=== PATIENT | female | born 1950 | race Caucasian/White ===

== ENCOUNTER 2025-05-24 13:50 | Inpatient (IN) | payer OTHER, MEDICARE, SELFPAY ==
[2025-05-24] VITALS (24 sets, daily range): BP systolic 97–150; BP diastolic 36–65; PULSE 79–111; RESP 16–48; TEMP 34.9–37.6; O2SAT 64–100; BMI 18.9
--- NOTE | ~2025-05-24 | US_ITS ---
CLINICAL HISTORY: Sepsis, ?Cholecystitis on CT A P US abdomen limited Comparison: CT/SR - CT ABDOMEN PELVIS W IV CON - 05/24/25 17:35 EST Findings: The gallbladder is distended with wall thickening of 1 cm, with pericholecystic fluid, and with a stone in the gallbladder fundus. Sonographic Painting's sign was unable to be obtained due to patient's clinical status. Common bile duct is normal in caliber, measuring 0.4 cm. IMPRESSION: Sonographic findings highly suggestive of acute cholecystitis This document has been electronically signed by: Ambrosio Coffey MD on 05/24/2025 21:03:52
--- NOTE | ~2025-05-24 | CT_ITS ---
CLINICAL HISTORY: resp failure, ? PE. pneum, CHF? CT angiography chest with contrast. 3D Postprocessing. Comparison: None provided Findings: NECK BASE: Limited views of the thyroid are unremarkable. LUNGS/PLEURA: Endotracheal tube in place. Scarring and emphysematous changes bilaterally. Multifocal areas of ground-glass airspace consolidation with small bilateral pleural effusions. PULM VASCULAR: No pulmonary embolism. MEDIASTINUM: No masses or lymphadenopathy. CARDIAC: No pericardial effusion. Moderate cardiomegaly. AORTA: No aneurysm. CHEST WALL: No masses or axillary lymphadenopathy. LIMITED ABDOMEN: Limited views are unremarkable. BONES: No acute fracture. IMPRESSION: 1. No pulmonary emboli. 2. Multifocal pneumonia. This document has been electronically signed by: Quita Lynch MD on 05/24/2025 18:43:40
--- NOTE | ~2025-05-24 | CT_ITS ---
CLINICAL HISTORY: Sepsis? source CT abdomen and pelvis with contrast Comparison: None provided Findings: LIMITED CHEST: See separate CT chest. LIVER: Small hypoattenuating lesions, too small to characterize however may represent cysts. BILIARY: Distended gallbladder with small gallstones. PANCREAS: No mass or ductal dilatation. SPLEEN: No splenomegaly. KIDNEYS: Heterogeneous hypoenhancement of the right kidney. No hydronephrosis. Small hypoattenuating lesions, too small to characterize however may represent cysts. ADRENALS: No nodule. VASCULAR: No aneurysm. IVC filter in place. RETROPERITONEUM: No lymphadenopathy or mass. BOWEL/MESENTERY: Enteric tube tip is in the stomach. No evidence of obstruction. No free fluid or air. Moderate colonic stool burden. Rectal temperature probe. ABDOMINAL WALL: Anasarca. URINARY BLADDER: Decompressed with Casillas catheter in place. PELVIC NODES: No pelvic lymphadenopathy. PELVIC ORGANS: Normal for age. BONES: No acute fracture. OTHER: Negative. IMPRESSION: Heterogeneous hypoenhancement of the right kidney, may represent renal infarct versus pyelonephritis. Correlate with urinalysis. Distended gallbladder with cholelithiasis. Acute cholecystitis is considered. Also see separate CT chest performed concurrently. This document has been electronically signed by: Quita Lynch MD on 05/24/2025 18:38:55
--- NOTE | ~2025-05-24 | XR_ITS ---
EXAMINATION: XR CHEST CLINICAL INFORMATION: hypoxia COMPARISON: 05/31/2025. TECHNIQUE: AP view of the chest was obtained. FINDINGS: Cardiomegaly is present. The mediastinal contours and hilar contours are normal. Aortic mural calcifications. Lungs again demonstrate diffuse interstitial pulmonary edema with alveolar edema in the perihilar regions and lung bases. There are small bilateral layering pleural effusion suspected. There is no perceptible pneumothorax. No focal osseous or soft tissue abnormality. Degenerative changes in both shoulder joints and throughout the spine. XR/XR chest 1V IMPRESSION: 1. No significant interval change. Cardiomegaly with diffuse pulmonary edema and small effusions. Electronically signed by: Bran Castro MD 06/03/2025 10:29 AM [facility]
--- NOTE | ~2025-05-24 | XR_ITS ---
CLINICAL HISTORY: pain Best images obtainable due to patients mobility. AP and Lateral views were obtained. Two views of the right elbow. COMPARISON: None provided. FINDINGS: Elevation of the anterior fat pad. Anterior humeral and radiocapitellar lines are maintained. Visualized portions of the humerus, radius and ulna appear intact. IMPRESSION: 1. Elbow joint effusion. This document has been electronically signed by: Jared Garcia MD on 06/07/2025 18:35:01
--- NOTE | ~2025-05-24 | US_ITS ---
EXAMINATION: US ABDOMEN LIMITED HISTORY: ?Acute Danni, Repeat for IR TECHNIQUE: Real-time grayscale ultrasound imaging of the gallbladder was performed and images were reviewed. COMPARISON: Comparison is made with the prior examination dated 05/24/2025. FINDINGS: The gallbladder is distended and demonstrates intraluminal calculi. There is pericholecystic fluid as seen previously. There is no gallbladder wall thickening. The patient cannot be assessed for a sonographic Painting sign negative intubation. The common bile duct measures 8 mm in diameter which is a new finding. US/US abdomen limited IMPRESSION: 1. Distended gallbladder with cholelithiasis and pericholecystic fluid. If there is clinical concern for acute cholecystitis, HIDA scan is suggested. 2. New mild dilatation of the common bile duct measuring up to 8mm. Electronically signed by: Gurpreet Nicolas MD 05/27/2025 10:22 AM [facility]
--- NOTE | ~2025-05-24 | XR_ITS ---
CLINICAL HISTORY: Low O2 sats, increased work of breathing 1 view chest x-ray Comparison: 05/24/2025 Findings: Persistent cardiomegaly. Mildly evolving relatively diffuse right lung and less conspicuous left upper/midlung opacities likely due to pneumonia and/or pulmonary edema. Persistent bilateral costophrenic recess pleural effusions. Incompletely evaluated cervical spine hardware. Old healed fracture of the lateral aspect of 1 of the left-sided ribs. No acute fracture. IMPRESSION: Persistent cardiomegaly. Mildly evolving relatively diffuse right lung and less conspicuous left upper/midlung opacities likely due to pneumonia and/or pulmonary edema. Persistent bilateral costophrenic recess pleural effusions. This document has been electronically signed by: Hedy Smith MD on 05/31/2025 06:09:36
--- NOTE | ~2025-05-24 | XR_ITS ---
CLINICAL HISTORY: sudden SOB 1 view chest x-ray Comparison: CR - XR CHEST 1V - 06/11/25 20:06 EST CR - XR CHEST 1V - 06/09/25 18:40 EST Findings: There is coarse opacity throughout both lungs which appears similar to prior exams. There may be a small left pleural effusion. No change. Cardiomegaly similar to prior. Osteopenia. No acute fracture. IMPRESSION: No acute cardiopulmonary changes. This document has been electronically signed by: Byron Villareal MD on 06/14/2025 02:14:45
--- NOTE | ~2025-05-24 | XR_ITS ---
CLINICAL HISTORY: sob 1 view chest x-ray Comparison: CR/SR - XR CHEST 1 VIEW - 06/03/25 10:10 EST Findings: Similar bilateral hazy airspace opacities. Stable cardiomegaly. No acute osseous abnormality. IMPRESSION: 1. Similar cardiomegaly with bilateral hazy airspace opacities, which may represent edema versus pneumonia. This document has been electronically signed by: Quita Lynch MD on 06/09/2025 18:55:42
--- NOTE | ~2025-05-24 | CT_ITS ---
EXAMINATION: CT CHEST ANGIOGRAPHY WITH IV CONTRAST INDICATION: hypoxia COMPARISON: Previous chest x-ray from earlier the same day and chest CT PA gram May 24, 2025 TECHNIQUE: Helical CT scan of the chest was performed following administration of intravenous contrast (65 mL Omnipaque 350). The contrast bolus was timed to optimally opacify the pulmonary arteries. Thin sections were obtained through the pulmonary arteries. Coronal and sagittal reformatted images were generated. 3D/MIP reconstructed images are also obtained and reviewed. This CT exam was performed with one or more of the following dose reduction techniques: automated exposure control, adjustment of the mA and/or kV according to patient size, use of iterative reconstruction technique. DLP: 131 mGy-cm CHEST: THYROID: The thyroid gland is unremarkable. PULMONARY ARTERIES: Limited exam due to respiratory motion artifact. No intraluminal filling defects are identified within the pulmonary arteries to suggest pulmonary emboli. Pulmonary arteries upper normal in size, main pulmonary artery measuring 2.7 cm. LUNGS: Diffuse groundglass attenuation and increased interstitial markings, right lung greater than left. This is a slightly increased from previous exam. MEDIASTINUM: Shotty mediastinal lymphadenopathy similar to previous exam. LION: Shotty bilateral hilar lymphadenopathy similar to previous exam. CARDIOVASCULATURE: Enlarged heart. Particularly, the left atrium is enlarged. No pericardial effusion. There is no septal bowing. There is reflux of contrast into the liver suggestive of right heart compromise that appears increased from previous exam. Calcified normal caliber thoracic aorta. Very minimal aortic valve calcification. DEGREE OF CORONARY CALCIFICATION: moderate PLEURA: Small to moderate bilateral pleural effusions. The left is decreased and the right not appear appreciably changed from previous exam. No pneumothorax. MAIN AIRWAYS: The mainstem bronchi and proximal branches are patent. AXILLA: There is no axillary lymphadenopathy. No chest wall mass. There is dependent subcutaneous edema. UPPER ABDOMEN: Severe atherosclerotic disease. Reflux of contrast into the liver described above. BONES AND SOFT TISSUES: Degenerative changes of the spine and mild T5 vertebral body compression fracture unchanged. CT/CT angio chest PE protocol IMPRESSION: Limited exam due to respiratory motion artifact. No evidence of pulmonary embolism. Very enlarged heart, particularly the left atrium. No evidence of right heart strain. Reflux of contrast in the liver suggestive of right heart compromise increased from prior CTA. Diffuse groundglass attenuation and increased interstitial markings throughout the lungs, right greater than left. This is increased from recent May 24, 2025 exam. Differential would include pulmonary edema and pneumonia. Small to moderate sized bilateral pleural effusions. Electronically signed by: Vonda Bruno MD 05/31/2025 12:25 PM [facility] [place]
--- NOTE | ~2025-05-24 | XR_ITS ---
EXAMINATION: XR CHEST CLINICAL INFORMATION: shortness of breath COMPARISON: None available. TECHNIQUE: Frontal view of the chest was obtained. FINDINGS: Somewhat patchy diffuse airspace opacities are present in the right greater than left lung, most advanced in the right upper lobe. There is cardiomegaly. There is no definite pleural effusion. There is rotator cuff arthropathy on the right, and probably on the left, consistent with chronic rotator cuff tear. There is hardware related to ACDF in the mid to lower cervical spine. XR/XR chest 1V IMPRESSION: Patchy but diffuse airspace disease could represent ARDS, pneumonia, or early changes from pulmonary edema. Cardiomegaly. Electronically signed by: Jerzy Veras MD 05/24/2025 02:55 PM [facility]
--- NOTE | ~2025-05-24 | XR_ITS ---
CLINICAL HISTORY: worsening hypoxia 1 view chest x-ray. Comparison: CR - XR CHEST 1V - 06/09/25 18:40 EST Findings: Cardiomegaly. Bilateral diffuse airspace opacities have increased in the right mid and lower lung compared to prior exam. No acute displaced fracture. The visualized upper abdomen is unremarkable. Impression: Interval increase in right lung airspace opacities. This document has been electronically signed by: Serina Kam MD on 06/11/2025 20:26:58
--- NOTE | ~2025-05-24 | US_ITS ---
CLINICAL HISTORY: LLE swelling, assess for DVT Venous duplex ultrasound left lower extremity Comparison: None provided Findings: Evaluation was limited as the patient was not able to tolerate compression. The left common femoral, femoral, popliteal and posterior tibial veins demonstrate normal color flow and appropriate waveforms. The left peroneal vein was not visualized. The saphenofemoral junction is patent. No popliteal cyst. IMPRESSION: 1. Negative for left lower extremity deep vein thrombosis. Mildly limited study. This document has been electronically signed by: Heather Ruiz MD on 05/30/2025 15:13:05
--- NOTE | 2025-05-24 13:55 | ED_ITS ---
HPI - General Adult General Chief complaint: Dyspnea Stated complaint: SOB COMING FROM SNF 75% 15 LPM NRB Time Seen by Provider: 05/24/25 13:55 History of Present Illness ED Provider: Jacinda PAREKH narrative: The patient is a 74-year-old woman who was brought to the hospital by ambulance from [facility] for shortness of breath. The patient was hospitalized at [facility] for the month of March. She was hospitalized on March 04. She was discharged on April 04, about 6 weeks ago. Her discharge diagnoses included C diff colitis, chronic congestive heart failure, paroxysmal atrial fibrillation, and a variety of other conditions. Apparently when the patient left [facility] she had completed a course of oral vancomycin for C diff. During the last 6 weeks at [facility] however she had a recurrence of diarrhea and tested positive for C diff and was put on another course of vancomycin. She has been on a tapering dose of oral vancomycin with the last dose today. In addition she was apparently prescribed a course of doxycycline last week for possible pneumonia. She was also started on a course of levofloxacin 3 days ago for a possible UTI. Over the past couple of days her oxygen saturations have worsened than she was put on oxygen. Today she had sufficiently low oxygen saturations and seemed tachypneic and short of breath so that they called an ambulance and sent her to the hospital. The patient seems somewhat confused and is not a very good historian and does not very able to add to the history. She complained intermittently of left leg pain. I was ultimately able to speak to the patient's family and they told me that the pain in the left leg is a chronic complaint. 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 Related Data Allergies Allergy/AdvReac Type Severity Reaction Status Date / Time No Known Allergies Allergy Verified 05/24/25 14:00 Review of Systems 2 Review of Systems: Yes all other systems are reviewed and are negative PMFSH Social History Social History Smoked in Last 30 Days: No Use of substances other than those prescribed or required for medical reasons: No Advance Directives: No Advance Directives Information Provided: Yes Do you have a plan to hurt others: No Plan Physical Exam ED Vital Signs: Vital Signs - 24 hr 05/24/25 13:56 05/24/25 14:07 05/24/25 15:07 Temperature 99.2 F 99.5 F Pulse Rate 108 H 85 90 Respiratory Rate 40 H 24 H 30 H Blood Pressure 150/49 H 131/38 L Pulse Oximetry 93 89 L Oxygen Delivery Method Oxymask Oxymask Oxygen Flow Rate 8 Fraction of Inspired Oxygen 05/24/25 15:36 05/24/25 15:37 05/24/25 15:37 Temperature 99.3 F Pulse Rate 91 92 Respiratory Rate 25 H 25 H 26 H Blood Pressure Pulse Oximetry 96 Oxygen Delivery Method High Flow Nasal Cannula Oxygen Flow Rate 45 Fraction of Inspired Oxygen 65 05/24/25 16:21 05/24/25 17:03 05/24/25 17:09 Temperature 99.5 F Pulse Rate 103 H 110 H 111 H Respiratory Rate 48 H 23 H 24 H Blood Pressure 148/64 H 124/36 L 124/36 L Pulse Oximetry 100 100 Oxygen Delivery Method High Flow Nasal Cannula Mechanical Ventilation Oxygen Flow Rate Fraction of Inspired Oxygen 05/24/25 17:12 05/24/25 17:22 05/24/25 17:25 Temperature Pulse Rate 100 Respiratory Rate 18 Blood Pressure 125/57 L Pulse Oximetry 100 Oxygen Delivery Method Mechanical Ventilation Oxygen Flow Rate Fraction of Inspired Oxygen 50 40 40 05/24/25 17:50 05/24/25 18:23 Temperature 99.7 F 99.3 F Pulse Rate 98 94 Respiratory Rate 16 16 Blood Pressure 141/63 H 119/51 L Pulse Oximetry 95 94 Oxygen Delivery Method Mechanical Ventilation Mechanical Ventilation Oxygen Flow Rate Fraction of Inspired Oxygen 30 BMI result Body Mass Index 18.9 Const Other: The patient is a cachectic, chronically ill-appearing 74-year-old who was awake and seemed restless. She was tachypneic with some increased work of breathing. HENMT Other: Face is symmetrical. Mucous membranes appeared dry. Eyes Other: Pupils are round equal, conjunctivae are clear, extraocular movements intact Neck Other: No neck swelling. No definite JVD although her external jugular veins were not flat. Resp Other: Diminished air entry bilaterally. I did not hear definite crackles or wheezes. There was increased work of breathing however. The patient was tachypneic Cardio Rate: tachycardic Rhythm: regular rhythm Heart sounds: S1 normal heart sound present and S2 normal heart sound present GI Other: The abdomen was soft and seems nontender. Skin Other: Skin was unremarkable Neuro Other: The patient was awake and alert but seemed somewhat agitated and restless. Pupils are round equal, eye movements were intact, face was symmetrical, there was no gross speech abnormality. She seems to have a contracted left arm. This seems chronic. Her right arm seems normal and she seems to move the right arm normally and appropriately. She seems to have symmetrical tone in her legs. Extrem Other: The patient keeps her left arm bent at the elbow. I am unable to straighten the arm. I believe this is a chronic deformity. The other extremities are without deformity or any other abnormality. Her extremities seem somewhat wasted. There was no swelling or tenderness. I was able to put her hips and knees through a good range of motion. Medications Administered Generic Name Dose Route Start Last Admin Trade Name Freq PRN Reason Stop Dose Admin Fentanyl 1,000 mcg in 100 mls @ 0 mls/hr 05/24/25 16:45 05/24/25 17:04 Sublimaze/Ns IVCONT 50 mcg/hr .Q0M DEE 5 mls/hr Protocol Administration Per Protocol Discontinued Medications Generic Name Dose Route Start Last Admin Trade Name Freq PRN Reason Stop Dose Admin Albuterol Sulfate 5 mg/ 0 mg 05/24/25 14:07 05/24/25 14:09 Albuterol/Ipratropium 3 ml INHALE 05/24/25 14:08 7.5 each ONCE ONE Administration Albuterol Sulfate 5 mg/ 0 mg 05/24/25 15:36 05/24/25 15:39 Albuterol/Ipratropium 3 ml INHALE 05/24/25 15:37 1 each ONCE ONE Administration Haloperidol Lactate 2 mg 05/24/25 16:02 05/24/25 16:17 Haloperidol Lactate 5 Mg/Ml Vial IVPUSH 05/24/25 16:03 2 mg ONCE ONE Administration Piperacillin Sod/Tazobactam 100 mls @ 200 mls/hr 05/24/25 14:48 05/24/25 15:36 Sod 4.5 gm/ Sodium Chloride IV 05/24/25 15:17 Infused ONCE ONE Infusion Vancomycin HCl 1,250 mg/ 250 mls @ 166.667 mls/hr 05/24/25 14:48 05/24/25 17:25 Sodium Chloride IV 05/24/25 16:17 Infused ONCE ONE Infusion Lactated Ringer's 1,000 mls @ 999 mls/hr 05/24/25 15:00 05/24/25 16:20 Lr IV 05/24/25 16:00 Infused .Q1H1M DEE Infusion Midazolam HCl 50 mg in 50 mls @ 2 mls/hr 05/24/25 16:45 05/24/25 17:03 Versed IVCONT 2 mg/hr .Q24H DEE 2 mls/hr Protocol Administration 2 MG/HR Iohexol 100 ml 05/24/25 17:47 05/24/25 17:48 Iohexol 350 Mg/Ml 100 Ml Infus..Btl IV 05/24/25 17:48 85 ml ONCE ONE Administration Iohexol 100 ml 05/24/25 18:10 05/24/25 18:12 Iohexol 350 Mg/Ml 100 Ml Infus..Btl IV 05/24/25 18:11 85 ml ONCE ONE Administration Ketamine HCl 70 mg 05/24/25 16:42 05/24/25 16:55 Ketamine Hcl/Ns 50 Mg/5 Ml Syringe IVPUSH 05/24/25 16:43 70 mg ONCE ONE Administration Rocuronium [place] 50 mg 05/24/25 16:42 05/24/25 16:55 Rocuronium [place] 50 Mg/5 Ml Vial IVPUSH 05/24/25 16:43 50 mg ONCE ONE Administration Medical Decision Making Medical Decision Making [facility] Narrative: The patient is a 74-year-old woman with a history of congestive heart failure. She also has a history of paroxysmal atrial fibrillation and is on anticoagulation. She has been staying at a rehab facility, [facility] for the last 7 weeks after being discharged from [facility] on April 04. She has been there for 1 month for a variety of problems including C diff colitis. Apparently while at the rehab facility she had a 2nd occurrence of C diff and was placed on a 2nd round of vancomycin which has been tapering down. More recently she was on a course of doxycycline for a possible pneumonia last week and apparently has been on levofloxacin for the last 3 days for a possible UTI. She was sent to the emergency room because of worsening shortness of breath over the last couple of days with a falling oxygen saturations. She arrived quite tachypneic with some increased work of breathing. I felt her chest x-ray probably showed pneumonia. She was treated with the antibiotics, piperacillin/tazobactam and vancomycin. She was given bronchodilator treatment. She was given IV fluids. The patient has a significant oxygen requirement. She was also very restless which made monitoring her oxygen saturations difficult. Since she was exhibiting increased work of breathing she was placed on high-flow nasal cannula. Despite this she remained very tachypneic and was working quite hard. Ultimately I felt that she was going to fatigue and, given her degree of restlessness and agitation I thought that intubation was probably the prudent course of action. The patient agreed to the idea of intubation and I also spoke to the patient's and daughter prior to intubation. The patient has been a full code to this point. The patient was intubated in a fairly straight forward manner. A CT scan of the chest and also of the abdomen and pelvis was obtained following intubation. ET tube placement and orogastric tube placement seem adequate on the CT scans. The patient is respiratory status seemed to stabilize after intubation. She was placed on a midazolam drip and a fentanyl drip. Fortunately she remained hemodynamically stable. The CT of the chest was read as showing multifocal pneumonia. I contacted Dr. Devlin of the intensive care unit and the patient was admitted for ongoing management. The patient's and daughter confirmed that the patient's left arm has been chronically contracted since his stroke. Additionally they say that the patient's complaint of left leg pain is a chronic complaint. Lab Data 05/24/25 14:14 05/24/25 14:14 Labs: Lab Results 05/24/25 05/24/25 05/24/25 Range/Units 14:14 15:11 17:18 WBC 19.3 H (4.8-10.8) X10*3/uL RBC 2.71 L (4.20-5.50) X10*6/uL Hgb 7.5 L (12.0-16.0) g/dl Hct 22.6 L (37.0-47.0) % MCV 83.4 (80.0-98.0) fL MCH 27.7 (27.0-33.0) pg MCHC 33.2 (31.0-35.0) g/dl RDW 18.4 H (11.0-16.0) % Plt Count 529 H (160-400) X10*3/uL MPV 8.7 L (9.4-12.3) fL Immature Gran % (Auto) 2.5 H (0.0-0.4) % Neut % (Auto) 85.5 H (45-73) % Lymph % (Auto) 4.7 L (20-40) % Desha % (Auto) 6.9 (2-11) % Eos % (Auto) 0.1 (0-4) % Baso % (Auto) 0.3 (0-2) % Lymph # (Auto) 0.9 L (1.2-4.9) X10*3/uL Desha # (Auto) 1.3 H (0.1-1.2) X10*3/uL Eos # (Auto) 0.0 (0.0-0.4) X10*3/uL Baso # (Auto) 0.1 (0.0-0.2) X10*3/uL Abs Immat Gran (auto) 0.49 H (0.00-0.03) X10*3/uL Absolute Neuts (auto) 16.5 H (2.0-8.3) x10*3/uL Absolute Nucleated RBC 0.000 (0.0-0.012) X10*3/uL Nucleated RBC % (auto) 0.0 (0.0-0.2) /100WBC PT 24.1 H (11.2-13.5) SEC INR 2.0 H (0.9-1.1) VBG pH 7.43 (7.32-7.43) VBG pCO2 30 mmHg VBG pO2 35 mmHg VBG HCO3 20 L (22-26) mmol/L VBG O2 Saturation 46.0 % VBG Base Excess -2.6 mmol/L Sodium 125 L (135-145) mmol/L Potassium 4.8 (3.3-5.1) mmol/L Chloride 95 L (96-108) mmol/L Carbon Dioxide 22 (22-29) mmol/L Anion Gap 13 (12-20) BUN 14 (9-16) mg/dL Creatinine 0.58 (0.5-1.4) mg/dL Estim Creat Clear Calc 67.0 Estimated GFR > 60 Random Glucose 104 (60-115) mg/dL Lactic Acid 2.1 H* (0.5-2.0) mmol/L Lactic Acid F/U @ 2Hr 1.9 (0.5-2.0) mmol/L Calcium 8.3 L (8.4-10.2) mg/dL Magnesium 1.8 (1.6-2.6) mg/dL Total Bilirubin 0.7 (0.0-1.0) mg/dL Direct Bilirubin 0.4 (0.0-0.5) mg/dL AST 100 H (5-31) U/L ALT 71 H (0-31) U/L Alkaline Phosphatase 104 (39-117) U/L Troponin I High Sens 8.0 (<3.5-17.0) ng/L C-Reactive Protein 21.88 H (< or = 0.50) mg/dL Total Protein 5.8 L (6.5-8.0) g/dL Albumin 2.8 L (3.5-5.0) g/dL Procalcitonin 0.19 ng/mL Urine Color Yellow Urine Appearance Clear Urine pH 5.5 (5.0-9.0) Ur Specific [place] 1.025 (1.005-1.025) Urine Protein 30 (1+) H (Neg-Trace) mg/dL Urine Glucose (UA) Negative (Negative) mg/dL Urine Ketones Trace (Negative) mg/dL Urine Blood Negative (Negative) Urine Nitrite Negative (Negative) Ur Leukocyte Esterase Trace H (Negative) Urine RBC 0-2 (0-2) /HPF Urine WBC 6-10 H (0-5) /HPF Ur Squamous Epith Cells 3-5 (0-2) /HPF Urine Bacteria None Seen (None Seen) Hyaline Casts 3-5 (0-2) /LPF Influenza Type A (PCR) NEGATIVE (Negative) Influenza Type B (PCR) NEGATIVE (Negative) RSV RNA Qual (PCR) NEGATIVE (Negative) SARS-CoV-2 RNA (RT-PCR) NEGATIVE (Negative) Blood Type A Positive Antibody Screen NEGATIVE Critical Care Time Critical Care Time Critical Care Time: Yes Total Critical Care Time: 45 Attestation: The patient was critically ill with a high probability of imminent or life- threatening deterioration. ?I spent greater than 30 minutes of discontinuous time evaluating the patient, delivering critical care at the bedside, discussing evaluating data with consultants. ?Critical care time does not include time spent performing separately billable procedures or teaching. ?Time spent performing critical care with 45 minutes. Discharge Plan Discharge Clinical Impression: Multifocal pneumonia, Respiratory failure Patient Disposition: Admitted As Inpatient
--- NOTE | 2025-05-24 14:01 | ECG_ITS ---
Test Reason : SOB Blood Pressure : */* mmHG Vent. Rate : 95 BPM Atrial Rate : 101 BPM P-R Int : * ms QRS Dur : 96 ms QT Int : 358 ms P-R-T Axes : * 67 83 degrees QTcB Int : 449 ms Artifact in tracing Undetermined rhythm Cannot rule out Anterior infarct , age undetermined Due to artifact, cannot interpret further No previous ECGs available Referred By: Deondre Monaco Electronically Signed By: JOSTIN DONNELLY
[2025-05-24] MEDS: Albuterol Sulfate 5 MG, Albuterol/Iprat 2.5/0.5MG 3 ML 3 ML INHALE ×2 (14:09→15:39)
[2025-05-24 14:35] LABS: MANUAL DIFF FLAG NO
[2025-05-24 14:45] LABS: INTERNATIONAL NORM RATIO 2.0 (0.9-1.1); Prothrombin Time 24.1 SEC (11.2-13.5)
[2025-05-24 14:49] LABS: Hematocrit 22.6 % (37.0-47.0); Hemoglobin 7.5 g/dl (12.0-16.0); Imm Gran Abs Auto 0.49 X10*3/uL (0.00-0.03); Imm Gran Pct Auto 2.5 % (0.0-0.4); Lymphocytes Absolute Auto 0.9 X10*3/uL (1.2-4.9); Mean Corpuscular HGB Conc 33.2 g/dl (31.0-35.0); Mean Corpuscular Hemoglobin 27.7 pg (27.0-33.0); Mean Corpuscular Volume 83.4 fL (80.0-98.0); NRBC Abs Auto 0.000 X10*3/uL (0.0-0.012); NRBC Pct Auto 0.0 /100WBC (0.0-0.2); Platelet Count 529 X10*3/uL (160-400); Red Blood Count 2.71 X10*6/uL (4.20-5.50); White Blood Count 19.3 X10*3/uL (4.8-10.8)
[2025-05-24 14:51] LABS: Alanine Aminotransferase 71 U/L (0-31); Albumin Level 2.8 g/dL (3.5-5.0); Alkaline Phosphatase 104 U/L (39-117); Anion Gap 13 (12-20); Aspartate Amino Transferase 100 U/L (5-31); Blood Urea Nitrogen 14 mg/dL (9-16); Calcium 8.3 mg/dL (8.4-10.2); Carbon Dioxide 22 mmol/L (22-29); Chloride 95 mmol/L (96-108); Creatinine Clr Calc Pharmacy 67.0; Estimated Glomerular Filt Rate > 60; Magnesium 1.8 mg/dL (1.6-2.6); Potassium 4.8 mmol/L (3.3-5.1); Sodium 125 mmol/L (135-145); Total Protein 5.8 g/dL (6.5-8.0)
[2025-05-24] MEDS: Lactated Ringers 1,000 ML 999 ML IV (14:59)
[2025-05-24 15:15] LABS: VBG HCO3 20 mmol/L (22-26); VBG O2 % Saturation 46.0 %
[2025-05-24 15:15] LABS: Venous Blood Gas Refer to POC result
[2025-05-24 15:17] LABS: Troponin-I High Sensitivity 8.0 ng/L (<3.5-17.0)
[2025-05-24 15:18] LABS: Resp Syncy Virus RNA Qual PCR NEGATIVE (Negative); SARS COV2 PCR INHOUSE NEGATIVE (Negative)
--- NOTE | 2025-05-24 15:34 | PC.NURSE ---
Pt continues to be squirrely in bed, O@ sat unreliable, sats anywhere from 85 - 94% on oxymask. Provider decision to start pt on HF, currently on 45L @ 65%, sats anywhere from 87 - 96%. RT remains at bedside.
--- NOTE | 2025-05-24 16:23 | PC.NURSE ---
PT found completely naked on bed, pt repositioned, oxygen reattached, medicated per MAR. Pt intermittently yelling help me help me help me Provider to decide if BIPAP is next step.
[2025-05-24 16:31] LABS: Reflex Lactate? Lactic Acid Added
[2025-05-24] MEDS: Ketamine HCl/NS 50 MG/5 ML SYRINGE 70 MG IVPUSH (16:55)
[2025-05-24] MEDS: Midazolam HCl/NS 50 MG/50 ML PLAST..BAG IVCONT (17:03)
[2025-05-24] MEDS: fentaNYL citrate/NS 1,000 MCG/100 ML PLAST..BAG 5 MCG IVCONT (17:04)
[2025-05-24 17:05] LABS: Procalcitonin 0.19 ng/mL
--- NOTE | 2025-05-24 17:10 | PC.NURSE ---
Provider/ Family decision made to intubate. Pt successfully intubed by Dr Mendosa 7.5 ET, 22 @ the lip + color change, OG tube placed by Dr. Mendosa. Lana and Katherine PRO present during intubation. See MAR for meds given/gtts running. Plan for pt to get chest CT for tube placement/necessary for ED work up.
[2025-05-24 17:28] LABS: Appearance Urine Clear; Glucose Urine UA Negative (Negative); PH 5.5 (5.0-9.0); Specific Gravity - Urine 1.025 (1.005-1.025); UMIC TRIGGER UACC YES
[2025-05-24 17:43] LABS: ~Lactic Acid-LAB USE ONLY 1.9 mmol/L (0.5-2.0)
[2025-05-24] MEDS: iohexoL 350 MG/ML 100 ML INFUS..BTL IV ×2 (17:48→18:12)
[2025-05-24 17:57] LABS: UACC Culture Trigger YES
--- NOTE | 2025-05-24 18:18 | PM.CCHP ---
History of Present Illness Date of Service: 05/24/25 <Josie Devlin MD - Last Filed: 05/24/25 18:59> Attending physician on admission: Josie Devlin <Josie Devlin MD - Last Filed: 05/24/25 18:59> Chief Complaint: Dyspnea <Josie Devlin MD - Last Filed: 05/24/25 18:59> Patient is a 74 Y F w/ CHF, c/b atrial fibrillation, recent admission to [facility] for c. difficile, presenting from rehab w/ dyspnea, found to be in acute hypoxic respiratory failure, necessitating intubation; ED work-up not suggestive of pulmonary embolism, concerning for multifocal pneumonia <Josie Devlin MD - Last Filed: 05/24/25 18:59> Review of Systems Review of Systems: Yes unobtainable due to endotracheal tube and Unobtainable due to mental condition <Josie Devlin MD - Last Filed: 05/24/25 18:59> FOR[facility]LY [facility], [facility] Social History Social History: Social History Smoked in Last 30 Days: No Use of substances other than those prescribed or required for medical reasons: No Advance Directives: No Advance Directives Information Provided: Yes Do you have a plan to hurt others: No Plan <Josie Devlin MD - Last Filed: 05/24/25 18:59> Meds Allergies/Adverse reactions: Allergies Allergy/AdvReac Type Severity Reaction Status Date / Time No Known Allergies Allergy Verified 05/24/25 14:00 <Josie Devlin MD - Last Filed: 05/24/25 18:59> Active Medications: Current Medications Midazolam HCl (Versed) 50 mg in 50 mls @ 2 mls/hr IVCONT .Q24H DEE; Protocol Last Admin: 05/24/25 17:03 Dose: 2 mg/hr, 2 mls/hr Fentanyl (Sublimaze/Ns) 1,000 mcg in 100 mls @ 0 mls/hr IVCONT .Q0M DEE; Protocol Last Admin: 05/24/25 17:04 Dose: 50 mcg/hr, 5 mls/hr Naloxone HCl (Naloxone Hcl 0.4 Mg/Ml Vial) 0.2 mg IVPUSH Q2M PRN PRN Reason: Excessive sedation or RR < 8 <Josie Devlin MD - Last Filed: 05/24/25 18:59> Physical Exam Vital Signs: Vital Signs: Last Vital Signs Temp 99.7 F 05/24/25 17:50 Pulse 98 05/24/25 17:50 Resp 16 05/24/25 17:50 BP 141/63 H 05/24/25 17:50 Pulse Ox 95 05/24/25 17:50 O2 Del Method Mechanical Ventil ation 05/24/25 17:50 O2 Flow Rate 45 05/24/25 15:37 FiO2 40 05/24/25 17:25 Oxygen Flow Rate 8 05/24/25 13:56 BMI result Body Mass Index 18.9 <Josie Devlin MD - Last Filed: 05/24/25 18:59> Const: General: ill appearing chronically <Beatriz Oconnor NP - Last Filed: 05/24/25 20:25> Nutritional Appearance: cachectic <Beatriz Oconnor NP - Last Filed: 05/24/25 20:25> HEENT: Head: Yes normocephalic and Yes atraumatic <Beatriz Oconnor NP - Last Filed: 05/24/25 20:25> General nose exam: Normal external nose present (Nares patent, septum midline, sinuses nontender bilaterally.) <Beatriz Oconnor NP - Last Filed: 05/24/25 20:25> Neck: Neck: Yes supple (no thyromegaly, trachea midline.) <Beatriz Oconnor NP - Last Filed: 05/24/25 20:25> Carotids: normal carotid upstroke <Beatriz Oconnor NP - Last Filed: 05/24/25 20:25> Resp: Auscultation: clear to auscultation bilaterally (normal work of breathing, no accessory muscle use) <Beatriz Oconnor NP - Last Filed: 05/24/25 20:25> Cardio: Jugular venous distension: no JVD <Beatriz Oconnor NP - Last Filed: 05/24/25 20:25> Rate: regular rate <Beatriz Oconnor NP - Last Filed: 05/24/25 20:25> Rhythm: regular rhythm <Beatriz Oconnor NP - Last Filed: 05/24/25 20:25> Heart sounds: no gallops, no murmurs and no rubs <Beatriz Oconnor NP - Last Filed: 05/24/25 20:25> Peripheral pulses: Peripheral pulses 2+ throughout <Beatriz Oconnor NP - Last Filed: 05/24/25 20:25> GI: Palpation (GI): Soft to palpation (nondistended.) and nontender <Beatriz Oconnor NP - Last Filed: 05/24/25 20:25> Skin: General skin exam: turgor decreased <Beatriz Oconnor NP - Last Filed: 05/24/25 20:25> Extrem: Left upper extremity: elbow/forearm Details: deformity Location: of the elbow (contracted) and wrist (contracted) <Beatriz Oconnor NP - Last Filed: 05/24/25 20:25> Results Labs CBC and Chem 7: 05/24/25 14:14 05/24/25 14:14 <Josie Devlin MD - Last Filed: 05/24/25 18:59> Labs: Laboratory Results - last 24 hr 05/24/25 05/24/25 05/24/25 14:14 15:11 17:18 MCV 83.4 MCH 27.7 MCHC 33.2 RDW 18.4 H Plt Count 529 H MPV 8.7 L Immature Gran % (Auto) 2.5 H Neut % (Auto) 85.5 H Lymph % (Auto) 4.7 L [place] % (Auto) 6.9 Eos % (Auto) 0.1 Baso % (Auto) 0.3 Lymph # (Auto) 0.9 L [place] # (Auto) 1.3 H Eos # (Auto) 0.0 Baso # (Auto) 0.1 Abs Immat Gran (auto) 0.49 H Absolute Neuts (auto) 16.5 H Absolute Nucleated RBC 0.000 Nucleated RBC % (auto) 0.0 PT 24.1 H INR 2.0 H VBG pH 7.43 VBG pCO2 30 VBG pO2 35 VBG HCO3 20 L VBG O2 Saturation 46.0 VBG Base Excess -2.6 Anion Gap 13 Estim Creat Clear Calc 67.0 Estimated GFR > 60 Random Glucose 104 Lactic Acid 2.1 H* Lactic Acid F/U @ 2Hr 1.9 Calcium 8.3 L Magnesium 1.8 Total Bilirubin 0.7 Direct Bilirubin 0.4 AST 100 H ALT 71 H Alkaline Phosphatase 104 Troponin I High Sens 8.0 C-Reactive Protein 21.88 H Total Protein 5.8 L Albumin 2.8 L Procalcitonin 0.19 Urine Color Yellow Urine Appearance Clear Urine pH 5.5 Ur Specific [place] 1.025 Urine Protein 30 (1+) H Urine Glucose (UA) Negative Urine Ketones Trace Urine Blood Negative Urine Nitrite Negative Ur Leukocyte Esterase Trace H Urine RBC 0-2 Urine WBC 6-10 H Ur Squamous Epith Cells 3-5 Urine Bacteria None Seen Hyaline Casts 3-5 Influenza Type A (PCR) NEGATIVE Influenza Type B (PCR) NEGATIVE RSV RNA Qual (PCR) NEGATIVE SARS-CoV-2 RNA (RT-PCR) NEGATIVE Blood Type A Positive Antibody Screen NEGATIVE <Josie Devlin MD - Last Filed: 05/24/25 18:59> Imaging Radiologist's Impressions: Impressions Chest X-Ray 05/24/25 14:45 IMPRESSION: Patchy but diffuse airspace disease could represent ARDS, pneumonia, or early changes from pulmonary edema. Cardiomegaly. Electronically signed by: Jerzy Veras MD 05/24/2025 02:55 PM EST <Josie Devlin MD - Last Filed: 05/24/25 18:59> Assessment and Plan (1) Acute respiratory failure: Status: Acute <Josie Devlin MD - Last Filed: 05/24/25 18:59> Patient is a 74 Y F w/ CHF, c/b atrial fibrillation, recent admission to [facility] for c. difficile, presenting from rehab w/ dyspnea, found to be in acute hypoxic respiratory failure, necessitating intubation; ED work-up suggestive of multifocal pneumonia N: intubated, sedated w/ propofol, fentanyl gtts, wean as tolerated CV: no acute issues; to closely monitor hemodynamics R: acute hypoxic respiratory failure, likely d/t mutlifocal pneumonia, intubated 05/24, wean as tolerated GI: NPO, to consider tube feeds : hyponatremia; to monitor renal indices/electrolytes H: anemia, to monitor; chemical DVT prophylaxis ID: empiric vanc/zosyn for possible pneumonia; to follow-up BCx, UCx, RCx 05/24; of note, recent c. difficile, on vanc PO E: to monitor hypo-/hyper-glycemia P: no acute issues <Josie Devlin MD - Last Filed: 05/24/25 18:59>
--- NOTE | 2025-05-24 19:06 | PC.NURSE ---
spoke w/ICU - will call back after report when bed assigned
--- NOTE | 2025-05-24 19:39 | PC.NURSE ---
report given to IRMA Darden in ICU patient going to #[id number]
[2025-05-24 20:27] LABS: VBG HCO3 16 mmol/L (22-26); VBG O2 % Saturation 100.0 %
--- NOTE | 2025-05-24 20:36 | PHA.MEDREC ---
Pharmacy Consult ? Medication Reconciliation Pharmacy has completed the medication reconciliation, using med list from [facility] [address].
[2025-05-24 21:14] LABS: Venous Blood Gas Refer to POC result
[2025-05-24] MEDS: Chlorhexidine Gluc Oral Rinse 15 ML MOUTHWASH BUCCAL (21:36)
[2025-05-24] MEDS: vancomycin HCL Oral Solution 125 MG/5 ML SOLN.RECON PO (23:26)
[2025-05-25] VITALS (38 sets, daily range): BP systolic 102–129; BP diastolic 42–65; PULSE 67–134; RESP 13–42; TEMP 34.2–37.6; O2SAT 88–100; BMI 22.2
--- NOTE | 2025-05-25 | ECG_ITS ---
Test Reason : arrhythmia Blood Pressure : */* mmHG Vent. Rate : 74 BPM Atrial Rate : 156 BPM P-R Int : * ms QRS Dur : 118 ms QT Int : 426 ms P-R-T Axes : * 54 -30 degrees QTcB Int : 473 ms Sinus rhythm possible Mobitz 1 second degree block cannot exclude old Anterior infarct (cited on or before 24-May-2025) Abnormal ECG When compared with ECG of 24-May-2025 14:30, No significant changes seen Referred By: Beatriz Oconnor Electronically Signed By: JOSTIN DONNELLY
[2025-05-25 05:05] LABS: VBG HCO3 20 mmol/L (22-26); VBG O2 % Saturation 64.0 %
[2025-05-25 05:18] LABS: Venous Blood Gas Refer to POC result
[2025-05-25 05:21] LABS: MANUAL DIFF FLAG NO
[2025-05-25 05:22] LABS: Imm Gran Abs Auto 0.09 X10*3/uL (0.00-0.03); Imm Gran Pct Auto 0.7 % (0.0-0.4); Lymphocytes Absolute Auto 1.2 X10*3/uL (1.2-4.9); Mean Corpuscular HGB Conc 33.2 g/dl (31.0-35.0); Mean Corpuscular Hemoglobin 28.0 pg (27.0-33.0); Mean Corpuscular Volume 84.5 fL (80.0-98.0); NRBC Abs Auto 0.000 X10*3/uL (0.0-0.012); NRBC Pct Auto 0.0 /100WBC (0.0-0.2); Platelet Count 497 X10*3/uL (160-400); Red Blood Count 2.39 X10*6/uL (4.20-5.50); White Blood Count 13.4 X10*3/uL (4.8-10.8)
[2025-05-25 05:28] LABS: Hematocrit 20.2 % (37.0-47.0); Hemoglobin 6.7 g/dl (12.0-16.0)
[2025-05-25 05:33] LABS: Albumin Level 2.4 g/dL (3.5-5.0)
[2025-05-25 05:39] LABS: Anion Gap 12 (12-20); Blood Urea Nitrogen 11 mg/dL (9-16); Calcium 8.2 mg/dL (8.4-10.2); Carbon Dioxide 19 mmol/L (22-29); Chloride 102 mmol/L (96-108); Creatinine Clr Calc Pharmacy 63.7; Estimated Glomerular Filt Rate > 60; Magnesium 1.8 mg/dL (1.6-2.6); Potassium 4.3 mmol/L (3.3-5.1); Sodium 129 mmol/L (135-145)
--- NOTE | 2025-05-25 05:52 | PC.NURSE ---
Pt arrived to unit approx 2014 - intubated and sedated?with Versed and Fentanyl drips, changed over to Propofol?drip per [employer]UFA[employer] DESIGN ENGINEER Elvin - see SEP. ETT #7.5, 22 cm?@ lip?on AC settings - see vent assessment. SR on tele, HR 70-80s. MAP < 65, Levophed ordered and titrated per SEP. OGT clamped. Casillas in place draining clear yellow urine. MASD to coccyx - see photo in chart, barrier cream and foam in place, blanchable redness to heels - heel boots applied. Upper dentures removed, placed at the bedside. Update given to pt's . Hygiene provided, repositioned Q2H.?
[2025-05-25] MEDS: Albumin Human 25 % 100 ML IV ×2 (06:23→07:34)
[2025-05-25] MEDS: fentaNYL citrate/NS 1,000 MCG/100 ML PLAST..BAG 2.5 MCG IVCONT (06:48)
--- NOTE | 2025-05-25 08:32 | PM.CCPN ---
Subjective Subjective Date of Service: 05/25/25 Interval History: admitted 05/24 PM d/t acute respiratory failure, likely d/t pneumonia; ED work-up also suggestive of acute cholecystitis; clinical status critical, though hemodynamically/clinically stable Critical Care Time (minutes): 60 Physical Exam Vital Signs: Vital Signs: Last Vital Signs Temp 99.0 F 05/25/25 08:00 Pulse 72 05/25/25 08:00 Resp 17 05/25/25 08:00 BP 104/48 L 05/25/25 08:00 Pulse Ox 99 05/25/25 08:00 O2 Del Method Mechanical Ventil ation 05/25/25 08:00 O2 Flow Rate 45 05/24/25 15:37 FiO2 25 05/25/25 08:00 Oxygen Flow Rate 8 05/24/25 13:56 BMI result Body Mass Index 22.2 Const: Other: intubated, sedated; appreciable spontaneous breathing, though no appreciable purposeful movements; cachectic, chronically-ill appearing General: comfortable and no acute distress HEENT: Head: Yes normal to inspection, Yes normocephalic and Yes atraumatic Eyes: General: appearance normal, both eyes and all related structures Neck: Neck: Yes normal visual inspection, Yes full ROM, Yes no meningeal signs, Yes trachea midline and Yes supple Chest: Chest palpation & inspection: normal inspection of the chest Resp: Other: no appreciable overt rales, rhonchi, wheezing Effort & Inspection: normal respiratory effort Cardio: Rate: regular rate Rhythm: regular rhythm GI: Other: no appreciable tenderness to palpation throughout Inspection: Yes normal to inspection, No Abdominal wall edema and No distended Palpation (GI): Soft to palpation, not firm, nontender, no guarding and not rigid Skin: General skin exam: no rashes or lesions noted Neuro: Other: appreciable contracture throughout General: no meningeal signs Extrem: General: Yes normal to inspection, Yes full ROM, Yes capillary refill normal and Yes no clubbing, cyanosis or edema Psych: Other: unable to assess Objective Data Labs 05/25/25 05:00 05/25/25 05:00 Labs: Laboratory Results - last 24 hr 05/24/25 05/24/25 05/24/25 14:14 15:11 17:18 WBC 19.3 H RBC 2.71 L Hgb 7.5 L Hct 22.6 L MCV 83.4 MCH 27.7 MCHC 33.2 RDW 18.4 H Plt Count 529 H MPV 8.7 L Immature Gran % (Auto) 2.5 H Neut % (Auto) 85.5 H Lymph % (Auto) 4.7 L [place] % (Auto) 6.9 Eos % (Auto) 0.1 Baso % (Auto) 0.3 Lymph # (Auto) 0.9 L [place] # (Auto) 1.3 H Eos # (Auto) 0.0 Baso # (Auto) 0.1 Abs Immat Gran (auto) 0.49 H Absolute Neuts (auto) 16.5 H Absolute Nucleated RBC 0.000 Nucleated RBC % (auto) 0.0 PT 24.1 H INR 2.0 H VBG pH 7.43 VBG pCO2 30 VBG pO2 35 VBG HCO3 20 L VBG O2 Saturation 46.0 VBG Base Excess -2.6 Sodium 125 L Potassium 4.8 Chloride 95 L Carbon Dioxide 22 Anion Gap 13 BUN 14 Creatinine 0.58 Estim Creat Clear Calc 67.0 Estimated GFR > 60 Random Glucose 104 Lactic Acid 2.1 H* Lactic Acid F/U @ 2Hr 1.9 Calcium 8.3 L Phosphorus Magnesium 1.8 Total Bilirubin 0.7 Direct Bilirubin 0.4 AST 100 H ALT 71 H Alkaline Phosphatase 104 Troponin I High Sens 8.0 C-Reactive Protein 21.88 H Total Protein 5.8 L Albumin 2.8 L Procalcitonin 0.19 Urine Color Yellow Urine Appearance Clear Urine pH 5.5 Ur Specific [place] 1.025 Urine Protein 30 (1+) H Urine Glucose (UA) Negative Urine Ketones Trace Urine Blood Negative Urine Nitrite Negative Ur Leukocyte Esterase Trace H Urine RBC 0-2 Urine WBC 6-10 H Ur Squamous Epith Cells 3-5 Urine Bacteria None Seen Hyaline Casts 3-5 Influenza Type A (PCR) NEGATIVE Influenza Type B (PCR) NEGATIVE RSV RNA Qual (PCR) NEGATIVE SARS-CoV-2 RNA (RT-PCR) NEGATIVE Blood Type A Positive Antibody Screen NEGATIVE Crossmatch See Detail 05/24/25 05/25/25 05/25/25 20:23 05:00 05:01 WBC 13.4 H RBC 2.39 L Hgb 6.7 L* Hct 20.2 L* MCV 84.5 MCH 28.0 MCHC 33.2 RDW 18.4 H Plt Count 497 H MPV 8.7 L Immature Gran % (Auto) 0.7 H Neut % (Auto) 82.9 H Lymph % (Auto) 8.7 L [place] % (Auto) 6.9 Eos % (Auto) 0.4 Baso % (Auto) 0.4 Lymph # (Auto) 1.2 [place] # (Auto) 0.9 Eos # (Auto) 0.1 Baso # (Auto) 0.1 Abs Immat Gran (auto) 0.09 H Absolute Neuts (auto) 11.1 H Absolute Nucleated RBC 0.000 Nucleated RBC % (auto) 0.0 PT INR VBG pH 7.48 H 7.48 H VBG pCO2 22 26 VBG pO2 95 39 VBG HCO3 16 L 20 L VBG O2 Saturation 100.0 64.0 VBG Base Excess -5.4 -2.0 Sodium 129 L Potassium 4.3 Chloride 102 Carbon Dioxide 19 L Anion Gap 12 BUN 11 Creatinine 0.61 Estim Creat Clear Calc 63.7 Estimated GFR > 60 Random Glucose 107 Lactic Acid Lactic Acid F/U @ 2Hr Calcium 8.2 L Phosphorus 4.2 Magnesium 1.8 Total Bilirubin Direct Bilirubin AST ALT Alkaline Phosphatase Troponin I High Sens C-Reactive Protein Total Protein Albumin 2.4 L Procalcitonin Urine Color Urine Appearance Urine pH Ur Specific [place] Urine Protein Urine Glucose (UA) Urine Ketones Urine Blood Urine Nitrite Ur Leukocyte Esterase Urine RBC Urine WBC Ur Squamous Epith Cells Urine Bacteria Hyaline Casts Influenza Type A (PCR) Influenza Type B (PCR) RSV RNA Qual (PCR) SARS-CoV-2 RNA (RT-PCR) Blood Type Antibody Screen Crossmatch Progress Note: A&P Assessment and plan (1) Multifocal pneumonia: Status: Acute (2) Acute respiratory failure: Status: Acute Plan Patient is a 74 Y F w/ CHF, c/b atrial fibrillation, recent admission to [facility] for c. difficile, presenting from rehab w/ dyspnea, found to be in acute hypoxic respiratory failure, necessitating intubation; ED work-up suggestive of multifocal pneumonia, as well as acute cholecystitis N: intubated, sedated w/ propofol, fentanyl gtts, wean as tolerated CV: no acute issues; to closely monitor hemodynamics R: acute hypoxic respiratory failure, likely d/t multifocal pneumonia, intubated 05/24, wean as tolerated GI: CT A/P and RUQ US c/f acute cholecystitis, appreciate general surgery recommendations, IR when available 11 AM; NPO : hyponatremia; to monitor renal indices/electrolytes H: anemia, to monitor; chemical DVT prophylaxis ID: empiric vanc/zosyn for possible pneumonia, acute cholecystitis; to follow-up BCx, UCx, RCx 05/24; of note, recent c. difficile, on vanc PO E: to monitor hypo-/hyper-glycemia P: no acute issues Quality Stroke Does the patient have a stroke diagnosis?: No VTE Prior VTE?: No VTE Risk Level:: Medical - moderate - high VTE Device Contraindication: N/A - Device Ordered VTE Drug Contraindication: N/A - Med Ordered
[2025-05-25 09:02] LABS: MRSA Nasal PCR POSITIVE (Negative); SA Nasal PCR POSITIVE (Negative)
[2025-05-25 09:33] LABS: Chlamydia pneumoniae PCR Not Detected (Not Detect.); Coronavirus 229E PCR Not Detected (Not Detect.); Coronavirus HKU1 PCR Not Detected (Not Detect.); Coronavirus NL63 PCR Not Detected (Not Detect.); Coronavirus OC43 PCR Not Detected (Not Detect.); RSV PCR Not Detected (Not Detect.); Rhino/Enterovirus PCR Not Detected (Not Detect.)
[2025-05-25] MEDS: vancomycin HCL Oral Solution 125 MG/5 ML SOLN.RECON PO ×4 (09:40→19:59)
[2025-05-25] MEDS: Calcium Gluconate/NaCl,Iso-Osm 1 GM/50 ML PLAST..BAG IV (09:40)
[2025-05-25] MEDS: Chlorhexidine Gluc Oral Rinse 15 ML MOUTHWASH BUCCAL ×3 (09:40→19:59)
[2025-05-25 10:05] LABS: Influenza A H1 PCR Not Detected (Not Detect.); Influenza A H1-2009 PCR Not Detected (Not Detect.); Influenza A H3 PCR Not Detected (Not Detect.); SARS-CoV-2 PCR Not Detected (Not Detect.)
--- NOTE | 2025-05-25 13:32 | HE.PHANOTE ---
Re Vanc Random 15.5 after two doses. Will continue same for now to get AUC therapeutic faster, but if renal worsens may need to decrease to 1250mg q24h.
--- NOTE | 2025-05-25 13:57 | MHC.CM.PN ---
Pt presently in ICU on ventilatory support: Information obtained from EMR - message left for spouse and for RN at [facility] where pt had been for STR: Pt requires assistance for ADL's but unknown if she uses DME. Requested copy of advanced directives from SNF. CM to follow for additional information and finalization of d/c planning needs. IMM in chart
--- NOTE | 2025-05-25 15:12 | PM.CNGS ---
History of Present Illness Consult details Consult date: 05/25/25 Narrative: 74 year old female presenting to the ER in acute resp distress, multifocal penumonia - intubated and in ICu on low dose pressors weaning. hx afib and recently with c diff. In ER ct scan abdo pelvis showing thickening of the GB ? consistent with cholecystitis. US showing some fluid. LFTs ok. Pt currently still intubated on antibx for pneumonia. unable to communicate because intubated and unsure if having pain Review of Systems Review of Systems: Yes unobtainable due to endotracheal tube PMFSH Past Medical History Medical History (Updated 05/25/25 @ 22:46 by Darcy Peterson MD) CVA (cerebral vascular accident) Afib CHF (congestive heart failure) Social History Social History Household Members: Unknown / Unable to assess Housing: Unknown / Unable to assess Patient Tobacco Use Status: Tobacco use Unknown Smoked in Last 30 Days: No Use of substances other than those prescribed or required for medical reasons: No Currently Displaying Signs/Symptoms of Drug Intoxication Withdrawal: No Advance Directives: No Advance Directives Information Provided: Yes Do you have a plan to hurt others: No Plan Recently lost weight without trying: Unsure Patient : No Meds Allergies Allergy/AdvReac Type Severity Reaction Status Date / Time No Known Allergies Allergy Verified 05/24/25 14:00 Active Medications: Current Medications Chlorhexidine Gluconate (Chlorhexidine Gluc Oral Rinse 15 Ml Mouthwash) 15 ml BUCCAL TID [facility] Last Admin: 05/25/25 09:40 Dose: 15 ml Enoxaparin Sodium (Enoxaparin Sodium 40 Mg/0.4 Ml Syringe) 40 mg SUBCUT Q24H [facility] Last Admin: 05/24/25 20:49 Dose: 40 mg Famotidine (Famotidine/Pf 20 Mg/2 Ml Vial) 20 mg IVPUSH BID [facility] Last Admin: 05/25/25 09:39 Dose: 20 mg Hydromorphone HCl (Hydromorphone Hcl 1 Mg/Ml Syringe) 0.5 mg IVPUSH Q2H PRN; Protocol PRN Reason: Pain, Moderate(Pain Scale 4-6) Last Admin: 05/25/25 09:39 Dose: 0.5 mg Piperacillin Sod/Tazobactam (Sod 3.375 gm/ Sodium Chloride) 50 mls @ 100 mls/hr IV Q6H DEE Last Infusion: 05/25/25 10:14 Dose: Infused Propofol (Diprivan) 1,000 mg in 100 mls @ 0 mls/hr IVCONT .Q0M DEE; Protocol Last Admin: 05/25/25 09:58 Dose: 50 mcg/kg/min, 14.97 mls/hr Norepinephrine Bitartrate (Levophed) 8 mg in 250 mls @ 0 mls/hr IVCONT .Q0M DEE; Protocol Last Titration: 05/25/25 10:38 Dose: 0 mcg/kg/min, 0 mls/hr Vancomycin HCl 750 mg/ Sodium (Chloride) 265 mls @ 265 mls/hr IV Q12H DEE Last Infusion: 05/25/25 03:48 Dose: Infused Pharmacy Consult (Consult Rx Vancomycin Dosing) 1 each MISCELLANE DAILY PRN PRN Reason: Consult order Vancomycin HCl (Vancomycin Hcl Oral Solution 125 Mg/5 Ml Soln.Recon) 125 mg PO QID DEE Last Admin: 05/25/25 13:20 Dose: 125 mg Home Medications ?Medication ?Instructions ?Recorded ?Confirmed ?Last Taken ?Type acetaminophen 325 mg tablet 650 mg PO Q4H PRN Pain (Scale 05/24/25 05/24/25 Unknown History Score 1-3) acetaminophen 325 mg tablet 650 mg PO Q6H PRN Fever 05/24/25 05/24/25 Unknown History albuterol sulfate 90 mcg/actuation 2 puff inhalation Q6H PRN Wheezing 05/24/25 05/24/25 Unknown History aerosol inhaler amiodarone 200 mg tablet 200 mg PO BID 05/24/25 05/24/25 Unknown History apixaban 5 mg tablet (Eliquis) 5 mg PO BID 05/24/25 05/24/25 Unknown History atorvastatin 80 mg tablet 80 mg PO BEDTIME 05/24/25 05/24/25 Unknown History baclofen 25 mg/5 mL (5 mg/mL) oral 10 mg PO TID 05/24/25 05/24/25 Unknown History suspension bisacodyl 10 mg rectal suppository 10 mg LA DAILY PRN Constipation 05/24/25 05/24/25 Unknown History ergocalciferol (vitamin D2) 1,250 1,250 mcg PO MO 05/24/25 05/24/25 Unknown History mcg (50,000 unit) capsule fluticasone 500 mcg-salmeterol 50 1 inh inhalation BID 05/24/25 05/24/25 Unknown History mcg/dose blistr powdr for inhalation (Karina Inhub) ipratropium 0.5 mg-albuterol 3 mg 3 ml inhalation Q6H PRN Shortness 05/24/25 05/24/25 Unknown History (2.5 mg base)/3 mL nebulization Of Breath Or Wheezing soln levofloxacin 750 mg tablet 750 mg PO DAILY 05/24/25 05/24/25 Unknown History losartan 25 mg tablet 25 mg PO DAILY 05/24/25 05/24/25 Unknown History magnesium hydroxide 400 mg/5 mL 30 ml PO BEDTIME PRN Constipation 05/24/25 05/24/25 Unknown History oral suspension (Milk of Magnesia) magnesium oxide 400 mg PO BID 05/24/25 05/24/25 Unknown History melatonin 3 mg tablet 3 mg PO BEDTIME 05/24/25 05/24/25 Unknown History mirtazapine 7.5 mg tablet 7.5 mg PO BEDTIME 05/24/25 05/24/25 Unknown History multivitamin 1 tab PO DAILY 05/24/25 05/24/25 Unknown History polyethylene glycol 3350 17 17 g PO DAILY PRN Constipation 05/24/25 05/24/25 Unknown History gram/dose oral powder pyridoxine (vitamin B6) 50 mg 50 mg PO DAILY 05/24/25 05/24/25 Unknown History tablet sodium chloride 1,000 mg soluble 1,000 mg PO BID 05/24/25 05/24/25 Unknown History tablet sodium phosphates 19 gram-7 118 ml LA DAILY PRN Constipation 05/24/25 05/24/25 Unknown History gram/118 mL enema (Fleet Enema) spironolactone 25 mg tablet 25 mg PO DAILY 05/24/25 05/24/25 Unknown History thiamine HCl (vitamin B1) 100 mg 100 mg PO DAILY 05/24/25 05/24/25 Unknown History tablet Physical Exam Vital Signs: Vital Signs: Last Vital Signs Temp 99.1 F 05/25/25 14:00 Pulse 76 05/25/25 14:00 Resp 18 05/25/25 14:00 BP 122/55 L 05/25/25 14:00 Pulse Ox 92 05/25/25 14:00 O2 Del Method Mechanical Ventil ation 05/25/25 14:00 O2 Flow Rate 4 05/25/25 13:00 FiO2 25 05/25/25 15:00 Oxygen Flow Rate 8 05/24/25 13:56 BMI result Body Mass Index 22.2 GI: Other: abdomen soft, seemingly nontender, nondistended no masses Results Labs 05/25/25 18:01 05/25/25 05:00 Labs: Abnormal lab results 05/24/25 05/24/25 05/24/25 Range/Units 15:11 17:18 19:20 WBC (4.8-10.8) X10*3/uL RBC (4.20-5.50) X10*6/uL Hgb (12.0-16.0) g/dl Hct (37.0-47.0) % RDW (11.0-16.0) % Plt Count (160-400) X10*3/uL MPV (9.4-12.3) fL Immature Gran % (Auto) (0.0-0.4) % Neut % (Auto) (45-73) % Lymph % (Auto) (20-40) % Abs Immat Gran (auto) (0.00-0.03) X10*3/uL Absolute Neuts (auto) (2.0-8.3) x10*3/uL VBG pH (7.32-7.43) VBG HCO3 20 L (22-26) mmol/L Sodium (135-145) mmol/L Carbon Dioxide (22-29) mmol/L Calcium (8.4-10.2) mg/dL Albumin (3.5-5.0) g/dL Urine Protein 30 (1+) H (Neg-Trace) mg/dL Ur Leukocyte Esterase Trace H (Negative) Urine WBC 6-10 H (0-5) /HPF Nasal Screen MRSA (PCR) POSITIVE A (Negative) Nasal S. aureus Screen POSITIVE A (Negative) Crossmatch See Detail 05/24/25 05/25/25 05/25/25 Range/Units 20:23 05:00 05:01 WBC 13.4 H (4.8-10.8) X10*3/uL RBC 2.39 L (4.20-5.50) X10*6/uL Hgb 6.7 L* (12.0-16.0) g/dl Hct 20.2 L* (37.0-47.0) % RDW 18.4 H (11.0-16.0) % Plt Count 497 H (160-400) X10*3/uL MPV 8.7 L (9.4-12.3) fL Immature Gran % (Auto) 0.7 H (0.0-0.4) % Neut % (Auto) 82.9 H (45-73) % Lymph % (Auto) 8.7 L (20-40) % Abs Immat Gran (auto) 0.09 H (0.00-0.03) X10*3/uL Absolute Neuts (auto) 11.1 H (2.0-8.3) x10*3/uL VBG pH 7.48 H 7.48 H (7.32-7.43) VBG HCO3 16 L 20 L (22-26) mmol/L Sodium 129 L (135-145) mmol/L Carbon Dioxide 19 L (22-29) mmol/L Calcium 8.2 L (8.4-10.2) mg/dL Albumin 2.4 L (3.5-5.0) g/dL Urine Protein (Neg-Trace) mg/dL Ur Leukocyte Esterase (Negative) Urine WBC (0-5) /HPF Nasal Screen MRSA (PCR) (Negative) Nasal S. aureus Screen (Negative) Crossmatch Short CBC 05/25/25 Range/Units 05:00 WBC 13.4 H (4.8-10.8) X10*3/uL Hgb 6.7 L* (12.0-16.0) g/dl Hct 20.2 L* (37.0-47.0) % Plt Count 497 H (160-400) X10*3/uL BMP 05/25/25 05:00 Sodium 129 L Potassium 4.3 Chloride 102 Carbon Dioxide 19 L BUN 11 Creatinine 0.61 Calcium 8.2 L Liver Function 05/25/25 Range/Units 05:00 Albumin 2.4 L (3.5-5.0) g/dL Urine 05/24/25 Range/Units 17:18 Urine Color Yellow Urine Appearance Clear Urine pH 5.5 (5.0-9.0) Ur Specific [place] 1.025 (1.005-1.025) Urine Protein 30 (1+) H (Neg-Trace) mg/dL Urine Glucose (UA) Negative (Negative) mg/dL All other labs normal. Imaging Abdomen CT scan report/results: report reviewed and image reviewed CT scan - pelvis: report reviewed and image reviewed Additional studies: Patient: Casi Tejeda MR#: [id number] : 1950 Acct:[id number] Age/Sex: 74 / F ADM Date: 05/24/25 Loc: .ICU 253-[address]: Josie Devlin MD Ordering Physician: Josie Devlin MD Date of Service: 05/24/25 Procedure(s): US abdomen limited Accession Number(s): [id number] cc: Josie Devlin MD; Kevin Landers MD~ Reason for Exam: Sepsis, ?Cholecystitis on CT A/P ADDENDUMThis document has been electronically signed by: Ambrosio Coffey MD on 05/24/2025 21:03:52 ADDENDUM: Receipt of this report by the clinical staff was confirmed with INDUSTRIAL FABRIC CUTTER Patricia Rojas on May 24, 2025 21:13:00 EST. This document has been electronically signed by: Khris Ayers on 05/24/2025 21:16:00 Addendum Dictated By: Ambrosio Coffey MD Addendum Signed By: <Electronically signed by Ambrosio Coffey MD in [place]> 05/24/252116 Addendum Cosigned By: DD/ TD/TT: 05/24/25 CLINICAL HISTORY: Sepsis, ?Cholecystitis on CT A P US abdomen limited Comparison: CT/SR - CT ABDOMEN PELVIS W IV CON - 05/24/25 17:35 EST Findings: The gallbladder is distended with wall thickening of 1 cm, with pericholecystic fluid, and with a stone in the gallbladder fundus. Sonographic Pianting's sign was unable to be obtained due to patient's clinical status. Common bile duct is normal in caliber, measuring 0.4 cm. IMPRESSION: Sonographic findings highly suggestive of acute cholecystitis This document has been electronically signed by: Ambrosio Coffey MD on 05/24/2025 21:03:52 Dictated By: Ambrosio Coffey MD Signed By: <Electronically signed by Ambrosio Coffey MD in [place]> 05/24/252104 DD/ 02 TD/TT: 05/24/252102 Building Manager: #: [id number] : 1950 Acct:[id number] Age/Sex: 74 / F ADM Date: 05/24/25 Loc: HO.ED Attending Dr: Ordering Physician: Deondre Monaco MD Date of Service: 05/24/25 Procedure(s): CT abdomen pelvis w IV con Accession Number(s): [id number] cc: Deondre Monaco MD; Kevin Landers MD~ Report Number: [id number]: Total DLP = 431.00 mGy-cm Reason for Exam: Sepsis? source CLINICAL HISTORY: Sepsis? source CT abdomen and pelvis with contrast Comparison: None provided Findings: LIMITED CHEST: See separate CT chest. LIVER: Small hypoattenuating lesions, too small to characterize however may represent cysts. BILIARY: Distended gallbladder with small gallstones. PANCREAS: No mass or ductal dilatation. SPLEEN: No splenomegaly. KIDNEYS: Heterogeneous hypoenhancement of the right kidney. No hydronephrosis. Small hypoattenuating lesions, too small to characterize however may represent cysts. ADRENALS: No nodule. VASCULAR: No aneurysm. IVC filter in place. RETROPERITONEUM: No lymphadenopathy or mass. BOWEL/MESENTERY: Enteric tube tip is in the stomach. No evidence of obstruction. No free fluid or air. Moderate colonic stool burden. Rectal temperature probe. ABDOMINAL WALL: Anasarca. URINARY BLADDER: Decompressed with Casillas catheter in place. PELVIC NODES: No pelvic lymphadenopathy. PELVIC ORGANS: Normal for age. BONES: No acute fracture. OTHER: Negative. IMPRESSION: Heterogeneous hypoenhancement of the right kidney, may represent renal infarct versus pyelonephritis. Correlate with urinalysis. Distended gallbladder with cholelithiasis. Acute cholecystitis is considered. Also see separate CT chest performed concurrently. This document has been electronically signed by: Quita Lynch MD on 05/24/2025 18:38:55 Dictated By: Quita Lynch MD Signed By: <Electronically signed by Quita Lynch MD in OV> 05/24/25 1840 DD/ 37 TD/TT: 05/24/251837 Building Manager: Assessment and Plan (1) Cholecystitis: Status: Acute Plan 74 yo female with multiple med problems, afib, pneumonia resp failure - pt doing better but intubated in icu with weaning vent support and pressor support -? component of cholecystitis involved - plan to follow labs, better exam when extubated or sedation lightened. concurrent treatemtn of pneumonia with antibiotics helps for cholecystitis. If still ? can get HIDA scan once more stable to move and if positive consider cholecystostomy tube. no emergent need now. will follow along Procedures Date of Service Date of Service: 05/25/25
--- NOTE | 2025-05-25 17:44 | PC.NURSE ---
Assumed care at 0700- pt. remains intubated and sedated per SEP. RASS -3 on propofol gtt, fentanyl gtt d/c'd, PRN dilaudid given for pain per SEP. SR on tele, HR 60s-80s. MAPs >65, levophed gtt weaned off per SEP. Tolerating PSV 10/5 25%- see vent assessment. OGT remains clamed, no BM this shift. Casillas remains in place, draning cyu. Urine output decreased to 0-10 cc/hr- MD notified. Q2 oral care and repositioning performed. Family at bedside, updated by MD and this RN. Plan of care ongoing.
[2025-05-25 18:17] LABS: MANUAL DIFF FLAG NO
[2025-05-25 18:20] LABS: Hematocrit 24.4 % (37.0-47.0); Hemoglobin 8.2 g/dl (12.0-16.0); Imm Gran Abs Auto 0.09 X10*3/uL (0.00-0.03); Imm Gran Pct Auto 0.7 % (0.0-0.4); Lymphocytes Absolute Auto 0.9 X10*3/uL (1.2-4.9); Mean Corpuscular HGB Conc 33.6 g/dl (31.0-35.0); Mean Corpuscular Hemoglobin 28.3 pg (27.0-33.0); Mean Corpuscular Volume 84.1 fL (80.0-98.0); NRBC Abs Auto 0.000 X10*3/uL (0.0-0.012); NRBC Pct Auto 0.0 /100WBC (0.0-0.2); Platelet Count 334 X10*3/uL (160-400); Red Blood Count 2.90 X10*6/uL (4.20-5.50); White Blood Count 13.3 X10*3/uL (4.8-10.8)
[2025-05-26] VITALS (38 sets, daily range): BP systolic 98–151; BP diastolic 46–73; PULSE 76–90; RESP 20–32; TEMP 34.7–38.2; O2SAT 88–100; BMI 22.7
--- NOTE | 2025-05-26 | ECG_ITS ---
Test Reason : arrhythmia Blood Pressure : */* mmHG Vent. Rate : 81 BPM Atrial Rate : * BPM P-R Int : * ms QRS Dur : 104 ms QT Int : 386 ms P-R-T Axes : * 34 266 degrees QTcB Int : 448 ms Atrial flutter with variable block Anterior infarct (cited on or before 24-May-2025) Abnormal ECG When compared with ECG of 25-May-2025 21:58, Atrial flutter present Referred By: Beatriz Oconnor Electronically Signed By: Gio Tan
[2025-05-26 04:55] LABS: VBG HCO3 17 mmol/L (22-26); VBG O2 % Saturation 82.0 %
[2025-05-26 05:03] LABS: Hematocrit 27.2 % (37.0-47.0); Hemoglobin 9.1 g/dl (12.0-16.0); Imm Gran Abs Auto 0.09 X10*3/uL (0.00-0.03); Imm Gran Pct Auto 0.7 % (0.0-0.4); Lymphocytes Absolute Auto 1.1 X10*3/uL (1.2-4.9); MANUAL DIFF FLAG NO; Mean Corpuscular HGB Conc 33.5 g/dl (31.0-35.0); Mean Corpuscular Hemoglobin 28.3 pg (27.0-33.0); Mean Corpuscular Volume 84.7 fL (80.0-98.0); NRBC Abs Auto 0.000 X10*3/uL (0.0-0.012); NRBC Pct Auto 0.0 /100WBC (0.0-0.2); Platelet Count 408 X10*3/uL (160-400); Red Blood Count 3.21 X10*6/uL (4.20-5.50); Venous Blood Gas Refer to POC result; White Blood Count 13.2 X10*3/uL (4.8-10.8)
[2025-05-26 05:12] LABS: Albumin Level 3.1 g/dL (3.5-5.0)
[2025-05-26 05:18] LABS: Anion Gap 16 (12-20); Blood Urea Nitrogen 9 mg/dL (9-16); Calcium 8.2 mg/dL (8.4-10.2); Carbon Dioxide 15 mmol/L (22-29); Chloride 106 mmol/L (96-108); Creatinine Clr Calc Pharmacy 62.6; Estimated Glomerular Filt Rate > 60; Magnesium 1.9 mg/dL (1.6-2.6); Potassium 4.1 mmol/L (3.3-5.1); Sodium 133 mmol/L (135-145)
--- NOTE | 2025-05-26 06:27 | PC.NURSE ---
Assumed care 1900 - pt remains intubated and sedated on Propofol drip. Pt having vent dyssynchrony, placed on SIMV settings per RT - see vent assessment. PRN Dilaudid administered per nonverbal pain scale - see MAR. Junctional rhythm on tele, HR 70-80s, MAP > 65.? Tube feeds started per order. Casillas in place, urine output 5-20 ml/hr. REPAIR DEPARTMENT SUPERVISOR Elvin notified - NS 250 ml bolus ordered and administered x2 - see MAR. Little effect on urine output. Hygiene?provided, repositioned Q2H.?
[2025-05-26] MEDS: vancomycin HCL Oral Solution 125 MG/5 ML SOLN.RECON PO ×4 (07:44→21:38)
[2025-05-26] MEDS: Chlorhexidine Gluc Oral Rinse 15 ML MOUTHWASH BUCCAL ×3 (07:44→21:37)
--- NOTE | 2025-05-26 08:18 | P.PNCC_ITS ---
Subjective Subjective Date of Service: 05/26/25 Interval History: no significant overnight events; on minimal ventilatory/vasopressor support Critical Care Time (minutes): 60 Physical Exam 2 Vital Signs: Vital Signs: Last Vital Signs Temp 99.0 F 05/26/25 08:00 Pulse 76 05/26/25 08:00 Resp 20 05/26/25 08:00 BP 122/57 L 05/26/25 08:00 Pulse Ox 100 05/26/25 08:00 O2 Del Method Mechanical Ventil ation 05/26/25 08:00 O2 Flow Rate 4 05/25/25 13:00 FiO2 21 05/26/25 08:00 Oxygen Flow Rate 8 05/24/25 13:56 BMI result Body Mass Index 22.7 Const: Other: intubated, sedated; no appreciable purposeful movements; cachectic, chronically- ill appearing General: no acute distress HEENT: Head: Yes normal to inspection, Yes normocephalic and Yes atraumatic Eyes: General: appearance normal, both eyes and all related structures Neck: Neck: Yes normal visual inspection, Yes full ROM, Yes trachea midline and Yes supple Chest: Chest palpation & inspection: normal inspection of the chest Resp: Other: some appreciable rhonchi R greater than L; no appreciable overt rales, wheezing anterior lung linton Effort & Inspection: normal respiratory effort Cardio: Rate: regular rate Rhythm: regular rhythm GI: Inspection: Yes normal to inspection, No Abdominal wall edema and No distended Palpation (GI): Soft to palpation, not firm, nontender, no guarding and not rigid Skin: General skin exam: no rashes or lesions noted Neuro: General: tone normal Extrem: General: Yes normal to inspection, Yes full ROM, Yes capillary refill normal and Yes no clubbing, cyanosis or edema Psych: Other: unable to assess Objective Data Labs 05/26/25 04:45 05/26/25 04:45 Labs: Laboratory Results - last 24 hr 05/24/25 05/24/25 05/25/25 17:18 19:20 12:55 WBC RBC Hgb Hct MCV MCH MCHC RDW Plt Count MPV Immature Gran % (Auto) Neut % (Auto) Lymph % (Auto) Simpson % (Auto) Eos % (Auto) Baso % (Auto) Lymph # (Auto) Simpson # (Auto) Eos # (Auto) Baso # (Auto) Abs Immat Gran (auto) Absolute Neuts (auto) Absolute Nucleated RBC Nucleated RBC % (auto) VBG pH VBG pCO2 VBG pO2 VBG HCO3 VBG O2 Saturation VBG Base Excess Sodium Potassium Chloride Carbon Dioxide Anion Gap BUN Creatinine Estim Creat Clear Calc Estimated GFR Random Glucose Calcium Phosphorus Magnesium Albumin Nasal Screen MRSA (PCR) POSITIVE A Nasal S. aureus Screen POSITIVE A Nasal MRSA/S.aureus Interp SEE NOTE Random Vancomycin 15.5 Respiratory Panel Torrez See Note Adenovirus (Rapid PCR) Not Detected B.pert (TEM-PCR) Not Detected B.parapertussis DNA PCR Not Detected C. pneumoniae DNA (PCR) Not Detected Coronavirus OC43 (PCR) Not Detected Coronavirus HKU1 (PCR) Not Detected Coronavirus 229E (PCR) Not Detected Coronavirus NL63 (PCR) Not Detected Human Metapneumovir PCR Not Detected Influenza A (RT-PCR) Not Detected Influenza A (H1) PCR Not Detected Influ A (H1/09) PCR Not Detected Influenza A (H3) PCR Not Detected Influenza B (RT-PCR) Not Detected M. pneumoniae (PCR) Not Detected Parainfluenza 1 (PCR) Not Detected Parainfluenza 2 (PCR) Not Detected Parainfluenza 3 (PCR) Not Detected Parainfluenza 4 (PCR) Not Detected RSV (PCR) Not Detected Entero/Rhino (PCR) Not Detected SARS-CoV-2 RNA (RT-PCR) Not Detected Crossmatch See Detail 05/25/25 05/26/25 05/26/25 18:01 04:45 04:51 WBC 13.3 H 13.2 H RBC 2.90 L D 3.21 L Hgb 8.2 L D 9.1 L Hct 24.4 L D 27.2 L MCV 84.1 84.7 MCH 28.3 28.3 MCHC 33.6 33.5 RDW 17.7 H 18.0 H Plt Count 334 D 408 H MPV 8.4 L 8.6 L Immature Gran % (Auto) 0.7 H 0.7 H Neut % (Auto) 80.4 H 82.7 H Lymph % (Auto) 6.4 L 8.2 L Simpson % (Auto) 10.9 6.4 Eos % (Auto) 1.1 1.3 Baso % (Auto) 0.5 0.7 Lymph # (Auto) 0.9 L 1.1 L Simpson # (Auto) 1.4 H 0.9 Eos # (Auto) 0.1 0.2 Baso # (Auto) 0.1 0.1 Abs Immat Gran (auto) 0.09 H 0.09 H Absolute Neuts (auto) 10.7 H 10.9 H Absolute Nucleated RBC 0.000 0.000 Nucleated RBC % (auto) 0.0 0.0 VBG pH 7.42 VBG pCO2 25 VBG pO2 52 VBG HCO3 17 L VBG O2 Saturation 82.0 VBG Base Excess -6.0 Sodium 133 L Potassium 4.1 Chloride 106 Carbon Dioxide 15 L Anion Gap 16 BUN 9 Creatinine 0.68 Estim Creat Clear Calc 62.6 Estimated GFR > 60 Random Glucose 69 Calcium 8.2 L Phosphorus 3.9 Magnesium 1.9 Albumin 3.1 L Nasal Screen MRSA (PCR) Nasal S. aureus Screen Nasal MRSA/S.aureus Interp Random Vancomycin Respiratory Panel Torrez Adenovirus (Rapid PCR) B.pert (TEM-PCR) B.parapertussis DNA PCR C. pneumoniae DNA (PCR) Coronavirus OC43 (PCR) Coronavirus HKU1 (PCR) Coronavirus 229E (PCR) Coronavirus NL63 (PCR) Human Metapneumovir PCR Influenza A (RT-PCR) Influenza A (H1) PCR Influ A (H1/09) PCR Influenza A (H3) PCR Influenza B (RT-PCR) M. pneumoniae (PCR) Parainfluenza 1 (PCR) Parainfluenza 2 (PCR) Parainfluenza 3 (PCR) Parainfluenza 4 (PCR) RSV (PCR) Entero/Rhino (PCR) SARS-CoV-2 RNA (RT-PCR) Crossmatch Microbiology Microbiology Results: Microbiology 05/24/25 14:14 Blood - Venous Blood Culture - Preliminary Prelim: GPC Gram Stain only 05/24/25 14:14 Blood - Venous Blood Culture - Preliminary No growth after 24 hours. 05/24/25 17:58 Urine Catheterized - Casillas Catheter Urine Culture - Preliminary No growth to date. 05/24/25 20:35 Sputum - Suctioned Gram Stain - Final 05/24/25 20:35 Sputum - Suctioned Sputum Culture - Preliminary Culture in progress. Progress Note: A&P Assessment and plan (1) Multifocal pneumonia: Status: Acute (2) Respiratory failure: Status: Acute Plan Patient is a 74 Y F w/ CHF, c/b atrial fibrillation, recent admission to [facility] for c. difficile, presenting from rehab w/ dyspnea, found to be in acute hypoxic respiratory failure, necessitating intubation; ED work-up suggestive of multifocal pneumonia, as well as acute cholecystitis N: intubated, sedated w/ propofol gtt, wean as tolerated; of note, no significant awakening despite weaning sedation CV: no acute issues; to closely monitor hemodynamics R: acute hypoxic respiratory failure, likely d/t multifocal pneumonia, intubated 05/24, wean as tolerated GI: CT A/P and RUQ US c/f acute cholecystitis, appreciate general surgery recommendations, IR when available 05/27 AM; NPO : hyponatremia, improving; to monitor renal indices/electrolytes H: anemia, to monitor; chemical DVT prophylaxis ID: empiric vanc/zosyn for possible pneumonia, acute cholecystitis; to follow-up BCx, UCx, RCx 05/24; of note, recent c. difficile, on vanc PO E: to monitor hypo-/hyper-glycemia P: no acute issues Quality Stroke Does the patient have a stroke diagnosis?: No VTE Prior VTE?: No VTE Risk Level:: Medical - moderate - high VTE Device Contraindication: N/A - Device Ordered VTE Drug Contraindication: N/A - Med Ordered
[2025-05-26] MEDS: Calcium Gluconate/NaCl,Iso-Osm 1 GM/50 ML PLAST..BAG IV (08:46)
[2025-05-26] MEDS: Albumin Human 25 % 50 ML 100 ML IV (08:46)
[2025-05-26] MEDS: Lactated Ringers 500 ML 999 ML IV (08:47)
--- NOTE | 2025-05-26 11:56 | PC.RT ---
routine vent check. patient tachypneic upon arrival. BS rhonchi throughout. patient with inc wob. bag lavaged for large amount of thick cream/yellow blood tinged secretions. patient agitated, attempted various vent setting changes to improve ventilation. MD and RN at bedside, prn dilaudid given and inc in overall sedation. patient comfortable after being medicated. placed on PC, full vent support. MD aware and in agreeement.
--- NOTE | 2025-05-26 14:03 | HE.PHANOTE ---
DEWEY Changed dose to 1250mg Q24H as trough was approaching up limit of goal. New predicted trough 15.3, AUC 562. Next trough 05/27 @2100.
--- NOTE | 2025-05-26 17:51 | PC.NURSE ---
assumed care of patient at 0700. pt remains sedated and intubated on ACPC setting. pt on propofol titrated per MAR, current RASS score of -3. facial movement noted in response to calling patient's name. pupils 2mm and sluggish. eyes do not track movement. patient able to slightly move all extremities. weak cough noted with inline suctioning. minimal gag seen with oral suctioning.Casillas cath remains in place, minimal urine output with about 15mL an hour of concentrated dark yellow urine. patient slightly febrile with temp of 100.9 director of cardiac rehabilitation notified. Q2hr oral care and repositioning preformed.
[2025-05-26] MEDS: Furosemide 20 MG/2 ML VIAL IVPUSH (23:54)
[2025-05-27] VITALS (40 sets, daily range): BP systolic 114–161; BP diastolic 43–97; PULSE 74–111; RESP 14–98; TEMP 34.9–38.6; O2SAT 25–99; BMI 19.7
[2025-05-27 00:13] LABS: Glucose, Whole Blood 81 mg/dL (60-115)
--- NOTE | 2025-05-27 01:05 | P.PNGS_ITS ---
Subjective Subjective Date of Service: 05/26/25 Interval history: pt still intubated but off pressors winces with ruq palpation Physical Exam 2 Vital Signs: Vital Signs: Last Vital Signs Temp 99.7 F 05/27/25 00:55 Pulse 83 05/27/25 00:55 Resp 21 H 05/27/25 00:55 BP 132/62 05/27/25 00:55 Pulse Ox 92 05/27/25 00:55 O2 Del Method Mechanical Ventil ation 05/27/25 00:55 O2 Flow Rate 4 05/25/25 13:00 FiO2 35 05/27/25 00:55 Oxygen Flow Rate 8 05/24/25 13:56 BMI result Body Mass Index 22.7 GI: Other: tender to ruq palpation Objective Data Active Medications Albuterol Sulfate (Albuterol Sulfate (0.083%) 2.5 Mg/3 Ml Vial.Neb) 2.5 mg INHALE Q4H PRN PRN Reason: Wheezing Chlorhexidine Gluconate (Chlorhexidine Gluc Oral Rinse 15 Ml Mouthwash) 15 ml BUCCAL TID [facility] [place] Last Admin: 05/26/25 21:37 Dose: 15 ml Documented By: NALINI Enoxaparin Sodium (Enoxaparin Sodium 40 Mg/0.4 Ml Syringe) 40 mg SUBCUT Q24H [facility] [place] Last Admin: 05/26/25 21:43 Dose: Not Given Documented By: NALINI Non-Admin Reason: hold per [employer]ER Famotidine (Famotidine/Pf 20 Mg/2 Ml Vial) 20 mg IVPUSH BID [facility] [place] Last Admin: 05/26/25 21:38 Dose: 20 mg Documented By: NALINI Hydromorphone HCl (Hydromorphone Hcl 1 Mg/Ml Syringe) 0.5 mg IVPUSH Q2H PRN; Protocol PRN Reason: Pain, Moderate(Pain Scale 4-6) Last Admin: 05/27/25 00:06 Dose: 0.5 mg Documented By: NALINI Piperacillin Sod/Tazobactam (Sod 3.375 gm/ Sodium Chloride) 50 mls @ 100 mls/hr IV Q6H [facility] [place] Last Infusion: 05/26/25 22:07 Dose: Infused Documented By: SERENA Propofol (Diprivan) 1,000 mg in 100 mls @ 0 mls/hr IVCONT .Q0M [facility]; Protocol Last Admin: 05/26/25 17:16 Dose: 30 mcg/kg/min, 8.98 mls/hr Documented By: NICOLA Norepinephrine Bitartrate (Levophed) 8 mg in 250 mls @ 0 mls/hr IVCONT .Q0M DEE; Protocol Last Titration: 05/26/25 02:26 Dose: Infused Documented By: GLADIS Vancomycin HCl 1,250 mg/ (Sodium Chloride) 250 mls @ 166.667 mls/hr IV Q24H [facility] [place] Last Admin: 05/26/25 23:56 Dose: 166.67 mls/hr Documented By: NALINI Pharmacy Consult (Consult Rx Vancomycin Dosing) 1 each MISCELLANE DAILY PRN PRN Reason: Consult order Vancomycin HCl (Vancomycin Hcl Oral Solution 125 Mg/5 Ml Soln.Recon) 125 mg PO QID [facility] [place] Last Admin: 05/26/25 21:38 Dose: 125 mg Documented By: NALINI Labs 05/26/25 04:45 05/26/25 04:45 Labs: Laboratory Results - last 24 hr 05/26/25 05/26/25 05/26/25 04:45 04:51 13:06 MCV 84.7 MCH 28.3 MCHC 33.5 RDW 18.0 H Plt Count 408 H MPV 8.6 L Immature Gran % (Auto) 0.7 H Neut % (Auto) 82.7 H Lymph % (Auto) 8.2 L [place] % (Auto) 6.4 Eos % (Auto) 1.3 Baso % (Auto) 0.7 Lymph # (Auto) 1.1 L [place] # (Auto) 0.9 Eos # (Auto) 0.2 Baso # (Auto) 0.1 Abs Immat Gran (auto) 0.09 H Absolute Neuts (auto) 10.9 H Absolute Nucleated RBC 0.000 Nucleated RBC % (auto) 0.0 VBG pH 7.42 VBG pCO2 25 VBG pO2 52 VBG HCO3 17 L VBG O2 Saturation 82.0 VBG Base Excess -6.0 Anion Gap 16 Estim Creat Clear Calc 62.6 Estimated GFR > 60 POC Glucose Random Glucose 69 Calcium 8.2 L Phosphorus 3.9 Magnesium 1.9 Albumin 3.1 L Random Vancomycin 19.4 05/27/25 00:10 MCV MCH MCHC RDW Plt Count MPV Immature Gran % (Auto) Neut % (Auto) Lymph % (Auto) [place] % (Auto) Eos % (Auto) Baso % (Auto) Lymph # (Auto) [place] # (Auto) Eos # (Auto) Baso # (Auto) Abs Immat Gran (auto) Absolute Neuts (auto) Absolute Nucleated RBC Nucleated RBC % (auto) VBG pH VBG pCO2 VBG pO2 VBG HCO3 VBG O2 Saturation VBG Base Excess Anion Gap Estim Creat Clear Calc Estimated GFR POC Glucose 81 Random Glucose Calcium Phosphorus Magnesium Albumin Random Vancomycin Microbiology Microbiology Results: Microbiology 05/24/25 14:14 Blood Culture - Preliminary Blood - Venous No growth after 48 hours. 05/24/25 17:58 Urine Culture - Final Urine Catheterized - [place] Catheter No growth. 05/24/25 20:35 Gram Stain - Final Sputum - Suctioned Sputum Culture - Preliminary Culture in progress. 05/24/25 14:14 Blood Culture - Preliminary Blood - Venous Enterococcus/Streptococcus sp Procedures Date of Service Date of Service: 05/27/25 Progress Note: A&P Assessment and plan (1) Cholecystitis: Status: Acute Assessment and Plan: pt with high likelihood of cholecystitis but with pneumonia on vent difficult to wean off 0 at least off pressors today would recommend cholecystostomy tube for decompression - pt poor candidiate for surgical procedure. Time Spent With Patient Time: Total time managing care of this patient today ____ minutes. Quality Stroke Does the patient have a stroke diagnosis?: No VTE Prior VTE?: No VTE Risk Level:: Medical - moderate - high VTE Device Contraindication: N/A - Device Ordered VTE Drug Contraindication: N/A - Med Ordered
[2025-05-27 05:23] LABS: VBG HCO3 14 mmol/L (22-26); VBG O2 % Saturation 99.0 %
[2025-05-27 05:23] LABS: MANUAL DIFF FLAG NO
[2025-05-27 05:24] LABS: Venous Blood Gas Refer to POC result
[2025-05-27 05:24] LABS: Hematocrit 23.3 % (37.0-47.0); Hemoglobin 7.8 g/dl (12.0-16.0); Imm Gran Abs Auto 0.11 X10*3/uL (0.00-0.03); Imm Gran Pct Auto 0.8 % (0.0-0.4); Lymphocytes Absolute Auto 0.9 X10*3/uL (1.2-4.9); Mean Corpuscular HGB Conc 33.5 g/dl (31.0-35.0); Mean Corpuscular Hemoglobin 27.7 pg (27.0-33.0); Mean Corpuscular Volume 82.6 fL (80.0-98.0); NRBC Abs Auto 0.000 X10*3/uL (0.0-0.012); NRBC Pct Auto 0.0 /100WBC (0.0-0.2); Platelet Count 379 X10*3/uL (160-400); Red Blood Count 2.82 X10*6/uL (4.20-5.50); White Blood Count 13.7 X10*3/uL (4.8-10.8)
[2025-05-27] MEDS: Albuterol Sulfate (0.083%) 2.5 MG/3 ML VIAL.NEB INHALE ×2 (05:28→12:44)
--- NOTE | 2025-05-27 05:38 | PC.RT ---
VBG done with ph 7.59, CO2 16 with no vent changes made. Patient has been tachypneic this morning, RN did gave dilaudid earlier, RT communicated to ICU TRANSFER DRIVER above VBG CO2 16, TRANSFER DRIVER ordering Fentanyl. RN also aware of morning VBG.
[2025-05-27] MEDS: fentaNYL citrate/NS 1,000 MCG/100 ML PLAST..BAG 2.5 MCG IVCONT (05:46)
[2025-05-27 05:53] LABS: Albumin Level 2.7 g/dL (3.5-5.0); Anion Gap 15 (12-20); Blood Urea Nitrogen 11 mg/dL (9-16); Calcium 7.7 mg/dL (8.4-10.2); Carbon Dioxide 16 mmol/L (22-29); Chloride 105 mmol/L (96-108); Creatinine Clr Calc Pharmacy 61.7; Estimated Glomerular Filt Rate > 60; Magnesium 1.6 mg/dL (1.6-2.6); Potassium 3.1 mmol/L (3.3-5.1); Sodium 133 mmol/L (135-145)
[2025-05-27 06:33] LABS: Glucose, Whole Blood 101 mg/dL (60-115)
--- NOTE | 2025-05-27 07:40 | PM.PNGS ---
Subjective Subjective Date of Service: 05/27/25 <Waldo Saucedo PA-C - Last Filed: 05/27/25 07:48> 05/27/25 <Adiel Galdamez MD - Last Filed: 05/27/25 08:02> Interval history: remains intubated, sedated. unable to arouse at bedside <Waldo Saucedo PA-C - Last Filed: 05/27/25 07:48> Physical Exam Vital Signs: Vital Signs: Last Vital Signs Temp 99.9 F 05/27/25 07:00 Pulse 86 05/27/25 07:00 Resp 25 H 05/27/25 07:00 BP 141/66 H 05/27/25 07:00 Pulse Ox 92 05/27/25 07:00 O2 Del Method Mechanical Ventil ation 05/27/25 07:00 O2 Flow Rate 4 05/25/25 13:00 FiO2 35 05/27/25 07:00 Oxygen Flow Rate 8 05/24/25 13:56 BMI result Body Mass Index 19.7 <Waldo Saucedo PA-C - Last Filed: 05/27/25 07:48> Const: Nutritional Appearance: cachectic <aWldo Saucedo PA-C - Last Filed: 05/27/25 07:48> Orientation/consciousness: Other orientation findings (sedated) <Waldo Saucedo PA-C - Last Filed: 05/27/25 07:48> Resp: Other: intubated <Waldo Saucedo PA-C - Last Filed: 05/27/25 07:48> GI: Other: no response to palpation of the abdomen <Waldo Saucedo PA-C - Last Filed: 05/27/25 07:48> Inspection: No distended <Waldo Saucedo PA-C - Last Filed: 05/27/25 07:48> Palpation (GI): Soft to palpation <JOSE Ariza Last Filed: 05/27/25 07:48> Objective Data Active Medications Albuterol Sulfate (Albuterol Sulfate (0.083%) 2.5 Mg/3 Ml Vial.Neb) 2.5 mg INHALE Q4H PRN PRN Reason: Wheezing Last Admin: 05/27/25 05:28 Dose: 2.5 mg Documented By: BANADR Chlorhexidine Gluconate (Chlorhexidine Gluc Oral Rinse 15 Ml Mouthwash) 15 ml BUCCAL TID [facility] Last Admin: 05/26/25 21:37 Dose: 15 ml Documented By: NALINI Enoxaparin Sodium (Enoxaparin Sodium 40 Mg/0.4 Ml Syringe) 40 mg SUBCUT Q24H [facility] Last Admin: 05/26/25 21:43 Dose: Not Given Documented By: NALINI Non-Admin Reason: hold per [employer]CHNICIAN Famotidine (Famotidine/Pf 20 Mg/2 Ml Vial) 20 mg IVPUSH BID [facility] Last Admin: 05/26/25 21:38 Dose: 20 mg Documented By: NALINI Hydromorphone HCl (Hydromorphone Hcl 1 Mg/Ml Syringe) 0.5 mg IVPUSH Q2H PRN; Protocol PRN Reason: Pain, Moderate(Pain Scale 4-6) Last Admin: 05/27/25 00:06 Dose: 0.5 mg Documented By: NALINI Piperacillin Sod/Tazobactam (Sod 3.375 gm/ Sodium Chloride) 50 mls @ 100 mls/hr IV Q6H [facility] Last Infusion: 05/27/25 03:51 Dose: Infused Documented By: SERENA Propofol (Diprivan) 1,000 mg in 100 mls @ 0 mls/hr IVCONT .Q0M DEE; Protocol Last Admin: 05/27/25 01:18 Dose: 30 mcg/kg/min, 8.98 mls/hr Documented By: NALINI Norepinephrine Bitartrate (Levophed) 8 mg in 250 mls @ 0 mls/hr IVCONT .Q0M DEE; Protocol Last Titration: 05/26/25 02:26 Dose: Infused Documented By: GLADIS Vancomycin HCl 1,250 mg/ (Sodium Chloride) 250 mls @ 166.667 mls/hr IV Q24H [facility] Last Infusion: 05/27/25 01:26 Dose: Infused Documented By: SERENA Fentanyl (Sublimaze/Ns) 1,000 mcg in 100 mls @ 0 mls/hr IVCONT .Q0M DEE; Protocol Last Admin: 05/27/25 05:46 Dose: 25 mcg/hr, 2.5 mls/hr Documented By: SERENA Potassium Chloride (Potassium Chloride/H20) 10 meq in 100 mls @ 100 mls/hr IV Q1H [facility] Stop: 05/27/25 11:59 Naloxone HCl (Naloxone Hcl 0.4 Mg/Ml Vial) 0.2 mg IVPUSH Q2M PRN PRN Reason: Excessive sedation or RR < 8 Pharmacy Consult (Consult Rx Vancomycin Dosing) 1 each MISCELLANE DAILY PRN PRN Reason: Consult order Vancomycin HCl (Vancomycin Hcl Oral Solution 125 Mg/5 Ml Soln.Recon) 125 mg PO QID [facility] Last Admin: 05/26/25 21:38 Dose: 125 mg Documented By: NALINI <Waldo Saucedo PA-C - Last Filed: 05/27/25 07:48> Labs CBC & Chem 7: 05/27/25 05:11 05/27/25 05:11 <Waldo Saucedo PA-C - Last Filed: 05/27/25 07:48> Labs: Laboratory Results - last 24 hr 05/26/25 05/27/25 05/27/25 13:06 00:10 05:11 MCV 82.6 MCH 27.7 MCHC 33.5 RDW 17.9 H Plt Count 379 MPV 8.6 L Immature Gran % (Auto) 0.8 H Neut % (Auto) 83.0 H Lymph % (Auto) 6.4 L [place] % (Auto) 7.8 Eos % (Auto) 1.6 Baso % (Auto) 0.4 Lymph # (Auto) 0.9 L [place] # (Auto) 1.1 Eos # (Auto) 0.2 Baso # (Auto) 0.1 Abs Immat Gran (auto) 0.11 H Absolute Neuts (auto) 11.3 H Absolute Nucleated RBC 0.000 Nucleated RBC % (auto) 0.0 VBG pH VBG pCO2 VBG pO2 VBG HCO3 VBG O2 Saturation VBG Base Excess Anion Gap 15 Estim Creat Clear Calc 61.7 Estimated GFR > 60 POC Glucose 81 Random Glucose 94 Calcium 7.7 L D Phosphorus 3.6 Magnesium 1.6 NT-Pro-B Natriuret Pep 60910.0 H Albumin 2.7 L Random Vancomycin 19.4 05/27/25 05/27/25 05:18 06:29 MCV MCH MCHC RDW Plt Count MPV Immature Gran % (Auto) Neut % (Auto) Lymph % (Auto) [place] % (Auto) Eos % (Auto) Baso % (Auto) Lymph # (Auto) [place] # (Auto) Eos # (Auto) Baso # (Auto) Abs Immat Gran (auto) Absolute Neuts (auto) Absolute Nucleated RBC Nucleated RBC % (auto) VBG pH 7.56 H VBG pCO2 16 VBG pO2 98 VBG HCO3 14 L VBG O2 Saturation 99.0 VBG Base Excess -5.1 Anion Gap Estim Creat Clear Calc Estimated GFR POC Glucose 101 Random Glucose Calcium Phosphorus Magnesium NT-Pro-B Natriuret Pep Albumin Random Vancomycin <Waldo Saucedo PA-C - Last Filed: 05/27/25 07:48> Microbiology Microbiology Results: Microbiology 05/24/25 14:14 Blood Culture - Preliminary Blood - Venous No growth after 48 hours. 05/24/25 17:58 Urine Culture - Final Urine Catheterized - [place] Catheter No growth. 05/24/25 20:35 Gram Stain - Final Sputum - Suctioned Sputum Culture - Preliminary Culture in progress. 05/24/25 14:14 Blood Culture - Preliminary Blood - Venous Enterococcus/Streptococcus sp <Waldo Saucedo PA-C - Last Filed: 05/27/25 07:48> Procedures Date of Service Date of Service: 05/27/25 <Waldo Saucedo PA-C - Last Filed: 05/27/25 07:48> 05/27/25 <Adiel Galdamez MD - Last Filed: 05/27/25 08:02> Progress Note: A&P Assessment and plan (1) Cholecystitis: Status: Acute <Waldo Saucedo PA-C - Last Filed: 05/27/25 07:48> Assessment and Plan: 74 year old female admitted for respiratory failure with multifocal Currently on the ventilator workup in the ER Forceps this also showing distended gallbladder with gallstones question of cholecystitis In view of mental status, difficult to says for pain or tenderness in the right upper if with high index of suspicion for cholecystitis has source of sepsis, would recommend cystostomy tube patient not a surgical IV antibiotics we will follow seen and examined independently <Adiel Galdamez MD - Last Filed: 05/27/25 08:02> (2) Acute respiratory failure: Status: Acute <Waldo Saucedo PA-C - Last Filed: 05/27/25 07:48> Assessment and Plan: 74 year old female admitted for pneumonia with acute respiratory distress found to have findings suggestive of cholecystitis. She remains intubated, sedated. Unable to gather any new history from patient. Exam did not elicit any repsonse to pain of palpation of the abdomen. Patient is not a surgical candidate, would continue to recommend cholecystosomy tube to decompress GB. <Waldo Saucedo PA-C - Last Filed: 05/27/25 07:48> Time Spent With Patient Time: Total time managing care of this patient today ____ minutes. <Waldo Saucedo PA-C - Last Filed: 05/27/25 07:48> Quality Stroke Does the patient have a stroke diagnosis?: No <Waldo Saucedo PA-C - Last Filed: 05/27/25 07:48> VTE Prior VTE?: No <Waldo Saucedo PA-C - Last Filed: 05/27/25 07:48> VTE Risk Level:: Medical - moderate - high <Waldo Saucedo PA-C - Last Filed: 05/27/25 07:48> VTE Device Contraindication: N/A - Device Ordered <Waldo Saucedo PA-C - Last Filed: 05/27/25 07:48> VTE Drug Contraindication: N/A - Med Ordered <Waldo Saucedo PA-C - Last Filed: 05/27/25 07:48>
[2025-05-27] MEDS: vancomycin HCL Oral Solution 125 MG/5 ML SOLN.RECON PO (08:15)
[2025-05-27] MEDS: Chlorhexidine Gluc Oral Rinse 15 ML MOUTHWASH BUCCAL (08:17)
[2025-05-27] MEDS: Potassium Chloride/H20 10 MEQ/100 ML PIGGYBACK 100 MEQ IV ×6 (08:32→23:39)
[2025-05-27 09:33] LABS: Alanine Aminotransferase 47 U/L (0-31); Alkaline Phosphatase 103 U/L (39-117); Aspartate Amino Transferase 83 U/L (5-31)
--- NOTE | 2025-05-27 11:30 | MHC.CLN ---
PT IS INTUBATED AND SEDATED DISCUSSED AT ROUNDS WITH PREVIOUSLY RECEIVED TRICKLE TF BUT CURRENTLY ON HOLD R/T PENDING PROCEDURE TODAY IF TF TO RESUME; RECOMMEND JEVITY 1.2 AT MAX GAOL RATE 50ML/HR WITH 120ML FREE WATER FLUSHES Q 8 HRS TO PROVIDE 1440KCALS (28KCALS/KG), 66G PROTEIN (1.27G/KG), 1328ML TOTAL FREE WATER FROM FORMULA AND FLUSHES (26ML/KG) MONITOR TOLERANCE AND LYTES SEE FULL ASSESSMENT
--- NOTE | 2025-05-27 13:10 | P.PNCC_ITS ---
Subjective Subjective Date of Service: 05/27/25 Interval History: 74-year-old lady with underlying congestive heart failure, AFib, recent admission to [facility] for C diff admitted on 05/24/2025 with dyspnea and hypoxia requiring intubation emergency room. Further workup suggestive of pneumonic cholecystitis processes. Patient was covered with empiric antibiotics and evaluated by General surgery with tentative plan for cholecystostomy placement. Extubated uneventfully on 05/27/2025. No events overnight. Critical Care Time (minutes): 60 Physical Exam 2 Vital Signs: Vital Signs: Last Vital Signs Temp 99.1 F 05/27/25 13:00 Pulse 89 05/27/25 13:00 Resp 30 H 05/27/25 13:00 BP 121/81 05/27/25 13:00 Pulse Ox 95 05/27/25 13:00 O2 Del Method Nasal Cannula 05/27/25 13:00 O2 Flow Rate 6 05/27/25 13:00 FiO2 35 05/27/25 12:00 Oxygen Flow Rate 8 05/24/25 13:56 BMI result Body Mass Index 19.7 Const: General: no acute distress and alert HEENT: Head: Yes atraumatic Eyes: General: appearance normal, both eyes and all related structures S clerae: sclerae normal EOM: EOMs intact bilaterally Neck: Neck: Yes supple Lymphatic: no lymphadenopathy noted Resp: Effort & Inspection: normal respiratory effort and no use of accessory muscles Auscultation: clear to auscultation bilaterally Cardio: Rate: regular rate Rhythm: regular rhythm Heart sounds: no gallops, no murmurs and no rubs GI: Palpation (GI): Soft to palpation and Other GI palpation findings present ( Nontender) Auscultation: normal bowel sounds Skin: General skin exam: other ( warm) Extrem: General: No clubbing, No cyanosis and No edema Objective Data Labs 05/27/25 05:11 05/27/25 05:11 Labs: Laboratory Results - last 24 hr 05/24/25 05/25/25 05/26/25 17:18 05:00 13:06 WBC RBC Hgb Hct MCV MCH MCHC RDW Plt Count MPV Immature Gran % (Auto) Neut % (Auto) Lymph % (Auto) [place] % (Auto) Eos % (Auto) Baso % (Auto) Lymph # (Auto) [place] # (Auto) Eos # (Auto) Baso # (Auto) Abs Immat Gran (auto) Absolute Neuts (auto) Absolute Nucleated RBC Nucleated RBC % (auto) Smear Path Review SEE NOTE VBG pH VBG pCO2 VBG pO2 VBG HCO3 VBG O2 Saturation VBG Base Excess Sodium Potassium Chloride Carbon Dioxide Anion Gap BUN Creatinine Estim Creat Clear Calc Estimated GFR POC Glucose Random Glucose Calcium Phosphorus Magnesium Total Bilirubin Direct Bilirubin AST ALT Alkaline Phosphatase NT-Pro-B Natriuret Pep Albumin Random Vancomycin 19.4 Blood Type A Positive Antibody Screen NEGATIVE Crossmatch See Detail 05/27/25 05/27/25 05/27/25 00:10 05:11 05:18 WBC 13.7 H RBC 2.82 L Hgb 7.8 L Hct 23.3 L MCV 82.6 MCH 27.7 MCHC 33.5 RDW 17.9 H Plt Count 379 MPV 8.6 L Immature Gran % (Auto) 0.8 H Neut % (Auto) 83.0 H Lymph % (Auto) 6.4 L [place] % (Auto) 7.8 Eos % (Auto) 1.6 Baso % (Auto) 0.4 Lymph # (Auto) 0.9 L [place] # (Auto) 1.1 Eos # (Auto) 0.2 Baso # (Auto) 0.1 Abs Immat Gran (auto) 0.11 H Absolute Neuts (auto) 11.3 H Absolute Nucleated RBC 0.000 Nucleated RBC % (auto) 0.0 Smear Path Review VBG pH 7.56 H VBG pCO2 16 VBG pO2 98 VBG HCO3 14 L VBG O2 Saturation 99.0 VBG Base Excess -5.1 Sodium 133 L Potassium 3.1 L D Chloride 105 Carbon Dioxide 16 L Anion Gap 15 BUN 11 Creatinine 0.69 Estim Creat Clear Calc 61.7 Estimated GFR > 60 POC Glucose 81 Random Glucose 94 Calcium 7.7 L D Phosphorus 3.6 Magnesium 1.6 Total Bilirubin Direct Bilirubin AST ALT Alkaline Phosphatase NT-Pro-B Natriuret Pep 94783.0 H Albumin 2.7 L Random Vancomycin Blood Type Antibody Screen Crossmatch 05/27/25 05/27/25 06:29 09:10 WBC RBC Hgb Hct MCV MCH MCHC RDW Plt Count MPV Immature Gran % (Auto) Neut % (Auto) Lymph % (Auto) [place] % (Auto) Eos % (Auto) Baso % (Auto) Lymph # (Auto) [place] # (Auto) Eos # (Auto) Baso # (Auto) Abs Immat Gran (auto) Absolute Neuts (auto) Absolute Nucleated RBC Nucleated RBC % (auto) Smear Path Review VBG pH VBG pCO2 VBG pO2 VBG HCO3 VBG O2 Saturation VBG Base Excess Sodium Potassium Chloride Carbon Dioxide Anion Gap BUN Creatinine Estim Creat Clear Calc Estimated GFR POC Glucose 101 Random Glucose Calcium Phosphorus Magnesium Total Bilirubin 1.0 Direct Bilirubin 0.6 H AST 83 H ALT 47 H Alkaline Phosphatase 103 NT-Pro-B Natriuret Pep Albumin Random Vancomycin Blood Type Antibody Screen Crossmatch Microbiology Microbiology Results: Microbiology 05/24/25 14:14 Blood - Venous Blood Culture - Preliminary Enterococcus faecium 05/24/25 20:35 Sputum - Suctioned Gram Stain - Final 05/24/25 20:35 Sputum - Suctioned Sputum Culture - Preliminary Staphylococcus species 05/24/25 14:14 Blood - Venous Blood Culture - Preliminary No growth after 48 hours. 05/24/25 17:58 Urine Catheterized - [place] Catheter Urine Culture - Final No growth. Progress Note: A&P Assessment and plan (1) Acute respiratory failure: Status: Acute (2) Cholecystitis: Status: Acute (3) Afib: Status: Acute Plan Assessment: 74-year-old lady admitted with acute hypoxic respiratory failure secondary to pneumonia with possible cholecystitis initially requiring intubation and ventilatory support, extubated 05/27/2025. Plan: Neuro: No acute issues. Cardiac: No acute issues. Underlying AFib. Pulmonary: Acute hypoxic respiratory failures, initially requiring ventilatory support, extubated uneventfully on 05/27/2025. Continue to titrate off supplemental oxygen as tolerated. Renal: No acute issues. Endo: No acute issues. GI: Concern for cholecystitis. General surgery service care appreciated. Follow-up gallbladder ultrasound is pending. ID: Pneumonia and also possible cholecystitis. Continue empiric antibiotics. Heme/Onc: No acute issues. Psych: No acute issues. Miscellaneous: No acute issues. Prophylaxis: Lovenox Diet: NPO Critical care time spent: 60 minutes Quality Stroke Does the patient have a stroke diagnosis?: No VTE Prior VTE?: No VTE Risk Level:: Medical - moderate - high VTE Device Contraindication: N/A - Device Ordered VTE Drug Contraindication: N/A - Med Ordered
[2025-05-27] MEDS: Furosemide 40 MG/4 ML VIAL IVPUSH (15:50)
--- NOTE | 2025-05-27 16:03 | MHC.CM.PN ---
EMR REVIEWED AND PER ICU ROUNDS, PATIENT BEING TREATED FOR ACUTE HYPOXIC RESPIRATORY FAILURE SECONDARY TO PNEUMONIA, PATIENT WAS EXTUBATED TODAY, CM WILL CONTINUE TO FOLLOW.
--- NOTE | 2025-05-27 16:38 | HO.WOUND ---
Wound Consult: Initial 74yr old? female admitted to [facility] on 05/24/25 - See progress notes and H&P for detailed history.? Wound consult placed for sacrum.? Arrival to ICU patient was recently extubated and not appropriate for turn and assessment at this time. At bedside patient appear fragile and underweight. Talked with direct care team - tissue at buttock, sacrum and coccyx remains blanchable throughout and scattered open wounds consistent with MASD. Barrier cream in use. Foams applied to bilateral flank areas for prevention - tissue is reddened and at risk for injury given her body habitus. Heep boot protectors in use along with KELLEY mattress. Unable to assess at this time will attempt in person assessment at future date and time. Photo from 05/25/25 Etiology: MASD Wound Bed: per direct care team blanchable throughout scattered open areas consistent with moisture and friction Edges: ? irregular Vianca wound: ?MASD No Induration, Fluctuance or Warmth noted Goals of Treatment: ? off load pressure protect from moisture and friction Recommendations: 1. Turn and Reposition every 2 hours and as needed for patient comfort.? Use pillows or wedges to support off loading positions. 2. Off Load all bony prominences with use of pillows and heel boots if needed.? Apply Preventative foams where needed. ? 3. Monitor for incontinence and moisture control, use barrier creams when needed for prevention and treatment. 4. Provide adequate and supplemental nutrition.? 5. Continue low air loss mattress. 6. When applicable maintain blood glucose levels per Providers order. Sacrum - Off Load Pressure with Q2 hr turns and use of pillows - Cleanse with PH balance spray or wipes, pat dry. ?Apply thin layer of Triad to wound bed - only pat and dab no scrub and rub when soiling occurs. Reapply thin layer PRN after each episode of incontinence. Re-consult wound care Nurse for wound deterioration or wound changes.
--- NOTE | 2025-05-27 17:41 | PC.NURSE ---
Assumed care at 0700- pt. intubated and sedated per MAR. Sedation vacation initiated at 1052. Pt. tolerating PSV vent settings- see vent assessment. Pt. extubated per MD order at 1155. Pt. A7O to self only, following commands. Pt. initially placed on 4L olsen. pt. with some SOB, RR 20s-30s, wheezy throughout- PRN dilaudid and albuterol given per MAR with some effects. At approx. 1515 pt. with increased WOB, RR 40s-50s, crackles to B/L bases, 88-90% on 8L olsen, HR 110s-120s- MD notified, 40mg Lasix IVP, PRN fentanyl, and albuterol given per MAR with good effect. Pt. placed on HFNC 50L 65%. Currently pt. with slightly increased WOB, RR 20s-low 30s, O2 94% on HFNC, crackles no longer appreciated. Core temp 101.5- MD aware. Afib on tele, HR 100s-110s. Casillas in place draining cyu. Family at bedside and updated. Q2 oral care and repositioning performed. Plan of care ongoing.
[2025-05-27 21:00] LABS: Anion Gap 15 (12-20); Blood Urea Nitrogen 13 mg/dL (9-16); Calcium 8.2 mg/dL (8.4-10.2); Carbon Dioxide 18 mmol/L (22-29); Chloride 104 mmol/L (96-108); Creatinine Clr Calc Pharmacy 56.3; Estimated Glomerular Filt Rate > 60; Magnesium 1.5 mg/dL (1.6-2.6); Potassium 3.4 mmol/L (3.3-5.1); Sodium 134 mmol/L (135-145)
[2025-05-27 21:23] LABS: Albumin Level 3.1 g/dL (3.5-5.0)
--- NOTE | 2025-05-27 21:28 | HE.PHANOTE ---
Vancomycin addendum: level came back at 18.4 after 1 dose of 1250 mg, will recheck a level in 2 days
[2025-05-27] MEDS: Albumin Human 25 % 100 ML IV (21:38)
[2025-05-27] MEDS: Magnesium Sulfate/H2O 2 GM/50 ML PIGGYBACK IV (21:44)
[2025-05-28] VITALS (24 sets, daily range): BP systolic 100–156; BP diastolic 44–71; PULSE 73–107; RESP 16–34; TEMP 36.5–38; O2SAT 90–100; BMI 18.5
[2025-05-28] MEDS: Albuterol Sulfate (0.083%) 2.5 MG/3 ML VIAL.NEB INHALE (00:40)
[2025-05-28 00:57] LABS: Glucose, Whole Blood 95 mg/dL (60-115)
[2025-05-28] MEDS: Furosemide 20 MG/2 ML VIAL IVPUSH (01:19)
[2025-05-28] MEDS: Albumin Human 25 % 100 ML IV (03:27)
[2025-05-28 05:08] LABS: VBG HCO3 18 mmol/L (22-26); VBG O2 % Saturation 87.0 %
[2025-05-28 05:15] LABS: Venous Blood Gas Refer to POC result
[2025-05-28 05:23] LABS: MANUAL DIFF FLAG NO
[2025-05-28 05:25] LABS: Hematocrit 27.8 % (37.0-47.0); Hemoglobin 9.6 g/dl (12.0-16.0); Imm Gran Abs Auto 0.11 X10*3/uL (0.00-0.03); Imm Gran Pct Auto 0.8 % (0.0-0.4); Lymphocytes Absolute Auto 0.8 X10*3/uL (1.2-4.9); Mean Corpuscular HGB Conc 34.5 g/dl (31.0-35.0); Mean Corpuscular Hemoglobin 28.5 pg (27.0-33.0); Mean Corpuscular Volume 82.5 fL (80.0-98.0); NRBC Abs Auto 0.000 X10*3/uL (0.0-0.012); NRBC Pct Auto 0.0 /100WBC (0.0-0.2); Platelet Count 394 X10*3/uL (160-400); Red Blood Count 3.37 X10*6/uL (4.20-5.50); White Blood Count 14.6 X10*3/uL (4.8-10.8)
[2025-05-28 05:44] LABS: Albumin Level 3.8 g/dL (3.5-5.0); Anion Gap 18 (12-20); Blood Urea Nitrogen 12 mg/dL (9-16); Calcium 8.4 mg/dL (8.4-10.2); Carbon Dioxide 18 mmol/L (22-29); Chloride 102 mmol/L (96-108); Creatinine Clr Calc Pharmacy 55.4; Estimated Glomerular Filt Rate > 60; Magnesium 1.9 mg/dL (1.6-2.6); Potassium 3.2 mmol/L (3.3-5.1); Sodium 135 mmol/L (135-145)
--- NOTE | 2025-05-28 06:19 | PC.NURSE ---
Upon initial?assessment at approximately?1900- Pt A+Ox1, states shes in the hospital but unable to specify, soft spoken/mumbled/slow responses, tracks speaker, follows simple commands, moves right arm and right leg spontaneously, left arm and left leg are contracted. Pupils 3mm equal and sluggish. Telesitter in place for patient safety. TMax 101.3, PRN IV Tylenol administered with good effect. Afib on tele, HR 80-100s, MAP >65. Lungs clear upon auscultation, on HFNC, SpO2 >90%, RR 30s, pt complaining of SOB, PRN IVP Fentanyl administered with good effect. Pt NPO pending Speech Eval, mouth care provided as needed. Hypoactive BS, pt denies any pain or nausea. Banks catheter in place for fluid management, pale yellow output. Additional IV access obtained. Repeat labs obtained- Potassium, Mag and Albumin replaced per MAR. At approximately 0000- Upon reassessment, pt was found with banks catheter dislodged, and balloon port was noted to be broken off. No bleeding noted. 1:[address] for patient safety. MACHINE [employer]TER [employer] notified, new orders for banks reinsertion, inserted without incident, draining pale yellow urine. Pt on HFNC, SpO2>90%, adventitious lung sounds now present and urine output decreased, MACHINE SETTER SHE[employer] notified, 20mg IVP Lasix administered with good effect. At 0050 patient noted to have unequal pupils- right 4mm and sluggish, left 3mm and brisk. Pt remains A+Ox1 with no additional neuro changes. MACHINE SETTER SHEET METAL Dorian to bedside, no new orders at this time. Medical records requested and obtained from [facility]. At 0400 right pupil noted to be increased to 5mm and sluggish, left remains at 3mm and brisk. Pt remains A+Ox1 with improved speech, no additional neuro changes. MACHINE SETTER SHEET METAL Dorian aware. See EMR/ flowsheet for further details. Bed locked and in lowest position. 1:1 sitter remains at bedside. Report given to oncoming RN.
--- NOTE | 2025-05-28 07:28 | PM.PNGS ---
Subjective Subjective Date of Service: 05/28/25 <Waldo Saucedo PA-C - Last Filed: 05/28/25 07:35> 05/28/25 <Adiel Galdamez MD - Last Filed: 05/28/25 09:29> Interval history: now extubated, able to participate in evaluation. Denies abdominal pain. complaining of left shoulder pain. per nursing staff has not been complaining of pain <Waldo Saucedo PA-C - Last Filed: 05/28/25 07:35> Physical Exam Vital Signs: Vital Signs: Last Vital Signs Temp 100.4 F 05/28/25 07:00 Pulse 95 05/28/25 07:00 Resp 21 H 05/28/25 07:00 BP 100/49 L 05/28/25 07:00 Pulse Ox 93 05/28/25 07:00 O2 Del Method High Flow Nasal C annula 05/28/25 07:00 O2 Flow Rate 50 05/28/25 07:00 FiO2 40 05/28/25 07:00 Oxygen Flow Rate 8 05/24/25 13:56 BMI result Body Mass Index 18.5 <Waldo Saucedo PA-C - Last Filed: 05/28/25 07:35> Const: General: comfortable and no acute distress <Waldo Saucedo PA-C - Last Filed: 05/28/25 07:35> Nutritional Appearance: cachectic <Waldo Saucedo PA-C - Last Filed: 05/28/25 07:35> GI: Inspection: No distended <Waldo Saucedo PA-C - Last Filed: 05/28/25 07:35> Palpation (GI): Soft to palpation and nontender <Waldo Saucedo PA-C - Last Filed: 05/28/25 07:35> Objective Data Active Medications Albuterol Sulfate (Albuterol Sulfate (0.083%) 2.5 Mg/3 Ml Vial.Neb) 2.5 mg INHALE Q4H PRN PRN Reason: Wheezing Last Admin: 05/28/25 00:40 Dose: 2.5 mg Documented By: NARINDER Bisacodyl (Bisacodyl 10 Mg Supp.Rect) 10 mg MT BEDTIME PRN PRN Reason: Constipation Enoxaparin Sodium (Enoxaparin Sodium 40 Mg/0.4 Ml Syringe) 40 mg SUBCUT Q24H DEE Last Admin: 05/27/25 20:41 Dose: 40 mg Documented By: NALINI Fentanyl (Fentanyl Citrate/Pf 100 Mcg/2 Ml Vial) 50 mcg IVPUSH Q2H PRN; Protocol PRN Reason: Shortness of Breath Last Admin: 05/28/25 00:06 Dose: 50 mcg Documented By: NALINI Piperacillin Sod/Tazobactam (Sod 3.375 gm/ Sodium Chloride) 50 mls @ 100 mls/hr IV Q6H [facility] Last Infusion: 05/28/25 03:56 Dose: Infused Documented By: NALINI Norepinephrine Bitartrate (Levophed) 8 mg in 250 mls @ 0 mls/hr IVCONT .Q0M DEE; Protocol Last Titration: 05/26/25 02:26 Dose: Infused Documented By: GLADIS Vancomycin HCl 1,250 mg/ (Sodium Chloride) 250 mls @ 166.667 mls/hr IV Q24H [facility] Last Infusion: 05/28/25 01:01 Dose: Infused Documented By: NALINI Acetaminophen (Ofirmev) 1,000 mg in 100 mls @ 400 mls/hr IV Q6H PRN PRN Reason: Pain, Mild 1-3,fever,headache Stop: 05/28/25 17:59 Last Infusion: 05/28/25 06:01 Dose: Infused Documented By: NALINI Potassium Chloride (Potassium Chloride/H20) 10 meq in 100 mls @ 100 mls/hr IV Q1H [facility] Stop: 05/28/25 11:59 Pharmacy Consult (Consult Rx Vancomycin Dosing) 1 each MISCELLANE DAILY PRN PRN Reason: Consult order Vancomycin HCl (Vancomycin Hcl Oral Solution 125 Mg/5 Ml Soln.Recon) 125 mg PO QID [facility] Last Admin: 05/27/25 23:29 Dose: Not Given Documented By: NALINI Non-Admin Reason: NPO <Waldo Saucedo PA-C - Last Filed: 05/28/25 07:35> Labs CBC & Chem 7: 05/28/25 05:00 05/28/25 05:00 <Waldo Saucedo PA-C - Last Filed: 05/28/25 07:35> Labs: Laboratory Results - last 24 hr 05/24/25 05/25/25 05/27/25 17:18 05:00 09:10 MCV MCH MCHC RDW Plt Count MPV Immature Gran % (Auto) Neut % (Auto) Lymph % (Auto) Wake % (Auto) Eos % (Auto) Baso % (Auto) Lymph # (Auto) Wake # (Auto) Eos # (Auto) Baso # (Auto) Abs Immat Gran (auto) Absolute Neuts (auto) Absolute Nucleated RBC Nucleated RBC % (auto) Smear Path Review SEE NOTE VBG pH VBG pCO2 VBG pO2 VBG HCO3 VBG O2 Saturation VBG Base Excess Anion Gap Estim Creat Clear Calc Estimated GFR POC Glucose Random Glucose Calcium Phosphorus Magnesium Total Bilirubin 1.0 Direct Bilirubin 0.6 H AST 83 H ALT 47 H Alkaline Phosphatase 103 Albumin Random Vancomycin Blood Type A Positive Antibody Screen NEGATIVE Crossmatch See Detail 05/27/25 05/28/25 05/28/25 20:39 00:53 05:00 MCV 82.5 MCH 28.5 MCHC 34.5 RDW 17.0 H Plt Count 394 MPV 9.0 L Immature Gran % (Auto) 0.8 H Neut % (Auto) 85.4 H Lymph % (Auto) 5.8 L Wake % (Auto) 7.4 Eos % (Auto) 0.1 Baso % (Auto) 0.5 Lymph # (Auto) 0.8 L Wake # (Auto) 1.1 Eos # (Auto) 0.0 Baso # (Auto) 0.1 Abs Immat Gran (auto) 0.11 H Absolute Neuts (auto) 12.5 H Absolute Nucleated RBC 0.000 Nucleated RBC % (auto) 0.0 Smear Path Review VBG pH VBG pCO2 VBG pO2 VBG HCO3 VBG O2 Saturation VBG Base Excess Anion Gap 15 18 Estim Creat Clear Calc 56.3 55.4 Estimated GFR > 60 > 60 POC Glucose 95 Random Glucose 105 93 Calcium 8.2 L D 8.4 Phosphorus 3.3 2.9 Magnesium 1.5 L 1.9 Total Bilirubin Direct Bilirubin AST ALT Alkaline Phosphatase Albumin 3.1 L 3.8 Random Vancomycin 18.4 Blood Type Antibody Screen Crossmatch 05/28/25 05:03 MCV MCH MCHC RDW Plt Count MPV Immature Gran % (Auto) Neut % (Auto) Lymph % (Auto) Wake % (Auto) Eos % (Auto) Baso % (Auto) Lymph # (Auto) Wake # (Auto) Eos # (Auto) Baso # (Auto) Abs Immat Gran (auto) Absolute Neuts (auto) Absolute Nucleated RBC Nucleated RBC % (auto) Smear Path Review VBG pH 7.51 H VBG pCO2 23 VBG pO2 55 VBG HCO3 18 L VBG O2 Saturation 87.0 VBG Base Excess -2.4 Anion Gap Estim Creat Clear Calc Estimated GFR POC Glucose Random Glucose Calcium Phosphorus Magnesium Total Bilirubin Direct Bilirubin AST ALT Alkaline Phosphatase Albumin Random Vancomycin Blood Type Antibody Screen Crossmatch <Waldo Saucedo PA-C - Last Filed: 05/28/25 07:35> Microbiology Microbiology Results: Microbiology 05/24/25 14:14 Blood Culture - Final Blood - Venous Enterococcus faecium 05/24/25 20:35 Gram Stain - Final Sputum - Suctioned Sputum Culture - Preliminary Staphylococcus species <Waldo Saucedo PA-C - Last Filed: 05/28/25 07:35> Procedures Date of Service Date of Service: 05/28/25 <Waldo Saucedo PA-C - Last Filed: 05/28/25 07:35> 05/28/25 <Adiel Galdamez MD - Last Filed: 05/28/25 09:29> Progress Note: A&P Assessment and plan (1) Cholecystitis: Status: Acute <Waldo Saucedo PA-C - Last Filed: 05/28/25 07:35> Assessment and Plan: Extubated yesterday More alert and answers questions Some shortness of breath Denies abdominal pain Complains of left shoulder pain Abdomen is soft, no guarding, no rebound, no obvious tenderness in the right upper quadrant, no obvious Painting's sign I have reviewed her imaging studies including ultrasound and CAT scan Findings in the gallbladder equivocal for acute cholecystitis In view of absence of clinical findings suggestive of acute cholecystitis, I would recommend holding off on IR drainage/cholecystostomy unless index of suspicion is high We will continue to follow with serial exams Continue antibiotic therapy Seen and examined independently <Adiel Galdamez MD - Last Filed: 05/28/25 09:29> (2) Acute respiratory failure: Status: Acute <Waldo Saucedo PA-C - Last Filed: 05/28/25 07:35> Assessment and Plan: 74 year old female admitted for pneumonia with acute respiratory distress found to have findings suggestive of cholecystitis. She has been etubated, now able to provide some history. Denyig abdominal pain. Complaining of left shoulder pain. She had a RUQ US yesterday showing distended GB cholelithiasis, with pericholcystic fluid and no wall thickening WBC did elevate slightly today. On exam patient is soft and nontender throughout the abdomen. Again patient is not a great surgical candidate and clinically does not appear that her condition is related primarily to a biliary issue. Would recommend that she continue IV abx, if patients condition worsening, starts developing abdominal pain, nausea, vomiting, would recommend cholecystostomy tube placement. Will continue to follow along during admission. <Waldo Saucedo PA-C - Last Filed: 05/28/25 07:35> Time Spent With Patient Time: Total time managing care of this patient today ____ minutes. <Waldo Saucedo PA-C - Last Filed: 05/28/25 07:35> Quality Stroke Does the patient have a stroke diagnosis?: No <Waldo Saucedo PA-C - Last Filed: 05/28/25 07:35> VTE Prior VTE?: No <Waldo Saucedo PA-C - Last Filed: 05/28/25 07:35> VTE Risk Level:: Medical - moderate - high <JOSE Ariza Last Filed: 05/28/25 07:35> VTE Device Contraindication: N/A - Device Ordered <Waldo Saucedo PA-C - Last Filed: 05/28/25 07:35> VTE Drug Contraindication: N/A - Med Ordered <Waldo Saucedo PA-C - Last Filed: 05/28/25 07:35>
[2025-05-28] MEDS: Potassium Chloride/H20 10 MEQ/100 ML PIGGYBACK 100 MEQ IV ×4 (07:37→11:28)
[2025-05-28] MEDS: vancomycin HCL Oral Solution 125 MG/5 ML SOLN.RECON PO ×4 (08:04→21:35)
--- NOTE | 2025-05-28 10:00 | PM.CCPN ---
Subjective Subjective Date of Service: 05/28/25 Interval History: 74-year-old lady with underlying congestive heart failure, AFib, recent admission to [facility] for C diff admitted on 05/24/2025 with dyspnea and hypoxia requiring intubation emergency room. Further workup suggestive of pneumonic cholecystitis processes. Patient was covered with empiric antibiotics and evaluated by General surgery with tentative plan for cholecystostomy placement. Extubated uneventfully on 05/27/2025. No events overnight. FiO2 requirements are improving with diuresis. Critical Care Time (minutes): 0 Physical Exam Vital Signs: Vital Signs: Last Vital Signs Temp 99.7 F 05/28/25 09:00 Pulse 96 05/28/25 09:00 Resp 34 H 05/28/25 09:00 BP 121/61 05/28/25 09:00 Pulse Ox 94 05/28/25 09:00 O2 Del Method Mechanical Ventil ation 05/28/25 09:00 O2 Flow Rate 50 05/28/25 09:00 FiO2 40 05/28/25 09:00 Oxygen Flow Rate 8 05/24/25 13:56 BMI result Body Mass Index 18.5 Const: General: no acute distress and alert HEENT: Head: Yes atraumatic Eyes: Sclerae: sclerae normal EOM: EOMs intact bilaterally Neck: Neck: Yes supple Lymphatic: no lymphadenopathy noted Resp: Effort & Inspection: normal respiratory effort and no use of accessory muscles Auscultation: clear to auscultation bilaterally Cardio: Rate: regular rate Rhythm: abnormal rhythm irregularly irregular Heart sounds: no gallops, no murmurs and no rubs GI: Palpation (GI): Soft to palpation and Other GI palpation findings present ( Nontender) Auscultation: normal bowel sounds Skin: General skin exam: other ( warm) Extrem: General: No clubbing, No cyanosis and No edema Objective Data Labs 05/28/25 05:00 05/28/25 05:00 Labs: Laboratory Results - last 24 hr 05/24/25 05/25/25 05/27/25 17:18 05:00 20:39 WBC RBC Hgb Hct MCV MCH MCHC RDW Plt Count MPV Immature Gran % (Auto) Neut % (Auto) Lymph % (Auto) Page % (Auto) Eos % (Auto) Baso % (Auto) Lymph # (Auto) Page # (Auto) Eos # (Auto) Baso # (Auto) Abs Immat Gran (auto) Absolute Neuts (auto) Absolute Nucleated RBC Nucleated RBC % (auto) Smear Path Review SEE NOTE VBG pH VBG pCO2 VBG pO2 VBG HCO3 VBG O2 Saturation VBG Base Excess Sodium 134 L Potassium 3.4 Chloride 104 Carbon Dioxide 18 L Anion Gap 15 BUN 13 Creatinine 0.72 Estim Creat Clear Calc 56.3 Estimated GFR > 60 POC Glucose Random Glucose 105 Calcium 8.2 L D Phosphorus 3.3 Magnesium 1.5 L Albumin 3.1 L Random Vancomycin 18.4 Blood Type A Positive Antibody Screen NEGATIVE Crossmatch See Detail 05/28/25 05/28/25 05/28/25 00:53 05:00 05:03 WBC 14.6 H RBC 3.37 L Hgb 9.6 L D Hct 27.8 L MCV 82.5 MCH 28.5 MCHC 34.5 RDW 17.0 H Plt Count 394 MPV 9.0 L Immature Gran % (Auto) 0.8 H Neut % (Auto) 85.4 H Lymph % (Auto) 5.8 L Page % (Auto) 7.4 Eos % (Auto) 0.1 Baso % (Auto) 0.5 Lymph # (Auto) 0.8 L Page # (Auto) 1.1 Eos # (Auto) 0.0 Baso # (Auto) 0.1 Abs Immat Gran (auto) 0.11 H Absolute Neuts (auto) 12.5 H Absolute Nucleated RBC 0.000 Nucleated RBC % (auto) 0.0 Smear Path Review VBG pH 7.51 H VBG pCO2 23 VBG pO2 55 VBG HCO3 18 L VBG O2 Saturation 87.0 VBG Base Excess -2.4 Sodium 135 Potassium 3.2 L Chloride 102 Carbon Dioxide 18 L Anion Gap 18 BUN 12 Creatinine 0.73 Estim Creat Clear Calc 55.4 Estimated GFR > 60 POC Glucose 95 Random Glucose 93 Calcium 8.4 Phosphorus 2.9 Magnesium 1.9 Albumin 3.8 Random Vancomycin Blood Type Antibody Screen Crossmatch Microbiology Microbiology Results: Microbiology 05/24/25 20:35 Sputum - Suctioned Gram Stain - Final 05/24/25 20:35 Sputum - Suctioned Sputum Culture - Final Methicillin Res Staph Aureus 05/24/25 14:14 Blood - Venous Blood Culture - Final Enterococcus faecium 05/24/25 14:14 Blood - Venous Blood Culture - Preliminary No growth after 48 hours. 05/24/25 17:58 Urine Catheterized - Casillas Catheter Urine Culture - Final No growth. Progress Note: A&P Assessment and plan (1) Afib: Status: Acute (2) Cholecystitis: Status: Acute (3) Acute respiratory failure: Status: Acute (4) CHF (congestive heart failure): Status: Acute Plan Assessment: 74-year-old lady admitted with acute hypoxic respiratory failure secondary to pneumonia with possible cholecystitis initially requiring intubation and ventilatory support, extubated 05/27/2025. Plan: Neuro: No acute issues. Cardiac: Acute on chronic diastolic congestive heart failure improving with diuresis. Underlying AFib. Pulmonary: Acute hypoxic respiratory failures, initially requiring ventilatory support, extubated uneventfully on 05/27/2025. Continue to titrate off supplemental oxygen as tolerated. Renal: No acute issues. Endo: No acute issues. GI: Concern for cholecystitis. General surgery service care appreciated. Follow-up gallbladder ultrasound reviewed with interventional radiology with no plans for intervention at this time, however will reconsider cholecystostomy if fails to improve.. ID: Continue empiric antibiotics. Heme/Onc: No acute issues. Psych: No acute issues. Miscellaneous: No acute issues. Prophylaxis: Lovenox Diet: Pureed/honey thick Quality Stroke Does the patient have a stroke diagnosis?: No VTE Prior VTE?: No VTE Risk Level:: Medical - moderate - high VTE Device Contraindication: N/A - Device Ordered VTE Drug Contraindication: N/A - Med Ordered
[2025-05-28] MEDS: Furosemide 40 MG/4 ML VIAL IVPUSH (10:09)
--- NOTE | 2025-05-28 10:10 | MHC.CM.PN ---
Pt extubated and meeting with Speech for a swallow eval. Pt may be able to transfer to the floor if her BP remains stable and is responding to Lasix. Clinical updates sent to [facility] where pt will return for continuation of STR. CM to follow
--- NOTE | 2025-05-28 10:31 | MHC.SL.SWA ---
Speech Pathologist Impression: Mild-moderate oropharyngeal dysphagia Risk of Aspiration Due to: current respiratory status/PNA, recent extubation, dentition status Dysphasia Diet Status: Recommend START diet of NDD1 (pureed) solids, HONEY THICK Liquids with 1:1 feeding assistance. Liquid Consistency and Strategies for Safe Swallow: Liquid Intake Recommendation: Honey Thick Liquid Intake Strategies: Solid Food Consistency: Dietary Recommendations: Pureed (NDD1) Additional Modifications to Solid Foods: Oral Medication Intake: Crushed with Puree Please contact the pharmacy regarding appropriate crushable or liquid drug formulations that are available whenever modified delivery is recommended. Compensatory Strategies and Precautions to be Taken for Safe Swallow: Sit upright (90 degrees) Small sips/bites Alternate liquids/solids Supervision While Eating and Drinking for Safe Swallow: Total Assistance (1:1) Foods to Avoid: Swallowing Recommended Treatments: Compensatory strategies Recommendation for Speech: Outpatient Speech Therapy Comment: Patient with mild-moderate oropharyngeal dysphagia. Recently extubated on 05/27/25. Noted slow AP transit, multiple swallows per bolus, suspected delayed swallow and mild residue with pureed solids. Patient with coughing on thin and nectar thick liquids; no s/sx of penetration/aspiration on honey thick. Recommend START diet of NDD1 (pureed), HONEY THICK Liquids with 1:1 feeding assistance and medications CRUSHED in puree. Frequency/Duration: M-F Daily Date Range for Service Req: Timeline to reassess: Mill Crane Operator Clinican/Clinical Fellow: No Supervisory Statement: I have reviewed and agree with the student/clinical fellow's documentation: No Speech Language Pathologist: Edelmira Hunter M.A., CCC-MORNING NEWS PRODUCER
[2025-05-28 10:55] LABS: Albumin Level 3.4 g/dL (3.5-5.0); Alkaline Phosphatase 79 U/L (39-117); Aspartate Amino Transferase 81 U/L (5-31); Total Protein 5.6 g/dL (6.5-8.0)
--- NOTE | 2025-05-28 10:57 | MHC.CLN ---
F/U PT EXTUBATED DIET ADVANCED TO PUREED WITH HT LIQ PER MOLD FILLER RECOMMEND ADDING MAGIC CUP TID TO INCREASE KCALS SUPP TO PROVIDE 870KCALS, 27G PROTEIN MONITOR PO INTAKE CLOSELY
[2025-05-28 11:14] LABS: Alanine Aminotransferase 44 U/L (0-31)
--- NOTE | 2025-05-28 11:31 | P.CDIM_ITS ---
PROVIDER RESPONSE TEXT: To clarify, the appropriate diagnosis supported by the clinical indicators: Hypoalbuminemia QUERY TEXT: PHYSICIAN'S DOCUMENTATION REQUEST Date of Query: 05/28/2025 11:13 AM EST Patient Name: Casi Tejeda Admit Date: 05/24/2025 Dear Sandoval Villalba MD, A review of the medical record indicates additional documentation may be needed. Please review below and update the documentation accordingly. Clinical Indicators: LABS: Albumin 2.7 IV Albumin Human Based on the above, is there a diagnosis that correlates with these lab findings? Hypoalbuminemia Labs indicate a diagnosis of (please specify) Other (explain) Clinically unable to determine (explain) Thank you, Padma Parra, CCS, CDIS Use of terms such as suspected, likely, concern for, or probable (associated with a specific diagnosis that is being evaluated, monitored, or treated as if it exists) are acceptable and can be coded in the inpatient setting, when documented at the time of discharge. Please use your independent medical judgment in providing your response. THIS QUERY IS PART OF THE PERMANENT MEDICAL RECORD
--- NOTE | 2025-05-28 12:21 | HO.WOUND ---
Wound Consult: follow up 74yr old? [place] [facility] [place] - See progress notes and H&P for detailed history.? Wound consult placed for sacrum.? At bedside patient appear fragile and underweight. Barrier cream in use. Foams applied to bilateral flank, bilateral elbows and bilateral heels for prevention - tissue is reddened and at risk for injury given her body habitus. Heep boot protectors in use along with KELLEY mattress. Photo from 05/25/25 05/28/25 Etiology: MASD Wound Bed: largely intact, pink and blanching scattered open areas appear to be healing compared to prior photo, consistent with moisture and friction Edges: ? irregular Vianca wound: ?MASD No Induration, Fluctuance or Warmth noted Goals of Treatment: ? off load pressure protect from moisture and friction Recommendations: 1. Turn and Reposition every 2 hours and as needed for patient comfort.? Use pillows or wedges to support off loading positions. 2. Off Load all bony prominences with use of pillows and heel boots if needed.? Apply Preventative foams where needed. ? 3. Monitor for incontinence and moisture control, use barrier creams when needed for prevention and treatment. 4. Provide adequate and supplemental nutrition.? 5. Continue low air loss mattress. 6. When applicable maintain blood glucose levels per Providers order. Sacrum - Off Load Pressure with Q2 hr turns and use of pillows - Cleanse with PH balance spray or wipes, pat dry. ?Apply thin layer of Triad to wound bed - only pat and dab no scrub and rub when soiling occurs. Reapply thin layer PRN after each episode of incontinence. Re-consult wound care Nurse for wound deterioration or wound changes.
--- NOTE | 2025-05-28 15:21 | PM.EVENT ---
Event Note Date of Service: 05/28/25 Event Note: Seen on afternoon rounds On high-flow O2 oxygen Answers simple questions Appears somewhat short of breath Denies abdominal pain Abdomen is soft, no obvious tenderness, no Painting's sign, no guarding Continue current care as per ICU service Time Spent With Patient Time: Total time managing care of this patient today ____ minutes.
--- NOTE | 2025-05-28 16:11 | PC.NURSE ---
Assumed cared for pt at 0700, pt persistently complaining of left leg pain, prn medication utilized. Speech at the bedside to do formal eval: honey thickened liquid, pureed diet, pills crushed, 1:1 feed aspiration precautions. Casillas removed, purewick in place. Pt still remains on highflow 50 liters 40%. Safety and fall precautions maintained. Call bucio within reach. Plan to transfer to [facility], no longer requiring ICU level of care.
[2025-05-29 03:14] VITALS: BP 145/65; PULSE 98; RESP 18; TEMP 36.4; O2SAT 93
[2025-05-29 06:00] VITALS: BMI 18.5
[2025-05-29 07:59] VITALS: BP 139/71; PULSE 97; RESP 17; TEMP 36.8; O2SAT 97
--- NOTE | 2025-05-29 08:11 | P.PNGS_ITS ---
Subjective Subjective Date of Service: 05/29/25 Interval history: As per nursing staff, denies pain Transferred to [facility] yesterday Answers simple questions Requiring O2 supplement Physical Exam 2 Vital Signs: Vital Signs: Last Vital Signs Temp 98.3 F 05/29/25 07:59 Pulse 97 05/29/25 07:59 Resp 17 05/29/25 07:59 BP 139/71 05/29/25 07:59 Pulse Ox 97 05/29/25 07:59 O2 Del Method Oxymask 05/29/25 07:59 O2 Flow Rate 8 05/29/25 07:59 FiO2 40 05/28/25 16:00 Oxygen Flow Rate 8 05/24/25 13:56 BMI result Body Mass Index 18.5 Const: Other: Very frail looking, some shortness of breath Resp: Other: Some shortness of breath Cardio: Rhythm: regular rhythm GI: Palpation (GI): Soft to palpation, not firm, nontender and no guarding Objective Data Active Medications Albuterol Sulfate (Albuterol Sulfate (0.083%) 2.5 Mg/3 Ml Vial.Neb) 2.5 mg INHALE Q4H PRN PRN Reason: Wheezing Last Admin: 05/28/25 00:40 Dose: 2.5 mg Documented By: NARINDER Bisacodyl (Bisacodyl 10 Mg Supp.Rect) 10 mg [place] BEDTIME PRN PRN Reason: Constipation Enoxaparin Sodium (Enoxaparin Sodium 40 Mg/0.4 Ml Syringe) 40 mg SUBCUT Q24H [facility] Last Admin: 05/28/25 21:35 Dose: 40 mg Documented By: ANIBAL Fentanyl (Fentanyl Citrate/Pf 100 Mcg/2 Ml Vial) 50 mcg IVPUSH Q2H PRN; Protocol PRN Reason: Shortness of Breath Last Admin: 05/28/25 08:31 Dose: 50 mcg Documented By: EMI Piperacillin Sod/Tazobactam (Sod 3.375 gm/ Sodium Chloride) 50 mls @ 100 mls/hr IV Q6H [facility] Last Infusion: 05/29/25 03:35 Dose: Infused Documented By: PIPER Vancomycin HCl 1,250 mg/ (Sodium Chloride) 250 mls @ 166.667 mls/hr IV Q24H [facility] Last Infusion: 05/28/25 23:52 Dose: Infused Documented By: ANIBAL Pharmacy Consult (Consult Rx Vancomycin Dosing) 1 each MISCELLANE DAILY PRN PRN Reason: Consult order Vancomycin HCl (Vancomycin Hcl Oral Solution 125 Mg/5 Ml SolnChrist) 125 mg PO QID DEE Last Admin: 05/28/25 21:35 Dose: 125 mg Documented By: ANIBAL Labs 05/28/25 05:00 05/28/25 05:00 Labs: Laboratory Results - last 24 hr 05/28/25 10:10 Total Bilirubin 2.1 H Direct Bilirubin 1.0 H AST 81 H ALT 44 H Alkaline Phosphatase 79 Total Protein 5.6 L Albumin 3.4 L Microbiology Microbiology Results: Microbiology 05/24/25 20:35 Gram Stain - Final Sputum - Suctioned Sputum Culture - Final Methicillin Res Staph Aureus 05/24/25 14:14 Blood Culture - Final Blood - Venous Enterococcus faecium Procedures Date of Service Date of Service: 05/29/25 Progress Note: A&P Assessment and plan (1) Respiratory failure: Status: Acute Assessment and Plan: With multifocal pneumonia requiring intubation Extubated 2 days ago Still requiring O2 supplement, appears short of breath Abdomen is soft, nontender, no Painting's sign Imaging studies equivocal for cholecystitis Patient is not a surgical candidate Okay to hold off on IR cholecystostomy for now has a exam very benign Care as per hospitalist service Kindly reach out to surgical service as necessary Time Spent With Patient Time: Total time managing care of this patient today ____ minutes. Quality Stroke Does the patient have a stroke diagnosis?: No VTE Prior VTE?: No VTE Risk Level:: Medical - moderate - high VTE Device Contraindication: N/A - Device Ordered VTE Drug Contraindication: N/A - Med Ordered
[2025-05-29] MEDS: vancomycin HCL Oral Solution 125 MG/5 ML SOLN.RECON PO ×4 (08:53→20:53)
[2025-05-29 10:20] LABS: MANUAL DIFF FLAG NO
[2025-05-29 10:22] LABS: Hematocrit 28.7 % (37.0-47.0); Hemoglobin 9.9 g/dl (12.0-16.0); Imm Gran Abs Auto 0.09 X10*3/uL (0.00-0.03); Imm Gran Pct Auto 0.7 % (0.0-0.4); Lymphocytes Absolute Auto 1.1 X10*3/uL (1.2-4.9); Mean Corpuscular HGB Conc 34.5 g/dl (31.0-35.0); Mean Corpuscular Hemoglobin 28.2 pg (27.0-33.0); Mean Corpuscular Volume 81.8 fL (80.0-98.0); NRBC Abs Auto 0.000 X10*3/uL (0.0-0.012); NRBC Pct Auto 0.0 /100WBC (0.0-0.2); Platelet Count 445 X10*3/uL (160-400); Red Blood Count 3.51 X10*6/uL (4.20-5.50); White Blood Count 13.7 X10*3/uL (4.8-10.8)
[2025-05-29 10:58] LABS: Alanine Aminotransferase 38 U/L (0-31); Albumin Level 3.2 g/dL (3.5-5.0); Alkaline Phosphatase 79 U/L (39-117); Anion Gap 12 (12-20); Aspartate Amino Transferase 65 U/L (5-31); Blood Urea Nitrogen 13 mg/dL (9-16); Calcium 8.4 mg/dL (8.4-10.2); Carbon Dioxide 23 mmol/L (22-29); Chloride 103 mmol/L (96-108); Creatinine Clr Calc Pharmacy 68.2; Estimated Glomerular Filt Rate > 60; Magnesium 1.7 mg/dL (1.6-2.6); Sodium 135 mmol/L (135-145); Total Protein 5.6 g/dL (6.5-8.0)
[2025-05-29 11:00] LABS: Potassium 2.9 mmol/L (3.3-5.1)
[2025-05-29 12:00] VITALS: BP 145/64; PULSE 98; RESP 16; TEMP 36.4; O2SAT 92
--- NOTE | 2025-05-29 12:10 | MHC.CLN ---
F/U DIET RX: PUREED WITH HT LIQ PER EVENT OPERATIONS MANAGER RECEIVING MAGIC CUP TID TO INCREASE KCALS SUPP PROVIDES 870KCALS, 27G PROTEIN CONTINUE TO MONITOR PO INTAKE CLOSELY
--- NOTE | 2025-05-29 13:32 | MHC.SL.SWA ---
Speech Pathologist Impression: Mild to moderate oropharyngeal dysphagia Risk of Aspiration Due to: Recent extubation Limits in upright positioning Dysphasia Diet Status: Liquid Consistency and Strategies for Safe Swallow: Liquid Intake Recommendation: Honey Thick Liquid Intake Strategies: Small Sips Solid Food Consistency: Dietary Recommendations: Pureed (NDD1) Additional Modifications to Solid Foods: Oral Medication Intake: Crushed with Puree Please contact the pharmacy regarding appropriate crushable or liquid drug formulations that are available whenever modified delivery is recommended. Compensatory Strategies and Precautions to be Taken for Safe Swallow: Sitting Upright (90 deg) Liquids from Cup Liquids from Straw Small Bites and Sips Rate of Ingestion Change Supervision While Eating and Drinking for Safe Swallow: Total Assistance (1:1) Foods to Avoid: Swallowing Recommended Treatments: Compens. Strategy Educat. Recommendation for Speech: Outpatient Speech Therapy Comment: Pt seen for dysphagia treatment, requesting water. TURBINE ENGINEER providing care, sitter at bedside. Pt in sidelying position on R, able to tolerate elevation of HOB to 70 degrees. O2 sats 93 at rest on 8L O2 via oxymask. Breathing non-labored. Pt voicing absent of wetness. Trials of water presented, mask removed for pt to sip from cup. Pt exhibited adequate pacing and sip size, with efficient oropharyngeal coordination across 3 sips of water, no overt s/s of aspiration. O2 dropped to 88, SENIOR ENTERPRISE ARCHITECT put mask on pt, who c/o itchy nose. Pt wiped nose with napkin. Question post deglutition airway penetration of thins d/t symptom of nasal emission. Pt's oxygen returned to mid 90s. Pt requested more drinks, refusing PO other than fluids. Pt sipped HTL by straw with mask on given moderate assist in holding cup/placing straw with efficient oropharyngeal coordination across 3 consecutive sips, without overt s/s of aspiration or post deglutition nasal emission. Pt voicing remained clear and strong. Pt again requested water; SENIOR ENTERPRISE ARCHITECT informed pt water was thickened. Pt did not disagree, sipping HTL (water) by straw with adequate oropharyngeal coordination, no overt s/s of aspiration or post deglutition nasal emission. Pt asked 'Is that water?' and stated (when SENIOR ENTERPRISE ARCHITECT reminded pt it was thickened), Oh I don't need that stuff! Pt was agreeable to remain on current diet when SENIOR ENTERPRISE ARCHITECT explained she was post extubation and eating is safest with modified diet during pt postextubation healing period. Pt engaged in communicating with sitter, and expressed interest in only having liquids today. SENIOR ENTERPRISE ARCHITECT consulted with RN and TURBINE ENGINEER, will continue to follow. Frequency/Duration: M-F Daily Date Range for Service Req: Timeline to reassess: Bus Van Driver Clinican/Clinical Fellow: No Supervisory Statement: I have reviewed and agree with the student/clinical fellow's documentation: No Speech Language Pathologist: Shana Mckee M.S., CCC-SENIOR ENTERPRISE ARCHITECT
--- NOTE | 2025-05-29 14:03 | MHC.CM.PN ---
Pt is not ready to DC, she requires continued acute care for tx of acute respiratory failure. DCP: return to [facility].
[2025-05-29 16:00] VITALS: BP 106/55; PULSE 88; RESP 17; TEMP 37.3; O2SAT 98
--- NOTE | 2025-05-29 16:46 | HO.PM.IMPN ---
Subjective Subjective Date of Service: 05/29/25 Interval History: No acute issues overnight. Remains somewhat confused but easily reoriented by has been Review of Systems Unable to obtain Physical Exam Vital Signs: Vital Signs: Last Vital Signs Temp 99.2 F 05/29/25 16:00 Pulse 88 05/29/25 16:00 Resp 17 05/29/25 16:00 BP 106/55 L 05/29/25 16:00 Pulse Ox 98 05/29/25 16:00 O2 Del Method Oxymask 05/29/25 16:00 O2 Flow Rate 8 05/29/25 16:00 FiO2 40 05/28/25 16:00 Oxygen Flow Rate 8 05/24/25 13:56 BMI result Body Mass Index 18.5 Const: Other: Awake confused but easily reoriented Resp: Other: Clear to auscultation bilaterally no rales rhonchi or wheezes Cardio: Other: No S4; positive S1-S2; no S3 murmurs rubs or gallops GI: Other: Soft nontender nondistended normoactive bowel sounds Extrem: Other: No edema bilaterally Objective Data Active Medications Albuterol Sulfate (Albuterol Sulfate (0.083%) 2.5 Mg/3 Ml Vial.Neb) 2.5 mg INHALE Q4H PRN PRN Reason: Wheezing Last Admin: 05/28/25 00:40 Dose: 2.5 mg Documented By: NARINDER Bisacodyl (Bisacodyl 10 Mg Supp.Rect) 10 mg [place] BEDTIME PRN PRN Reason: Constipation Enoxaparin Sodium (Enoxaparin Sodium 40 Mg/0.4 Ml Syringe) 40 mg SUBCUT Q24H [facility] Last Admin: 05/28/25 21:35 Dose: 40 mg Documented By: ANIBAL Fentanyl (Fentanyl Citrate/Pf 100 Mcg/2 Ml Vial) 50 mcg IVPUSH Q2H PRN; Protocol PRN Reason: Shortness of Breath Last Admin: 05/28/25 08:31 Dose: 50 mcg Documented By: EMI Piperacillin Sod/Tazobactam (Sod 3.375 gm/ Sodium Chloride) 50 mls @ 100 mls/hr IV Q6H [facility] Last Admin: 05/29/25 15:54 Dose: 100 mls/hr Documented By: PILAR Vancomycin HCl 1,250 mg/ (Sodium Chloride) 250 mls @ 166.667 mls/hr IV Q24H [facility] Last Infusion: 05/28/25 23:52 Dose: Infused Documented By: ANIBAL Pharmacy Consult (Consult Rx Vancomycin Dosing) 1 each MISCELLANE DAILY PRN PRN Reason: Consult order Vancomycin HCl (Vancomycin Hcl Oral Solution 125 Mg/5 Ml Soln.Recon) 125 mg PO QID [facility] Last Admin: 05/29/25 13:29 Dose: 125 mg Documented By: PILAR Labs 05/29/25 10:00 05/29/25 10:00 Labs: Laboratory Results - last 24 hr 05/29/25 10:00 MCV 81.8 MCH 28.2 MCHC 34.5 RDW 17.3 H Plt Count 445 H MPV 8.8 L Immature Gran % (Auto) 0.7 H Neut % (Auto) 78.2 H Lymph % (Auto) 8.4 L [place] % (Auto) 10.4 Eos % (Auto) 1.8 Baso % (Auto) 0.5 Lymph # (Auto) 1.1 L [place] # (Auto) 1.4 H Eos # (Auto) 0.2 Baso # (Auto) 0.1 Abs Immat Gran (auto) 0.09 H Absolute Neuts (auto) 10.7 H Absolute Nucleated RBC 0.000 Nucleated RBC % (auto) 0.0 Anion Gap 12 Estim Creat Clear Calc 68.2 Estimated GFR > 60 Random Glucose 103 Calcium 8.4 Phosphorus 2.7 Magnesium 1.7 Total Bilirubin 1.4 H AST 65 H ALT 38 H Alkaline Phosphatase 79 Total Protein 5.6 L Albumin 3.2 L Microbiology Microbiology Results: Microbiology 05/24/25 14:14 Blood Culture - Final Blood - Venous No growth after 5 days. 05/28/25 10:10 Blood Culture - Preliminary Blood - Venous No growth after 24 hours. 05/28/25 10:10 Blood Culture - Preliminary Blood - Venous No growth after 24 hours. Assessment and Plan (1) Multifocal pneumonia: Status: Acute (2) Afib: Status: Acute Plan 74 Y F w/ CHF, c/b atrial fibrillation, recent admission to [facility] for c. difficile, presenting from rehab w/ dyspnea, found to be in acute hypoxic respiratory failure, necessitating intubation; ED work-up suggestive of multifocal pneumonia. Admitted to ICU and extubated without incident 1. Multifocal pneumonia -vanco/Zosyn (6 -titrate O2 to maintain sats greater than equal to 90% -Jayme p.rLachellen. 2. Cholecystitis (equivocal per surgery) -negative clinical presentation -conservative therapies as per surgery recommendation -follow LFTs 3. Hypokalemia -oral repletion -follow renal/divalents 4. Paroxysmal atrial fibrillation -examined in sinus rhythm -continue amiodarone Eliquis as ordered -monitor on telemetry Eliquis Full code Quality Stroke Does the patient have a stroke diagnosis?: No VTE Prior VTE?: No VTE Risk Level:: Medical - moderate - high VTE Device Contraindication: N/A - Device Ordered VTE Drug Contraindication: N/A - Med Ordered
[2025-05-29 20:00] VITALS: BP 114/53; PULSE 84; RESP 20; TEMP 39.1; O2SAT 94
--- NOTE | 2025-05-29 21:13 | HE.PHANOTE ---
Re: Vanco Renal function improved. Trough returned at 14.2, pt is subtherapeutic. Dose was increased to 1500mg q24h with predicted AUC 582, predicted trough 14.9. Next trough 05/31 @ 2100.
[2025-05-29] MEDS: Potassium Chloride/H20 10 MEQ/100 ML PIGGYBACK 100 MEQ IV ×2 (21:32→22:56)
[2025-05-30] VITALS (11 sets, daily range): BP systolic 124–148; BP diastolic 60–75; PULSE 80–101; RESP 16–22; TEMP 36.2–38; O2SAT 91–99; BMI 19.8
[2025-05-30] MEDS: Potassium Chloride/H20 10 MEQ/100 ML PIGGYBACK 100 MEQ IV ×2 (00:08→01:32)
[2025-05-30 07:42] LABS: Alanine Aminotransferase 43 U/L (0-31); Albumin Level 2.8 g/dL (3.5-5.0); Alkaline Phosphatase 70 U/L (39-117); Aspartate Amino Transferase 67 U/L (5-31); Blood Urea Nitrogen 14 mg/dL (9-16); Calcium 7.9 mg/dL (8.4-10.2); Creatinine Clr Calc Pharmacy 77.0; Estimated Glomerular Filt Rate > 60; Total Protein 5.1 g/dL (6.5-8.0)
[2025-05-30 07:59] LABS: Anion Gap 16 (12-20); Carbon Dioxide 20 mmol/L (22-29); Chloride 103 mmol/L (96-108); Potassium 3.8 mmol/L (3.3-5.1); Sodium 135 mmol/L (135-145)
[2025-05-30 08:44] LABS: Hematocrit 29.4 % (37.0-47.0); Hemoglobin 9.9 g/dl (12.0-16.0); Imm Gran Abs Auto 0.15 X10*3/uL (0.00-0.03); Imm Gran Pct Auto 1.1 % (0.0-0.4); Lymphocytes Absolute Auto 1.4 X10*3/uL (1.2-4.9); Mean Corpuscular HGB Conc 33.7 g/dl (31.0-35.0); Mean Corpuscular Hemoglobin 28.2 pg (27.0-33.0); Mean Corpuscular Volume 83.8 fL (80.0-98.0); NRBC Abs Auto 0.000 X10*3/uL (0.0-0.012); NRBC Pct Auto 0.0 /100WBC (0.0-0.2); Platelet Count 417 X10*3/uL (160-400); Red Blood Count 3.51 X10*6/uL (4.20-5.50); White Blood Count 14.0 X10*3/uL (4.8-10.8)
[2025-05-30 09:31] LABS: Procalcitonin 0.26 ng/mL
[2025-05-30] MEDS: vancomycin HCL Oral Solution 125 MG/5 ML SOLN.RECON PO ×4 (09:31→21:59)
[2025-05-30] MEDS: Albuterol Sulfate (0.083%) 2.5 MG/3 ML VIAL.NEB INHALE (10:49)
[2025-05-30] MEDS: Albuterol/Iprat 2.5/0.5MG 3 ML AMPUL.NEB INHALE ×3 (11:51→20:24)
--- NOTE | 2025-05-30 15:12 | HO.PM.IMPN ---
Subjective Subjective Date of Service: 05/30/25 Interval History: c/o dyspnea, wheezing; LLE swelling; febrile to 102.4 last night Review of Systems Review of Systems: Yes all other systems are reviewed and are negative Physical Exam Vital Signs: Vital Signs: Last Vital Signs Temp 100.4 F 05/30/25 11:31 Pulse 93 05/30/25 11:51 Resp 20 05/30/25 11:51 BP 137/60 05/30/25 11:31 Pulse Ox 92 05/30/25 11:31 O2 Del Method Oxymask 05/30/25 11:31 O2 Flow Rate 8 05/30/25 11:31 FiO2 40 05/28/25 16:00 Oxygen Flow Rate 8 05/24/25 13:56 BMI result Body Mass Index 19.8 Gen: appears short of breath HEENT: sclera anicteric, moist mucus membranes Neck: supple Lungs: bilateral expiratory wheezing Heart: regular rate and rhythm, no murmurs Abd: soft, non-tender, non-distended Ext: LLE pitting edema Skin: warm/well-perfused Neuro: alert and oriented x3, no focal findings Psych: appropriate affect Objective Data Active Medications Albuterol Sulfate (Albuterol Sulfate (0.083%) 2.5 Mg/3 Ml Vial.Neb) 2.5 mg INHALE Q4H PRN PRN Reason: Wheezing Last Admin: 05/30/25 10:49 Dose: 2.5 mg Documented By: JEN Albuterol/Ipratropium (Albuterol/Iprat 2.5/0.5mg 3 Ml Ampul.Neb) 3 ml INHALE RQ4H WHILE AWAKE [facility] Last Admin: 05/30/25 11:51 Dose: 3 ml Documented By: GUERO Amiodarone HCl (Amiodarone Hcl 200 Mg Tablet) 200 mg PO BID [facility] Last Admin: 05/30/25 09:32 Dose: 200 mg Documented By: ALVAREZ Apixaban (Apixaban 5 Mg Tablet) 5 mg PO BID [facility] Last Admin: 05/30/25 09:32 Dose: 5 mg Documented By: ALVAREZ Atorvastatin Calcium (Atorvastatin Calcium 80 Mg Tablet) 80 mg PO BEDTIME [facility] Baclofen (Baclofen 10 Mg Tablet) 10 mg PO TID [facility] Last Admin: 05/30/25 09:32 Dose: 10 mg Documented By: ALVAREZ Bisacodyl (Bisacodyl 10 Mg Supp.Rect) 10 mg [place] DAILY PRN PRN Reason: Constipation Ergocalciferol (Ergocalciferol (Vitamin D2) 1,250 Mcg Capsule) 1,250 mcg PO MO DEE Fentanyl (Fentanyl Citrate/Pf 100 Mcg/2 Ml Vial) 50 mcg IVPUSH Q2H PRN; Protocol PRN Reason: Shortness of Breath Last Admin: 05/28/25 08:31 Dose: 50 mcg Documented By: EMI Fluticasone/Vilanterol (Fluticasone/Vilanterol 200/25 Blst.W.Dev) 1 puff INHALE RDAILY [facility] Hydromorphone HCl (Hydromorphone Hcl 1 Mg/Ml Syringe) 0.25 mg IVPUSH Q3H PRN; Protocol PRN Reason: Pain, Severe (Pain Scale 7-10) Last Admin: 05/30/25 13:19 Dose: 0.25 mg Documented By: ALVAREZ Piperacillin Sod/Tazobactam (Sod 3.375 gm/ Sodium Chloride) 50 mls @ 100 mls/hr IV Q6H [facility] Last Infusion: 05/30/25 10:42 Dose: Infused Documented By: ALVAREZ Vancomycin HCl 1,250 mg/ (Sodium Chloride) 250 mls @ 166.667 mls/hr IV Q24H [facility] Last Infusion: 05/30/25 00:32 Dose: Infused Documented By: CASSIE Acetaminophen (Ofirmev) 1,000 mg in 100 mls @ 400 mls/hr IV Q6H PRN PRN Reason: fever Last Infusion: 05/29/25 21:26 Dose: Infused Documented By: CASSIE Losartan Potassium (Losartan Potassium 25 Mg Tablet) 25 mg PO DAILY [facility]; Protocol Last Admin: 05/30/25 09:32 Dose: 25 mg Documented By: ALVAREZ Magnesium Hydroxide (Milk Of Magnesia 30 Ml Oral.Susp) 30 ml PO BEDTIME PRN PRN Reason: Constipation Magnesium Oxide (Magnesium Oxide 400 Mg Tablet) 400 mg PO BID [facility] Last Admin: 05/30/25 09:32 Dose: 400 mg Documented By: ALVAREZ Melatonin (Melatonin 3 Mg Tablet) 3 mg PO BEDTIME [facility] Methylprednisolone Sodium Succinate (Methylprednisolone Sod Succ 40 Mg/Ml Vial) 40 mg IVPUSH Q24H [facility] Mirtazapine (Mirtazapine 7.5 Mg Tablet) 7.5 mg PO BEDTIME [facility] Multivitamins/Vitamin C (Multivitamin Tablet) 1 tab PO DAILY [facility] Last Admin: 05/30/25 09:32 Dose: 1 tab Documented By: ALVAREZ Pharmacy Consult (Consult Rx Vancomycin Dosing) 1 each MISCELLANE DAILY PRN PRN Reason: Consult order Polyethylene Glycol (Polyethylene Glycol 3350 17 Gm Powd.Pack) 17 gm PO DAILY PRN PRN Reason: Constipation Pyridoxine HCl (Pyridoxine Hcl (Vitamin B6) 50 Mg Tablet) 50 mg PO DAILY [facility] Last Admin: 05/30/25 09:32 Dose: 50 mg Documented By: ALVAREZ Sodium Biphosphate/Sodium Phosphate (Sodium Phosphate,[place]-Dibasic 133 Ml Enema) 118 ml [place] DAILY PRN PRN Reason: Constipation Spironolactone (Spironolactone 25 Mg Tablet) 25 mg PO DAILY [facility]; Protocol Last Admin: 05/30/25 09:32 Dose: 25 mg Documented By: ALVAREZ Thiamine HCl (Thiamine Hcl 100 Mg Tablet) 100 mg PO DAILY [facility] Last Admin: 05/30/25 09:32 Dose: 100 mg Documented By: ALVAREZ Vancomycin HCl (Vancomycin Hcl Oral Solution 125 Mg/5 Ml Soln.Recon) 125 mg PO QID [facility] Last Admin: 05/30/25 13:19 Dose: 125 mg Documented By: ALVAREZ Labs 05/30/25 08:17 05/30/25 06:35 Labs: Laboratory Results - last 24 hr 05/29/25 05/30/25 05/30/25 20:49 06:35 08:17 MCV 83.8 MCH 28.2 MCHC 33.7 RDW 17.6 H Plt Count 417 H MPV 9.0 L Immature Gran % (Auto) 1.1 H Neut % (Auto) 76.6 H Lymph % (Auto) 9.9 L [place] % (Auto) 9.3 Eos % (Auto) 2.4 Baso % (Auto) 0.7 Lymph # (Auto) 1.4 [place] # (Auto) 1.3 H Eos # (Auto) 0.3 Baso # (Auto) 0.1 Abs Immat Gran (auto) 0.15 H Absolute Neuts (auto) 10.7 H Absolute Nucleated RBC 0.000 Nucleated RBC % (auto) 0.0 Anion Gap 16 Estim Creat Clear Calc 77.0 Estimated GFR > 60 Fasting Glucose 90 Calcium 7.9 L Total Bilirubin 1.0 AST 67 H ALT 43 H Alkaline Phosphatase 70 Total Protein 5.1 L Albumin 2.8 L Procalcitonin 0.26 Random Vancomycin 14.2 L Microbiology Microbiology Results: Microbiology 05/28/25 10:10 Blood Culture - Preliminary Blood - Venous No growth after 48 hours. 05/28/25 10:10 Blood Culture - Preliminary Blood - Venous No growth after 48 hours. 05/24/25 14:14 Blood Culture - Final Blood - Venous No growth after 5 days. Assessment and Plan (1) Multifocal pneumonia: Status: Acute (2) Afib: Status: Acute Plan d7, 74yo F with CHF, pAF, hx recent C. difficile infection for which admitted [place] [facility] [place] in from [facility] with dyspnea, found to have hypoxic respiratory failure from multifocal pneumonia, admitted to ICU, extubated 05/27, downgraded to telemetry 05/28 AHRF due to multifocal PNA with acute asthma exacerbation - remains on 8L Oxymask, wean as tolerated - continue piperacillin-tazobactam 05/24-, change vancomycin 05/24- to linezolid 05/30- as below - BCx as below; trend PCT - start methylprednisolone 05/30-, continue nebs + Breo - recheck RVP given fever though suspect from bacteremia as below VRE bacteremia - blood culture from 05/24 is positive for VRE; however, subsequent cultures from 05/28 negative despite not getting coverage [was on vancomycin and piperacillin-tazobactam]. Will start linezolid 05/30-, consult ID, obtain TTE, repeat BCx hx recent C. difficile colitis - PO vancomycin while on systemic ABX LLE edema - Duplex to r/o DVT hypoK - repleted distended gallbladder with cholelithiasis and pericholecystic fluid - doubt acute cholecystitis as abd is completely benign; Gen Surg concurs CHF HTN - continue losartan + spironolactone pAF - continue amiodarone + apixaban VTE ppx: apixaban dispo: TBD In my clinical judgment, the patient requires continued inpatient hospitalization for the following reasons: IV ABX, hypoxic resp failure Total time managing care of this patient today: 55 minutes. Quality Stroke Does the patient have a stroke diagnosis?: No VTE Prior VTE?: No VTE Risk Level:: Medical - moderate - high VTE Device Contraindication: N/A - Device Ordered VTE Drug Contraindication: N/A - Med Ordered
[2025-05-30] MEDS: Linezolid/D5W 600 MG/300 ML PIGGYBACK 300 MG IV (18:15)
[2025-05-31] VITALS (19 sets, daily range): BP systolic 104–132; BP diastolic 55–92; PULSE 74–100; RESP 18–30; TEMP 36.2–37.1; O2SAT 75–96; BMI 19.4
[2025-05-31 03:35] LABS: VBG HCO3 24 mmol/L (22-26); VBG O2 % Saturation 100.0 %
[2025-05-31 03:36] LABS: Venous Blood Gas Refer to POC result
--- NOTE | 2025-05-31 04:16 | PM.EVENT ---
Event Note Date of Service: 05/31/25 Event Note: Patient evaluated as she is having worsening dyspnea and O2 sats 82% on OxyMask. She was placed on non-rebreather temporarily and switch to high-flow. She is quite tachypneic. There is no fever or tachycardia. Last blood pressure is 125/58. Cardiopulmonary exam remarkable for crackles to the right lung base, no wheezing. Venous blood gas remarkable for marked respiratory alkalosis, pH 7.73 and pCO2 18. HC03 is 24. She has received Dilaudid IV for workup breathing. She has been receiving bronchodilator therapy, spironolactone and Solu-Medrol IV daily. We will obtain pro BNP and CXR. Time Spent With Patient Time: Total time managing care of this patient today ____ minutes.
[2025-05-31] MEDS: Linezolid/D5W 600 MG/300 ML PIGGYBACK 300 MG IV ×2 (04:32→15:59)
--- NOTE | 2025-05-31 07:00 | CA_ITS ---
Transthoracic Echocardiogram Patient (Last, First, Middle): Casi Tejeda, Gender: Female Date of : 1950 Age: 74 Procedure Date: 05/31/2025 Procedure Type: Transthoracic Echocardiogram [place] [facility] [place]: 162.56 cm Weight: 50.8 kg BSA: 1.53 m2 Heart Rate: 77 bpm BP: 124 / 68 mmHg Return Agent Airport: [place] Referring MD: Mt Sood MD Symptoms: VRE bacteremia Study Quality: Technically Difficult, arms contracted ECG Rhythm: Atrial flutter Conclusions: - Normal left ventricular cavity size. There is mildly increased left ventricular wall thickness. The left ventricular systolic function is low normal. The visually estimated ejection fraction is between 50-55%. - The apical septum and mid inferoseptal segments are hypokinetic. - Mildly increased right ventricular cavity size. There is mildly decreased right ventricular systolic function. - The left atrium is severely dilated. The right atrium is severely dilated. - There is mild to moderate mitral valve regurgitation. Findings Left Ventricle Normal left ventricular cavity size. There is mildly increased left ventricular wall thickness. The left ventricular systolic function is low normal. The visually estimated ejection fraction is between 50-55%. There is evidence of regional wall motion abnormalities. Diastolic function is indeterminate on the basis of available data. Wall Motion Rest Echo Findings The apical septum and mid inferoseptal segments are hypokinetic. Right Ventricle Mildly increased right ventricular cavity size. There is mildly decreased right ventricular systolic function. Atria The left atrium is severely dilated. The right atrium is severely dilated. Aortic Valve There is a normal trileaflet aortic valve. There is mild thickening of the aortic valve. There is no aortic valve stenosis. There is no aortic valve regurgitation. Mitral Valve The mitral valve appears normal. There is mild to moderate mitral valve regurgitation. There is no mitral valve stenosis. Pulmonic Valve The pulmonic valve is likely normal. Tricuspid Valve Normal tricuspid valve structure. There is trace tricuspid valve regurgitation. Normal right atrial pressure. There is no evidence of pulmonary hypertension. Great Vessels All visible segments of the aorta are normal in size. Venous The inferior vena cava is normal in size and collapses greater than 50% with inspiration. Pericardium/Pleural There is no evidence of pericardial effusion. Prior Study Comparison No prior study available for comparison. Measurements 2D Linear Measurements IVSd: 1.14 0.6-0.9/0.6-1.0 cm LVIDd: 4.59 3.9-5.3/4.2-5.9 cm LVIDd Index: 3.00 2.4-3.2/2.2-3.1 cm/m2 LVIDs: 2.77 2.0-3.6 cm LVPWd: 1.16 0.7-1.1 cm LA Diam: 5.00 2.7-3.8/3.0-4.0 cm LAIDs Index: 3.27 1.5-2.3 cm/m2 LV Mass: 239.60 67-162/88-224 g LV Mass Index: 156.60 43-95/49-115 g/m2 LVOT Diam: 1.90 3.0+(-)1.3 cm Mitral Valve MV Pk E: 1.11 MV Decel Time: 88.00 E'Lateral: 12.80 E'Medial: 8.92 E/E' Med: 12.40 E/E' Lat: 8.70 PHT: 26.00 MVA PHT: 8.46 Decel Ransom: 12.98 Aortic Valve AoV Pk Gurpreet: 1.09 AoV Mn Gurpreet: 0.68 AoV VTI: 0.19 AoV Pk Grad: 5.00 Aov Mn Grad: 2.00 JANETTE Cont.VTI: 2.35 LVOT LVOT Pk Gurpreet: 0.92 LVOT Mn Gurpreet: 0.57 LVOT VTI: 0.16 LVOT Pk Grad: 3.00 LVOT Mn Grad: 2.00 LVOT Diam: 1.90 LVOT Area: 2.84 Diastolic Function MV Pk E: 1.11 E'Medial: 8.92 E/E' Med: 12.40 E' Laterial: 12.80 E/E' Lat: 8.70 Right Ventricle TAPSE (mm): 15.60 TVS' Gurpreet: 10.50 Tricuspid Valve TR Pk Gurpreet: 2.12 TR Pk Grad: 18.00 RA Press: 3.00 RVSP: 21.00 Great Vessels Aorta Sinus of Valsalva: 3.00 2.0-3.5 cm Ao Asc: 3.00 2.1-3.4 cm Pulmonary Valve PV Pk Gurpreet: 0.73 Peak PV Grad: 2.00 Updated in Other Vendor System with Status of Final Gio Tan MD electronically signed on 05/31/2025 5:26:51 PM with status of Final
[2025-05-31] MEDS: Albuterol/Iprat 2.5/0.5MG 3 ML AMPUL.NEB INHALE ×4 (07:30→19:52)
[2025-05-31] MEDS: Fluticasone/Vilanterol 200/25 BLST.W.DEV 1 PUFF INHALE (07:30)
[2025-05-31 07:52] LABS: Hematocrit 27.4 % (37.0-47.0); Hemoglobin 9.2 g/dl (12.0-16.0); Mean Corpuscular HGB Conc 33.6 g/dl (31.0-35.0); Mean Corpuscular Hemoglobin 27.9 pg (27.0-33.0); Mean Corpuscular Volume 83.0 fL (80.0-98.0); NRBC Abs Auto 0.000 X10*3/uL (0.0-0.012); NRBC Pct Auto 0.0 /100WBC (0.0-0.2); Platelet Count 450 X10*3/uL (160-400); Red Blood Count 3.30 X10*6/uL (4.20-5.50); White Blood Count 18.5 X10*3/uL (4.8-10.8)
[2025-05-31] MEDS: Furosemide 40 MG/4 ML VIAL IVPUSH ×2 (07:55→15:59)
[2025-05-31 08:03] LABS: ABG HCO3 24 mmol/L (22-26); ABG O2 % Saturation 98.0 %
[2025-05-31 08:03] LABS: Alanine Aminotransferase 49 U/L (0-31); Albumin Level 3.1 g/dL (3.5-5.0); Alkaline Phosphatase 72 U/L (39-117); Aspartate Amino Transferase 87 U/L (5-31); Blood Urea Nitrogen 14 mg/dL (9-16); Calcium 8.5 mg/dL (8.4-10.2); Creatinine Clr Calc Pharmacy 71.2; Estimated Glomerular Filt Rate > 60; Total Protein 5.7 g/dL (6.5-8.0)
[2025-05-31 08:06] LABS: NT Pro B Type Natriuretic Pept 12825.2 pg/mL (<300)
[2025-05-31 08:16] LABS: Anion Gap 14 (12-20); Carbon Dioxide 24 mmol/L (22-29); Chloride 100 mmol/L (96-108); Potassium 3.4 mmol/L (3.3-5.1); Sodium 135 mmol/L (135-145)
[2025-05-31] MEDS: iohexoL 350 MG/ML 100 ML INFUS..BTL 65 ML IV (11:44)
[2025-05-31 12:07] LABS: Chlamydia pneumoniae PCR Not Detected (Not Detect.); Coronavirus 229E PCR Not Detected (Not Detect.); Coronavirus HKU1 PCR Not Detected (Not Detect.); Coronavirus NL63 PCR Not Detected (Not Detect.); Coronavirus OC43 PCR Not Detected (Not Detect.); Influenza A H1 PCR Not Detected (Not Detect.); Influenza A H1-2009 PCR Not Detected (Not Detect.); Influenza A H3 PCR Not Detected (Not Detect.); RSV PCR Not Detected (Not Detect.); Rhino/Enterovirus PCR Not Detected (Not Detect.); SARS-CoV-2 PCR Not Detected (Not Detect.)
--- NOTE | 2025-05-31 12:54 | PC.NURSE ---
Addendum entered by Elinor Stevens RN 05/31/25 19:04: correct to original note. pt was on 45L 80% HFNC at start of shift. pt placed on max HFNC and non rebreather by RT and this RN Addendum entered by Elinor Stevens RN 05/31/25 13:00: see new orders per MD. pt brought down to CTA with RT and lithopone charger and transitioned to CPAP, tolerating mask well. sats 92-94% at this time. oral medication held at this time d/t condition. Original Note: pt maxed out on high flow upon start of shift. pt began to desat in low 80s with good pleth. RT called to bedside, placed pt on non-rebreather 15L along with maxed out high flow with sats in mid 80s. pt tachypnic with RR in 30, alert and arousable to name [employer]ER called at 0750.
[2025-05-31 13:19] LABS: ABG Refer to POC result
--- NOTE | 2025-05-31 13:35 | MHC.CLN ---
F/U DIET RX: PUREED WITH HT LIQ PER BOOKSTORE CLERK RECEIVING MAGIC CUP TID TO INCREASE KCALS SUPP PROVIDES [id number], 27G PROTEIN PO INTAKE APPEARS POOR, 0-25% CONTINUE TO MONITOR PO INTAKE CLOSELY
--- NOTE | 2025-05-31 14:16 | P.PNIM_ITS ---
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 requiring 100% fiO2/60 Lpm via HFNC plus NRB 15 Lpm given IV furosemide, now on CPAP and breathing comfortably with 8 cm H20, 60% fiO2 mental status normal Review of Systems Review of Systems: Yes all other systems are reviewed and are negative Physical Exam 2 Vital Signs: Vital Signs: Last Vital Signs Temp 97.1 F 05/31/25 11:50 Pulse 88 05/31/25 11:50 Resp 26 H 05/31/25 11:50 BP 119/55 L 05/31/25 11:50 Pulse Ox 90 L 05/31/25 11:50 O2 Del Method BiPAP 05/31/25 11:50 O2 Flow Rate 53 05/31/25 07:32 FiO2 77 05/31/25 07:32 Oxygen Flow Rate 8 05/24/25 13:56 BMI result Body Mass Index 19.4 Gen: in acute respiratory distress HEENT: sclera anicteric, moist mucus membranes Neck: supple Lungs: bilateral wet crackles Heart: regular rate and rhythm, no murmurs Abd: soft, non-tender, non-distended Ext: 2+ LLE edema Skin: warm/well-perfused Neuro: alert and oriented x3, no focal findings Psych: appropriate affect Objective Data Active Medications Albuterol Sulfate (Albuterol Sulfate (0.083%) 2.5 Mg/3 Ml Vial.Neb) 2.5 mg INHALE Q4H PRN PRN Reason: Wheezing Last Admin: 05/30/25 10:49 Dose: 2.5 mg Documented By: JEN Albuterol/Ipratropium (Albuterol/Iprat 2.5/0.5mg 3 Ml Ampul.Neb) 3 ml INHALE RQ4H WHILE AWAKE [facility] Last Admin: 05/31/25 11:08 Dose: 3 ml Documented By: GUERO Amiodarone HCl (Amiodarone Hcl 200 Mg Tablet) 200 mg PO BID [facility] Last Admin: 05/31/25 10:04 Dose: Not Given Documented By: ALVAREZ Non-Admin Reason: Patient Condition Contraindication Apixaban (Apixaban 5 Mg Tablet) 5 mg PO BID [facility] Last Admin: 05/31/25 10:04 Dose: Not Given Documented By: ALVAREZ Non-Admin Reason: Patient Condition Contraindication Atorvastatin Calcium (Atorvastatin Calcium 80 Mg Tablet) 80 mg PO BEDTIME [facility] Last Admin: 05/30/25 22:00 Dose: 80 mg Documented By: ABBEY Baclofen (Baclofen 10 Mg Tablet) 10 mg PO TID [facility] Last Admin: 05/31/25 10:05 Dose: Not Given Documented By: ALVAREZ Non-Admin Reason: Patient Condition Contraindication Bisacodyl (Bisacodyl 10 Mg Supp.Rect) 10 mg [place] DAILY PRN PRN Reason: Constipation Ergocalciferol (Ergocalciferol (Vitamin D2) 1,250 Mcg Capsule) 1,250 mcg PO MO [facility] Fentanyl (Fentanyl Citrate/Pf 100 Mcg/2 Ml Vial) 50 mcg IVPUSH Q2H PRN; Protocol PRN Reason: Shortness of Breath Last Admin: 05/28/25 08:31 Dose: 50 mcg Documented By: EMI Fluticasone/Vilanterol (Fluticasone/Vilanterol 200/25 Blst.W.Dev) 1 puff INHALE RDAILY [facility] Last Admin: 05/31/25 07:30 Dose: 1 puff Documented By: GUERO Furosemide (Furosemide 40 Mg/4 Ml Vial) 40 mg IVPUSH BID@0900,1800 DEE; Protocol Hydromorphone HCl (Hydromorphone Hcl 1 Mg/Ml Syringe) 0.25 mg IVPUSH Q3H PRN; Protocol PRN Reason: WOB,severe pain Last Admin: 05/31/25 10:46 Dose: 0.25 mg Documented By: ALVAREZ Piperacillin Sod/Tazobactam (Sod 3.375 gm/ Sodium Chloride) 50 mls @ 100 mls/hr IV Q6H [facility] Last Infusion: 05/31/25 11:48 Dose: Infused Documented By: ALVAREZ Acetaminophen (Ofirmev) 1,000 mg in 100 mls @ 400 mls/hr IV Q6H PRN PRN Reason: fever Last Infusion: 05/29/25 21:26 Dose: Infused Documented By: CASSIE Linezolid (Zyvox/D5w) 600 mg in 300 mls @ 300 mls/hr IV Q12H [facility] Last Infusion: 05/31/25 05:38 Dose: Infused Documented By: ABBEY Losartan Potassium (Losartan Potassium 25 Mg Tablet) 25 mg PO DAILY [facility]; Protocol Last Admin: 05/31/25 10:05 Dose: Not Given Documented By: ALVAREZ Non-Admin Reason: Patient Condition Contraindication Magnesium Hydroxide (Milk Of Magnesia 30 Ml Oral.Susp) 30 ml PO BEDTIME PRN PRN Reason: Constipation Magnesium Oxide (Magnesium Oxide 400 Mg Tablet) 400 mg PO BID [facility] Last Admin: 05/31/25 10:05 Dose: Not Given Documented By: ALVAREZ Non-Admin Reason: Patient Condition Contraindication Melatonin (Melatonin 3 Mg Tablet) 3 mg PO BEDTIME DEE Last Admin: 05/30/25 22:00 Dose: 3 mg Documented By: ABBEY Methylprednisolone Sodium Succinate (Methylprednisolone Sod Succ 40 Mg/Ml Vial) 40 mg IVPUSH Q24H [facility] Last Admin: 05/31/25 10:48 Dose: 40 mg Documented By: ALVAREZ Mirtazapine (Mirtazapine 7.5 Mg Tablet) 7.5 mg PO BEDTIME DEE Last Admin: 05/30/25 22:00 Dose: 7.5 mg Documented By: ABBEY Multivitamins/Vitamin C (Multivitamin Tablet) 1 tab PO DAILY [facility] Last Admin: 05/31/25 10:05 Dose: Not Given Documented By: ALVAREZ Non-Admin Reason: Patient Condition Contraindication Polyethylene Glycol (Polyethylene Glycol 3350 17 Gm Powd.Pack) 17 gm PO DAILY PRN PRN Reason: Constipation Pyridoxine HCl (Pyridoxine Hcl (Vitamin B6) 50 Mg Tablet) 50 mg PO DAILY [facility] Last Admin: 05/31/25 10:05 Dose: Not Given Documented By: ALVAREZ Non-Admin Reason: Patient Condition Contraindication Sodium Biphosphate/Sodium Phosphate (Sodium Phosphate,Chilton-Dibasic 133 Ml Enema) 118 ml [place] DAILY PRN PRN Reason: Constipation Spironolactone (Spironolactone 25 Mg Tablet) 25 mg PO DAILY [facility]; Protocol Last Admin: 05/31/25 10:06 Dose: Not Given Documented By: ALVAREZ Non-Admin Reason: Patient Condition Contraindication Thiamine HCl (Thiamine Hcl 100 Mg Tablet) 100 mg PO DAILY [facility] Last Admin: 05/31/25 10:06 Dose: Not Given Documented By: ALVAREZ Non-Admin Reason: Patient Condition Contraindication Vancomycin HCl (Vancomycin Hcl Oral Solution 125 Mg/5 Ml Soln.[facility]) 125 mg PO QID DEE Last Admin: 05/31/25 12:53 Dose: Not Given Documented By: ALVAREZ Non-Admin Reason: Patient Condition Contraindication Labs 05/31/25 07:22 05/31/25 07:22 Labs: Laboratory Results - last 24 hr 05/31/25 05/31/25 05/31/25 02:46 07:22 07:59 MCV 83.0 MCH 27.9 MCHC 33.6 RDW 17.5 H Plt Count 450 H MPV 9.3 L Absolute Nucleated RBC 0.000 Nucleated RBC % (auto) 0.0 O2 Saturation 98.0 ABG pH at Pt Temp 7.56 H ABG pCO2 at Pt Temp 27 L ABG pO2 at Pt Temp 87 ABG HCO3 24 ABG Base Excess (Actual) 3.2 VBG pH 7.73 H* VBG pCO2 18 VBG pO2 180 VBG HCO3 24 VBG O2 Saturation 100.0 VBG Base Excess 7.2 Anion Gap 14 Estim Creat Clear Calc 71.2 Estimated GFR > 60 Random Glucose 151 H Calcium 8.5 D Phosphorus 3.0 Total Bilirubin 0.9 AST 87 H ALT 49 H Alkaline Phosphatase 72 NT-Pro-B Natriuret Pep 37661.2 H Total Protein 5.7 L Albumin 3.1 L Respiratory Panel Torrez Adenovirus (Rapid PCR) B.pert (TEM-PCR) B.parapertussis DNA PCR C. pneumoniae DNA (PCR) Coronavirus OC43 (PCR) Coronavirus HKU1 (PCR) Coronavirus 229E (PCR) Coronavirus NL63 (PCR) Human Metapneumovir PCR Influenza A (RT-PCR) Influenza A (H1) PCR Influ A (H1/09) PCR Influenza A (H3) PCR Influenza B (RT-PCR) M. pneumoniae (PCR) Parainfluenza 1 (PCR) Parainfluenza 2 (PCR) Parainfluenza 3 (PCR) Parainfluenza 4 (PCR) RSV (PCR) Entero/Rhino (PCR) SARS-CoV-2 RNA (RT-PCR) 05/31/25 10:37 MCV MCH MCHC RDW Plt Count MPV Absolute Nucleated RBC Nucleated RBC % (auto) O2 Saturation ABG pH at Pt Temp ABG pCO2 at Pt Temp ABG pO2 at Pt Temp ABG HCO3 ABG Base Excess (Actual) VBG pH VBG pCO2 VBG pO2 VBG HCO3 VBG O2 Saturation VBG Base Excess Anion Gap Estim Creat Clear Calc Estimated GFR Random Glucose Calcium Phosphorus Total Bilirubin AST ALT Alkaline Phosphatase NT-Pro-B Natriuret Pep Total Protein Albumin Respiratory Panel Torrez See Note Adenovirus (Rapid PCR) Not Detected B.pert (TEM-PCR) Not Detected B.parapertussis DNA PCR Not Detected C. pneumoniae DNA (PCR) Not Detected Coronavirus OC43 (PCR) Not Detected Coronavirus HKU1 (PCR) Not Detected Coronavirus 229E (PCR) Not Detected Coronavirus NL63 (PCR) Not Detected Human Metapneumovir PCR Not Detected Influenza A (RT-PCR) Not Detected Influenza A (H1) PCR Not Detected Influ A (H1/09) PCR Not Detected Influenza A (H3) PCR Not Detected Influenza B (RT-PCR) Not Detected M. pneumoniae (PCR) Not Detected Parainfluenza 1 (PCR) Not Detected Parainfluenza 2 (PCR) Not Detected Parainfluenza 3 (PCR) Not Detected Parainfluenza 4 (PCR) Not Detected RSV (PCR) Not Detected Entero/Rhino (PCR) Not Detected SARS-CoV-2 RNA (RT-PCR) Not Detected Impressions Chest CTA 05/31/25 11:24 IMPRESSION: Limited exam due to respiratory motion artifact. No evidence of pulmonary embolism. Very enlarged heart, particularly the left atrium. No evidence of right heart strain. Reflux of contrast in the liver suggestive of right heart compromise increased from prior CTA. Diffuse groundglass attenuation and increased interstitial markings throughout the lungs, right greater than left. This is increased from recent May 24, 2025 exam. Differential would include pulmonary edema and pneumonia. Small to moderate sized bilateral pleural effusions. Electronically signed by: Vonda Bruno MD 05/31/2025 12:25 PM [facility] [place] Microbiology Microbiology Results: Microbiology 05/28/25 10:10 Blood Culture - Preliminary Blood - Venous No growth after 48 hours. 05/28/25 10:10 Blood Culture - Preliminary Blood - Venous No growth after 48 hours. Assessment and Plan (1) Multifocal pneumonia: Status: Acute (2) Afib: Status: Acute Plan d8, 74yo F with CHF, pAF, hx recent C. difficile infection for which admitted to [facility] [place] sent in from [facility] with dyspnea, found to have hypoxic respiratory failure from multifocal pneumonia, admitted to ICU, extubated 05/27, downgraded to telemetry 05/28 complicated by CHF AHRF due to multifocal PNA with acute asthma exacerbation as well as now CHF exacerbation - continue CPAP for now - continue piperacillin-tazobactam 05/24-, changed vancomycin 05/24- to linezolid 05/30- as below - BCx as below; trend PCT - started methylprednisolone 05/30-, continue nebs + Breo - will start furosemide IV infusion 5 mg/hr; TTE pending; consult Cardiology; continue losartan and spironolactone VRE bacteremia - blood culture from 05/24 is positive for VRE; however, subsequent cultures from 05/28 negative despite not getting coverage [was on vancomycin and piperacillin-tazobactam] so this may have been a contaminant. Started linezolid 05/30-, repeated BCx 05/31, ID consult pending hx recent C. difficile colitis - PO vancomycin while on systemic ABX hypoK - repleted distended gallbladder with cholelithiasis and pericholecystic fluid - doubt acute cholecystitis as abd is completely benign; Gen Surg concurs pAF - continue amiodarone + apixaban VTE ppx: apixaban dispo: TBD In my clinical judgment, the patient requires continued inpatient hospitalization for the following reasons: IV ABX, hypoxic resp failure Total time managing care of this patient today: 75 minutes. Quality Stroke Does the patient have a stroke diagnosis?: No VTE Prior VTE?: No VTE Risk Level:: Medical - moderate - high VTE Device Contraindication: N/A - Device Ordered VTE Drug Contraindication: N/A - Med Ordered
--- NOTE | 2025-05-31 14:21 | MHC.CM.PN ---
EMR REVIEWED AND PER MD ROUNDS, PATIENT IS NOT MEDICALLY CLEARED FOR DISCHARGE DUE TO MANAGEMENT OF PNEUMONIA, BACTEREMIA, C. DIFF INFECTION, WITH RAPID RESPONSE THIS AM.
--- NOTE | 2025-05-31 16:01 | P.CONCA_ITS ---
History of Present Illness History of Present Illness Date of Service: 05/31/25 Requesting physician: Mt Sood Chief complaint: acute respiratory failure Narrative: 74-year-old female who has been asked to see for concern heart failure. She had already called earlier for hypoxia and was started on CPAP. Clinical history is not possible. She recently had C diff colitis and was admitted to [facility]. She has background of congestive heart failure and paroxysmal atrial fibrillation. She was admitted with hypoxic respiratory failure due to pneumonia and congestive heart failure. She was in the intensive care unit and was downgraded. She is on broad-spectrum antibiotics and steroids. Chest x-ray is showing bilateral infiltrates concerning for pulmonary edema. She is supposed to be started on Lasix drip. She will get 40 mg Lasix bolus before the drip was started. She is on apixaban and amiodarone currently for paroxysmal atrial fibrillation. Previous EKGs showing atrial flutter with variable block on May 26. [facility] Past Medical History Medical History (Updated 05/28/25 @ 10:06 by Sandoval Villalba MD) Asthma CVA (cerebral vascular accident) Afib CHF (congestive heart failure) Social History Social History Household Members: Unknown / Unable to assess Housing: Unknown / Unable to assess Comment: 1:1 Patient Tobacco Use Status: Tobacco use Unknown Smoked in Last 30 Days: No Use of substances other than those prescribed or required for medical reasons: No Currently Displaying Signs/Symptoms of Drug Intoxication Withdrawal: No Advance Directives: No Advance Directives Information Provided: Yes Do you have a plan to hurt others: No Plan Recently lost weight without trying: Unsure Patient : No Meds Allergies Allergy/AdvReac Type Severity Reaction Status Date / Time cephalexin (From Keflex) Allergy Unknown Verified 05/28/25 06:06 lisinopril Allergy Unknown Verified 05/28/25 06:05 propranolol Allergy Unknown Verified 05/28/25 06:05 Active Medications: Current Medications Albuterol Sulfate (Albuterol Sulfate (0.083%) 2.5 Mg/3 Ml Vial.Neb) 2.5 mg INHALE Q4H PRN PRN Reason: Wheezing Last Admin: 05/30/25 10:49 Dose: 2.5 mg Albuterol/Ipratropium (Albuterol/Iprat 2.5/0.5mg 3 Ml Ampul.Neb) 3 ml INHALE RQ4H WHILE AWAKE [facility] Last Admin: 05/31/25 11:08 Dose: 3 ml Amiodarone HCl (Amiodarone Hcl 200 Mg Tablet) 200 mg PO BID [facility] Last Admin: 05/31/25 10:04 Dose: Not Given Apixaban (Apixaban 5 Mg Tablet) 5 mg PO BID [facility] Last Admin: 05/31/25 10:04 Dose: Not Given Atorvastatin Calcium (Atorvastatin Calcium 80 Mg Tablet) 80 mg PO BEDTIME [facility] Last Admin: 05/30/25 22:00 Dose: 80 mg Baclofen (Baclofen 10 Mg Tablet) 10 mg PO TID [facility] Last Admin: 05/31/25 14:59 Dose: Not Given Bisacodyl (Bisacodyl 10 Mg Supp.Rect) 10 mg SC DAILY PRN PRN Reason: Constipation Ergocalciferol (Ergocalciferol (Vitamin D2) 1,250 Mcg Capsule) 1,250 mcg PO MO [facility] Fentanyl (Fentanyl Citrate/Pf 100 Mcg/2 Ml Vial) 50 mcg IVPUSH Q2H PRN; Protocol PRN Reason: Shortness of Breath Last Admin: 05/28/25 08:31 Dose: 50 mcg Fluticasone/Vilanterol (Fluticasone/Vilanterol 200/25 Blst.W.Dev) 1 puff INHALE RDAILY [facility] Last Admin: 05/31/25 07:30 Dose: 1 puff Hydromorphone HCl (Hydromorphone Hcl 1 Mg/Ml Syringe) 0.25 mg IVPUSH Q3H PRN; Protocol PRN Reason: WOB,severe pain Last Admin: 05/31/25 10:46 Dose: 0.25 mg Piperacillin Sod/Tazobactam (Sod 3.375 gm/ Sodium Chloride) 50 mls @ 100 mls/hr IV Q6H [facility] Last Admin: 05/31/25 15:04 Dose: 100 mls/hr Acetaminophen (Ofirmev) 1,000 mg in 100 mls @ 400 mls/hr IV Q6H PRN PRN Reason: fever Last Infusion: 05/29/25 21:26 Dose: Infused Linezolid (Zyvox/D5w) 600 mg in 300 mls @ 300 mls/hr IV Q12H [facility] Last Infusion: 05/31/25 05:38 Dose: Infused Furosemide 200 mg/ Sodium (Chloride) 100 mls @ 2.5 mls/hr IVCONT .Q24H [facility] Losartan Potassium (Losartan Potassium 25 Mg Tablet) 25 mg PO DAILY [facility]; Protocol Last Admin: 05/31/25 10:05 Dose: Not Given Magnesium Hydroxide (Milk Of Magnesia 30 Ml Oral.Susp) 30 ml PO BEDTIME PRN PRN Reason: Constipation Magnesium Oxide (Magnesium Oxide 400 Mg Tablet) 400 mg PO BID [facility] Last Admin: 05/31/25 10:05 Dose: Not Given Melatonin (Melatonin 3 Mg Tablet) 3 mg PO BEDTIME [facility] Last Admin: 05/30/25 22:00 Dose: 3 mg Methylprednisolone Sodium Succinate (Methylprednisolone Sod Succ 40 Mg/Ml Vial) 40 mg IVPUSH Q24H [facility] Last Admin: 05/31/25 10:48 Dose: 40 mg Mirtazapine (Mirtazapine 7.5 Mg Tablet) 7.5 mg PO BEDTIME [facility] Last Admin: 05/30/25 22:00 Dose: 7.5 mg Multivitamins/Vitamin C (Multivitamin Tablet) 1 tab PO DAILY [facility] Last Admin: 05/31/25 10:05 Dose: Not Given Polyethylene Glycol (Polyethylene Glycol 3350 17 Gm Powd.Pack) 17 gm PO DAILY PRN PRN Reason: Constipation Pyridoxine HCl (Pyridoxine Hcl (Vitamin B6) 50 Mg Tablet) 50 mg PO DAILY [facility] Last Admin: 05/31/25 10:05 Dose: Not Given Sodium Biphosphate/Sodium Phosphate (Sodium Phosphate,[place]-Dibasic 133 Ml Enema) 118 ml SC DAILY PRN PRN Reason: Constipation Spironolactone (Spironolactone 25 Mg Tablet) 25 mg PO DAILY [facility]; Protocol Last Admin: 05/31/25 10:06 Dose: Not Given Thiamine HCl (Thiamine Hcl 100 Mg Tablet) 100 mg PO DAILY [facility] Last Admin: 05/31/25 10:06 Dose: Not Given Vancomycin HCl (Vancomycin Hcl Oral Solution 125 Mg/5 Ml Soln.Recon) 125 mg PO QID [facility] Last Admin: 05/31/25 12:53 Dose: Not Given Home Medications ?Medication ?Instructions ?Recorded ?Confirmed ?Last Taken ?Type acetaminophen 325 mg tablet 650 mg PO Q4H PRN Pain (Sc josh 05/24/25 05/24/25 Unknown History Score 1-3) acetaminophen 325 mg tablet 650 mg PO Q6H PRN Fever 05/24/25 Unknown History albuterol sulfate 90 mcg/actuation 2 puff inhalation Q 6H PRN Wheezing 05/24/25 05/24/25 Unknown History aerosol inhaler amiodarone 200 mg tablet 200 mg PO BID 05/24/2505/24 Unknown History apixaban 5 mg tablet (Eliquis) 5 mg PO BID 05/24/25 Unknown History atorvastatin 80 mg tablet 80 mg PO BEDTIME 05/24/25 Unknown History baclofen 25 mg/5 mL (5 mg/mL) oral 10 mg PO TID 05/24/25 Unknown History suspension bisacodyl 10 mg rectal suppository 10 mg SC DAILY PRN Constipation 05/24/25 05/24/25 Unknown History ergocalciferol (vitamin D2) 1,250 1,250 mcg PO MO 05/0505/24/25 Unknown History mcg (50,000 unit) capsule fluticasone 500 mcg-salmeterol 50 1 inh inhalation BID 05/24/25 05/24/25 Unknown History mcg/dose blistr powdr for inhalation (Wixela Inhub) ipratropium 0.5 mg-albuterol 3 mg 3 ml inhalation Q6H PRN Shortness 05/24/25 05/24/25 Unknown History (2.5 mg base)/3 mL nebulization Of Breath Or Wheezing soln levofloxacin 750 mg tablet 750 mg PO DAILY 05/24/25 Unknown History losartan 25 mg tablet 25 mg PO DAILY 05/24/2505/05 Unknown History magnesium hydroxide 400 mg/5 mL 30 ml PO BEDTIME PRN C onstipation 05/24/25 05/24/25 Unknown History oral suspension (Milk of Magnesia) magnesium oxide 400 mg PO BID 05/24/2505/24 Unknown History melatonin 3 mg tablet 3 mg PO BEDTIME 05/24/25 Unknown History mirtazapine 7.5 mg tablet 7.5 mg PO BEDTIME 05/24/25 1 07/24/24 Unknown History multivitamin 1 tab PO DAILY 05/24/2505/05 Unknown History polyethylene glycol 3350 17 17 g PO DAILY PRN Constipa tion 05/24/25 05/24/25 Unknown History gram/dose oral powder pyridoxine (vitamin B6) 50 mg 50 mg PO DAILY 05/24/25 05/24/25 Unknown History tablet sodium chloride 1,000 mg soluble 1,000 mg PO BID 05/2405/24/25 Unknown History tablet sodium phosphates 19 gram-7 118 ml SC DAILY PRN Consti pation 05/24/25 05/24/25 Unknown History gram/118 mL enema (Fleet Enema) spironolactone 25 mg tablet 25 mg PO DAILY 05/24/25 Unknown History thiamine HCl (vitamin B1) 100 mg 100 mg PO DAILY 05/2405/24/25 Unknown History tablet Physical Exam 2 Vital Signs: Vital Signs: Last Vital Signs Temp 98.7 F 05/31/25 15:39 Pulse 83 05/31/25 15:39 Resp 27 H 05/31/25 15:39 BP 132/61 05/31/25 15:39 Pulse Ox 93 05/31/25 15:39 O2 Del Method CPAP 05/31/25 15:39 O2 Flow Rate 53 05/31/25 07:32 FiO2 77 05/31/25 07:32 Oxygen Flow Rate 8 05/24/25 13:56 BMI result Body Mass Index 19.4 GENERAL APPEARANCE: On CPAP. Unresponsive currently. NECK: no carotid bruit, no obvious jugular venous distention. SKIN: no suspicious lesions, warm and dry. HEART: no murmurs, regular rate and rhythm. LUNGS: clear to auscultation anteriorly. ABDOMEN: soft, nontender. EXTREMITIES: no edema. PERIPHERAL PULSES: equal. NEUROLOGIC: No gross deficits, AAO X 3 Objective Labs and Meds 05/31/25 07:22 05/31/25 07:22 Lab results: Laboratory Results - last 24 hr 05/31/25 05/31/25 05/31/25 02:46 07:22 07:59 WBC 18.5 H RBC 3.30 L Hgb 9.2 L Hct 27.4 L MCV 83.0 MCH 27.9 MCHC 33.6 RDW 17.5 H Plt Count 450 H MPV 9.3 L Absolute Nucleated RBC 0.000 Nucleated RBC % (auto) 0.0 O2 Saturation 98.0 ABG pH at Pt Temp 7.56 H ABG pCO2 at Pt Temp 27 L ABG pO2 at Pt Temp 87 ABG HCO3 24 ABG Base Excess (Actual) 3.2 VBG pH 7.73 H* VBG pCO2 18 VBG pO2 180 VBG HCO3 24 VBG O2 Saturation 100.0 VBG Base Excess 7.2 Sodium 135 Potassium 3.4 Chloride 100 Carbon Dioxide 24 Anion Gap 14 BUN 14 Creatinine 0.56 Estim Creat Clear Calc 71.2 Estimated GFR > 60 Random Glucose 151 H Calcium 8.5 D Phosphorus 3.0 Total Bilirubin 0.9 AST 87 H ALT 49 H Alkaline Phosphatase 72 NT-Pro-B Natriuret Pep 05934.2 H Total Protein 5.7 L Albumin 3.1 L Respiratory Panel Torrez Adenovirus (Rapid PCR) B.pert (TEM-PCR) B.parapertussis DNA PCR C. pneumoniae DNA (PCR) Coronavirus OC43 (PCR) Coronavirus HKU1 (PCR) Coronavirus 229E (PCR) Coronavirus NL63 (PCR) Human Metapneumovir PCR Influenza A (RT-PCR) Influenza A (H1) PCR Influ A (H1/09) PCR Influenza A (H3) PCR Influenza B (RT-PCR) M. pneumoniae (PCR) Parainfluenza 1 (PCR) Parainfluenza 2 (PCR) Parainfluenza 3 (PCR) Parainfluenza 4 (PCR) RSV (PCR) Entero/Rhino (PCR) SARS-CoV-2 RNA (RT-PCR) 05/31/25 10:37 WBC RBC Hgb Hct MCV MCH MCHC RDW Plt Count MPV Absolute Nucleated RBC Nucleated RBC % (auto) O2 Saturation ABG pH at Pt Temp ABG pCO2 at Pt Temp ABG pO2 at Pt Temp ABG HCO3 ABG Base Excess (Actual) VBG pH VBG pCO2 VBG pO2 VBG HCO3 VBG O2 Saturation VBG Base Excess Sodium Potassium Chloride Carbon Dioxide Anion Gap BUN Creatinine Estim Creat Clear Calc Estimated GFR Random Glucose Calcium Phosphorus Total Bilirubin AST ALT Alkaline Phosphatase NT-Pro-B Natriuret Pep Total Protein Albumin Respiratory Panel Torrez See Note Adenovirus (Rapid PCR) Not Detected B.pert (TEM-PCR) Not Detected B.parapertussis DNA PCR Not Detected C. pneumoniae DNA (PCR) Not Detected Coronavirus OC43 (PCR) Not Detected Coronavirus HKU1 (PCR) Not Detected Coronavirus 229E (PCR) Not Detected Coronavirus NL63 (PCR) Not Detected Human Metapneumovir PCR Not Detected Influenza A (RT-PCR) Not Detected Influenza A (H1) PCR Not Detected Influ A (H1/09) PCR Not Detected Influenza A (H3) PCR Not Detected Influenza B (RT-PCR) Not Detected M. pneumoniae (PCR) Not Detected Parainfluenza 1 (PCR) Not Detected Parainfluenza 2 (PCR) Not Detected Parainfluenza 3 (PCR) Not Detected Parainfluenza 4 (PCR) Not Detected RSV (PCR) Not Detected Entero/Rhino (PCR) Not Detected SARS-CoV-2 RNA (RT-PCR) Not Detected Imaging Radiologist's impression: Impressions Chest CTA 05/31/25 11:24 IMPRESSION: Limited exam due to respiratory motion artifact. No evidence of pulmonary embolism. Very enlarged heart, particularly the left atrium. No evidence of right heart strain. Reflux of contrast in the liver suggestive of right heart compromise increased from prior CTA. Diffuse groundglass attenuation and increased interstitial markings throughout the lungs, right greater than left. This is increased from recent May 24, 2025 exam. Differential would include pulmonary edema and pneumonia. Small to moderate sized bilateral pleural effusions. Electronically signed by: Vonda Bruno MD 05/31/2025 12:25 PM [facility] Assessment and Plan (1) CHF (congestive heart failure): Status: Acute Plan [age] year female presenting for multifocal pneumonia and hypoxia. She was in the ICU. She has been downgraded to the floor and is currently in congestive heart failure on CPAP. It appears she was in sinus rhythm till May 25 and on May 26 her EKG changed to atrial flutter with variable block. On telemetry she continues to be in atrial flutter. Clinically volume overloaded and chest x-ray clearly showing pulmonary edema. Agree with diuretics. Give 40 mg Lasix bolus and start the drip at 5 milligram/hour. If urine output less than 100 cc/hour then increase the drip to 7.5 milligram/hour. Monitor electrolytes closely. Continue amiodarone and Eliquis. It is possible that atrial flutter is the reason for her congestive heart failure. As she improves further we can see if cardioversion can be a possibility for her. Otherwise rate control strategy we will be continued. Thank you for allowing me to participate in the care of your patient. Please feel free to contact me if you have any questions. Procedures Date of Service Date of Service: 05/31/25
[2025-05-31] MEDS: Furosemide 200 MG in 0.9 % Sodium Chloride 80 ML IVCONT (16:03)
--- NOTE | 2025-05-31 16:23 | MHC.SLORD ---
Speech Language Pathology Order Status: Patient unable to be seen today for speech therapy. Patient currently on CPAP with oxygen needs fluctuating. RN with no concerns at this time. Recommend continue with current diet. OPHTHALMIC TECHNOLOGIST to continue to follow.
[2025-05-31] MEDS: vancomycin HCL Oral Solution 125 MG/5 ML SOLN.RECON PO (22:21)
--- NOTE | 2025-05-31 22:52 | W.PM.IDCN ---
History of Present Illness Data of Consult Service Date: 05/31/25 Requesting physician: Mt Sood Primary Care Provider: Kevin Landers MD HPI Reason for consult: hypoxia She presents with shortness of breath. She had been at [facility] most of March and had been on antibiotics for pneumonia and also Cdiff. She has now procalcitonin of .26. MRSA sputum positive. CXR some diffuse infiltrates. Review of Systems Review of Systems: Yes Unobtainable due to mental condition [facility] Past Medical History Medical History Asthma CVA (cerebral vascular accident) Afib CHF (congestive heart failure) Family History Family history: reviewed and not pertinent Social History Social History Household Members: Unknown / Unable to assess Housing: Unknown / Unable to assess Comment: 1:1 Patient Tobacco Use Status: Tobacco use Unknown Smoked in Last 30 Days: No Use of substances other than those prescribed or required for medical reasons: No Currently Displaying Signs/Symptoms of Drug Intoxication Withdrawal: No Advance Directives: No Advance Directives Information Provided: Yes Do you have a plan to hurt others: No Plan Recently lost weight without trying: Unsure Patient : No Meds Allergies Allergy/AdvReac Type Severity Reaction Status Date / Time cephalexin (From Keflex) Allergy Unknown Verified 05/28/25 06:06 lisinopril Allergy Unknown Verified 05/28/25 06:05 propranolol Allergy Unknown Verified 05/28/25 06:05 Active Medications: Current Medications Albuterol Sulfate (Albuterol Sulfate (0.083%) 2.5 Mg/3 Ml Vial.Neb) 2.5 mg INHALE Q4H PRN PRN Reason: Wheezing Last Admin: 05/30/25 10:49 Dose: 2.5 mg Albuterol/Ipratropium (Albuterol/Iprat 2.5/0.5mg 3 Ml Ampul.Neb) 3 ml INHALE RQ4H WHILE AWAKE [facility] Last Admin: 05/31/25 19:52 Dose: 3 ml Amiodarone HCl (Amiodarone Hcl 200 Mg Tablet) 200 mg PO BID [facility] Last Admin: 05/31/25 22:17 Dose: 200 mg Apixaban (Apixaban 5 Mg Tablet) 5 mg PO BID [facility] Last Admin: 05/31/25 22:17 Dose: 5 mg Atorvastatin Calcium (Atorvastatin Calcium 80 Mg Tablet) 80 mg PO BEDTIME [facility] Last Admin: 05/31/25 22:24 Dose: 80 mg Baclofen (Baclofen 10 Mg Tablet) 10 mg PO TID [facility] Last Admin: 05/31/25 22:18 Dose: 10 mg Bisacodyl (Bisacodyl 10 Mg Supp.Rect) 10 mg [place] DAILY PRN PRN Reason: Constipation Ergocalciferol (Ergocalciferol (Vitamin D2) 1,250 Mcg Capsule) 1,250 mcg PO MO [facility] Fentanyl (Fentanyl Citrate/Pf 100 Mcg/2 Ml Vial) 50 mcg IVPUSH Q2H PRN; Protocol PRN Reason: Shortness of Breath Last Admin: 05/28/25 08:31 Dose: 50 mcg Fluticasone/Vilanterol (Fluticasone/Vilanterol 200/25 Blst.W.Dev) 1 puff INHALE RDAILY [facility] Last Admin: 05/31/25 07:30 Dose: 1 puff Hydromorphone HCl (Hydromorphone Hcl 1 Mg/Ml Syringe) 0.25 mg IVPUSH Q3H PRN; Protocol PRN Reason: WOB,severe pain Last Admin: 05/31/25 10:46 Dose: 0.25 mg Piperacillin Sod/Tazobactam (Sod 3.375 gm/ Sodium Chloride) 50 mls @ 100 mls/hr IV Q6H [facility] Last Admin: 05/31/25 22:02 Dose: 100 mls/hr Acetaminophen (Ofirmev) 1,000 mg in 100 mls @ 400 mls/hr IV Q6H PRN PRN Reason: fever Last Infusion: 05/29/25 21:26 Dose: Infused Linezolid (Zyvox/D5w) 600 mg in 300 mls @ 300 mls/hr IV Q12H [facility] Last Infusion: 05/31/25 17:47 Dose: Infused Furosemide 200 mg/ Sodium (Chloride) 100 mls @ 2.5 mls/hr IVCONT .Q24H [facility] Last Admin: 05/31/25 16:03 Dose: 5 mg/hr, 2.5 mls/hr Losartan Potassium (Losartan Potassium 25 Mg Tablet) 25 mg PO DAILY [facility]; Protocol Last Admin: 05/31/25 10:05 Dose: Not Given Magnesium Hydroxide (Milk Of Magnesia 30 Ml Oral.Susp) 30 ml PO BEDTIME PRN PRN Reason: Constipation Magnesium Oxide (Magnesium Oxide 400 Mg Tablet) 400 mg PO BID [facility] Last Admin: 05/31/25 22:24 Dose: 400 mg Melatonin (Melatonin 3 Mg Tablet) 3 mg PO BEDTIME [facility] Last Admin: 05/31/25 22:24 Dose: 3 mg Methylprednisolone Sodium Succinate (Methylprednisolone Sod Succ 40 Mg/Ml Vial) 40 mg IVPUSH Q24H [facility] Last Admin: 05/31/25 10:48 Dose: 40 mg Mirtazapine (Mirtazapine 7.5 Mg Tablet) 7.5 mg PO BEDTIME [facility] Last Admin: 05/31/25 22:24 Dose: 7.5 mg Multivitamins/Vitamin C (Multivitamin Tablet) 1 tab PO DAILY [facility] Last Admin: 05/31/25 10:05 Dose: Not Given Polyethylene Glycol (Polyethylene Glycol 3350 17 Gm Powd.Pack) 17 gm PO DAILY PRN PRN Reason: Constipation Pyridoxine HCl (Pyridoxine Hcl (Vitamin B6) 50 Mg Tablet) 50 mg PO DAILY [facility] Last Admin: 05/31/25 10:05 Dose: Not Given Sodium Biphosphate/Sodium Phosphate (Sodium Phosphate,[place]-Dibasic 133 Ml Enema) 118 ml [place] DAILY PRN PRN Reason: Constipation Spironolactone (Spironolactone 25 Mg Tablet) 25 mg PO DAILY [facility]; Protocol Last Admin: 05/31/25 10:06 Dose: Not Given Thiamine HCl (Thiamine Hcl 100 Mg Tablet) 100 mg PO DAILY [facility] Last Admin: 05/31/25 10:06 Dose: Not Given Vancomycin HCl (Vancomycin Hcl Oral Solution 125 Mg/5 Ml Soln.Recon) 125 mg PO QID [facility] Last Admin: 05/31/25 22:21 Dose: 125 mg Home Medications ?Medication ?Instructions ?Recorded ?Confirmed ?Last Taken ?Type acetaminophen 325 mg tablet 650 mg PO Q4H PRN Pain (Scale 05/24/25 05/24/25 Unknown History Score 1-3) acetaminophen 325 mg tablet 650 mg PO Q6H PRN Fever 05/24/25 05/24/25 Unknown History albuterol sulfate 90 mcg/actuation 2 puff inhalation Q6H PRN Wheezing 05/24/25 05/24/25 Unknown History aerosol inhaler amiodarone 200 mg tablet 200 mg PO BID 05/24/25 05/24/25 Unknown History apixaban 5 mg tablet (Eliquis) 5 mg PO BID 05/24/25 05/24/25 Unknown History atorvastatin 80 mg tablet 80 mg PO BEDTIME 05/24/25 05/24/25 Unknown History baclofen 25 mg/5 mL (5 mg/mL) oral 10 mg PO TID 05/24/25 05/24/25 Unknown History suspension bisacodyl 10 mg rectal suppository 10 mg [place] DAILY PRN Constipation 05/24/25 05/24/25 Unknown History ergocalciferol (vitamin D2) 1,250 1,250 mcg PO MO 05/24/25 05/24/25 Unknown History mcg (50,000 unit) capsule fluticasone 500 mcg-salmeterol 50 1 inh inhalation BID 05/24/25 05/24/25 Unknown History mcg/dose blistr powdr for inhalation (Karina Noriega) ipratropium 0.5 mg-albuterol 3 mg 3 ml inhalation Q6H PRN Shortness 05/24/25 05/24/25 Unknown History (2.5 mg base)/3 mL nebulization Of Breath Or Wheezing soln levofloxacin 750 mg tablet 750 mg PO DAILY 05/24/25 05/24/25 Unknown History losartan 25 mg tablet 25 mg PO DAILY 05/24/25 05/24/25 Unknown History magnesium hydroxide 400 mg/5 mL 30 ml PO BEDTIME PRN Constipation 05/24/25 05/24/25 Unknown History oral suspension (Milk of Magnesia) magnesium oxide 400 mg PO BID 05/24/25 05/24/25 Unknown History melatonin 3 mg tablet 3 mg PO BEDTIME 05/24/25 05/24/25 Unknown History mirtazapine 7.5 mg tablet 7.5 mg PO BEDTIME 05/24/25 05/24/25 Unknown History multivitamin 1 tab PO DAILY 05/24/25 05/24/25 Unknown History polyethylene glycol 3350 17 17 g PO DAILY PRN Constipation 05/24/25 05/24/25 Unknown History gram/dose oral powder pyridoxine (vitamin B6) 50 mg 50 mg PO DAILY 05/24/25 05/24/25 Unknown History tablet sodium chloride 1,000 mg soluble 1,000 mg PO BID 05/24/25 05/24/25 Unknown History tablet sodium phosphates 19 gram-7 118 ml [place] DAILY PRN Constipation 05/24/25 05/24/25 Unknown History gram/118 mL enema (Fleet Enema) spironolactone 25 mg tablet 25 mg PO DAILY 05/24/25 05/24/25 Unknown History thiamine HCl (vitamin B1) 100 mg 100 mg PO DAILY 05/24/25 05/24/25 Unknown History tablet Physical Exam Vital Signs: Vital Signs: Last Vital Signs Temp 97.8 F 05/31/25 19:27 Pulse 75 05/31/25 19:53 Resp 21 H 05/31/25 22:33 BP 116/56 L 05/31/25 19:27 Pulse Ox 94 05/31/25 19:27 O2 Del Method CPAP 05/31/25 19:27 O2 Flow Rate 53 05/31/25 07:32 FiO2 77 05/31/25 07:32 Oxygen Flow Rate 8 05/24/25 13:56 BMI result Body Mass Index 19.4 Const: General: cooperative HEENT: Head: Yes normal to inspection Face and sinus: Yes normal facial exam Mouth: Normal oral and palatal mucosa present Teeth and gingiva: dentition normal Eyes: General: appearance normal, both eyes and all related structures Pupils: Equal, round and reactive pupils present Resp: Other: rhonchi bases,florid shortness of breath on high flow mask Cardio: Rate: regular rate Rhythm: regular rhythm GI: Palpation (GI): Soft to palpation and nontender : General: Yes no CVA tenderness Back/Spine/Pelvis: Back: no CVA tenderness Skin: General skin exam: no rashes or lesions noted Neuro: General: moves all extremities Cranial nerves: Yes Equal, round and reactive pupils present Extrem: General: Yes normal to inspection Psych: Appearance: grossly normal Results Labs 05/31/25 07:22 05/31/25 07:22 Labs: Short CBC 05/31/25 Range/Units 07:22 WBC 18.5 H (4.8-10.8) X10*3/uL Hgb 9.2 L (12.0-16.0) g/dl Hct 27.4 L (37.0-47.0) % Plt Count 450 H (160-400) X10*3/uL BMP 05/31/25 07:22 Sodium 135 Potassium 3.4 Chloride 100 Carbon Dioxide 24 BUN 14 Creatinine 0.56 Calcium 8.5 D Liver Function 05/31/25 Range/Units 07:22 Total Bilirubin 0.9 (0.0-1.0) mg/dL AST 87 H (5-31) U/L ALT 49 H (0-31) U/L Alkaline Phosphatase 72 (39-117) U/L Albumin 3.1 L (3.5-5.0) g/dL Microbiology Microbiology Results: Microbiology 05/28/25 10:10 Blood - Venous Blood Culture - Preliminary No growth after 48 hours. 05/28/25 10:10 Blood - Venous Blood Culture - Preliminary No growth after 48 hours. 05/24/25 14:14 Blood - Venous Blood Culture - Final No growth after 5 days. 05/24/25 20:35 Sputum - Suctioned Gram Stain - Final 05/24/25 20:35 Sputum - Suctioned Sputum Culture - Final Methicillin Res Staph Aureus 05/24/25 14:14 Blood - Venous Blood Culture - Final Enterococcus faecium 05/24/25 17:58 Urine Catheterized - [place] Catheter Urine Culture - Final No growth. Assessment and Plan (1) CHF (congestive heart failure): Status: Acute (2) Acute respiratory failure: Status: Acute (3) Multifocal pneumonia: Status: Acute Plan Likely aspiration pneumonia including gram negative and growing out MRSA. She has CHF also with highBNP She has low procalcitonin at .26 Would stop Zosyn if procalcitonin is still under 2 tomorrow ( has received zosyn and zyvox prob day 8 and po Vancomycin 125 qid while on antibiotics and 48 h after total zyvox 14-21 d
[2025-06-01] VITALS (15 sets, daily range): BP systolic 93–131; BP diastolic 53–65; PULSE 72–87; RESP 14–20; TEMP 36.1–36.6; O2SAT 88–96; BMI 18.5
[2025-06-01] MEDS: Linezolid/D5W 600 MG/300 ML PIGGYBACK 300 MG IV ×2 (04:41→15:57)
[2025-06-01] MEDS: Fluticasone/Vilanterol 200/25 BLST.W.DEV 1 PUFF INHALE (08:01)
[2025-06-01] MEDS: Albuterol/Iprat 2.5/0.5MG 3 ML AMPUL.NEB INHALE ×3 (08:01→20:21)
[2025-06-01 08:18] LABS: Hematocrit 28.6 % (37.0-47.0); Hemoglobin 9.7 g/dl (12.0-16.0); Mean Corpuscular HGB Conc 33.9 g/dl (31.0-35.0); Mean Corpuscular Hemoglobin 27.9 pg (27.0-33.0); Mean Corpuscular Volume 82.2 fL (80.0-98.0); NRBC Abs Auto 0.000 X10*3/uL (0.0-0.012); NRBC Pct Auto 0.0 /100WBC (0.0-0.2); Platelet Count 488 X10*3/uL (160-400); Red Blood Count 3.48 X10*6/uL (4.20-5.50); White Blood Count 17.3 X10*3/uL (4.8-10.8)
[2025-06-01 08:41] LABS: Anion Gap 17 (12-20); Blood Urea Nitrogen 14 mg/dL (9-16); Calcium 8.5 mg/dL (8.4-10.2); Carbon Dioxide 27 mmol/L (22-29); Chloride 97 mmol/L (96-108); Creatinine Clr Calc Pharmacy 63.6; Estimated Glomerular Filt Rate > 60; Magnesium 1.7 mg/dL (1.6-2.6); Sodium 138 mmol/L (135-145)
[2025-06-01 08:44] LABS: Potassium 2.5 mmol/L (3.3-5.1)
[2025-06-01] MEDS: vancomycin HCL Oral Solution 125 MG/5 ML SOLN.RECON PO ×3 (09:12→20:40)
[2025-06-01] MEDS: Potassium Chloride/H20 10 MEQ/100 ML PIGGYBACK 100 MEQ IV ×4 (09:25→13:42)
[2025-06-01] MEDS: Potassium Chloride Packet 20 MEQ PACKET 40 MEQ PO (09:26)
--- NOTE | 2025-06-01 12:07 | P.PNIM_ITS ---
Subjective Subjective Date of Service: 06/01/25 Interval History: -1350mL last 24hr; tolerating HFNC @ 50% fiO2 tired dyspnea improving fever resolved Review of Systems Review of Systems: Yes all other systems are reviewed and are negative Physical Exam 2 Vital Signs: Vital Signs: Last Vital Signs Temp 97.6 F 06/01/25 08:00 Pulse 80 06/01/25 11:29 Resp 18 06/01/25 11:29 BP 126/61 06/01/25 08:00 Pulse Ox 92 06/01/25 08:00 O2 Del Method High Flow Nasal C annula 06/01/25 08:00 O2 Flow Rate 50 06/01/25 03:19 FiO2 50 06/01/25 08:00 Oxygen Flow Rate 8 05/24/25 13:56 BMI result Body Mass Index 18.5 Gen: ill-appearing, comfortable on HFNC HEENT: sclera anicteric, moist mucus membranes Neck: supple Lungs: bilateral crackles Heart: regular rate and rhythm, no murmurs Abd: soft, non-tender, non-distended Ext: 1+ LLE edema Skin: warm/well-perfused Neuro: alert and oriented x3, no focal findings Psych: appropriate affect Objective Data Active Medications Albuterol Sulfate (Albuterol Sulfate (0.083%) 2.5 Mg/3 Ml Vial.Neb) 2.5 mg INHALE Q4H PRN PRN Reason: Wheezing Last Admin: 05/30/25 10:49 Dose: 2.5 mg Documented By: JEN Albuterol/Ipratropium (Albuterol/Iprat 2.5/0.5mg 3 Ml Ampul.Neb) 3 ml INHALE RQ4H WHILE AWAKE [facility] Last Admin: 06/01/25 11:26 Dose: 3 ml Documented By: LARRY Amiodarone HCl (Amiodarone Hcl 200 Mg Tablet) 200 mg PO BID [facility] Last Admin: 06/01/25 09:12 Dose: 200 mg Documented By: ERVIN Apixaban (Apixaban 5 Mg Tablet) 5 mg PO BID [facility] Last Admin: 06/01/25 09:12 Dose: 5 mg Documented By: ERVIN Atorvastatin Calcium (Atorvastatin Calcium 80 Mg Tablet) 80 mg PO BEDTIME [facility] Last Admin: 05/31/25 22:24 Dose: 80 mg Documented By: ABBEY Baclofen (Baclofen 10 Mg Tablet) 10 mg PO TID [facility] Last Admin: 06/01/25 09:12 Dose: 10 mg Documented By: ERVIN Bisacodyl (Bisacodyl 10 Mg Supp.Rect) 10 mg [place] DAILY PRN PRN Reason: Constipation Ergocalciferol (Ergocalciferol (Vitamin D2) 1,250 Mcg Capsule) 1,250 mcg PO MO [facility] Fentanyl (Fentanyl Citrate/Pf 100 Mcg/2 Ml Vial) 50 mcg IVPUSH Q2H PRN; Protocol PRN Reason: Shortness of Breath Last Admin: 05/28/25 08:31 Dose: 50 mcg Documented By: EMI Fluticasone/Vilanterol (Fluticasone/Vilanterol 200/25 Blst.W.Dev) 1 puff INHALE RDAILY [facility] Last Admin: 06/01/25 08:01 Dose: 1 puff Documented By: CHARLETTE Hydromorphone HCl (Hydromorphone Hcl 1 Mg/Ml Syringe) 0.25 mg IVPUSH Q3H PRN; Protocol PRN Reason: WOB,severe pain Last Admin: 05/31/25 10:46 Dose: 0.25 mg Documented By: ALVAREZ Piperacillin Sod/Tazobactam (Sod 3.375 gm/ Sodium Chloride) 50 mls @ 100 mls/hr IV Q6H [facility] Last Infusion: 06/01/25 10:20 Dose: Infused Documented By: ERVIN Acetaminophen (Ofirmev) 1,000 mg in 100 mls @ 400 mls/hr IV Q6H PRN PRN Reason: fever Last Infusion: 05/29/25 21:26 Dose: Infused Documented By: CASSIE Linezolid (Zyvox/D5w) 600 mg in 300 mls @ 300 mls/hr IV Q12H [facility] Last Infusion: 06/01/25 05:42 Dose: Infused Documented By: ABBEY Furosemide 200 mg/ Sodium (Chloride) 100 mls @ 2.5 mls/hr IVCONT .Q24H [facility] Last Admin: 05/31/25 16:03 Dose: 5 mg/hr, 2.5 mls/hr Documented By: HO.RICCIAV Potassium Chloride (Potassium Chloride/H20) 10 meq in 100 mls @ 100 mls/hr IV Q1H [facility] Stop: 06/01/25 12:59 Last Admin: 06/01/25 11:06 Dose: 100 mls/hr Documented By: ERVIN Losartan Potassium (Losartan Potassium 25 Mg Tablet) 25 mg PO DAILY [facility]; Protocol Last Admin: 06/01/25 09:12 Dose: 25 mg Documented By: ERVIN Magnesium Hydroxide (Milk Of Magnesia 30 Ml Oral.Susp) 30 ml PO BEDTIME PRN PRN Reason: Constipation Magnesium Oxide (Magnesium Oxide 400 Mg Tablet) 400 mg PO BID [facility] Last Admin: 06/01/25 09:12 Dose: 400 mg Documented By: ERVIN Melatonin (Melatonin 3 Mg Tablet) 3 mg PO BEDTIME DEE Last Admin: 05/31/25 22:24 Dose: 3 mg Documented By: ABBEY Methylprednisolone Sodium Succinate (Methylprednisolone Sod Succ 40 Mg/Ml Vial) 40 mg IVPUSH Q24H DEE Last Admin: 06/01/25 09:12 Dose: 40 mg Documented By: ERVIN Mirtazapine (Mirtazapine 7.5 Mg Tablet) 7.5 mg PO BEDTIME DEE Last Admin: 05/31/25 22:24 Dose: 7.5 mg Documented By: ABBEY Multivitamins/Vitamin C (Multivitamin Tablet) 1 tab PO DAILY DEE Last Admin: 06/01/25 09:11 Dose: 1 tab Documented By: ERVIN Polyethylene Glycol (Polyethylene Glycol 3350 17 Gm Powd.Pack) 17 gm PO DAILY PRN PRN Reason: Constipation Pyridoxine HCl (Pyridoxine Hcl (Vitamin B6) 50 Mg Tablet) 50 mg PO DAILY [facility] Last Admin: 06/01/25 09:11 Dose: 50 mg Documented By: ERVIN Sodium Biphosphate/Sodium Phosphate (Sodium Phosphate,Herkimer-Dibasic 133 Ml Enema) 118 ml [place] DAILY PRN PRN Reason: Constipation Spironolactone (Spironolactone 25 Mg Tablet) 25 mg PO DAILY [facility]; Protocol Last Admin: 06/01/25 09:11 Dose: 25 mg Documented By: ERVIN Thiamine HCl (Thiamine Hcl 100 Mg Tablet) 100 mg PO DAILY [facility] Last Admin: 06/01/25 09:11 Dose: 100 mg Documented By: ERVIN Vancomycin HCl (Vancomycin Hcl Oral Solution 125 Mg/5 Ml Soln.Agus) 125 mg PO QID DEE Last Admin: 06/01/25 09:12 Dose: 125 mg Documented By: ERVIN Labs 06/01/25 07:25 06/01/25 07:25 Labs: Laboratory Results - last 24 hr 05/31/25 06/01/25 10:37 07:25 MCV 82.2 MCH 27.9 MCHC 33.9 RDW 17.4 H Plt Count 488 H MPV 9.2 L Absolute Nucleated RBC 0.000 Nucleated RBC % (auto) 0.0 Anion Gap 17 Estim Creat Clear Calc 63.6 Estimated GFR > 60 Random Glucose 127 H Calcium 8.5 Magnesium 1.7 NT-Pro-B Natriuret Pep 8136.7 H Respiratory Panel Torrez See Note Adenovirus (Rapid PCR) Not Detected B.pert (TEM-PCR) Not Detected B.parapertussis DNA PCR Not Detected C. pneumoniae DNA (PCR) Not Detected Coronavirus OC43 (PCR) Not Detected Coronavirus HKU1 (PCR) Not Detected Coronavirus 229E (PCR) Not Detected Coronavirus NL63 (PCR) Not Detected Human Metapneumovir PCR Not Detected Influenza A (RT-PCR) Not Detected Influenza A (H1) PCR Not Detected Influ A (H1/09) PCR Not Detected Influenza A (H3) PCR Not Detected Influenza B (RT-PCR) Not Detected M. pneumoniae (PCR) Not Detected Parainfluenza 1 (PCR) Not Detected Parainfluenza 2 (PCR) Not Detected Parainfluenza 3 (PCR) Not Detected Parainfluenza 4 (PCR) Not Detected RSV (PCR) Not Detected Entero/Rhino (PCR) Not Detected SARS-CoV-2 RNA (RT-PCR) Not Detected Microbiology Microbiology Results: Microbiology 05/31/25 07:24 Blood Culture - Preliminary Blood - Venous No growth after 24 hours. 05/31/25 07:16 Blood Culture - Preliminary Blood - Venous No growth after 24 hours. Assessment and Plan (1) Multifocal pneumonia: Status: Acute (2) Afib: Status: Acute Plan d9, 74yo F with CHF, pAF, hx recent C. difficile infection for which [place] [facility] [place] in [facility] with dyspnea, found to have hypoxic respiratory failure from multifocal pneumonia, admitted to ICU, extubated 05/27, downgraded to telemetry 05/28 complicated by CHF exacerbation requiring CPAP, now on HFNC AHRF due to multifocal PNA with acute asthma exacerbation as well as now acute HFpEF - continue HFNC - continue piperacillin-tazobactam 05/24-, changed vancomycin 05/24- to linezolid 05/30- as below, MRSA swab positive, per ID total 14-21d of linezolid; d/c piperacillin-tazobactam if PCT<2 tomorrow; BCx as below - started methylprednisolone 05/30-, continue nebs + Breo - continue furosemide IV infusion 5 mg/hr; continue losartan and spironolactone; Cardiology following - TTE 05/31: - Normal left ventricular cavity size. There is mildly increased left ventricular wall thickness. The left ventricular systolic function is low normal. The visually estimated ejection fraction is between 50-55%. - The apical septum and mid inferoseptal segments are hypokinetic. - Mildly increased right ventricular cavity size. There is mildly decreased right ventricular systolic function. - The left atrium is severely dilated. The right atrium is severely dilated. - There is mild to moderate mitral valve regurgitation. VRE bacteremia - blood culture from 05/24 is positive for VRE; however, subsequent cultures from 05/28 negative despite not getting coverage [was on vancomycin and piperacillin-tazobactam] so this may have been a contaminant. Started linezolid 05/30- hx recent C. difficile colitis - PO vancomycin while on systemic ABX and for 2d afterwards hypoK - replete IV/PO, recheck level tomorrow distended gallbladder with cholelithiasis and pericholecystic fluid - doubt acute cholecystitis as abd is completely benign; Gen Surg concurs pAF - continue amiodarone + apixaban VTE ppx: apixaban dispo: STR In my clinical judgment, the patient requires continued inpatient hospitalization for the following reasons: IV ABX, hypoxic resp failure requiring HFNC, IV diuresis requiring drip Total time managing care of this patient today: 55 minutes. Quality Stroke Does the patient have a stroke diagnosis?: No VTE Prior VTE?: No VTE Risk Level:: Medical - moderate - high VTE Device Contraindication: N/A - Device Ordered VTE Drug Contraindication: N/A - Med Ordered
--- NOTE | 2025-06-01 12:13 | P.PNCA_ITS ---
Subjective Subjective Date of Service: 06/01/25 Interval history: Seen examined at bedside. Unresponsive on high-flow ox general. Contractures left upper extremity and lower extremities. Physical Exam Vital Signs: Last Vital Signs Temp 97.6 F 06/01/25 08:00 Pulse 80 06/01/25 11: Resp 18 06/01/25 11:29 BP 126/61 06/01/25 08:00 Pulse Ox 92 06/01/25 08:00 O2 Del Method High Flow Nasal Cannula 06/01/25 08:00 O2 Flow Rate 50 06/01/25 03:19 FiO2 50 06/01/25 08:00 Oxygen Flow Rate 8 05/24/25 13:56 BMI result Body Mass Index 18.5 GENERAL APPEARANCE: On high-flow oxygen. Unresponsive. NECK: no carotid bruit, no significant jugular venous distention. SKIN: no suspicious lesions, warm and dry. HEART: no murmurs, regular rate and rhythm. LUNGS: clear to auscultation anteriorly. ABDOMEN: soft, nontender. EXTREMITIES: no edema. PERIPHERAL PULSES: equal. NEUROLOGIC: Contractures left arm and both lower extremities. Unresponsive. Objective Labs and Meds 06/01/25 07:25 06/01/25 07:25 Lab results: Laboratory Results - last 24 hr 06/01/25 07:25 WBC 17.3 H RBC 3.48 L Hgb 9.7 L Hct 28.6 L MCV 82.2 MCH 27.9 MCHC 33.9 RDW 17.4 H Plt Count 488 H MPV 9.2 L Absolute Nucleated RBC 0.000 Nucleated RBC % (auto) 0.0 Sodium 138 Potassium 2.5 L* D Chloride 97 Carbon Dioxide 27 Anion Gap 17 BUN 14 Creatinine 0.60 Estim Creat Clear Calc 63.6 Estimated GFR > 60 Random Glucose 127 H Calcium 8.5 Magnesium 1.7 NT-Pro-B Natriuret Pep 8136.7 H Imaging Radiologist's impression: Impressions Chest CTA 05/31/25 11:24 IMPRESSION: Limited exam due to respiratory motion artifact. No evidence of pulmonary embolism. Very enlarged heart, particularly the left atrium. No evidence of right heart strain. Reflux of contrast in the liver suggestive of right heart compromise increased from prior CTA. Diffuse groundglass attenuation and increased interstitial markings throughout the lungs, right greater than left. This is increased from recent May 24, 2025 exam. Differential would include pulmonary edema and pneumonia. Small to moderate sized bilateral pleural effusions. Electronically signed by: Vonda Bruno MD 05/31/2025 12:25 PM [facility] [place] Progress Note: A&P Assessment and plan (1) CHF (congestive heart failure): Status: Acute Plan 74-year-old lady with pneumonia and congestive heart failure. She has atrial flutter on EKG. She is on amiodarone and Eliquis. Agree with gentle diuresis. She was in sinus rhythm till May 25 but developed atrial flutter after that. She is currently on amiodarone and Eliquis. Quite likely the atrial flutter may have put her into congestive heart failure but given her overall outlook I do not think cardioversion is a possibility in her. Can try amiodarone and Eliquis at this point. She needs goals of care discussion given significant comorbidities and high flow oxygen requirements. Thank you for allowing me to participate in the care of your patient. Please feel free to contact me if you have any questions. Time Spent With Patient Time: Total time managing care of this patient today ____ minutes. Progress Note: Quality Stroke Does the patient have a stroke diagnosis?: No Procedures Date of Service Date of Service: 06/01/25
--- NOTE | 2025-06-01 12:22 | PM.EVENT ---
Event Note Date of Service: 06/01/25 Event Note: probably 1/2 Enterococcus faecium blood contaminant but on linezolid anyway which covers,may extend to 14 days Time Spent With Patient Time: Total time managing care of this patient today ____ minutes.
[2025-06-01] MEDS: Furosemide 200 MG in 0.9 % Sodium Chloride 80 ML IVCONT (14:33)
[2025-06-01 20:45] LABS: Magnesium 1.7 mg/dL (1.6-2.6); Potassium 3.6 mmol/L (3.3-5.1)
[2025-06-02] VITALS (16 sets, daily range): BP systolic 110–143; BP diastolic 62–78; PULSE 68–93; RESP 14–31; TEMP 36.1–36.6; O2SAT 90–95; BMI 18.2
[2025-06-02] MEDS: Linezolid/D5W 600 MG/300 ML PIGGYBACK 300 MG IV ×2 (03:52→18:04)
[2025-06-02] MEDS: Fluticasone/Vilanterol 200/25 BLST.W.DEV 1 PUFF INHALE (07:54)
[2025-06-02] MEDS: Albuterol/Iprat 2.5/0.5MG 3 ML AMPUL.NEB INHALE ×4 (07:54→19:33)
[2025-06-02 08:08] LABS: Hematocrit 27.6 % (37.0-47.0); Hemoglobin 9.4 g/dl (12.0-16.0); Mean Corpuscular HGB Conc 34.1 g/dl (31.0-35.0); Mean Corpuscular Hemoglobin 28.1 pg (27.0-33.0); Mean Corpuscular Volume 82.6 fL (80.0-98.0); NRBC Abs Auto 0.000 X10*3/uL (0.0-0.012); NRBC Pct Auto 0.0 /100WBC (0.0-0.2); Platelet Count 575 X10*3/uL (160-400); Red Blood Count 3.34 X10*6/uL (4.20-5.50); White Blood Count 16.9 X10*3/uL (4.8-10.8)
[2025-06-02] MEDS: vancomycin HCL Oral Solution 125 MG/5 ML SOLN.RECON PO ×3 (08:21→21:33)
[2025-06-02 08:38] LABS: Anion Gap 18 (12-20); Blood Urea Nitrogen 16 mg/dL (9-16); Calcium 8.4 mg/dL (8.4-10.2); Carbon Dioxide 28 mmol/L (22-29); Chloride 96 mmol/L (96-108); Creatinine Clr Calc Pharmacy 53.5; Estimated Glomerular Filt Rate > 60; Magnesium 1.7 mg/dL (1.6-2.6); Sodium 139 mmol/L (135-145)
[2025-06-02 08:44] LABS: Procalcitonin 0.20 ng/mL
[2025-06-02 08:49] LABS: Potassium 2.9 mmol/L (3.3-5.1)
[2025-06-02 11:01] LABS: Venous Blood Gas Refer to POC result
[2025-06-02 11:01] LABS: VBG HCO3 33 mmol/L (22-26); VBG O2 % Saturation 95.0 %
[2025-06-02] MEDS: Potassium Chloride/H20 10 MEQ/100 ML PIGGYBACK 100 MEQ IV ×4 (11:02→16:24)
--- NOTE | 2025-06-02 13:50 | HO.PM.IMPN ---
Subjective Subjective Date of Service: 06/02/25 Interval History: pulled off HFNC so placed back on CPAP now back on HFNC so she can eat/drink dyspnea improving but desaturates rapidly off HFNC or CPAP sister at bedside; updated Review of Systems Review of Systems: Yes all other systems are reviewed and are negative Physical Exam Vital Signs: Vital Signs: Last Vital Signs Temp 97.7 F 06/02/25 12:00 Pulse 82 06/02/25 12:00 Resp 18 06/02/25 12:00 BP 110/67 06/02/25 12:00 Pulse Ox 93 06/02/25 12:00 O2 Del Method High Flow Nasal C annula 06/02/25 12:00 O2 Flow Rate 40 06/02/25 03:22 FiO2 45 06/02/25 08:00 Oxygen Flow Rate 8 05/24/25 13:56 BMI result Body Mass Index 18.2 Gen: ill-appearing, comfortable on HFNC, thin HEENT: sclera anicteric, moist mucus membranes Neck: supple Lungs: bilateral crackles Heart: regular rate and rhythm, no murmurs Abd: soft, non-tender, non-distended Ext: 1+ LLE edema Skin: warm/well-perfused Neuro: alert and oriented x3, no focal findings Psych: appropriate affect Objective Data Active Medications Albuterol Sulfate (Albuterol Sulfate (0.083%) 2.5 Mg/3 Ml Vial.Neb) 2.5 mg INHALE Q4H PRN PRN Reason: Wheezing Last Admin: 05/30/25 10:49 Dose: 2.5 mg Documented By: JEN Albuterol/Ipratropium (Albuterol/Iprat 2.5/0.5mg 3 Ml Ampul.Neb) 3 ml INHALE RQ4H WHILE AWAKE [facility] Last Admin: 06/02/25 11:39 Dose: 3 ml Documented By: REA Amiodarone HCl (Amiodarone Hcl 200 Mg Tablet) 200 mg PO BID [facility] Last Admin: 06/02/25 08:19 Dose: 200 mg Documented By: ALVAREZ Apixaban (Apixaban 5 Mg Tablet) 5 mg PO BID [facility] Last Admin: 06/02/25 08:21 Dose: 5 mg Documented By: ALVAREZ Atorvastatin Calcium (Atorvastatin Calcium 80 Mg Tablet) 80 mg PO BEDTIME [facility] Last Admin: 06/01/25 20:40 Dose: 80 mg Documented By: ABBEY Baclofen (Baclofen 10 Mg Tablet) 10 mg PO TID [facility] Last Admin: 06/02/25 08:21 Dose: 10 mg Documented By: ALVAREZ Bisacodyl (Bisacodyl 10 Mg Supp.Rect) 10 mg [place] DAILY PRN PRN Reason: Constipation Ergocalciferol (Ergocalciferol (Vitamin D2) 1,250 Mcg Capsule) 1,250 mcg PO MO DEE Fluticasone/Vilanterol (Fluticasone/Vilanterol 200/25 Blst.W.Dev) 1 puff INHALE RDAILY [facility] Last Admin: 06/02/25 07:54 Dose: 1 puff Documented By: REA Hydromorphone HCl (Hydromorphone Hcl 1 Mg/Ml Syringe) 0.25 mg IVPUSH Q3H PRN; Protocol PRN Reason: WOB,severe pain Last Admin: 05/31/25 10:46 Dose: 0.25 mg Documented By: ALVAREZ Linezolid (Zyvox/D5w) 600 mg in 300 mls @ 300 mls/hr IV Q12H [facility] Last Infusion: 06/02/25 04:55 Dose: Infused Documented By: ABBEY Furosemide 200 mg/ Sodium (Chloride) 100 mls @ 2.5 mls/hr IVCONT .Q24H [facility] Last Admin: 06/01/25 14:33 Dose: 5 mg/hr, 2.5 mls/hr Documented By: ERVNI Losartan Potassium (Losartan Potassium 25 Mg Tablet) 25 mg PO DAILY [facility]; Protocol Last Admin: 06/02/25 08:23 Dose: 25 mg Documented By: ALVAREZ Magnesium Hydroxide (Milk Of Magnesia 30 Ml Oral.Susp) 30 ml PO BEDTIME PRN PRN Reason: Constipation Magnesium Oxide (Magnesium Oxide 400 Mg Tablet) 400 mg PO BID [facility] Last Admin: 06/02/25 08:19 Dose: 400 mg Documented By: ALVAREZ Melatonin (Melatonin 3 Mg Tablet) 3 mg PO BEDTIME [facility] Last Admin: 06/01/25 20:41 Dose: 3 mg Documented By: ABBEY Methylprednisolone Sodium Succinate (Methylprednisolone Sod Succ 40 Mg/Ml Vial) 40 mg IVPUSH Q24H [facility] Last Admin: 06/02/25 08:16 Dose: 40 mg Documented By: ALVAREZ Mirtazapine (Mirtazapine 7.5 Mg Tablet) 7.5 mg PO BEDTIME [facility] Last Admin: 06/01/25 20:40 Dose: 7.5 mg Documented By: ABBEY Multivitamins/Vitamin C (Multivitamin Tablet) 1 tab PO DAILY [facility] Last Admin: 06/02/25 08:19 Dose: 1 tab Documented By: ALVAREZ Polyethylene Glycol (Polyethylene Glycol 3350 17 Gm Powd.Pack) 17 gm PO DAILY PRN PRN Reason: Constipation Pyridoxine HCl (Pyridoxine Hcl (Vitamin B6) 50 Mg Tablet) 50 mg PO DAILY [facility] Last Admin: 06/02/25 08:19 Dose: 50 mg Documented By: ALVAREZ Sodium Biphosphate/Sodium Phosphate (Sodium Phosphate,Ross-Dibasic 133 Ml Enema) 118 ml [place] DAILY PRN PRN Reason: Constipation Spironolactone (Spironolactone 25 Mg Tablet) 25 mg PO DAILY [facility]; Protocol Last Admin: 06/02/25 08:23 Dose: 25 mg Documented By: ALVAREZ Thiamine HCl (Thiamine Hcl 100 Mg Tablet) 100 mg PO DAILY [facility] Last Admin: 06/02/25 08:19 Dose: 100 mg Documented By: ALVAREZ Vancomycin HCl (Vancomycin Hcl Oral Solution 125 Mg/5 Ml Soln.Recon) 125 mg PO QID [facility] Last Admin: 06/02/25 08:21 Dose: 125 mg Documented By: ALVAREZ Labs 06/02/25 06:57 06/02/25 06:57 Labs: Laboratory Results - last 24 hr 06/01/25 06/02/25 06/02/25 19:53 06:57 10:58 MCV 82.6 MCH 28.1 MCHC 34.1 RDW 17.4 H Plt Count 575 H MPV 9.6 Absolute Nucleated RBC 0.000 Nucleated RBC % (auto) 0.0 VBG pH 7.52 H VBG pCO2 40 VBG pO2 81 VBG HCO3 33 H VBG O2 Saturation 95.0 VBG Base Excess 10.4 Anion Gap 18 Estim Creat Clear Calc 53.5 Estimated GFR > 60 Random Glucose 100 Calcium 8.4 Magnesium 1.7 1.7 NT-Pro-B Natriuret Pep 8089.5 H Procalcitonin 0.20 Microbiology Microbiology Results: Microbiology 05/28/25 10:10 Blood Culture - Final Blood - Venous No growth after 5 days. 05/28/25 10:10 Blood Culture - Final Blood - Venous No growth after 5 days. 05/31/25 07:24 Blood Culture - Preliminary Blood - Venous No growth after 48 hours. 05/31/25 07:16 Blood Culture - Preliminary Blood - Venous No growth after 48 hours. Assessment and Plan (1) Multifocal pneumonia: Status: Acute (2) Afib: Status: Acute Plan d10, 74yo F with CHF, pAF, hx recent C. difficile infection for which [place] [facility] [place] [facility] with dyspnea, found to have hypoxic respiratory failure from multifocal pneumonia requiring intubation admitted to ICU, extubated 05/27, downgraded to telemetry 05/28 complicated by CHF exacerbation requiring CPAP, now on HFNC AHRF due to multifocal PNA with acute asthma exacerbation as well as now acute HFpEF - continue HFNC, wean as tolerated; CPAP if can't tolerate HFNC - complete piperacillin-tazobactam 05/24-06/02, changed vancomycin to linezolid 05/30-06/14 [MRSA swab positive] per ID - started methylprednisolone 05/30-, continue nebs + Breo - continue furosemide IV infusion 5 mg/hr; continue losartan and spironolactone; Cardiology following - TTE 05/31: - Normal left ventricular cavity size. There is mildly increased left ventricular wall thickness. The left ventricular systolic function is low normal. The visually estimated ejection fraction is between 50-55%. - The apical septum and mid inferoseptal segments are hypokinetic. - Mildly increased right ventricular cavity size. There is mildly decreased right ventricular systolic function. - The left atrium is severely dilated. The right atrium is severely dilated. - There is mild to moderate mitral valve regurgitation. VRE bacteremia - blood culture from 05/24 is positive for VRE; however, subsequent cultures from 05/28 negative despite not getting coverage [was on vancomycin and piperacillin-tazobactam] so this may have been a contaminant. Regardless, on linezolid 05/30-06/14 for MRSA pneumonia hx recent C. difficile colitis - PO vancomycin while on systemic ABX and for 2d afterwards hypoK - replete IV/PO, recheck level tomorrow distended gallbladder with cholelithiasis and pericholecystic fluid - doubt acute cholecystitis as abd is completely benign; Gen Surg concurs pAF - continue amiodarone + apixaban moderate protein-calorie malnutrition - poor PO intake; supplements; will start PPN VTE ppx: apixaban dispo: STR In my clinical judgment, the patient requires continued inpatient hospitalization for the following reasons: IV ABX, hypoxic resp failure requiring HFNC, IV diuresis requiring drip, PPN Total time managing care of this patient today: 55 minutes. Quality Stroke Does the patient have a stroke diagnosis?: No VTE Prior VTE?: No VTE Risk Level:: Medical - moderate - high VTE Device Contraindication: N/A - Device Ordered VTE Drug Contraindication: N/A - Med Ordered
--- NOTE | 2025-06-02 13:57 | MHC.CM.PN ---
Per MD's request, TRUDY assisted Patient with the completion of a HCP; she has named her as her Agent.
[2025-06-02] MEDS: Furosemide 200 MG in 0.9 % Sodium Chloride 80 ML IVCONT (15:01)
--- NOTE | 2025-06-02 19:39 | PC.NURSE ---
at beginging of shift, pt desating to 70s-80% on current settings of HFNC. RT called to bedside to adjust settings is possible. pt not tolerating HFNC and removing cannula as soon as staff leaves the room. sats seen to be dropping as low as 66%. REY ROGERS regarding plan for this pt. pt placed on CPAP at 0845 by RT, tolerated well. transitioned back to HFNC at 1340 50% 50L. sister at bedside. tolerated well when sister was in room. after sister had left, pt had began to remove HFNC and attempting to exit the bed stating i have to get up and walk over to the other place i slept . this RN attempted to educate pt that it was unsafe for her to walk at this time d/t being contracted on L side and that this is where she has been sleep. pt not able to be re-directed at this time. pt placed back on CPAP at 1725 by RT, did not tolerate well. pt continued to attempt to exit the bed and removing mask. REY ROGERS about meds to help with pts behavors, no new orders at this time. 1:[address] at this time.
[2025-06-03] VITALS (14 sets, daily range): BP systolic 99–133; BP diastolic 40–67; PULSE 61–83; RESP 15–79; TEMP 36–37.1; O2SAT 88–100; BMI 18.5
[2025-06-03] MEDS: Linezolid/D5W 600 MG/300 ML PIGGYBACK 300 MG IV ×2 (03:41→17:16)
--- NOTE | 2025-06-03 05:41 | PC.NURSE ---
At start of shift patient with increased resp rate in the 30s. Oxygen mid 80s on CPAP. Patient using accessory muscles to breathe. Denying any SOB. RT notified to adjust PAP settings. MD Coates also notified. After CPAP adjustment, patients breathing imporoved.
[2025-06-03] MEDS: Albuterol/Iprat 2.5/0.5MG 3 ML AMPUL.NEB INHALE ×4 (07:21→19:48)
[2025-06-03] MEDS: Fluticasone/Vilanterol 200/25 BLST.W.DEV 1 PUFF INHALE (08:06)
[2025-06-03] MEDS: vancomycin HCL Oral Solution 125 MG/5 ML SOLN.RECON PO ×4 (09:02→21:24)
[2025-06-03 09:19] LABS: Hematocrit 30.5 % (37.0-47.0); Hemoglobin 10.2 g/dl (12.0-16.0); Mean Corpuscular HGB Conc 33.4 g/dl (31.0-35.0); Mean Corpuscular Hemoglobin 27.8 pg (27.0-33.0); Mean Corpuscular Volume 83.1 fL (80.0-98.0); NRBC Abs Auto 0.000 X10*3/uL (0.0-0.012); NRBC Pct Auto 0.0 /100WBC (0.0-0.2); Platelet Count 619 X10*3/uL (160-400); Red Blood Count 3.67 X10*6/uL (4.20-5.50); White Blood Count 18.1 X10*3/uL (4.8-10.8)
[2025-06-03 09:44] LABS: Albumin Level 3.2 g/dL (3.5-5.0); Triglycerides 74 mg/dL (<150)
--- NOTE | 2025-06-03 10:34 | MHC.CLN ---
CONSULT FOR PPN PT TRANSFERRED TO MEDICAL FLOOR PO INTAKE 0% WT DOWN 5% SINCE ADMISSION PT QUALIFIES FOR NON SEVERE MALNUTRITION IN THE CONTEXT OF ACUTE ILLNESS-MODERATELY MALNOURISHED PPN REQUESTED REVIEWED LABS DISCUSSED WITH PHARMACY RECOMMEND PPN AT 60ML/HR TO PROVIDE 734KCALS, 144G DEXTROSE, 61G PROTEIN REPLETE LYTES NEEDED SEE FULL ASSESSMENT
--- NOTE | 2025-06-03 11:50 | HO.PM.IMPN ---
Subjective Subjective Date of Service: 06/03/25 Interval History: breathing more comfortably and feels better, though sleeping much of the day fiO2 down to 40% and saturating 100% poor oral intake Review of Systems Review of Systems: Yes all other systems are reviewed and are negative Physical Exam Vital Signs: Vital Signs: Last Vital Signs Temp 96.8 F 06/03/25 04:00 Pulse 61 06/03/25 11:17 Resp 17 06/03/25 11:17 BP 130/62 06/03/25 09:02 Pulse Ox 88 L 06/03/25 08:00 O2 Del Method CPAP 06/03/25 08:00 O2 Flow Rate 8 06/03/25 08:00 FiO2 30 06/03/25 08:00 Oxygen Flow Rate 8 05/24/25 13:56 BMI result Body Mass Index 18.5 Gen: comfortable on HFNC, thin/malnourished HEENT: sclera anicteric, moist mucus membranes Neck: supple Lungs: diminished Heart: regular rate and rhythm, no murmurs Abd: soft, non-tender, non-distended Ext: no leg edema Skin: warm/well-perfused Neuro: alert and oriented x3, no focal findings Psych: appropriate affect Objective Data Active Medications Albuterol/Ipratropium (Albuterol/Iprat 2.5/0.5mg 3 Ml Ampul.Neb) 3 ml INHALE RQ4H WHILE AWAKE [facility] Last Admin: 06/03/25 11:15 Dose: 3 ml Documented By: GUERO Amiodarone HCl (Amiodarone Hcl 200 Mg Tablet) 200 mg PO BID [facility] Last Admin: 06/03/25 09:02 Dose: 200 mg Documented By: ELEONORA Apixaban (Apixaban 5 Mg Tablet) 5 mg PO BID [facility] Last Admin: 06/03/25 09:02 Dose: 5 mg Documented By: ELEONORA Atorvastatin Calcium (Atorvastatin Calcium 80 Mg Tablet) 80 mg PO BEDTIME [facility] Last Admin: 06/02/25 21:33 Dose: 80 mg Documented By: HANNAH Baclofen (Baclofen 10 Mg Tablet) 10 mg PO TID [facility] Last Admin: 06/03/25 09:02 Dose: 10 mg Documented By: ELEONORA Bisacodyl (Bisacodyl 10 Mg Supp.Rect) 10 mg DC DAILY PRN PRN Reason: Constipation Ergocalciferol (Ergocalciferol (Vitamin D2) 1,250 Mcg Capsule) 1,250 mcg PO MO [facility] Last Admin: 06/03/25 09:08 Dose: 1,250 mcg Documented By: ELEONORA Fluticasone/Vilanterol (Fluticasone/Vilanterol 200/25 Blst.W.Dev) 1 puff INHALE RDAILY [facility] Last Admin: 06/03/25 08:06 Dose: 1 puff Documented By: GUERO Hydromorphone HCl (Hydromorphone Hcl 1 Mg/Ml Syringe) 0.25 mg IVPUSH Q3H PRN; Protocol PRN Reason: WOB,severe pain Last Admin: 05/31/25 10:46 Dose: 0.25 mg Documented By: ALVAREZ Linezolid (Zyvox/D5w) 600 mg in 300 mls @ 300 mls/hr IV Q12H [facility] Last Infusion: 06/03/25 05:43 Dose: Infused Documented By: HANNAH Furosemide 200 mg/ Sodium (Chloride) 100 mls @ 2.5 mls/hr IVCONT .Q24H [facility] Last Admin: 06/02/25 15:01 Dose: 5 mg/hr, 2.5 mls/hr Documented By: ALVAREZ Losartan Potassium (Losartan Potassium 25 Mg Tablet) 25 mg PO DAILY [facility]; Protocol Last Admin: 06/03/25 09:02 Dose: 25 mg Documented By: ELEONORA Magnesium Hydroxide (Milk Of Magnesia 30 Ml Oral.Susp) 30 ml PO BEDTIME PRN PRN Reason: Constipation Magnesium Oxide (Magnesium Oxide 400 Mg Tablet) 400 mg PO BID [facility] Last Admin: 06/03/25 09:02 Dose: 400 mg Documented By: ELEONORA Melatonin (Melatonin 3 Mg Tablet) 3 mg PO BEDTIME [facility] Last Admin: 06/02/25 21:33 Dose: 3 mg Documented By: HANNAH Methylprednisolone Sodium Succinate (Methylprednisolone Sod Succ 40 Mg/Ml Vial) 40 mg IVPUSH Q24H [facility] Last Admin: 06/03/25 09:01 Dose: 40 mg Documented By: ELEONORA Mirtazapine (Mirtazapine 7.5 Mg Tablet) 7.5 mg PO BEDTIME [facility] Last Admin: 06/02/25 21:33 Dose: 7.5 mg Documented By: HANNAH Multivitamins/Vitamin C (Multivitamin Tablet) 1 tab PO DAILY [facility] Last Admin: 06/03/25 09:02 Dose: 1 tab Documented By: ELEONORA Pharmacy Consult (Consult Rx Parenteral Nutrition Ordering) 1 each MISCELLANE DAILY PRN PRN Reason: Consult order Polyethylene Glycol (Polyethylene Glycol 3350 17 Gm Powd.Pack) 17 gm PO DAILY PRN PRN Reason: Constipation Pyridoxine HCl (Pyridoxine Hcl (Vitamin B6) 50 Mg Tablet) 50 mg PO DAILY [facility] Last Admin: 06/03/25 09:02 Dose: 50 mg Documented By: ELEONORA Sodium Biphosphate/Sodium Phosphate (Sodium Phosphate,[place]-Dibasic 133 Ml Enema) 118 ml DC DAILY PRN PRN Reason: Constipation Spironolactone (Spironolactone 25 Mg Tablet) 25 mg PO DAILY [facility]; Protocol Last Admin: 06/03/25 09:02 Dose: 25 mg Documented By: ELEONORA Thiamine HCl (Thiamine Hcl 100 Mg Tablet) 100 mg PO DAILY [facility] Last Admin: 06/03/25 09:02 Dose: 100 mg Documented By: ELEONORA Vancomycin HCl (Vancomycin Hcl Oral Solution 125 Mg/5 Ml Soln.Recon) 125 mg PO QID [facility] Last Admin: 06/03/25 09:02 Dose: 125 mg Documented By: ELEONORA Labs 06/03/25 09:07 06/03/25 09:07 Labs: Laboratory Results - last 24 hr 06/03/25 09:07 MCV 83.1 MCH 27.8 MCHC 33.4 RDW 17.5 H Plt Count 619 H MPV 9.1 L Absolute Nucleated RBC 0.000 Nucleated RBC % (auto) 0.0 Phosphorus 3.0 NT-Pro-B Natriuret Pep 6793.5 H Albumin 3.2 L Triglycerides 74 Microbiology Microbiology Results: Microbiology 05/28/25 10:10 Blood Culture - Final Blood - Venous No growth after 5 days. 05/28/25 10:10 Blood Culture - Final Blood - Venous No growth after 5 days. 05/31/25 07:24 Blood Culture - Preliminary Blood - Venous No growth after 48 hours. 05/31/25 07:16 Blood Culture - Preliminary Blood - Venous No growth after 48 hours. Assessment and Plan (1) Multifocal pneumonia: Status: Acute (2) Afib: Status: Acute Plan d11, 74yo F with CHF, pAF, hx recent C. difficile infection for which admitted to [facility] [place] sent in from [facility] with dyspnea found to have hypoxic respiratory failure from multifocal pneumonia requiring intubation admitted to ICU, extubated 05/27, downgraded to telemetry 05/28 complicated by CHF exacerbation requiring CPAP, now on HFNC and furosemide drip AHRF due to multifocal MRSA pneumonia with acute asthma exacerbation as well as now acute HFpEF - anticipate weaning off HFNC to regular NC in next 24h [though has CPAP if needed] - completed piperacillin-tazobactam 05/24-06/02, changed vancomycin 05/24- to linezolid 05/30-06/14 per ID [MRSA swab positive] - methylprednisolone 05/30-06/03; continue nebs + Breo - continue furosemide IV infusion 5 mg/hr but anticipate transitioning to PO furosemide tomorrow; continue losartan and spironolactone; Cardiology consulted - TTE 05/31: - Normal left ventricular cavity size. There is mildly increased left ventricular wall thickness. The left ventricular systolic function is low normal. The visually estimated ejection fraction is between 50-55%. - The apical septum and mid inferoseptal segments are hypokinetic. - Mildly increased right ventricular cavity size. There is mildly decreased right ventricular systolic function. - The left atrium is severely dilated. The right atrium is severely dilated. - There is mild to moderate mitral valve regurgitation. moderate protein-calorie malnutrition - poor PO intake; supplements; place PICC and give TPN transaminasemia - suspect hepatic congestion from CHF or effect of pneumonia; recheck LFTs tomorrow hypoK - repleted question of VRE bacteremia - blood culture from 05/24 is positive for VRE; however, subsequent cultures from 05/28 negative despite not getting coverage [was on vancomycin and piperacillin-tazobactam] so this may have been a contaminant. Regardless, on linezolid 05/30-06/14 for MRSA pneumonia hx recent C. difficile colitis - PO vancomycin while on systemic ABX and for 2d afterwards distended gallbladder with cholelithiasis and pericholecystic fluid - doubt acute cholecystitis as abd is completely benign; Gen Surg concurs pAF: continue amiodarone + apixaban VTE ppx: apixaban dispo: STR In my clinical judgment, the patient requires continued inpatient hospitalization for the following reasons: IV ABX, hypoxic resp failure requiring HFNC, IV diuresis requiring drip, TPN Sister Kezia Joseph updated at bedside Total time managing care of this patient today: 50 minutes. Quality Stroke Does the patient have a stroke diagnosis?: No VTE Prior VTE?: No VTE Risk Level:: Medical - moderate - high VTE Device Contraindication: N/A - Device Ordered VTE Drug Contraindication: N/A - Med Ordered
[2025-06-03 12:24] LABS: Alanine Aminotransferase 131 U/L (0-31); Alkaline Phosphatase 86 U/L (39-117); Anion Gap 18 (12-20); Aspartate Amino Transferase 168 U/L (5-31); Blood Urea Nitrogen 15 mg/dL (9-16); Calcium 8.5 mg/dL (8.4-10.2); Carbon Dioxide 26 mmol/L (22-29); Chloride 93 mmol/L (96-108); Creatinine Clr Calc Pharmacy 57.8; Estimated Glomerular Filt Rate > 60; Magnesium 1.7 mg/dL (1.6-2.6); Potassium 3.4 mmol/L (3.3-5.1); Sodium 134 mmol/L (135-145); Total Protein 6.0 g/dL (6.5-8.0)
--- NOTE | 2025-06-03 14:43 | MHC.SL.SWA ---
Speech Pathologist Impression: Mild weakness of swallow mechanism Risk of Aspiration Due to: Weakness Respiratory condition Dysphasia Diet Status: Liquid Consistency and Strategies for Safe Swallow: Liquid Intake Recommendation: [place] Thick Liquid Intake Strategies: Small Sips Solid Food Consistency: Dietary Recommendations: Pureed (NDD1) Additional Modifications to Solid Foods: Oral Medication Intake: Crushed with Puree Please contact the pharmacy regarding appropriate crushable or liquid drug formulations that are available whenever modified delivery is recommended. Compensatory Strategies and Precautions to be Taken for Safe Swallow: Sitting Upright (90 deg) Liquids from Cup Liquids from Straw Small Bites and Sips Rate of Ingestion Change Supervision While Eating and Drinking for Safe Swallow: Total Assistance (1:1) Foods to Avoid: Swallowing Recommended Treatments: Compens. Strategy Educat. Recommendation for Speech: Outpatient Speech Therapy Comment: Pt seen for dysphagia treatment, pt sitting up in bed, on CPAP but tolerating PO with improved oropharyngeal coordination. Pt ate purees by tsp bites and drank HTL by straw sips without overt s/s of aspiration. AEMT trialed NTL with pt, who sipped consecutively by straw without difficulty. Pt followed cues to take break when sipping liquids to conserve respiratory energy. Pt has sitter at bedside. AEMT consulted with RN, updated order and notified MD of upgrade via secure text. AEMT continues to follow. Frequency/Duration: M-F Daily Date Range for Service Req: Timeline to reassess: Flatwork Finisher Clinican/Clinical Fellow: No Supervisory Statement: I have reviewed and agree with the student/clinical fellow's documentation: No Speech Language Pathologist: Shana Mckee M.S., CCC-AEMT
--- NOTE | 2025-06-03 15:18 | MHC.CM.PN ---
Per rounds, pt. is not ready to DC, She is on high flow O2, and requiring TPN for nutrition at this time. DCP is return to [facility].
--- NOTE | 2025-06-03 16:02 | P.PNID_ITS ---
Subjective Subjective Date of Service: 06/03/25 Critical Care Time (minutes): 15 Comment: patient reported diarrhea but not at this time Objective Data Labs 06/03/25 09:07 06/03/25 09:07 Labs: Laboratory Results - last 24 hr 06/03/25 09:07 WBC 18.1 H RBC 3.67 L Hgb 10.2 L Hct 30.5 L MCV 83.1 MCH 27.8 MCHC 33.4 RDW 17.5 H Plt Count 619 H MPV 9.1 L Absolute Nucleated RBC 0.000 Nucleated RBC % (auto) 0.0 Sodium 134 L Potassium 3.4 Chloride 93 L Carbon Dioxide 26 Anion Gap 18 BUN 15 Creatinine 0.66 Estim Creat Clear Calc 57.8 Estimated GFR > 60 Random Glucose 96 Calcium 8.5 Phosphorus 3.0 Magnesium 1.7 Total Bilirubin 1.1 H Direct Bilirubin 0.5 AST 168 H ALT 131 H Alkaline Phosphatase 86 NT-Pro-B Natriuret Pep 6793.5 H Total Protein 6.0 L Albumin 3.2 L Triglycerides 74 Microbiology Microbiology Results: Microbiology 05/28/25 10:10 Blood - Venous Blood Culture - Final No growth after 5 days. 05/28/25 10:10 Blood - Venous Blood Culture - Final No growth after 5 days. 05/31/25 07:24 Blood - Venous Blood Culture - Preliminary No growth after 48 hours. 05/31/25 07:16 Blood - Venous Blood Culture - Preliminary No growth after 48 hours. 05/24/25 14:14 Blood - Venous Blood Culture - Final No growth after 5 days. 05/24/25 20:35 Sputum - Suctioned Gram Stain - Final 05/24/25 20:35 Sputum - Suctioned Sputum Culture - Final Methicillin Res Staph Aureus 05/24/25 14:14 Blood - Venous Blood Culture - Final Enterococcus faecium 05/24/25 17:58 Urine Catheterized - [place] Catheter Urine Culture - Final No growth. Physical Exam 2 Vital Signs: Vital Signs: Last Vital Signs Temp 98.7 F 06/03/25 15:38 Pulse 79 06/03/25 15:45 Resp 15 06/03/25 15:45 BP 99/60 06/03/25 15:38 Pulse Ox 100 06/03/25 15:38 O2 Del Method High Flow Nasal C annula 06/03/25 15:38 O2 Flow Rate 40 06/03/25 15:38 FiO2 40 06/03/25 15:38 Oxygen Flow Rate 8 05/24/25 13:56 BMI result Body Mass Index 18.5 Const: General: cooperative HEENT: Head: Yes normal to inspection Face and sinus: Yes normal facial exam Mouth: Normal oral and palatal mucosa present Teeth and gingiva: d entition normal Eyes: General: appearance normal, both eyes and all related structures P upils: Equal, round and reactive pupils present Resp: Effort & Inspection: normal respiratory effort Cardio: Rate: regular rate Rhythm: regular rhythm GI: Palpation (GI): Soft to palpation and nontender : General: Yes no CVA tenderness Back/Spine/Pelvis: Back: no CVA tenderness Skin: General skin exam: no rashes or lesions noted Neuro: General: moves all extremities Cranial nerves: Yes Equal, round and reactive pupils present Extrem: General: Yes normal to inspection Psych: Appearance: grossly normal Assessment and Plan Assessment and plan (1) CHF (congestive heart failure): Problem details: enterococcus faecium urine finish linezolid 06/14,po vancomycin during course and 2 d after Status: Acute Time Spent With Patient Time: Total time managing care of this patient today ____ minutes.
[2025-06-03] MEDS: Furosemide 200 MG in 0.9 % Sodium Chloride 80 ML IVCONT (17:15)
[2025-06-03] MEDS: Parenteral Nutrition 1,440 ML 60 ML IV (21:23)
[2025-06-04] VITALS (9 sets, daily range): BP systolic 112–164; BP diastolic 57–71; PULSE 70–81; RESP 15–20; TEMP 36.3–37.2; O2SAT 90–100; BMI 17.6
[2025-06-04] MEDS: Linezolid/D5W 600 MG/300 ML PIGGYBACK 300 MG IV ×2 (03:28→16:05)
[2025-06-04 07:08] LABS: Hematocrit 28.0 % (37.0-47.0); Hemoglobin 9.6 g/dl (12.0-16.0); Mean Corpuscular HGB Conc 34.3 g/dl (31.0-35.0); Mean Corpuscular Hemoglobin 28.3 pg (27.0-33.0); Mean Corpuscular Volume 82.6 fL (80.0-98.0); NRBC Abs Auto 0.000 X10*3/uL (0.0-0.012); NRBC Pct Auto 0.0 /100WBC (0.0-0.2); Platelet Count 644 X10*3/uL (160-400); Red Blood Count 3.39 X10*6/uL (4.20-5.50); White Blood Count 17.5 X10*3/uL (4.8-10.8)
[2025-06-04 07:29] LABS: Anion Gap 19 (12-20); Blood Urea Nitrogen 22 mg/dL (9-16); Calcium 8.7 mg/dL (8.4-10.2); Carbon Dioxide 29 mmol/L (22-29); Chloride 93 mmol/L (96-108); Creatinine Clr Calc Pharmacy 43.6; Estimated Glomerular Filt Rate > 60; Magnesium 1.8 mg/dL (1.6-2.6); Potassium 3.7 mmol/L (3.3-5.1); Sodium 137 mmol/L (135-145)
[2025-06-04 07:43] LABS: Procalcitonin 0.17 ng/mL
[2025-06-04] MEDS: Albuterol/Iprat 2.5/0.5MG 3 ML AMPUL.NEB INHALE ×4 (08:17→19:51)
[2025-06-04] MEDS: Fluticasone/Vilanterol 200/25 BLST.W.DEV 1 PUFF INHALE (08:17)
[2025-06-04] MEDS: vancomycin HCL Oral Solution 125 MG/5 ML SOLN.RECON PO (08:47)
--- NOTE | 2025-06-04 10:46 | MHC.CLN ---
F/U PO INTAKE 50% X1 MEAL PT QUALIFIES FOR NON SEVERE MALNUTRITION IN THE CONTEXT OF ACUTE ILLNESS-MODERATELY MALNOURISHED SEE FULL ASSESSMENT DATED 06/03/25 DIET RX: PUREED WITH NT LIQ MAGIC CUP IN PLACE PPN CONTINUES REVIEWED LABS DISCUSSED WITH PHARMACY RECOMMEND PPN AT 60ML/HR WITH 83G LIPIDS TO PROVIDE 1564KCALS (30KCALS/KG), 144G DEXTROSE, 61G PROTEIN (1.2G/KG) REPLETE LYTES NEEDED CONTINUE TO MONITOR PO INTAKE
[2025-06-04] MEDS: Furosemide 200 MG in 0.9 % Sodium Chloride 80 ML IVCONT (16:05)
--- NOTE | 2025-06-04 17:15 | MHC.SL.SWA ---
Speech Pathologist Impression:Mild-moderate oropharyngeal dysphagia Risk of Aspiration Due to: recent extubation, current respiratory status (fluctuating oxygen needs) Dysphasia Diet Status: Recommend CONTINUE with NDD1, [place] THICK Liquids Liquid Consistency and Strategies for Safe Swallow: Liquid Intake Recommendation: [place] Thick Liquid Intake Strategies: Small Sips Solid Food Consistency: Dietary Recommendations: Pureed (NDD1) Additional Modifications to Solid Foods: Oral Medication Intake: Crushed with Puree Please contact the pharmacy regarding appropriate crushable or liquid drug formulations that are available whenever modified delivery is recommended. Compensatory Strategies and Precautions to be Taken for Safe Swallow: Sitting Upright (90 deg) Liquids from Cup Liquids from Straw Small Bites and Sips Rate of Ingestion Change Supervision While Eating and Drinking for Safe Swallow: Total Assistance (1:1) Foods to Avoid: Swallowing Recommended Treatments: Compens. Strategy Educat. Recommendation for Speech: Outpatient Speech Therapy Comment: Patient seen for dysphagia treatment. Patient requiring encouragement for PO intake. Patient accepting minimal PO intake of NTL cranberry juice and a few bites of pudding. NTL via straw through oxymask. Pudding via spoon with removal of oxymask for bites. Noted desaturations with removal of oxymask for PO intake. Patient may benefit from NC; RN aware. Patient continues with poor PO intake; on PPN to meet daily caloric needs. Recommend CONTINUE with NDD1, [place]CT[place] THICK Liquids with 1:1 feeding assistance. Medications CRUSHED in puree. TELEPHONE CLEANER to continue to follow. Frequency/Duration: M-F Daily Date Range for Service Req: Timeline to reassess: Aluminum Molder Clinican/Clinical Fellow: No Supervisory Statement: I have reviewed and agree with the student/clinical fellow's documentation: No Speech Language Pathologist: Edelmira Hunter M.A., [facility]-TELEPHONE CLEANER
--- NOTE | 2025-06-04 17:41 | P.PNIM_ITS ---
Subjective Subjective Date of Service: 06/04/25 Interval History: Improving, less O2 requirement Review of Systems Review of Systems: Yes all other systems are reviewed and are negative Physical Exam 2 Vital Signs: Vital Signs: Last Vital Signs Temp 97.3 F 06/04/25 15:05 Pulse 78 06/04/25 15:27 Resp 18 06/04/25 15:27 BP 127/60 06/04/25 15:05 Pulse Ox 100 06/04/25 15:05 O2 Del Method Oxymask 06/04/25 15:05 O2 Flow Rate 4 06/04/25 15:05 FiO2 40 06/03/25 15:38 Oxygen Flow Rate 8 05/24/25 13:56 BMI result Body Mass Index 17.6 Objective Data Active Medications Albuterol/Ipratropium (Albuterol/Iprat 2.5/0.5mg 3 Ml Ampul.Neb) 3 ml INHALE RQ4H WHILE AWAKE [facility] Last Admin: 06/04/25 15:24 Dose: 3 ml Documented By: LARRY Amiodarone HCl (Amiodarone Hcl 200 Mg Tablet) 200 mg PO BID [facility] Last Admin: 06/04/25 08:47 Dose: 200 mg Documented By: ELEONORA Apixaban (Apixaban 5 Mg Tablet) 5 mg PO BID [facility] Last Admin: 06/04/25 08:47 Dose: 5 mg Documented By: ELEONORA Atorvastatin Calcium (Atorvastatin Calcium 80 Mg Tablet) 80 mg PO BEDTIME [facility] Last Admin: 06/03/25 20:45 Dose: 80 mg Documented By: HANNAH Baclofen (Baclofen 10 Mg Tablet) 10 mg PO TID [facility] Last Admin: 06/04/25 16:05 Dose: 10 mg Documented By: ELEONORA Bisacodyl (Bisacodyl 10 Mg Supp.Rect) 10 mg [place] DAILY PRN PRN Reason: Constipation Ergocalciferol (Ergocalciferol (Vitamin D2) 1,250 Mcg Capsule) 1,250 mcg PO MO [facility] Last Admin: 06/03/25 09:08 Dose: 1,250 mcg Documented By: ELEONORA Fluticasone/Vilanterol (Fluticasone/Vilanterol 200/25 Blst.W.Dev) 1 puff INHALE RDAILY [facility] Last Admin: 06/04/25 08:17 Dose: 1 puff Documented By: CHARLETTE Linezolid (Zyvox/D5w) 600 mg in 300 mls @ 300 mls/hr IV Q12H [facility] Last Infusion: 06/04/25 17:22 Dose: Infused Documented By: ELEONORA Furosemide 200 mg/ Sodium (Chloride) 100 mls @ 2.5 mls/hr IVCONT .Q24H [facility] Last Admin: 06/04/25 16:05 Dose: 5 mg/hr, 2.5 mls/hr Documented By: ELEONORA Nutrition (Parenteral) (Parenteral Nutrition) 1,440 mls @ 60 mls/hr IV .Q24H [facility]; Protocol Stop: 06/04/25 20:59 Last Admin: 06/03/25 21:23 Dose: 60 mls/hr Documented By: HANNAH Nutrition (Parenteral) (Parenteral Nutrition) 1,440 mls @ 60 mls/hr IV .Q24H [facility]; Protocol Stop: 06/05/25 20:59 Losartan Potassium (Losartan Potassium 25 Mg Tablet) 25 mg PO DAILY [facility]; Protocol Last Admin: 06/04/25 08:47 Dose: 25 mg Documented By: ELEONORA Magnesium Hydroxide (Milk Of Magnesia 30 Ml Oral.Susp) 30 ml PO BEDTIME PRN PRN Reason: Constipation Magnesium Oxide (Magnesium Oxide 400 Mg Tablet) 400 mg PO BID [facility] Last Admin: 06/04/25 08:47 Dose: 400 mg Documented By: ELEONORA Melatonin (Melatonin 3 Mg Tablet) 3 mg PO BEDTIME [facility] Last Admin: 06/03/25 20:45 Dose: 3 mg Documented By: HANNAH Mirtazapine (Mirtazapine 7.5 Mg Tablet) 7.5 mg PO BEDTIME [facility] Last Admin: 06/03/25 20:45 Dose: 7.5 mg Documented By: HANNAH Multivitamins/Vitamin C (Multivitamin Tablet) 1 tab PO DAILY [facility] Last Admin: 06/04/25 08:47 Dose: 1 tab Documented By: ELEONORA Pharmacy Consult (Consult Rx Parenteral Nutrition Ordering) 1 each MISCELLANE DAILY PRN PRN Reason: Consult order Polyethylene Glycol (Polyethylene Glycol 3350 17 Gm Powd.Pack) 17 gm PO DAILY PRN PRN Reason: Constipation Pyridoxine HCl (Pyridoxine Hcl (Vitamin B6) 50 Mg Tablet) 50 mg PO DAILY [facility] Last Admin: 06/04/25 08:47 Dose: 50 mg Documented By: ELEONORA Sodium Biphosphate/Sodium Phosphate (Sodium Phosphate,[place]-Dibasic 133 Ml Enema) 118 ml [place] DAILY PRN PRN Reason: Constipation Spironolactone (Spironolactone 25 Mg Tablet) 25 mg PO DAILY [facility]; Protocol Last Admin: 06/04/25 08:47 Dose: 25 mg Documented By: ELEONORA Thiamine HCl (Thiamine Hcl 100 Mg Tablet) 100 mg PO DAILY [facility] Last Admin: 06/04/25 08:47 Dose: 100 mg Documented By: ELEONORA Labs 06/04/25 06:36 06/04/25 06:36 Labs: Laboratory Results - last 24 hr 06/04/25 06:36 MCV 82.6 MCH 28.3 MCHC 34.3 RDW 17.7 H Plt Count 644 H MPV 9.9 Absolute Nucleated RBC 0.000 Nucleated RBC % (auto) 0.0 Anion Gap 19 Estim Creat Clear Calc 43.6 Estimated GFR > 60 Random Glucose 109 Calcium 8.7 Phosphorus 4.1 Magnesium 1.8 NT-Pro-B Natriuret Pep 5855.4 H Procalcitonin 0.17 Assessment and Plan (1) CHF (congestive heart failure): Status: Acute (2) Afib: Status: Acute Plan 74yo F with CHF, pAF, hx recent C. difficile infection for which admitted to [facility] [place] sent in from STR @ [facility] with dyspnea found to have hypoxic respiratory failure from multifocal pneumonia requiring intubation admitted to ICU, extubated 05/27, downgraded to telemetry 05/28 complicated by CHF exacerbation requiring CPAP, now on HFNC and furosemide drip AHRF due to multifocal MRSA pneumonia with acute asthma exacerbation as well as now acute HFpEF - anticipate weaning off HFNC to regular NC in next 24h [though has CPAP if needed] - completed Zosyn 05/24-06/02, changed vancomycin to linezolid 05/30- 06/14 per ID [MRSA swab positive] - methylprednisolone 05/30-06/03; continue nebs + Breo - continue furosemide IV infusion 5 mg/hr but anticipate transitioning to PO furosemide tomorrow; continue losartan and spironolactone; Cardiology consulted - TTE 05/31: - Normal left ventricular cavity size. There is mildly increased left ventricular wall thickness. The left ventricular systolic function is low normal. The visually estimated ejection fraction is between 50-55%. - The apical septum and mid inferoseptal segments are hypokinetic. - Mildly increased right ventricular cavity size. There is mildly decreased right ventricular systolic function. - The left atrium is severely dilated. The right atrium is severely dilated. - There is mild to moderate mitral valve regurgitation. moderate protein-calorie malnutrition - poor PO intake; supplements; place PICC and give TPN -Oral diet per [employer] transaminasemia - suspect hepatic congestion from CHF or effect of pneumonia; recheck LFTs tomorrow hypoK - repleted question of VRE bacteremia - blood culture from 05/24 is positive for VRE; however, subsequent cultures from 05/28 negative despite not getting coverage [was on vancomycin and piperacillin-tazobactam] so this may have been a contaminant. Regardless, on linezolid 05/30-06/14 for MRSA pneumonia hx recent C. difficile colitis - PO vancomycin while on systemic ABX and for 2d afterwards distended gallbladder with cholelithiasis and pericholecystic fluid - doubt acute cholecystitis as abd is completely benign; Gen Surg concurs pAF: continue amiodarone + apixaban VTE ppx: apixaban dispo: STR In my clinical judgment, the patient requires continued inpatient hospitalization for the following reasons: IV ABX, hypoxic resp failure requiring HFNC, IV diuresis requiring drip, TPN Sister Kezia Joseph to be updated as needed Quality Stroke Does the patient have a stroke diagnosis?: No VTE Prior VTE?: No VTE Risk Level:: Medical - moderate - high VTE Device Contraindication: N/A - Device Ordered VTE Drug Contraindication: N/A - Med Ordered
[2025-06-04] MEDS: Parenteral Nutrition 1,440 ML 60 ML IV (20:11)
[2025-06-05] VITALS (10 sets, daily range): BP systolic 96–138; BP diastolic 51–64; PULSE 75–91; RESP 16–22; TEMP 36.1–36.9; O2SAT 91–99; BMI 16.3
[2025-06-05] MEDS: Linezolid/D5W 600 MG/300 ML PIGGYBACK 300 MG IV ×2 (04:05→16:45)
[2025-06-05] MEDS: Fluticasone/Vilanterol 200/25 BLST.W.DEV 1 PUFF INHALE (07:40)
[2025-06-05] MEDS: Albuterol/Iprat 2.5/0.5MG 3 ML AMPUL.NEB INHALE ×4 (07:40→20:24)
[2025-06-05 08:15] LABS: Albumin Level 3.4 g/dL (3.5-5.0); Anion Gap 16 (12-20); Blood Urea Nitrogen 27 mg/dL (9-16); Calcium 8.9 mg/dL (8.4-10.2); Carbon Dioxide 27 mmol/L (22-29); Chloride 94 mmol/L (96-108); Creatinine Clr Calc Pharmacy 44.7; Estimated Glomerular Filt Rate > 60; Magnesium 2.1 mg/dL (1.6-2.6); Potassium 4.1 mmol/L (3.3-5.1); Sodium 133 mmol/L (135-145)
--- NOTE | 2025-06-05 08:48 | P.CDIM_ITS ---
PROVIDER RESPONSE TEXT: To clarify, the appropriate diagnosis supported by the clinical indicators: Moderate persistent QUERY TEXT: PHYSICIAN'S DOCUMENTATION REQUEST Date of Query: 06/05/2025 07:37 AM EST Patient Name: Casi Tejeda Admit Date: 05/24/2025 Dear Long Carreno MD, A review of the medical record indicates additional documentation may be needed. Please review below and update the documentation accordingly. Clinical indicators: Progress note dated 05/30/25 & 06/04/25 - Acute hypoxic respiratory failure due to multifactorial pneumonia with acute asthma exacerbation. Remains on 8L Oxymask. Start Methylprednisolone, continue Nebs + Breo. Based on the above, please clarify in the Progress Notes further specificity to the documented Asthma exacerbation: Mild intermittent Mild persistent Moderate persistent Severe persistent Exercise induced Chronic obstructive asthma and indicate if with acute lower respiratory infection Asthma with underlying COPD and indicate if with acute lower respiratory infection Other (explain) Clinically unable to determine (explain) Thank you, Padma Parra, CCS, CDIS Use of terms such as suspected, likely, concern for, or probable (associated with a specific diagnosis that is being evaluated, monitored, or treated as if it exists) are acceptable and can be coded in the inpatient setting, when documented at the time of discharge. Please use your independent medical judgment in providing your response. THIS QUERY IS PART OF THE PERMANENT MEDICAL RECORD
--- NOTE | 2025-06-05 09:38 | MHC.CLN ---
F/U PO INTAKE SIPS AND BITES DIET RX: PUREED WITH NT LIQ MAGIC CUP IN PLACE PPN TO CONTINUE REVIEWED LABS-NOTED HYPONATREMIA DISCUSSED WITH PHARMACY RECOMMEND DECREASE PPN TO 50ML/HR WITH 68G LIPIDS TO PROVIDE 1292KCALS (30KCALS/KG), 120G DEXTROSE, 51G PROTEIN (1.2G/KG) REPLETE LYTES NEEDED CONTINUE TO MONITOR PO INTAKE
--- NOTE | 2025-06-05 15:03 | HO.PM.IMPN ---
Subjective Subjective Date of Service: 06/05/25 Interval History: Doing better, less O2 requirement and able to eat some oral food talking more, Review of Systems Review of Systems: Yes all other systems are reviewed and are negative Physical Exam Vital Signs: Vital Signs: Last Vital Signs Temp 97.2 F 06/05/25 12:00 Pulse 83 06/05/25 12:00 Resp 20 06/05/25 12:00 BP 108/51 L 06/05/25 12:00 Pulse Ox 97 06/05/25 12:00 O2 Del Method Nasal Cannula 06/05/25 12:00 O2 Flow Rate 4 06/05/25 12:00 FiO2 40 06/03/25 15:38 Oxygen Flow Rate 8 05/24/25 13:56 BMI result Body Mass Index 16.3 Gen: comfortable on HFNC, thin/malnourished HEENT: sclera anicteric, moist mucus membranes Neck: supple Lungs: diminished Heart: regular rate and rhythm, no murmurs Abd: soft, non-tender, non-distended Ext: no leg edema Skin: warm/well-perfused Neuro: alert and oriented x3, no focal findings Psych: appropriate affect Objective Data Active Medications Albuterol/Ipratropium (Albuterol/Iprat 2.5/0.5mg 3 Ml Ampul.Neb) 3 ml INHALE RQ4H WHILE AWAKE [facility] Last Admin: 06/05/25 11:39 Dose: 3 ml Documented By: LARRY Amiodarone HCl (Amiodarone Hcl 200 Mg Tablet) 200 mg PO BID [facility] Last Admin: 06/05/25 09:10 Dose: 200 mg Documented By: JUNE Apixaban (Apixaban 5 Mg Tablet) 5 mg PO BID [facility] Last Admin: 06/05/25 09:10 Dose: 5 mg Documented By: JUNE Atorvastatin Calcium (Atorvastatin Calcium 80 Mg Tablet) 80 mg PO BEDTIME [facility] Last Admin: 06/04/25 20:10 Dose: 80 mg Documented By: KAREY Baclofen (Baclofen 10 Mg Tablet) 10 mg PO TID [facility] Last Admin: 06/05/25 09:09 Dose: 10 mg Documented By: JUNE Bisacodyl (Bisacodyl 10 Mg Supp.Rect) 10 mg AL DAILY PRN PRN Reason: Constipation Ergocalciferol (Ergocalciferol (Vitamin D2) 1,250 Mcg Capsule) 1,250 mcg PO MO DEE Last Admin: 06/03/25 09:08 Dose: 1,250 mcg Documented By: ELEONORA Fluticasone/Vilanterol (Fluticasone/Vilanterol 200/25 Blst.W.Dev) 1 puff INHALE RDAILY [facility] Last Admin: 06/05/25 07:40 Dose: 1 puff Documented By: LARRY Linezolid (Zyvox/D5w) 600 mg in 300 mls @ 300 mls/hr IV Q12H DEE Last Infusion: 06/05/25 05:05 Dose: Infused Documented By: KAREY Furosemide 200 mg/ Sodium (Chloride) 100 mls @ 2.5 mls/hr IVCONT .Q24H DEE Last Admin: 06/04/25 16:05 Dose: 5 mg/hr, 2.5 mls/hr Documented By: ELEONORA Nutrition (Parenteral) (Parenteral Nutrition) 1,440 mls @ 60 mls/hr IV .Q24H DEE; Protocol Stop: 06/05/25 20:59 Last Admin: 06/04/25 20:11 Dose: 60 mls/hr Documented By: KAREY Nutrition (Parenteral) (Parenteral Nutrition) 1,200 mls @ 50 mls/hr IV .Q24H DEE; Protocol Stop: 06/06/25 20:59 Losartan Potassium (Losartan Potassium 25 Mg Tablet) 25 mg PO DAILY [facility]EE; Protocol Last Admin: 06/05/25 09:10 Dose: 25 mg Documented By: JUNE Magnesium Hydroxide (Milk Of Magnesia 30 Ml Oral.Susp) 30 ml PO BEDTIME PRN PRN Reason: Constipation Magnesium Oxide (Magnesium Oxide 400 Mg Tablet) 400 mg PO BID [facility] Last Admin: 06/05/25 09:10 Dose: 400 mg Documented By: JUNE Melatonin (Melatonin 3 Mg Tablet) 3 mg PO BEDTIME [facility] Last Admin: 06/04/25 20:10 Dose: 3 mg Documented By: KAREY Mirtazapine (Mirtazapine 7.5 Mg Tablet) 7.5 mg PO BEDTIME [facility] Last Admin: 06/04/25 20:10 Dose: 7.5 mg Documented By: KAREY Multivitamins/Vitamin C (Multivitamin Tablet) 1 tab PO DAILY [facility] Last Admin: 06/05/25 09:09 Dose: 1 tab Documented By: JUNE Pharmacy Consult (Consult Rx Parenteral Nutrition Ordering) 1 each MISCELLANE DAILY PRN PRN Reason: Consult order Polyethylene Glycol (Polyethylene Glycol 3350 17 Gm Powd.Pack) 17 gm PO DAILY PRN PRN Reason: Constipation Pyridoxine HCl (Pyridoxine Hcl (Vitamin B6) 50 Mg Tablet) 50 mg PO DAILY [facility] Last Admin: 06/05/25 09:10 Dose: 50 mg Documented By: JUNE Sodium Biphosphate/Sodium Phosphate (Sodium Phosphate,Gordon-Dibasic 133 Ml Enema) 118 ml AL DAILY PRN PRN Reason: Constipation Spironolactone (Spironolactone 25 Mg Tablet) 25 mg PO DAILY [facility]; Protocol Last Admin: 06/05/25 09:10 Dose: 25 mg Documented By: JUNE Thiamine HCl (Thiamine Hcl 100 Mg Tablet) 100 mg PO DAILY [facility] Last Admin: 06/05/25 09:09 Dose: 100 mg Documented By: JUNE Labs 06/04/25 06:36 06/05/25 07:18 Labs: Laboratory Results - last 24 hr 06/05/25 07:18 Anion Gap 16 Estim Creat Clear Calc 44.7 Estimated GFR > 60 Random Glucose 100 Calcium 8.9 Phosphorus 3.8 Magnesium 2.1 Albumin 3.4 L Microbiology Microbiology Results: Microbiology 05/31/25 07:24 Blood Culture - Final Blood - Venous No growth after 5 days. 05/31/25 07:16 Blood Culture - Final Blood - Venous No growth after 5 days. Assessment and Plan (1) CHF (congestive heart failure): Status: Acute (2) Afib: Status: Acute Plan 74yo F with CHF, pAF, hx recent C. difficile infection for which admitted to [facility] sent in from STR @ [facility] with dyspnea found to have hypoxic respiratory failure from multifocal pneumonia requiring intubation admitted to ICU, extubated 05/27, downgraded to telemetry 05/28 complicated by CHF exacerbation requiring CPAP, now on HFNC and furosemide drip AHRF due to multifocal MRSA pneumonia with acute asthma exacerbation as well as now acute HFpEF - anticipate weaning off HFNC to regular NC in next 24h [though has CPAP if needed] - completed Zosyn 05/24-06/02, changed vancomycin to linezolid 05/30-06/14 per ID [MRSA swab positive] - methylprednisolone 05/30-06/03; continue nebs + Breo - furosemide IV infusion 5 mg/hr but anticipate transitioning to PO furosemide tomorrow; continue losartan and spironolactone - TTE 05/31: - Normal left ventricular cavity size. There is mildly increased left ventricular wall thickness. The left ventricular systolic function is low normal. The visually estimated ejection fraction is between 50-55%. - The apical septum and mid inferoseptal segments are hypokinetic. - Mildly increased right ventricular cavity size. There is mildly decreased right ventricular systolic function. - The left atrium is severely dilated. The right atrium is severely dilated. - There is mild to moderate mitral valve regurgitation. wean off O2 moderate protein-calorie malnutrition - poor PO intake; supplements; TPN via PICC line -Oral diet per RETENTION MANAGER, transaminasemia - suspect hepatic congestion from CHF or effect of pneumonia; recheck LFTs tomorrow hypOK - repleted question of VRE bacteremia - blood culture from 05/24 is positive for VRE; however, subsequent cultures from 05/28 negative despite not getting coverage [was on vancomycin and piperacillin-tazobactam] so this may have been a contaminant. Regardless, on linezolid 05/30-06/14 for MRSA pneumonia hx recent C. difficile colitis - PO vancomycin while on systemic ABX and for 2d afterwards distended gallbladder with cholelithiasis and pericholecystic fluid - doubt acute cholecystitis as abd is completely benign; Gen Surg concurs pAF: continue amiodarone + apixaban VTE ppx: apixaban dispo: STR In my clinical judgment, the patient requires continued inpatient hospitalization for the following reasons: IV ABX, hypoxic resp failure requiring HFNC, IV diuresis requiring drip, TPN Sister Kezia Joseph to be updated as needed Quality Stroke Does the patient have a stroke diagnosis?: No VTE Prior VTE?: No VTE Risk Level:: Medical - moderate - high VTE Device Contraindication: N/A - Device Ordered VTE Drug Contraindication: N/A - Med Ordered
--- NOTE | 2025-06-05 15:04 | PC.NURSE ---
1507 removed banks catheter. Pt due to void at 21:07. patient voided at 1730
--- NOTE | 2025-06-05 15:18 | MHC.SL.SWA ---
Speech Pathologist Impression: Mild oral phase dysphagia d/t missing dentition and mild pharyngeal phase dysphagia s/p extubation 05/27 Risk of Aspiration Due to: Respiratory status Generalized weakness Dysphasia Diet Status: NDD1 (purees) with THIN liquids, straws ok, aspiration precautions, 1:1 assist, BOBBIN COLLECTOR following Liquid Consistency and Strategies for Safe Swallow: Liquid Intake Recommendation: Thin Liquid Intake Strategies: Small Sips Solid Food Consistency: Dietary Recommendations: Pureed (NDD1) Additional Modifications to Solid Foods: Oral Medication Intake: Crushed with Puree Please contact the pharmacy regarding appropriate crushable or liquid drug formulations that are available whenever modified delivery is recommended. Compensatory Strategies and Precautions to be Taken for Safe Swallow: Sitting Upright (90 deg) Liquids from Cup Liquids from Straw Small Bites and Sips Rate of Ingestion Change Supervision While Eating and Drinking for Safe Swallow: Total Assistance (1:1) Foods to Avoid: Swallowing Recommended Treatments: Compens. Strategy Educat. Recommendation for Speech: Outpatient Speech Therapy Comment: Pt seen for dysphagia treatment, pt sister and brother in law at bedside. Pt expressed that she is 'done with the thickener!'. Pt now on continuous O2 via NC. Pt permitted BOBBIN COLLECTOR to reposition bed more upright, with HOB to 80degrees. Trials of thins by cup and by straw resulted in 1 cough s/p initial sip of water by cup, cough brief and effective. Pt reminded to take small sips with trials of cranberry juice; pt tolerated small sips with steady pacing without overt s/s of aspiration. Pt sipped gingerale by straw with adequate timing and coordination, cough x1 occurred but was brief and considered WFL. Recc upgrade to thin liquids, pureed diet remains unchanged. BOBBIN COLLECTOR reviewed POC with pt sister, RN and MD notified of upgraded liquids, BOBBIN COLLECTOR continues to follow. Frequency/Duration: M-F Daily Date Range for Service Req: Timeline to reassess: Seed Core Operator Clinican/Clinical Fellow: No Supervisory Statement: I have reviewed and agree with the student/clinical fellow's documentation: No Speech Language Pathologist: Shana Mckee M.S., [facility]
[2025-06-05] MEDS: Furosemide 200 MG in 0.9 % Sodium Chloride 80 ML IVCONT (15:39)
--- NOTE | 2025-06-05 15:40 | MHC.CM.PN ---
Per rounds, pt. is not improving, MD to discuss plan with family.
[2025-06-05] MEDS: Parenteral Nutrition 1,200 ML 50 ML IV (20:55)
[2025-06-06] VITALS (8 sets, daily range): BP systolic 101–149; BP diastolic 59–65; PULSE 69–93; RESP 14–18; TEMP 36.3–36.6; O2SAT 92–100; BMI 16.3
[2025-06-06 00:34] LABS: CMV DNA Qn PCR 1.61 Log IU/mL (NOT DETECTED)
[2025-06-06] MEDS: Linezolid/D5W 600 MG/300 ML PIGGYBACK 300 MG IV ×2 (02:29→15:40)
[2025-06-06 07:55] LABS: Albumin Level 3.2 g/dL (3.5-5.0); Anion Gap 16 (12-20); Blood Urea Nitrogen 29 mg/dL (9-16); Calcium 8.8 mg/dL (8.4-10.2); Carbon Dioxide 23 mmol/L (22-29); Chloride 97 mmol/L (96-108); Creatinine Clr Calc Pharmacy 48.0; Estimated Glomerular Filt Rate > 60; Magnesium 2.2 mg/dL (1.6-2.6); Potassium 5.0 mmol/L (3.3-5.1); Sodium 131 mmol/L (135-145)
[2025-06-06] MEDS: Fluticasone/Vilanterol 200/25 BLST.W.DEV 1 PUFF INHALE (08:20)
[2025-06-06] MEDS: Albuterol/Iprat 2.5/0.5MG 3 ML AMPUL.NEB INHALE ×2 (08:20→11:36)
--- NOTE | 2025-06-06 09:48 | MHC.CLN ---
F/U PO INTAKE CONTINUES WITH SIPS AND BITES DIET RX: UPGRADED TO PUREED WITH THIN LIQ PER DICTAPHONE TYPIST MAGIC CUP IN PLACE NOTED MD TO DISCUSS POC WITH FAMILY PPN CONTINUES REVIEWED LABS-NOTED HYPONATREMIA DISCUSSED WITH PHARMACY CONTINUE PPN AT 50ML/HR WITH 68G LIPIDS PROVIDES 1292KCALS (30KCALS/KG), 120G DEXTROSE, 51G PROTEIN (1.2G/KG) REPLETE LYTES NEEDED CONTINUE TO MONITOR PO INTAKE
--- NOTE | 2025-06-06 12:40 | HO.PM.IMPN ---
Subjective Subjective Date of Service: 06/06/25 Interval History: Less O2 need, less confused. Review of Systems Review of Systems: Yes all other systems are reviewed and are negative Physical Exam Vital Signs: Vital Signs: Last Vital Signs Temp 97.5 F 06/06/25 08:00 Pulse 73 06/06/25 12:00 Resp 18 06/06/25 12:00 BP 129/61 06/06/25 12:00 Pulse Ox 100 06/06/25 12:00 O2 Del Method Nasal Cannula 06/06/25 12:00 O2 Flow Rate 3 06/06/25 12:00 FiO2 40 06/03/25 15:38 Oxygen Flow Rate 8 05/24/25 13:56 BMI result Body Mass Index 16.3 Objective Data Active Medications Amiodarone HCl (Amiodarone Hcl 200 Mg Tablet) 200 mg PO BID [facility] Last Admin: 06/06/25 09:13 Dose: 200 mg Documented By: JUNE Apixaban (Apixaban 5 Mg Tablet) 5 mg PO BID [facility] Last Admin: 06/06/25 09:13 Dose: 5 mg Documented By: JUNE Atorvastatin Calcium (Atorvastatin Calcium 80 Mg Tablet) 80 mg PO BEDTIME [facility] Last Admin: 06/05/25 20:54 Dose: 80 mg Documented By: KAREY Baclofen (Baclofen 10 Mg Tablet) 10 mg PO TID [facility] Last Admin: 06/06/25 09:13 Dose: 10 mg Documented By: JUNE Bisacodyl (Bisacodyl 10 Mg Supp.Rect) 10 mg IN DAILY PRN PRN Reason: Constipation Ergocalciferol (Ergocalciferol (Vitamin D2) 1,250 Mcg Capsule) 1,250 mcg PO MO [facility] Last Admin: 06/03/25 09:08 Dose: 1,250 mcg Documented By: ELEONORA Fluticasone/Vilanterol (Fluticasone/Vilanterol 200/25 Blst.W.Dev) 1 puff INHALE RDAILY [facility] Last Admin: 06/06/25 08:20 Dose: 1 puff Documented By: CHARLETTE Furosemide (Furosemide 40 Mg Tablet) 40 mg PO DAILY [facility]; Protocol Last Admin: 06/06/25 09:13 Dose: 40 mg Documented By: JUNE Linezolid (Zyvox/D5w) 600 mg in 300 mls @ 300 mls/hr IV Q12H [facility] Last Infusion: 06/06/25 03:33 Dose: Infused Documented By: ANTOIC Nutrition (Parenteral) (Parenteral Nutrition) 1,200 mls @ 50 mls/hr IV .Q24H DEE; Protocol Stop: 06/06/25 20:59 Last Admin: 06/05/25 20:55 Dose: 50 mls/hr Documented By: KAREY Nutrition (Parenteral) (Parenteral Nutrition) 1,200 mls @ 50 mls/hr IV .Q24H DEE; Protocol Stop: 06/07/25 20:59 Losartan Potassium (Losartan Potassium 25 Mg Tablet) 25 mg PO DAILY [facility]; Protocol Last Admin: 06/06/25 09:13 Dose: 25 mg Documented By: JUNE Magnesium Hydroxide (Milk Of Magnesia 30 Ml Oral.Susp) 30 ml PO BEDTIME PRN PRN Reason: Constipation Magnesium Oxide (Magnesium Oxide 400 Mg Tablet) 400 mg PO BID [facility] Last Admin: 06/06/25 09:14 Dose: 400 mg Documented By: JUNE Melatonin (Melatonin 3 Mg Tablet) 3 mg PO BEDTIME [facility] Last Admin: 06/05/25 20:54 Dose: 3 mg Documented By: KAREY Mirtazapine (Mirtazapine 7.5 Mg Tablet) 7.5 mg PO BEDTIME [facility] Last Admin: 06/05/25 20:54 Dose: 7.5 mg Documented By: KAREY Multivitamins/Vitamin C (Multivitamin Tablet) 1 tab PO DAILY [facility] Last Admin: 06/06/25 09:13 Dose: 1 tab Documented By: JUNE Pharmacy Consult (Consult Rx Parenteral Nutrition Ordering) 1 each MISCELLANE DAILY PRN PRN Reason: Consult order Polyethylene Glycol (Polyethylene Glycol 3350 17 Gm Powd.Pack) 17 gm PO DAILY PRN PRN Reason: Constipation Pyridoxine HCl (Pyridoxine Hcl (Vitamin B6) 50 Mg Tablet) 50 mg PO DAILY [facility] Last Admin: 06/06/25 09:13 Dose: 50 mg Documented By: JUNE Sodium Biphosphate/Sodium Phosphate (Sodium Phosphate,Williams-Dibasic 133 Ml Enema) 118 ml IN DAILY PRN PRN Reason: Constipation Spironolactone (Spironolactone 25 Mg Tablet) 25 mg PO DAILY [facility]; Protocol Last Admin: 06/06/25 09:13 Dose: 25 mg Documented By: JUNE Thiamine HCl (Thiamine Hcl 100 Mg Tablet) 100 mg PO DAILY [facility] Last Admin: 06/06/25 09:13 Dose: 100 mg Documented By: JUNE Labs 06/04/25 06:36 06/06/25 06:37 Labs: Laboratory Results - last 24 hr 06/02/25 06/06/25 22:47 06:37 Anion Gap 16 Estim Creat Clear Calc 48.0 Estimated GFR > 60 Random Glucose 97 Calcium 8.8 Phosphorus 4.2 Magnesium 2.2 Albumin 3.2 L CMV Qnt PCR IU/mL 40.3 H CMV Qnt PCR log IU/mL 1.61 H Microbiology Microbiology Results: Microbiology 05/31/25 07:24 Blood Culture - Final Blood - Venous No growth after 5 days. 05/31/25 07:16 Blood Culture - Final Blood - Venous No growth after 5 days. Assessment and Plan (1) CHF (congestive heart failure): Status: Acute (2) Afib: Status: Acute Plan 74yo F with CHF, pAF, hx recent C. difficile infection for which admitted to [facility] sent in from STR @ [facility] with dyspnea found to have hypoxic respiratory failure from multifocal pneumonia requiring intubation admitted to ICU, extubated 05/27, downgraded to telemetry 05/28 complicated by CHF exacerbation requiring CPAP, now on HFNC and furosemide drip AHRF due to multifocal MRSA pneumonia with acute asthma exacerbation as well as now acute HFpEF - anticipate weaning off HFNC to regular NC in next 24h [though has CPAP if needed] - completed Zosyn 05/24-06/02, changed vancomycin to linezolid 05/30-06/14 per ID [MRSA swab positive] - methylprednisolone 05/30-06/03; continue nebs + Breo - Lasix PO, changed from IV drip ; continue losartan and spironolactone - TTE 05/31: - Normal left ventricular cavity size. There is mildly increased left ventricular wall thickness. The left ventricular systolic function is low normal. The visually estimated ejection fraction is between 50-55%. - The apical septum and mid inferoseptal segments are hypokinetic. - Mildly increased right ventricular cavity size. There is mildly decreased right ventricular systolic function. - The left atrium is severely dilated. The right atrium is severely dilated. - There is mild to moderate mitral valve regurgitation. wean off O2 moderate protein-calorie malnutrition - poor PO intake; supplements; TPN via PICC line -Oral diet per FACTORY LAY OUT ENGINEER, -consider stopping TPN transaminasemia - suspect hepatic congestion from CHF or effect of pneumonia; recheck LFTs tomorrow hypOK - repleted question of VRE bacteremia - blood culture from 05/24 is positive for VRE; however, subsequent cultures from 05/28 negative despite not getting coverage [was on vancomycin and piperacillin-tazobactam] so this may have been a contaminant. Regardless, on linezolid 05/30-06/14 for MRSA pneumonia hx recent C. difficile colitis - PO vancomycin while on systemic ABX and for 2d afterwards distended gallbladder with cholelithiasis and pericholecystic fluid - doubt acute cholecystitis as abd is completely benign; Gen Surg concurs pAF: continue amiodarone + apixaban VTE ppx: apixaban dispo: STR In my clinical judgment, the patient requires continued inpatient hospitalization for the following reasons: IV ABX, hypoxic resp failure requiring HFNC, IV diuresis requiring drip, TPN Sister Kezia Joseph to be updated as needed Quality Stroke Does the patient have a stroke diagnosis?: No VTE Prior VTE?: No VTE Risk Level:: Medical - moderate - high VTE Device Contraindication: N/A - Device Ordered VTE Drug Contraindication: N/A - Med Ordered
--- NOTE | 2025-06-06 16:31 | MHC.SLORD ---
Speech Language Pathology Order Status: Patient politely refusing PO trials this date. RN with no concerns, patient tolerating diet. Recommend continuing with NDD1, THIN liquids. OPERATING ROOM ASSISTANT to continue to follow.
[2025-06-06] MEDS: Parenteral Nutrition 1,200 ML 50 ML IV (22:17)
[2025-06-07] VITALS (8 sets, daily range): BP systolic 114–132; BP diastolic 52–60; PULSE 81–89; RESP 16–17; TEMP 36.5–36.6; O2SAT 93–99; BMI 18.3
[2025-06-07 02:24] LABS: EBV DNA PCR Detected (Not Detected)
[2025-06-07] MEDS: Linezolid/D5W 600 MG/300 ML PIGGYBACK 300 MG IV ×2 (03:31→16:21)
[2025-06-07 07:34] LABS: Albumin Level 3.1 g/dL (3.5-5.0); Anion Gap 17 (12-20); Blood Urea Nitrogen 25 mg/dL (9-16); Calcium 8.6 mg/dL (8.4-10.2); Carbon Dioxide 19 mmol/L (22-29); Chloride 100 mmol/L (96-108); Creatinine Clr Calc Pharmacy 58.0; Estimated Glomerular Filt Rate > 60; Magnesium 2.1 mg/dL (1.6-2.6); Potassium 4.5 mmol/L (3.3-5.1); Sodium 131 mmol/L (135-145)
[2025-06-07] MEDS: Fluticasone/Vilanterol 200/25 BLST.W.DEV 1 PUFF INHALE (07:45)
--- NOTE | 2025-06-07 09:33 | MHC.CLN ---
F/U PO INTAKE 0-25% DIET RX: PUREED WITH THIN LIQ PER MARINATOR MAGIC CUP IN PLACE PPN CONTINUES REVIEWED LABS-NOTED HYPONATREMIA-REMAINS UNCHANGED DISCUSSED WITH PHARMACY RECOMMEND DECREASE PPN TO 45ML/HR WITH 74G LIPIDS PROVIDES 1291KCALS (30KCALS/KG), 108G DEXTROSE, 46G PROTEIN (1.06G/KG) REPLETE LYTES NEEDED CONTINUE TO MONITOR PO INTAKE GOAL TO DECREASE PPN PO INTAKE IMPROVES RD CAN BE REACHED VIA TIGER CONNECT DURING OFF HOURS IF NEEDED
--- NOTE | 2025-06-07 16:26 | P.PNIM_ITS ---
Subjective Subjective Date of Service: 06/07/25 Interval History: Overall seems to be doing better, O2 sat is good, she has been refusing certain care Review of Systems Review of Systems: Yes all other systems are reviewed and are negative Physical Exam 2 Vital Signs: Vital Signs: Last Vital Signs Temp 97.7 F 06/07/25 15:36 Pulse 81 06/07/25 15:36 Resp 16 06/07/25 15:36 BP 116/55 L 06/07/25 15:36 Pulse Ox 95 06/07/25 15:36 O2 Del Method Nasal Cannula 06/07/25 15:36 O2 Flow Rate 2 06/07/25 15:36 FiO2 40 06/03/25 15:38 Oxygen Flow Rate 8 05/24/25 13:56 BMI result Body Mass Index 18.3 Objective Data Active Medications Amiodarone HCl (Amiodarone Hcl 200 Mg Tablet) 200 mg PO BID [facility] Last Admin: 06/07/25 09:13 Dose: 200 mg Documented By: PILAR Apixaban (Apixaban 5 Mg Tablet) 5 mg PO BID [facility] Last Admin: 06/07/25 09:15 Dose: 5 mg Documented By: PILAR Atorvastatin Calcium (Atorvastatin Calcium 80 Mg Tablet) 80 mg PO BEDTIME [facility] Last Admin: 06/06/25 22:17 Dose: 80 mg Documented By: ANIBAL Baclofen (Baclofen 10 Mg Tablet) 10 mg PO TID [facility] Last Admin: 06/07/25 09:16 Dose: 10 mg Documented By: PILAR Bisacodyl (Bisacodyl 10 Mg Supp.Rect) 10 mg [place] DAILY PRN PRN Reason: Constipation Ergocalciferol (Ergocalciferol (Vitamin D2) 1,250 Mcg Capsule) 1,250 mcg PO MO [facility] Last Admin: 06/03/25 09:08 Dose: 1,250 mcg Documented By: ELEONORA Fluticasone/Vilanterol (Fluticasone/Vilanterol 200/25 Blst.W.Dev) 1 puff INHALE RDAILY [facility] Last Admin: 06/07/25 07:45 Dose: 1 puff Documented By: REA Furosemide (Furosemide 40 Mg Tablet) 40 mg PO DAILY [facility]; Protocol Last Admin: 06/07/25 09:16 Dose: 40 mg Documented By: PILAR Linezolid (Zyvox/D5w) 600 mg in 300 mls @ 300 mls/hr IV Q12H [facility] Last Infusion: 06/07/25 04:47 Dose: Infused Documented By: ANTOIC Nutrition (Parenteral) (Parenteral Nutrition) 1,200 mls @ 50 mls/hr IV .Q24H [facility]EE; Protocol Stop: 06/07/25 20:59 Last Admin: 06/06/25 22:17 Dose: 50 mls/hr Documented By: ANIBAL Nutrition (Parenteral) (Parenteral Nutrition) 1,080 mls @ 45 mls/hr IV .Q24H DEE; Protocol Stop: 06/08/25 20:59 Losartan Potassium (Losartan Potassium 25 Mg Tablet) 25 mg PO DAILY [facility]; Protocol Last Admin: 06/07/25 09:17 Dose: 25 mg Documented By: PILAR Magnesium Hydroxide (Milk Of Magnesia 30 Ml Oral.Susp) 30 ml PO BEDTIME PRN PRN Reason: Constipation Magnesium Oxide (Magnesium Oxide 400 Mg Tablet) 400 mg PO BID [facility] Last Admin: 06/07/25 09:17 Dose: 400 mg Documented By: PILAR Melatonin (Melatonin 3 Mg Tablet) 3 mg PO BEDTIME [facility] Last Admin: 06/06/25 22:16 Dose: 3 mg Documented By: ANIBAL Mirtazapine (Mirtazapine 7.5 Mg Tablet) 7.5 mg PO BEDTIME [facility] Last Admin: 06/06/25 22:17 Dose: 7.5 mg Documented By: ANIBAL Multivitamins/Vitamin C (Multivitamin Tablet) 1 tab PO DAILY [facility] Last Admin: 06/07/25 09:17 Dose: 1 tab Documented By: PILAR Pharmacy Consult (Consult Rx Parenteral Nutrition Ordering) 1 each MISCELLANE DAILY PRN PRN Reason: Consult order Polyethylene Glycol (Polyethylene Glycol 3350 17 Gm Powd.Pack) 17 gm PO DAILY PRN PRN Reason: Constipation Pyridoxine HCl (Pyridoxine Hcl (Vitamin B6) 50 Mg Tablet) 50 mg PO DAILY [facility] Last Admin: 06/07/25 09:16 Dose: 50 mg Documented By: PILAR Sodium Biphosphate/Sodium Phosphate (Sodium Phosphate,[place]-Dibasic 133 Ml Enema) 118 ml [place] DAILY PRN PRN Reason: Constipation Spironolactone (Spironolactone 25 Mg Tablet) 25 mg PO DAILY [facility]; Protocol Last Admin: 06/07/25 09:16 Dose: 25 mg Documented By: PILAR Thiamine HCl (Thiamine Hcl 100 Mg Tablet) 100 mg PO DAILY [facility] Last Admin: 06/07/25 09:17 Dose: 100 mg Documented By: PILAR Labs 06/04/25 06:36 06/07/25 07:09 Labs: Laboratory Results - last 24 hr 06/02/25 06/07/25 22:47 07:09 Anion Gap 17 Estim Creat Clear Calc 58.0 Estimated GFR > 60 Random Glucose 99 Calcium 8.6 Phosphorus 3.4 Magnesium 2.1 Albumin 3.1 L EBV Source Whole Blood EBV DNA (PCR) Detected A* Assessment and Plan (1) CHF (congestive heart failure): Status: Acute (2) Afib: Status: Acute Plan 74yo F with CHF, pAF, hx recent C. difficile infection for which admitted to [facility] [place] [facility] [place] sent in from STR @ [facility] with dyspnea found to have hypoxic respiratory failure from multifocal pneumonia requiring intubation admitted to ICU, extubated 05/27, downgraded to telemetry 05/28 complicated by CHF exacerbation requiring CPAP, now on HFNC and furosemide drip AHRF due to multifocal MRSA pneumonia with acute asthma exacerbation as well as now acute HFpEF - anticipate weaning off HFNC to regular NC in next 24h [though has CPAP if needed] - completed Zosyn 05/24-06/02, changed vancomycin to linezolid 05/30- 06/14 per ID [MRSA swab positive] - methylprednisolone 05/30-06/03; continue nebs + Breo - Lasix PO, changed from IV drip ; continue losartan and spironolactone - TTE 05/31: - Normal left ventricular cavity size. There is mildly increased left ventricular wall thickness. The left ventricular systolic function is low normal. The visually estimated ejection fraction is between 50-55%. - The apical septum and mid inferoseptal segments are hypokinetic. - Mildly increased right ventricular cavity size. There is mildly decreased right ventricular systolic function. - The left atrium is severely dilated. The right atrium is severely dilated. - There is mild to moderate mitral valve regurgitation. wean off O2 moderate protein-calorie malnutrition - poor PO intake; supplements; TPN via PICC line -Oral diet per PAIRING MACHINE OPERATOR, -consider stopping TPN transaminasemia - suspect hepatic congestion from CHF or effect of pneumonia; recheck LFTs tomorrow hypOK - repleted question of VRE bacteremia - blood culture from 05/24 is positive for VRE; however, subsequent cultures from 05/28 negative despite not getting coverage [was on vancomycin and piperacillin-tazobactam] so this may have been a contaminant. Regardless, on linezolid 05/30-06/14 for MRSA pneumonia hx recent C. difficile colitis - PO vancomycin while on systemic ABX and for 2d afterwards distended gallbladder with cholelithiasis and pericholecystic fluid - doubt acute cholecystitis as abd is completely benign; Gen Surg concurs pAF: continue amiodarone + apixaban VTE ppx: apixaban dispo: STR In my clinical judgment, the patient requires continued inpatient hospitalization for the following reasons: IV ABX, hypoxic resp failure requiring HFNC, IV diuresis requiring drip, TPN Sister Kezia Joseph to be updated as needed Quality Stroke Does the patient have a stroke diagnosis?: No VTE Prior VTE?: No VTE Risk Level:: Medical - moderate - high VTE Device Contraindication: N/A - Device Ordered VTE Drug Contraindication: N/A - Med Ordered
--- NOTE | 2025-06-07 17:12 | PC.NURSE ---
Reporting pain in her right arm. 8 can not give a description. IVs are not infiltrated and look okay but bruised. Yelling to light touch on her arm. Report pain in her elbow. Provider notified. Plan for xray.
[2025-06-07] MEDS: Parenteral Nutrition 1,080 ML 45 ML IV (22:36)
[2025-06-08] VITALS (7 sets, daily range): BP systolic 102–134; BP diastolic 51–61; PULSE 66–79; RESP 16–20; TEMP 36.1–36.5; O2SAT 93–97; BMI 17.0
[2025-06-08] MEDS: Linezolid/D5W 600 MG/300 ML PIGGYBACK 300 MG IV ×2 (03:19→15:25)
[2025-06-08 07:59] LABS: Albumin Level 2.9 g/dL (3.5-5.0); Blood Urea Nitrogen 23 mg/dL (9-16); Calcium 8.3 mg/dL (8.4-10.2); Creatinine Clr Calc Pharmacy 57.5; Estimated Glomerular Filt Rate > 60; Magnesium 2.0 mg/dL (1.6-2.6)
[2025-06-08] MEDS: Fluticasone/Vilanterol 200/25 BLST.W.DEV 1 PUFF INHALE (08:13)
[2025-06-08 09:07] LABS: Anion Gap 15 (12-20); Carbon Dioxide 20 mmol/L (22-29); Chloride 100 mmol/L (96-108); Potassium 3.4 mmol/L (3.3-5.1); Sodium 132 mmol/L (135-145)
--- NOTE | 2025-06-08 11:15 | HO.PM.IMPN ---
Subjective Subjective Date of Service: 06/08/25 Interval History: Denies pain to me this morning but reportedly now reporting pain all over and want tylneol for pain Review of Systems Review of Systems: Yes all other systems are reviewed and are negative Physical Exam Vital Signs: Vital Signs: Last Vital Signs Temp 97.2 F 06/08/25 08:00 Pulse 66 06/08/25 08:14 Resp 20 06/08/25 08:14 BP 112/57 L 06/08/25 08:00 Pulse Ox 95 06/08/25 08:00 O2 Del Method Nasal Cannula 06/08/25 08:00 O2 Flow Rate 2 06/08/25 08:00 FiO2 40 06/03/25 15:38 Oxygen Flow Rate 8 05/24/25 13:56 BMI result Body Mass Index 17.0 Const: Other: Gen: comfortable on HFNC, thin/malnourished HEENT: sclera anicteric, moist mucus membranes Neck: supple Lungs: diminished Heart: regular rate and rhythm, no murmurs Abd: soft, non-tender, non-distended Ext: no leg edema Skin: warm/well-perfused Neuro: alert and oriented x3, no focal findings Psych: appropriate affect Objective Data Active Medications Amiodarone HCl (Amiodarone Hcl 200 Mg Tablet) 200 mg PO BID [facility] Last Admin: 06/08/25 09:31 Dose: 200 mg Documented By: ALYSON Apixaban (Apixaban 5 Mg Tablet) 5 mg PO BID [facility] Last Admin: 06/08/25 09:31 Dose: 5 mg Documented By: ALYSON Atorvastatin Calcium (Atorvastatin Calcium 80 Mg Tablet) 80 mg PO BEDTIME [facility] Last Admin: 06/07/25 20:23 Dose: 80 mg Documented By: JUSTUS Baclofen (Baclofen 10 Mg Tablet) 10 mg PO TID [facility] Last Admin: 06/08/25 09:31 Dose: 10 mg Documented By: ALYSON Bisacodyl (Bisacodyl 10 Mg Supp.Rect) 10 mg [place] DAILY PRN PRN Reason: Constipation Ergocalciferol (Ergocalciferol (Vitamin D2) 1,250 Mcg Capsule) 1,250 mcg PO MO [facility] Last Admin: 06/03/25 09:08 Dose: 1,250 mcg Documented By: ELEONORA Fluticasone/Vilanterol (Fluticasone/Vilanterol 200/25 Blst.W.Dev) 1 puff INHALE RDAILY [facility] Last Admin: 06/08/25 08:13 Dose: 1 puff Documented By: GUERO Furosemide (Furosemide 40 Mg Tablet) 40 mg PO DAILY [facility]; Protocol Last Admin: 06/08/25 09:28 Dose: 40 mg Documented By: ALYSON Linezolid (Zyvox/D5w) 600 mg in 300 mls @ 300 mls/hr IV Q12H [facility] Last Infusion: 06/08/25 04:20 Dose: Infused Documented By: JUSTUS Nutrition (Parenteral) (Parenteral Nutrition) 1,080 mls @ 45 mls/hr IV .Q24H [facility]; Protocol Stop: 06/08/25 20:59 Last Admin: 06/07/25 22:36 Dose: 45 mls/hr Documented By: JUSTUS Nutrition (Parenteral) (Parenteral Nutrition) 1,080 mls @ 45 mls/hr IV .Q24H [facility]; Protocol Stop: 06/09/25 20:59 Losartan Potassium (Losartan Potassium 25 Mg Tablet) 25 mg PO DAILY [facility]; Protocol Last Admin: 06/08/25 09:30 Dose: 25 mg Documented By: ALYSON Magnesium Hydroxide (Milk Of Magnesia 30 Ml Oral.Susp) 30 ml PO BEDTIME PRN PRN Reason: Constipation Magnesium Oxide (Magnesium Oxide 400 Mg Tablet) 400 mg PO BID [facility] Last Admin: 06/08/25 09:27 Dose: 400 mg Documented By: LAYSON Melatonin (Melatonin 3 Mg Tablet) 3 mg PO BEDTIME [facility] Last Admin: 06/07/25 20:23 Dose: 3 mg Documented By: JUSTUS Mirtazapine (Mirtazapine 7.5 Mg Tablet) 7.5 mg PO BEDTIME [facility] Last Admin: 06/07/25 20:22 Dose: 7.5 mg Documented By: JUSTUS Multivitamins/Vitamin C (Multivitamin Tablet) 1 tab PO DAILY [facility] Last Admin: 06/08/25 09:31 Dose: 1 tab Documented By: ALYSON Pharmacy Consult (Consult Rx Parenteral Nutrition Ordering) 1 each MISCELLANE DAILY PRN PRN Reason: Consult order Polyethylene Glycol (Polyethylene Glycol 3350 17 Gm Powd.Pack) 17 gm PO DAILY PRN PRN Reason: Constipation Pyridoxine HCl (Pyridoxine Hcl (Vitamin B6) 50 Mg Tablet) 50 mg PO DAILY [facility] Last Admin: 06/08/25 09:55 Dose: 50 mg Documented By: ALYSON Sodium Biphosphate/Sodium Phosphate (Sodium Phosphate,[place]-Dibasic 133 Ml Enema) 118 ml [place] DAILY PRN PRN Reason: Constipation Spironolactone (Spironolactone 25 Mg Tablet) 25 mg PO DAILY [facility]; Protocol Last Admin: 06/08/25 09:27 Dose: 25 mg Documented By: ALYSON Thiamine HCl (Thiamine Hcl 100 Mg Tablet) 100 mg PO DAILY [facility] Last Admin: 06/08/25 09:28 Dose: 100 mg Documented By: ALYSON Labs 06/04/25 06:36 06/08/25 06:25 Labs: Laboratory Results - last 24 hr 06/08/25 06:25 Hold Purple Top SEE NOTE Anion Gap 15 Estim Creat Clear Calc 57.5 Estimated GFR > 60 Random Glucose 87 Calcium 8.3 L Phosphorus 3.4 Magnesium 2.0 Albumin 2.9 L Assessment and Plan (1) CHF (congestive heart failure): Status: Acute (2) Afib: Status: Acute Plan 74yo F with CHF, pAF, hx recent C. difficile infection for which admitted to [facility] sent in from STR @ [facility] with dyspnea found to have hypoxic respiratory failure from multifocal pneumonia requiring intubation admitted to ICU, extubated 05/27, downgraded to telemetry 05/28 complicated by CHF exacerbation requiring CPAP, now on HFNC and furosemide drip AHRF due to multifocal MRSA pneumonia with acute asthma exacerbation as well as now acute HFpEF - anticipate weaning off HFNC to regular NC in next 24h [though has CPAP if needed] - completed Zosyn 05/24-06/02, changed vancomycin 05/24- to linezolid 05/30-06/14 per ID [MRSA swab positive] - methylprednisolone 05/30-06/03; continue nebs + Breo - Lasix PO, changed from IV drip ; continue losartan and spironolactone - TTE 05/31: - Normal left ventricular cavity size. There is mildly increased left ventricular wall thickness. The left ventricular systolic function is low normal. The visually estimated ejection fraction is between 50-55%. - The apical septum and mid inferoseptal segments are hypokinetic. - Mildly increased right ventricular cavity size. There is mildly decreased right ventricular systolic function. - The left atrium is severely dilated. The right atrium is severely dilated. - There is mild to moderate mitral valve regurgitation. wean off O2 moderate protein-calorie malnutrition - poor PO intake; supplements; TPN via PICC line -Oral diet per QUEBRACHO TANNER, -consider stopping TPN transaminasemia - suspect hepatic congestion from CHF or effect of pneumonia; recheck LFTs tomorrow hypOK - repleted question of VRE bacteremia - blood culture from 05/24 is positive for VRE; however, subsequent cultures from 05/28 negative despite not getting coverage [was on vancomycin and piperacillin-tazobactam] so this may have been a contaminant. Regardless, on linezolid 05/30-06/14 for MRSA pneumonia hx recent C. difficile colitis - PO vancomycin while on systemic ABX and for 2d afterwards distended gallbladder with cholelithiasis and pericholecystic fluid - doubt acute cholecystitis as abd is completely benign; Gen Surg concurs pAF: continue amiodarone + apixaban VTE ppx: apixaban dispo: STR In my clinical judgment, the patient requires continued inpatient hospitalization for the following reasons: IV ABX, hypoxic resp failure requiring HFNC, IV diuresis requiring drip, TPN Sister Kezia Joseph to be updated as needed Quality Stroke Does the patient have a stroke diagnosis?: No VTE Prior VTE?: No VTE Risk Level:: Medical - moderate - high VTE Device Contraindication: N/A - Device Ordered VTE Drug Contraindication: N/A - Med Ordered
[2025-06-08] MEDS: Acetaminophen Oral Liquid 650 MG/20.3 ML SOLUTION PO (12:47)
[2025-06-08] MEDS: vancomycin HCL Oral Solution 125 MG/5 ML SOLN.RECON PO (13:23)
--- NOTE | 2025-06-08 14:41 | PC.NURSE ---
Pt oriented to self. She initially reported no pain, but cries out with any touch or sensation of cold. She requested liquid tylenol. She takes pills crushed in pudding. Tolerating food by mouth, but does not care for pureed diet, except for sweets. Family at bedside of several hours. They encourage her to eat (use spoon and grab cups) by herself. She uses her own straws whic family provided. Pt still on 1:1 feeding for aspiration precautions. Sitter at bedside. Report called to IRMA Deluca. Pt transported to med surg.
[2025-06-08 17:02] LABS: CDiff Gene PCR NEGATIVE (Negative)
[2025-06-08] MEDS: Parenteral Nutrition 1,080 ML 45 ML IV (21:13)
[2025-06-09] VITALS (12 sets, daily range): BP systolic 105–168; BP diastolic 52–96; PULSE 71–110; RESP 12–32; TEMP 36.1–36.8; O2SAT 89–99
[2025-06-09] MEDS: Linezolid/D5W 600 MG/300 ML PIGGYBACK 300 MG IV (03:19)
[2025-06-09] MEDS: Acetaminophen Oral Liquid 650 MG/20.3 ML SOLUTION PO ×2 (03:35→11:48)
[2025-06-09 06:25] LABS: Albumin Level 2.8 g/dL (3.5-5.0); Anion Gap 13 (12-20); Blood Urea Nitrogen 23 mg/dL (9-16); Calcium 8.1 mg/dL (8.4-10.2); Carbon Dioxide 22 mmol/L (22-29); Chloride 100 mmol/L (96-108); Creatinine Clr Calc Pharmacy 59.4; Estimated Glomerular Filt Rate > 60; Magnesium 1.9 mg/dL (1.6-2.6); Potassium 3.2 mmol/L (3.3-5.1); Sodium 132 mmol/L (135-145)
[2025-06-09] MEDS: Fluticasone/Vilanterol 200/25 BLST.W.DEV 1 PUFF INHALE (07:41)
[2025-06-09] MEDS: Calcium Gluconate/NaCl,Iso-Osm 2 GM/100 ML PLAST..BAG IV (08:57)
[2025-06-09] MEDS: vancomycin HCL Oral Solution 125 MG/5 ML SOLN.RECON PO ×2 (08:57→22:14)
--- NOTE | 2025-06-09 09:10 | MHC.CLN ---
F/U PO INTAKE MOST MEALS 25% OR LESS. DIET RX: PUREED WITH THIN LIQUIDS. MAGIC CUP TID IN PLACE. PPN CONTINUES. REVIEWED LABS-NOTED HYPONATREMIA-REMAINS UNCHANGED RECOMMEND CONTINUE PPN AT 45ML/HR WITH 74G LIPIDS PROVIDES 1291KCALS (30KCALS/KG), 108G DEXTROSE, 46G PROTEIN (1.06G/KG) REPLETE LYTES NEEDED CONTINUE TO MONITOR PO INTAKE GOAL TO DECREASE PPN PO INTAKE IMPROVES
--- NOTE | 2025-06-09 09:28 | HO.PM.IMPN ---
Subjective Subjective Date of Service: 06/09/25 Interval History: No new complaint, nutiritional satus remains poor, eating about 25% and remains on TPN Review of Systems Review of Systems: Yes all other systems are reviewed and are negative Physical Exam Vital Signs: Vital Signs: Last Vital Signs Temp 98 F 06/09/25 06:45 Pulse 73 06/09/25 07:41 Resp 16 06/09/25 07:41 BP 105/52 L 06/09/25 06:45 Pulse Ox 97 06/09/25 06:45 O2 Del Method Nasal Cannula 06/09/25 06:45 O2 Flow Rate 2 06/09/25 06:45 FiO2 40 06/03/25 15:38 Oxygen Flow Rate 8 05/24/25 13:56 BMI result Body Mass Index 17.0 Const: Other: Gen: comfortable on HFNC, thin/malnourished HEENT: sclera anicteric, moist mucus membranes Neck: supple Lungs: diminished Heart: regular rate and rhythm, no murmurs Abd: soft, non-tender, non-distended Ext: no leg edema Skin: warm/well-perfused Neuro: alert and oriented x3, no focal findings Psych: appropriate affect Objective Data Active Medications Acetaminophen (Acetaminophen Oral Liquid 650 Mg/20.3 Ml Solution) 650 mg PO Q6H PRN PRN Reason: Pain, Mild (Pain Scale 1-3) Last Admin: 06/09/25 03:35 Dose: 650 mg Documented By: CHRIS Amiodarone HCl (Amiodarone Hcl 200 Mg Tablet) 200 mg PO BID [facility] Last Admin: 06/09/25 08:57 Dose: 200 mg Documented By: JAMIE Apixaban (Apixaban 5 Mg Tablet) 5 mg PO BID [facility] Last Admin: 06/09/25 08:57 Dose: 5 mg Documented By: JAMIE Atorvastatin Calcium (Atorvastatin Calcium 80 Mg Tablet) 80 mg PO BEDTIME [facility] Last Admin: 06/08/25 21:07 Dose: 80 mg Documented By: CHRIS Baclofen (Baclofen 10 Mg Tablet) 10 mg PO TID [facility] Last Admin: 06/09/25 08:58 Dose: 10 mg Documented By: JAMIE Bisacodyl (Bisacodyl 10 Mg Supp.Rect) 10 mg [place] DAILY PRN PRN Reason: Constipation Ergocalciferol (Ergocalciferol (Vitamin D2) 1,250 Mcg Capsule) 1,250 mcg PO MO [facility] Last Admin: 06/03/25 09:08 Dose: 1,250 mcg Documented By: ELEONORA Fluticasone/Vilanterol (Fluticasone/Vilanterol 200/25 Blst.W.Dev) 1 puff INHALE RDAILY [facility] Last Admin: 06/09/25 07:41 Dose: 1 puff Documented By: GUERO Furosemide (Furosemide 40 Mg Tablet) 40 mg PO DAILY [facility]; Protocol Last Admin: 06/09/25 08:57 Dose: 40 mg Documented By: JAMIE Linezolid (Zyvox/D5w) 600 mg in 300 mls @ 300 mls/hr IV Q12H [facility] Last Infusion: 06/09/25 04:19 Dose: Infused Documented By: CHRIS Nutrition (Parenteral) (Parenteral Nutrition) 1,080 mls @ 45 mls/hr IV .Q24H [facility]; Protocol Stop: 06/09/25 20:59 Last Admin: 06/08/25 21:13 Dose: 45 mls/hr Documented By: CHRIS Potassium Phosphate (Kphos) 15 mmol in 250 mls @ 62.5 mls/hr IV ONCE ONE Stop: 06/09/25 13:59 Calcium Gluconate (Calcium Gluconate) 2 gm in 100 mls @ 50 mls/hr IV ONCE ONE Stop: 06/09/25 09:59 Last Admin: 06/09/25 08:57 Dose: 50 mls/hr Documented By: JAMIE Nutrition (Parenteral) (Parenteral Nutrition) 1,080 mls @ 45 mls/hr IV .Q24H [facility]; Protocol Stop: 06/10/25 20:59 Losartan Potassium (Losartan Potassium 25 Mg Tablet) 25 mg PO DAILY [facility]; Protocol Last Admin: 06/09/25 08:57 Dose: 25 mg Documented By: JAMIE Magnesium Hydroxide (Milk Of Magnesia 30 Ml Oral.Susp) 30 ml PO BEDTIME PRN PRN Reason: Constipation Magnesium Oxide (Magnesium Oxide 400 Mg Tablet) 400 mg PO BID [facility] Last Admin: 06/09/25 08:58 Dose: 400 mg Documented By: JAMIE Melatonin (Melatonin 3 Mg Tablet) 3 mg PO BEDTIME [facility] Last Admin: 06/08/25 21:07 Dose: 3 mg Documented By: CHRIS Mirtazapine (Mirtazapine 7.5 Mg Tablet) 7.5 mg PO BEDTIME [facility] Last Admin: 06/08/25 21:07 Dose: 7.5 mg Documented By: CHRIS Multivitamins/Vitamin C (Multivitamin Tablet) 1 tab PO DAILY [facility] Last Admin: 06/09/25 08:57 Dose: 1 tab Documented By: JAMIE Pharmacy Consult (Consult Rx Parenteral Nutrition Ordering) 1 each MISCELLANE DAILY PRN PRN Reason: Consult order Polyethylene Glycol (Polyethylene Glycol 3350 17 Gm Powd.Pack) 17 gm PO DAILY PRN PRN Reason: Constipation Pyridoxine HCl (Pyridoxine Hcl (Vitamin B6) 50 Mg Tablet) 50 mg PO DAILY [facility] Last Admin: 06/09/25 08:58 Dose: 50 mg Documented By: JAMIE Sodium Biphosphate/Sodium Phosphate (Sodium Phosphate,[place]-Dibasic 133 Ml Enema) 118 ml [place] DAILY PRN PRN Reason: Constipation Spironolactone (Spironolactone 25 Mg Tablet) 25 mg PO DAILY [facility]; Protocol Last Admin: 06/09/25 08:57 Dose: 25 mg Documented By: JAMIE Thiamine HCl (Thiamine Hcl 100 Mg Tablet) 100 mg PO DAILY [facility] Last Admin: 06/09/25 08:57 Dose: 100 mg Documented By: JAMIE Vancomycin HCl (Vancomycin Hcl Oral Solution 125 Mg/5 Ml Soln.Recon) 125 mg PO DAILY [facility] Last Admin: 06/09/25 08:57 Dose: 125 mg Documented By: JAMIE Labs 06/04/25 06:36 06/09/25 05:45 Labs: Laboratory Results - last 24 hr 06/08/25 06/09/25 16:09 05:45 Hold Purple Top SEE NOTE Anion Gap 13 Estim Creat Clear Calc 59.4 Estimated GFR > 60 Random Glucose 98 Calcium 8.1 L Phosphorus 3.1 Magnesium 1.9 Albumin 2.8 L C. difficile Tox B Gene NEGATIVE Assessment and Plan (1) CHF (congestive heart failure): Status: Acute (2) Afib: Status: Acute Plan 74yo F with CHF, pAF, hx recent C. difficile infection for which admitted to [facility] [place] sent in from STR @ [facility] with dyspnea found to have hypoxic respiratory failure from multifocal pneumonia requiring intubation admitted to ICU, extubated 05/27, downgraded to telemetry 05/28 complicated by CHF exacerbation requiring CPAP, now on HFNC and had been on Lasix drip, now oral Lasix AHRF due to multifocal MRSA pneumonia with acute asthma exacerbation as well as now acute HFpEF - anticipate weaning off HFNC to regular NC in next 24h [though has CPAP if needed] - completed Zosyn 05/24-06/02, changed vancomycin to linezolid 05/30-06/14 per ID [MRSA swab positive] - methylprednisolone 05/30-06/03; continue nebs + Breo - Lasix PO, changed from IV drip ; continue losartan and spironolactone - TTE 05/31: - Normal left ventricular cavity size. There is mildly increased left ventricular wall thickness. The left ventricular systolic function is low normal. The visually estimated ejection fraction is between 50-55%. - The apical septum and mid inferoseptal segments are hypokinetic. - Mildly increased right ventricular cavity size. There is mildly decreased right ventricular systolic function. - The left atrium is severely dilated. The right atrium is severely dilated. - There is mild to moderate mitral valve regurgitation. wean off O2 moderate, now severe protein-calorie malnutrition - poor PO intake; supplements; TPN via PICC line -Oral diet per FIRE FIGHTERS DISPATCHER, only eating 25% -consider stopping TPN transaminasemia - suspect hepatic congestion from CHF or effect of pneumonia; recheck LFTs tomorrow hypOK - repleted and resolved Mild Hyponatremia, chronic likely multifactorial being adjusted in tpn question of VRE bacteremia - blood culture from 05/24 is positive for VRE; however, subsequent cultures from 05/28 negative despite not getting coverage [was on vancomycin and piperacillin-tazobactam] so this may have been a contaminant. Regardless, on linezolid 05/30-06/14 for MRSA pneumonia hx recent C. difficile colitis - PO vancomycin while on systemic ABX and for 2d afterwards distended gallbladder with cholelithiasis and pericholecystic fluid - doubt acute cholecystitis as abd is completely benign; Gen Surg concurs pAF: continue amiodarone + apixaban VTE ppx: apixaban dispo: STR In my clinical judgment, the patient requires continued inpatient hospitalization for the following reasons: IV ABX, hypoxic resp failure requiring HFNC, IV diuresis requiring drip, TPN Sister Kezia Joseph to be updated as needed Quality Stroke Does the patient have a stroke diagnosis?: No VTE Prior VTE?: No VTE Risk Level:: Medical - moderate - high VTE Device Contraindication: N/A - Device Ordered VTE Drug Contraindication: N/A - Med Ordered
[2025-06-09] MEDS: Potassium Phosphate/NS 15 MMOL/250 ML PLAST..BAG 62.5 MMOL IV (11:50)
[2025-06-09 18:55] LABS: ABG HCO3 21 mmol/L (22-26); ABG O2 % Saturation 90.0 %
[2025-06-09] MEDS: Furosemide 40 MG/4 ML VIAL IVPUSH (19:18)
[2025-06-09] MEDS: Potassium Chloride Packet 20 MEQ PACKET 40 MEQ PO (19:35)
[2025-06-09 19:41] LABS: ABG Refer to POC result
--- NOTE | 2025-06-09 19:41 | PC.NURSE ---
Respiratory status decline - pt began c/o SOB late afternoon. Sats 94% 2L, lungs clear. Repositioning helped (pt very contracted) Pt reports feeling sob later in the day, sats low 90s but lungs clear. MD alerted - sats declined to 88% 2L. MD aware, Resp called. CXR, ABGs orded pr MD. Per MD and RT recommendations pt to likely be transported to [facility]. Will continue to monitor.
[2025-06-09] MEDS: Parenteral Nutrition 1,080 ML 45 ML IV (22:14)
[2025-06-10] MEDS: Acetaminophen Oral Liquid 650 MG/20.3 ML SOLUTION PO (01:31)
[2025-06-10 02:20] LABS: Resp Syncy Virus RNA Qual PCR NEGATIVE (Negative); SARS COV2 PCR INHOUSE NEGATIVE (Negative)
[2025-06-10 03:08] VITALS: BP 111/52; PULSE 85; RESP 17; TEMP 36.6; O2SAT 94
[2025-06-10 06:00] VITALS: BMI 17.0
[2025-06-10 07:33] VITALS: BP 130/58; PULSE 87; RESP 18; O2SAT 91
[2025-06-10] MEDS: vancomycin HCL Oral Solution 125 MG/5 ML SOLN.RECON PO ×4 (07:56→21:39)
[2025-06-10] MEDS: Fluticasone/Vilanterol 200/25 BLST.W.DEV 1 PUFF INHALE (08:39)
[2025-06-10 08:40] VITALS: PULSE 62; O2SAT 90
--- NOTE | 2025-06-10 09:20 | MHC.CLN ---
F/U PO INTAKE VARIABLE RANGING FROM 0-50% DIET RX: PUREED WITH THIN LIQ PER POLICY INTERN MAGIC CUP IN PLACE PPN CONTINUES REVIEWED LABS-LOW SERUM SODIUM-REMAINS UNCHANGED DISCUSSED WITH PHARMACY CONTINUE PPN AT 45ML/HR WITH 74G LIPIDS PROVIDES 1291KCALS (30KCALS/KG), 108G DEXTROSE, 46G PROTEIN (1.06G/KG) REPLETE LYTES NEEDED CONTINUE TO MONITOR PO INTAKE GOAL TO DECREASE PPN PO INTAKE IMPROVES
--- NOTE | 2025-06-10 11:15 | MHC.CM.PN ---
Per ROUNDS, Patient is not yet medically cleared for dc (? Goals of Care discussion).
[2025-06-10 12:37] LABS: Albumin Level 3.2 g/dL (3.5-5.0); Anion Gap 16 (12-20); Blood Urea Nitrogen 24 mg/dL (9-16); Calcium 8.5 mg/dL (8.4-10.2); Carbon Dioxide 23 mmol/L (22-29); Chloride 100 mmol/L (96-108); Creatinine Clr Calc Pharmacy 57.5; Estimated Glomerular Filt Rate > 60; Magnesium 2.0 mg/dL (1.6-2.6); Potassium 4.7 mmol/L (3.3-5.1); Sodium 134 mmol/L (135-145)
--- NOTE | 2025-06-10 13:43 | P.PNIM_ITS ---
Subjective Subjective Date of Service: 06/10/25 Interval History: She seems better today, had another episode of acute respiratory distress with hypoxia, increased work of breathing and cxr suggesting pulmonary edema, she was given additional lasix and did fine overnight Review of Systems Review of Systems: Yes all other systems are reviewed and are negative Physical Exam 2 Vital Signs: Vital Signs: Last Vital Signs Temp 97.8 F 06/10/25 03:08 Pulse 62 06/10/25 08:40 Resp 18 06/10/25 07:33 BP 130/58 L 06/10/25 07:33 Pulse Ox 91 L 06/10/25 07:33 O2 Del Method Nasal Cannula 06/10/25 07:33 O2 Flow Rate 1.5 06/10/25 07:33 FiO2 40 06/03/25 15:38 Oxygen Flow Rate 8 05/24/25 13:56 BMI result Body Mass Index 17.0 Const: Other: Gen: comfortable on HFNC, thin/malnourished HEENT: sclera anicteric, moist mucus membranes Neck: supple Lungs: diminished Heart: regular rate and rhythm, no murmurs Abd: soft, non-tender, non-distended Ext: no leg edema Skin: warm/well-perfused Neuro: alert and oriented x3, no focal findings Psych: appropriate affect Objective Data Active Medications Acetaminophen (Acetaminophen Oral Liquid 650 Mg/20.3 Ml Solution) 650 mg PO Q6H PRN PRN Reason: Pain, Mild (Pain Scale 1-3) Last Admin: 06/10/25 01:31 Dose: 650 mg Documented By: ODILIA Amiodarone HCl (Amiodarone Hcl 200 Mg Tablet) 200 mg PO BID [facility] Last Admin: 06/10/25 07:55 Dose: 200 mg Documented By: TERESITA Apixaban (Apixaban 5 Mg Tablet) 5 mg PO BID [facility] Last Admin: 06/10/25 07:56 Dose: 5 mg Documented By: TERESITA Atorvastatin Calcium (Atorvastatin Calcium 80 Mg Tablet) 80 mg PO BEDTIME [facility] Last Admin: 06/09/25 20:32 Dose: 80 mg Documented By: KAREY Baclofen (Baclofen 10 Mg Tablet) 10 mg PO TID [facility] Last Admin: 06/10/25 07:55 Dose: 10 mg Documented By: TERESITA Bisacodyl (Bisacodyl 10 Mg Supp.Rect) 10 mg RI DAILY PRN PRN Reason: Constipation Ergocalciferol (Ergocalciferol (Vitamin D2) 1,250 Mcg Capsule) 1,250 mcg PO MO [facility] Last Admin: 06/10/25 08:03 Dose: Not Given Documented By: TERESITA Non-Admin Reason: uNABLE TO CRUSH Fluticasone/Vilanterol (Fluticasone/Vilanterol 200/25 Blst.W.Dev) 1 puff INHALE RDAILY [facility] Last Admin: 06/10/25 08:39 Dose: 1 puff Documented By: LARRY Furosemide (Furosemide 40 Mg Tablet) 40 mg PO DAILY [facility]; Protocol Last Admin: 06/10/25 07:55 Dose: 40 mg Documented By: TERESITA Nutrition (Parenteral) (Parenteral Nutrition) 1,080 mls @ 45 mls/hr IV .Q24H DEE; Protocol Stop: 06/10/25 20:59 Last Admin: 06/09/25 22:14 Dose: 45 mls/hr Documented By: KAREY Nutrition (Parenteral) (Parenteral Nutrition) 1,080 mls @ 45 mls/hr IV .Q24H DEE; Protocol Stop: 06/11/25 20:59 Losartan Potassium (Losartan Potassium 25 Mg Tablet) 25 mg PO DAILY [facility]; Protocol Last Admin: 06/10/25 07:55 Dose: 25 mg Documented By: TERESITA Magnesium Hydroxide (Milk Of Magnesia 30 Ml Oral.Susp) 30 ml PO BEDTIME PRN PRN Reason: Constipation Magnesium Oxide (Magnesium Oxide 400 Mg Tablet) 400 mg PO BID [facility] Last Admin: 06/10/25 07:55 Dose: 400 mg Documented By: TERESITA Melatonin (Melatonin 3 Mg Tablet) 3 mg PO BEDTIME [facility] Last Admin: 06/09/25 20:31 Dose: 3 mg Documented By: KAREY Mirtazapine (Mirtazapine 7.5 Mg Tablet) 7.5 mg PO BEDTIME [facility] Last Admin: 06/09/25 20:32 Dose: 7.5 mg Documented By: KAREY Multivitamins/Vitamin C (Multivitamin Tablet) 1 tab PO DAILY [facility] Last Admin: 06/10/25 07:55 Dose: 1 tab Documented By: TERESITA Pharmacy Consult (Consult Rx Parenteral Nutrition Ordering) 1 each MISCELLANE DAILY PRN PRN Reason: Consult order Polyethylene Glycol (Polyethylene Glycol 3350 17 Gm Powd.Pack) 17 gm PO DAILY PRN PRN Reason: Constipation Pyridoxine HCl (Pyridoxine Hcl (Vitamin B6) 50 Mg Tablet) 50 mg PO DAILY [facility] Last Admin: 06/10/25 07:55 Dose: 50 mg Documented By: TERESITA Sodium Biphosphate/Sodium Phosphate (Sodium Phosphate,[place]-Dibasic 133 Ml Enema) 118 ml RI DAILY PRN PRN Reason: Constipation Spironolactone (Spironolactone 25 Mg Tablet) 25 mg PO DAILY [facility]; Protocol Last Admin: 06/10/25 07:55 Dose: 25 mg Documented By: TERESITA Thiamine HCl (Thiamine Hcl 100 Mg Tablet) 100 mg PO DAILY [facility] Last Admin: 06/10/25 07:55 Dose: 100 mg Documented By: TERESITA Vancomycin HCl (Vancomycin Hcl Oral Solution 125 Mg/5 Ml Soln.Recon) 125 mg PO QID [facility] Last Admin: 06/10/25 12:22 Dose: 125 mg Documented By: SOFFAA Labs 06/04/25 06:36 06/10/25 11:55 Labs: Laboratory Results - last 24 hr 06/09/25 06/10/25 06/10/25 18:50 01:22 11:55 O2 Saturation 90.0 ABG pH at Pt Temp 7.52 H ABG pCO2 at Pt Temp 26 L ABG pO2 at Pt Temp 77 L ABG HCO3 21 L ABG Base Excess (Actual) -0.2 Anion Gap 16 Estim Creat Clear Calc 57.5 Estimated GFR > 60 Random Glucose 251 H Calcium 8.5 Phosphorus 3.1 Magnesium 2.0 Albumin 3.2 L Influenza Type A (PCR) NEGATIVE Influenza Type B (PCR) NEGATIVE RSV RNA Qual (PCR) NEGATIVE SARS-CoV-2 RNA (RT-PCR) NEGATIVE Assessment and Plan (1) CHF (congestive heart failure): Status: Acute (2) Afib: Status: Acute Plan 74-year-old female with history of CHF, paroxysmal atrial fibrillation (pAF), and recent C. difficile infection (admitted to [facility]), transferred from [facility] with dyspnea. Found to have hypoxic respiratory failure secondary to multifocal pneumonia, requiring intubation. Admitted to ICU, extubated 05/27, downgraded to telemetry 05/28. Hospital course complicated by CHF exacerbation requiring CPAP; currently on HFNC, transitioned from furosemide (Lasix) drip to oral furosemide. Acute hypoxic respiratory failure (AHRF) due to multifocal MRSA pneumonia, acute asthma exacerbation, and acute HFpEF Anticipate weaning off HFNC to regular NC in next 24h (CPAP available if needed) Completed piperacillin-tazobactam (Zosyn) 05/24?06/02 Vancomycin 05/24?05/30, then switched to linezolid 05/30?06/14 per ID (MRSA swab positive) Methylprednisolone 05/30?06/03; continue nebulizers and Breo Furosemide PO (previously IV drip); continue losartan and spironolactone Echocardiogram (TTE 05/31) Normal LV cavity size; mildly increased LV wall thickness LV systolic function low-normal (EF 50?55%) Apical septum and mid-inferoseptal segments hypokinetic Mildly increased RV cavity size; mildly decreased RV systolic function Severely dilated left and right atria Mild to moderate mitral regurgitation Oxygen weaning Plan to wean off O2 as tolerated Severe protein-calorie malnutrition (previously moderate) Poor PO intake; receiving supplements and TPN via PICC Oral diet per LADLE BUILDER, eating ?25% Consider stopping TPN Consulting surgery fro possible PEG Transaminasemia Suspect hepatic congestion from CHF or effect of pneumonia Plan: recheck LFTs tomorrow Hypokalemia Repleted and resolved Mild hyponatremia (chronic, likely multifactorial) Sodium being adjusted in TPN Question of VRE bacteremia Blood culture 05/24 positive for VRE; subsequent cultures (05/28) negative despite lack of specific coverage (on vancomycin and piperacillin-tazobactam) Likely contaminant; on linezolid 05/30?06/14 for MRSA pneumonia Recent C. difficile colitis Receiving PO vancomycin while on systemic antibiotics and for 2 days after Distended gallbladder with cholelithiasis and pericholecystic fluid Doubt acute cholecystitis (abdomen benign); General Surgery concurs Paroxysmal atrial fibrillation Continue amiodarone and apixaban VTE prophylaxis Apixaban Disposition STR In my clinical judgment, the patient requires continued inpatient hospitalization for the following reasons: * IV antibiotics * Hypoxic respiratory failure requiring HFNC * IV diuresis (previously on drip) * TPN Family: spoke to 12/8, we discussed possible PEG and code status, patient at this time wants everything done Quality Stroke Does the patient have a stroke diagnosis?: No VTE Prior VTE?: No VTE Risk Level:: Medical - moderate - high VTE Device Contraindication: N/A - Device Ordered VTE Drug Contraindication: N/A - Med Ordered
--- NOTE | 2025-06-10 15:47 | MHC.SLORD ---
Speech Language Pathology Order Status: No SOLAR ENERGY SALES SPECIALIST tx 06/10, pt remains stable with PO tolerance.
[2025-06-10 16:00] VITALS: BP 117/54; PULSE 93; RESP 16; TEMP 36.4; O2SAT 96
--- NOTE | 2025-06-10 16:50 | PC.NURSE ---
per md O2 at goal 88%+
[2025-06-10 20:00] VITALS: BP 126/60; PULSE 90; RESP 16; TEMP 36.6; O2SAT 100
[2025-06-10] MEDS: Parenteral Nutrition 1,080 ML 45 ML IV (21:46)
[2025-06-11] VITALS (17 sets, daily range): BP systolic 106–148; BP diastolic 46–73; PULSE 88–110; RESP 17–50; TEMP 36.2–36.8; O2SAT 89–98; BMI 17.0
[2025-06-11] MEDS: Fluticasone/Vilanterol 200/25 BLST.W.DEV 1 PUFF INHALE (08:07)
--- NOTE | 2025-06-11 08:09 | P.CONGS_ITS ---
History of Present Illness Consult details Consult date: 06/11/25 <Jaqueline Goff PA-C - Last Filed: 06/11/25 08:33> Reason for consult: other (feeding tube) <JOSE Wang Last Filed: 06/11/25 08:33> Requesting physician: Long Carreno <JOSE Wang Last Filed: 06/11/25 08:33> Narrative: 74-year-old female with history of CHF, paroxysmal atrial fibrillation, and recent C. difficile infection (admitted to [facility]) transferred from [facility] to [facility] ED with dyspnea. She was found to have hypoxic respiratory failure secondary to multifocal pneumonia, admitted to the ICU on 05/24/25 requiring intubation. She was subsequently extubated 05/27/25 and downgraded to telemetry on 05/28/25. She has completed a course of IV zosyn, vanco and is now on linezolid. Her hospital course has been complicated by CHF exacerbation requiring CPAP transitioned to HFNC and now on oxymask this morning at 6L. Her oral intake has been low and has been on supplements as well as TPN. General surgery was consulted for possible PEG tube placement. She is confused this morning and is unable to provide any history. No mention of any previous abdominal surgery on EMR. <Jaqueline Goff PA-C Last Filed: 06/11/25 08:33> Review of Systems 2 Review of Systems: Yes Unobtainable due to mental status <JOSE Wang Last Filed: 06/11/25 08:33> Neurologic: Reports confusion <JOSE Wang Last Filed: 06/11/25 08:33> Psychiatric: Psychiatric: Reports confusion <JOSE Wang Last Filed: 06/11/25 08:33> [facility] Past Medical History Medical History: Medical History Asthma CVA (cerebral vascular accident) Afib CHF (congestive heart failure) <JOSE Wang Last Filed: 06/11/25 08:33> Family History Family history: reviewed and not pertinent <JOSE Wang Last Filed: 06/11/25 08:33> Social History Social History: Social History Household Members: Unknown / Unable to assess Housing: Unknown / Unable to assess Comment: 1:1 sitter Patient Tobacco Use Status: Tobacco use Unknown Smoked in Last 30 Days: No Use of substances other than those prescribed or required for medical reasons: No Currently Displaying Signs/Symptoms of Drug Intoxication Withdrawal: No Advance Directives: No Advance Directives Information Provided: Yes Do you have a plan to hurt others: No Plan Recently lost weight without trying: Unsure Patient : No <JOSE Wang Last Filed: 06/11/25 08:33> Meds Allergies/Adverse reactions: Allergies Allergy/AdvReac Type Severity Reaction Status Date / Time cephalexin (From Keflex) Allergy Unknown Verified 05/28/25 06:06 lisinopril Allergy Unknown Verified 05/28/25 06:05 propranolol Allergy Unknown Verified 05/28/25 06:05 <Jaqueline Goff PA-C - Last Filed: 06/11/25 08:33> Active Medications: Current Medications Acetaminophen (Acetaminophen Oral Liquid 650 Mg/20.3 Ml Solution) 650 mg PO Q6H PRN PRN Reason: Pain, Mild (Pain Scale 1-3) Last Admin: 06/10/25 01:31 Dose: 650 mg Amiodarone HCl (Amiodarone Hcl 200 Mg Tablet) 200 mg PO BID [facility] Last Admin: 06/10/25 21:39 Dose: 200 mg Apixaban (Apixaban 5 Mg Tablet) 5 mg PO BID [facility] Last Admin: 06/10/25 21:39 Dose: 5 mg Atorvastatin Calcium (Atorvastatin Calcium 80 Mg Tablet) 80 mg PO BEDTIME [facility] Last Admin: 06/10/25 21:38 Dose: 80 mg Baclofen (Baclofen 10 Mg Tablet) 10 mg PO TID [facility] Last Admin: 06/10/25 21:39 Dose: 10 mg Bisacodyl (Bisacodyl 10 Mg Supp.Rect) 10 mg OK DAILY PRN PRN Reason: Constipation Ergocalciferol (Ergocalciferol (Vitamin D2) 1,250 Mcg Capsule) 1,250 mcg PO MO [facility] Last Admin: 12/08/25 08:03 Dose: Not Given Fluticasone/Vilanterol (Fluticasone/Vilanterol 200/25 Blst.W.Dev) 1 puff INHALE RDAILY [facility] Last Admin: 06/11/25 08:07 Dose: 1 puff Furosemide (Furosemide 40 Mg Tablet) 40 mg PO DAILY [facility]; Protocol Last Admin: 06/10/25 07:55 Dose: 40 mg Nutrition (Parenteral) (Parenteral Nutrition) 1,080 mls @ 45 mls/hr IV .Q24H DEE; Protocol Stop: 06/11/25 20:59 Last Admin: 06/10/25 21:46 Dose: 45 mls/hr Losartan Potassium (Losartan Potassium 25 Mg Tablet) 25 mg PO DAILY [facility]; Protocol Last Admin: 06/10/25 07:55 Dose: 25 mg Magnesium Hydroxide (Milk Of Magnesia 30 Ml Oral.Susp) 30 ml PO BEDTIME PRN PRN Reason: Constipation Magnesium Oxide (Magnesium Oxide 400 Mg Tablet) 400 mg PO BID [facility] Last Admin: 06/10/25 21:38 Dose: 400 mg Melatonin (Melatonin 3 Mg Tablet) 3 mg PO BEDTIME [facility] Last Admin: 06/10/25 21:38 Dose: 3 mg Mirtazapine (Mirtazapine 7.5 Mg Tablet) 7.5 mg PO BEDTIME [facility] Last Admin: 06/10/25 21:39 Dose: 7.5 mg Multivitamins/Vitamin C (Multivitamin Tablet) 1 tab PO DAILY [facility] Last Admin: 06/10/25 07:55 Dose: 1 tab Pharmacy Consult (Consult Rx Parenteral Nutrition Ordering) 1 each MISCELLANE DAILY PRN PRN Reason: Consult order Polyethylene Glycol (Polyethylene Glycol 3350 17 Gm Powd.Pack) 17 gm PO DAILY PRN PRN Reason: Constipation Pyridoxine HCl (Pyridoxine Hcl (Vitamin B6) 50 Mg Tablet) 50 mg PO DAILY [facility] Last Admin: 06/10/25 07:55 Dose: 50 mg Sodium Biphosphate/Sodium Phosphate (Sodium Phosphate,[place]-Dibasic 133 Ml Enema) 118 ml OK DAILY PRN PRN Reason: Constipation Spironolactone (Spironolactone 25 Mg Tablet) 25 mg PO DAILY [facility]; Protocol Last Admin: 06/10/25 07:55 Dose: 25 mg Thiamine HCl (Thiamine Hcl 100 Mg Tablet) 100 mg PO DAILY [facility] Last Admin: 06/10/25 07:55 Dose: 100 mg Vancomycin HCl (Vancomycin Hcl Oral Solution 125 Mg/5 Ml Soln.Recon) 125 mg PO QID [facility] Last Admin: 06/10/25 21:39 Dose: 125 mg <Jaqueline Goff PA-C - Last Filed: 06/11/25 08:33> Home medications: Home Medications ?Medication ?Instructions ?Recorded ?Confirmed ?Last Taken ?Type acetaminophen 325 mg tablet 650 mg PO Q4H PRN Pain (Sc josh 05/24/25 05/24/25 Unknown History Score 1-3) acetaminophen 325 mg tablet 650 mg PO Q6H PRN Fever 05/24/25 Unknown History albuterol sulfate 90 mcg/actuation 2 puff inhalation Q 6H PRN Wheezing 05/24/25 05/24/25 Unknown History aerosol inhaler amiodarone 200 mg tablet 200 mg PO BID 05/24/2505/24 Unknown History apixaban 5 mg tablet (Eliquis) 5 mg PO BID 05/24/25 Unknown History atorvastatin 80 mg tablet 80 mg PO BEDTIME 05/24/25 Unknown History baclofen 25 mg/5 mL (5 mg/mL) oral 10 mg PO TID 05/24/25 Unknown History suspension bisacodyl 10 mg rectal suppository 10 mg OK DAILY PRN Constipation 05/24/25 05/24/25 Unknown History ergocalciferol (vitamin D2) 1,250 1,250 mcg PO MO 05/0505/24/25 Unknown History mcg (50,000 unit) capsule fluticasone 500 mcg-salmeterol 50 1 inh inhalation BID 05/24/25 05/24/25 Unknown History mcg/dose blistr powdr for inhalation (Wixela Inhub) ipratropium 0.5 mg-albuterol 3 mg 3 ml inhalation Q6H PRN Shortness 05/24/25 05/24/25 Unknown History (2.5 mg base)/3 mL nebulization Of Breath Or Wheezing soln levofloxacin 750 mg tablet 750 mg PO DAILY 05/24/25 Unknown History losartan 25 mg tablet 25 mg PO DAILY 05/24/2505/05 Unknown History magnesium hydroxide 400 mg/5 mL 30 ml PO BEDTIME PRN C onstipation 05/24/25 05/24/25 Unknown History oral suspension (Milk of Magnesia) magnesium oxide 400 mg PO BID 05/24/2505/24 Unknown History melatonin 3 mg tablet 3 mg PO BEDTIME 05/24/25 Unknown History mirtazapine 7.5 mg tablet 7.5 mg PO BEDTIME 05/24/25 1 07/24/24 Unknown History multivitamin 1 tab PO DAILY 05/24/2505/05 Unknown History polyethylene glycol 3350 17 17 g PO DAILY PRN Constipa tion 05/24/25 05/24/25 Unknown History gram/dose oral powder pyridoxine (vitamin B6) 50 mg 50 mg PO DAILY 05/24/25 05/24/25 Unknown History tablet sodium chloride 1,000 mg soluble 1,000 mg PO BID 05/2405/24/25 Unknown History tablet sodium phosphates 19 gram-7 118 ml OK DAILY PRN Consti pation 05/24/25 05/24/25 Unknown History gram/118 mL enema (Fleet Enema) spironolactone 25 mg tablet 25 mg PO DAILY 05/24/25 Unknown History thiamine HCl (vitamin B1) 100 mg 100 mg PO DAILY 05/2405/24/25 Unknown History tablet <Jaqueline Goff PA-C - Last Filed: 06/11/25 08:33> Physical Exam 2 Vital Signs: Vital Signs: Last Vital Signs Temp 97.4 F 06/11/25 07:16 Pulse 88 06/11/25 08:07 Resp 20 06/11/25 08:07 BP 118/46 L 06/11/25 07:16 Pulse Ox 98 06/11/25 03:08 O2 Del Method Oxymask 06/11/25 07:16 O2 Flow Rate 6 06/11/25 07:16 FiO2 40 06/03/25 15:38 Oxygen Flow Rate 8 05/24/25 13:56 BMI result Body Mass Index 17.0 <JOSE Wang Last Filed: 06/11/25 08:33> Const: General: confusion; No in distress <Jaqueline Goff PA-C - Last Filed: 06/11/25 08:33> Nutritional Appearance: cachectic <Jaqueline Goff PA-C Ani Last Filed: 06/11/25 08:33> Orientation/consciousness: confusion <Jaqueline Goff PA-C Ani Last Filed: 06/11/25 08:33> Resp: Other: some increased work of breathing <Jaqueline Goff PA-C Ani Last Filed: 06/11/25 08:33> Effort & Inspection: uses accessory muscles (abdominal, mild ) <Jaqueline Goff PA-C Ani Last Filed: 06/11/25 08:33> GI: Other: soft, nontender no surgical scars appreciated but abdomen is hard to examine given confusion and patient limatation <Jaqueline Goff PA-C Ani Last Filed: 06/11/25 08:33> Palpation (GI): no guarding <Jaqueline Goff PA-C Ani Last Filed: 06/11/25 08:33> Percussion: Yes normal to percussion <Jaqueline Goff PA-C Ani Last Filed: 06/11/25 08:33> Skin: Other: warm and dry <Jaqueline Goff PA-C Ani Last Filed: 06/11/25 08:33> Neuro: General: confusion <Jaqueline Goff PA-C Ani Last Filed: 06/11/25 08:33> Results Labs Result diagrams: 06/04/25 06:36 06/11/25 06:54 <Jaqueline Goff PA-C nAi Last Filed: 06/11/25 08:33> Labs: Abnormal lab results 06/10/25 Range/Units 11:55 Sodium 134 L (135-145) mmol/L BUN 24 H (9-16) mg/dL Random Glucose 251 H (60-115) mg/dL Albumin 3.2 L (3.5-5.0) g/dL BMP 06/10/25 11:55 Sodium 134 L Potassium 4.7 D Chloride 100 Carbon Dioxide 23 BUN 24 H Creatinine 0.61 Calcium 8.5 Liver Function 06/10/25 Range/Units 11:55 Albumin 3.2 L (3.5-5.0) g/dL Urine 05/24/25 Range/Units 17:18 Urine Color Yellow Urine Appearance Clear Urine pH 5.5 (5.0-9.0) Ur Specific [place] 1.025 (1.005-1.025) Urine Protein 30 (1+) H (Neg-Trace) mg/dL Urine Glucose (UA) Negative (Negative) mg/dL All other labs normal. <Jaqueline Goff PA-C - Last Filed: 06/11/25 08:33> Imaging Abdomen CT scan report/results: report reviewed and image reviewed <Jaqueline Goff PA-C - Last Filed: 06/11/25 08:33> Assessment and Plan (1) Multifocal pneumonia: Status: Acute <JOSE Wang Last Filed: 06/11/25 08:33> (2) Malnutrition: Status: Acute <JOSE Wang Last Filed: 06/11/25 08:33> Patient was multiple medical problems including CHF, acute on chronic respiratory failure with a recent multifocal pneumonia Surgery had been consulted for placement of a PEG tube The patient currently still appeared significantly short of breath I also going to her the procedure of PEG tube placement I reviewed the risks, benefits and alternatives I am uncertain as to her level of comprehension but she he had that she does not want this procedure Review of her CAT scan images also show that there may be difficult access to the stomach view of overlying bowel loops for a PEG tube placement I will discuss this option again with the family In the meantime, I would recommend optimizing the patient's pulmonary status as she presents with significant perioperative risks in view of her ongoing acute respiratory issues We will follow along <Adiel Galdamez MD - Last Filed: 06/11/25 12:51> 74-year-old female with history of CHF, paroxysmal atrial fibrillation, and recent C. difficile infection (admitted to [facility]) admitted with hypoxic respiratory failure secondary to multifocal pneumonia requiring admission to ICU and intubation, with hospital course complicated by CHF exacerbation and now extubated on med/tele on 6L oxymask. She appears mildly short of breath this morning. CT scan reviewed- possible window very laterally. No history of abdominal surgery per EMR, no scars noted. Currently not appropriate for anesthesia and PEG tube placement given respiratory status. Will continue to follow peripherally and once improves, can tenatively schedule. Continue TPN for now. <Jaqueline Goff PA-C - Last Filed: 06/11/25 08:33> Procedures Date of Service Date of Service: 06/11/25 <Jaqueline Goff PA-C - Last Filed: 06/11/25 08:33> 06/11/25 <Adiel Galdamez MD - Last Filed: 06/11/25 12:51>
[2025-06-11 08:26] LABS: Albumin Level 2.9 g/dL (3.5-5.0); Anion Gap 13 (12-20); Blood Urea Nitrogen 22 mg/dL (9-16); Calcium 8.3 mg/dL (8.4-10.2); Carbon Dioxide 23 mmol/L (22-29); Chloride 106 mmol/L (96-108); Creatinine Clr Calc Pharmacy 61.5; Estimated Glomerular Filt Rate > 60; Magnesium 2.2 mg/dL (1.6-2.6); Potassium 3.8 mmol/L (3.3-5.1); Sodium 138 mmol/L (135-145)
[2025-06-11] MEDS: vancomycin HCL Oral Solution 125 MG/5 ML SOLN.RECON PO ×4 (08:46→20:11)
--- NOTE | 2025-06-11 10:11 | MHC.CLN ---
F/U PO INTAKE 25% DIET RX: PUREED WITH THIN LIQ PER ACCOUNT PLANNER MAGIC CUP IN PLACE SX CONSULT NO PEG TUBE PLACEMENT AT THIS TIME PPN CONTINUES REVIEWED LABS-SERUM SODIUM WNL DISCUSSED WITH PHARMACY CONTINUE PPN AT 45ML/HR WITH 74G LIPIDS PROVIDES 1291KCALS (30KCALS/KG), 108G DEXTROSE, 46G PROTEIN (1.06G/KG) REPLETE LYTES NEEDED CONTINUE TO MONITOR PO INTAKE
--- NOTE | 2025-06-11 14:37 | PM.EVENT ---
Event Note Date of Service: 06/11/25 Event Note: will sign off, call prn need Time Spent With Patient Time: Total time managing care of this patient today ____ minutes.
--- NOTE | 2025-06-11 16:12 | MHC.SLORD ---
Speech Language Pathology Order Status: AERONAUTICAL ENGINEERING OFFICER unable to see patient this date. Per RN, poor PO intake but no swallowing concerns. Patient tolerating current diet. AERONAUTICAL ENGINEERING OFFICER to continue to follow.
--- NOTE | 2025-06-11 16:34 | HO.PM.IMPN ---
Subjective Subjective Date of Service: 06/11/25 Physical Exam Exam: Exam: General: Comfortable on rebreather mask, no pain Cardiac: S1, S2 auscultated with no S3/4, no MRG. Well perfused. Respiratory: Diminished breath sounds at the bases bilaterally to the mid zones, with no wheezing. No peripheral or central cyanosis GI/ : No abdominal pain on palpation, no masses or distentions. MSK: Frail cachectic with generalized upper and lower bilateral muscular atrophy Neurological: Normal neurological examination on overview, without obvious CN II-XII abnormalities. Vital Signs: Vital Signs: Last Vital Signs Temp 97.2 F 06/11/25 12:07 Pulse 95 06/11/25 12:07 Resp 20 06/11/25 12:07 BP 120/55 L 06/11/25 12:07 Pulse Ox 92 06/11/25 12:07 O2 Del Method Oxymask 06/11/25 12:07 O2 Flow Rate 5 06/11/25 12:07 FiO2 40 06/03/25 15:38 Oxygen Flow Rate 8 05/24/25 13:56 BMI result Body Mass Index 17.0 Objective Data Active Medications Acetaminophen (Acetaminophen Oral Liquid 650 Mg/20.3 Ml Solution) 650 mg PO Q6H PRN PRN Reason: Pain, Mild (Pain Scale 1-3) Last Admin: 06/10/25 01:31 Dose: 650 mg Documented By: ODILIA Amiodarone HCl (Amiodarone Hcl 200 Mg Tablet) 200 mg PO BID [facility] Last Admin: 06/11/25 08:45 Dose: 200 mg Documented By: NI Apixaban (Apixaban 5 Mg Tablet) 5 mg PO BID [facility] Last Admin: 06/11/25 08:45 Dose: 5 mg Documented By: NI Atorvastatin Calcium (Atorvastatin Calcium 80 Mg Tablet) 80 mg PO BEDTIME [facility] Last Admin: 06/10/25 21:38 Dose: 80 mg Documented By: CHULA Baclofen (Baclofen 10 Mg Tablet) 10 mg PO TID [facility] Last Admin: 06/11/25 15:04 Dose: 10 mg Documented By: NI Bisacodyl (Bisacodyl 10 Mg Supp.Rect) 10 mg SC DAILY PRN PRN Reason: Constipation Ergocalciferol (Ergocalciferol (Vitamin D2) 1,250 Mcg Capsule) 1,250 mcg PO MO [facility] Last Admin: 06/10/25 08:03 Dose: Not Given Documented By: TERESITA Non-Admin Reason: uNABLE TO CRUSH Fluticasone/Vilanterol (Fluticasone/Vilanterol 200/25 Blst.W.Dev) 1 puff INHALE RDAILY [facility] Last Admin: 06/11/25 08:07 Dose: 1 puff Documented By: LARRY Furosemide (Furosemide 40 Mg Tablet) 40 mg PO DAILY DEE; Protocol Last Admin: 06/11/25 08:45 Dose: 40 mg Documented By: NI Nutrition (Parenteral) (Parenteral Nutrition) 1,080 mls @ 45 mls/hr IV .Q24H DEE; Protocol Stop: 06/11/25 20:59 Last Admin: 06/10/25 21:46 Dose: 45 mls/hr Documented By: CHULA Nutrition (Parenteral) (Parenteral Nutrition) 1,080 mls @ 45 mls/hr IV .Q24H DEE; Protocol Stop: 06/12/25 20:59 Losartan Potassium (Losartan Potassium 25 Mg Tablet) 25 mg PO DAILY DEE; Protocol Last Admin: 06/11/25 08:45 Dose: 25 mg Documented By: NI Magnesium Hydroxide (Milk Of Magnesia 30 Ml Oral.Susp) 30 ml PO BEDTIME PRN PRN Reason: Constipation Magnesium Oxide (Magnesium Oxide 400 Mg Tablet) 400 mg PO BID [facility] Last Admin: 06/11/25 08:45 Dose: 400 mg Documented By: NI Melatonin (Melatonin 3 Mg Tablet) 3 mg PO BEDTIME DEE Last Admin: 06/10/25 21:38 Dose: 3 mg Documented By: CHULA Mirtazapine (Mirtazapine 7.5 Mg Tablet) 7.5 mg PO BEDTIME DEE Last Admin: 06/10/25 21:39 Dose: 7.5 mg Documented By: CHULA Multivitamins/Vitamin C (Multivitamin Tablet) 1 tab PO DAILY [facility] Last Admin: 06/11/25 08:45 Dose: 1 tab Documented By: NI Pharmacy Consult (Consult Rx Parenteral Nutrition Ordering) 1 each MISCELLANE DAILY PRN PRN Reason: Consult order Polyethylene Glycol (Polyethylene Glycol 3350 17 Gm Powd.Pack) 17 gm PO DAILY PRN PRN Reason: Constipation Pyridoxine HCl (Pyridoxine Hcl (Vitamin B6) 50 Mg Tablet) 50 mg PO DAILY [facility] Last Admin: 06/11/25 08:45 Dose: 50 mg Documented By: NI Sodium Biphosphate/Sodium Phosphate (Sodium Phosphate,[place]-Dibasic 133 Ml Enema) 118 ml SC DAILY PRN PRN Reason: Constipation Spironolactone (Spironolactone 25 Mg Tablet) 25 mg PO DAILY [facility]; Protocol Last Admin: 06/11/25 08:46 Dose: 25 mg Documented By: NI Thiamine HCl (Thiamine Hcl 100 Mg Tablet) 100 mg PO DAILY [facility] Last Admin: 06/11/25 08:45 Dose: 100 mg Documented By: NI Vancomycin HCl (Vancomycin Hcl Oral Solution 125 Mg/5 Ml Soln.Recon) 125 mg PO QID [facility] Last Admin: 06/11/25 15:04 Dose: 125 mg Documented By: NI Labs 06/04/25 06:36 06/11/25 06:54 Labs: Laboratory Results - last 24 hr 06/11/25 06:54 Anion Gap 13 Estim Creat Clear Calc 61.5 Estimated GFR > 60 Random Glucose 104 Calcium 8.3 L Phosphorus 2.6 L Magnesium 2.2 Albumin 2.9 L Assessment and Plan (1) CHF (congestive heart failure): Status: Acute (2) Afib: Status: Acute (3) Malnutrition: Status: Acute (4) Cholecystitis: Status: Acute (5) Acute respiratory failure: Status: Acute (6) Multifocal pneumonia: Status: Acute (7) Respiratory failure: Status: Acute Plan 74-year-old female with history of CHF, paroxysmal atrial fibrillation (pAF), and recent C. difficile infection (admitted to [facility]), transferred from [facility] with dyspnea. Found to have hypoxic respiratory failure secondary to multifocal pneumonia, requiring intubation. Admitted to ICU, extubated 05/27, downgraded to telemetry 05/28. Hospital course complicated by CHF exacerbation requiring CPAP; currently on HFNC, transitioned from furosemide (Lasix) drip to oral furosemide. Acute hypoxic respiratory failure (AHRF) due to multifocal MRSA pneumonia, acute asthma exacerbation, and acute HFpEF Anticipate weaning off HFNC to regular NC in next 24h (CPAP available if needed) Completed piperacillin-tazobactam (Zosyn) 05/24?06/02 Vancomycin 05/24?05/30, then switched to linezolid 05/30?06/14 per ID (MRSA swab positive) Methylprednisolone 05/30?06/03; continue nebulizers and Breo Furosemide PO (previously IV drip); continue losartan and spironolactone Echocardiogram (TTE 05/31) Normal LV cavity size; mildly increased LV wall thickness LV systolic function low-normal (EF 50?55%) Apical septum and mid-inferoseptal segments hypokinetic Mildly increased RV cavity size; mildly decreased RV systolic function Severely dilated left and right atria Mild to moderate mitral regurgitation Oxygen weaning Plan to wean off O2 as tolerated Severe protein-calorie malnutrition (previously moderate) Poor PO intake; receiving supplements and TPN via PICC Oral diet per [employer], eating ?25% Consider stopping TPN Consulting surgery fro possible PEG Transaminasemia Suspect hepatic congestion from CHF or effect of pneumonia Plan: recheck LFTs tomorrow Hypokalemia Repleted and resolved Mild hyponatremia (chronic, likely multifactorial) Sodium being adjusted in TPN Question of VRE bacteremia Blood culture 05/24 positive for VRE; subsequent cultures (05/28) negative despite lack of specific coverage (on vancomycin and piperacillin-tazobactam) Likely contaminant; on linezolid 05/30?06/14 for MRSA pneumonia Recent C. difficile colitis Receiving PO vancomycin while on systemic antibiotics and for 2 days after Distended gallbladder with cholelithiasis and pericholecystic fluid Doubt acute cholecystitis (abdomen benign); General Surgery concurs Paroxysmal atrial fibrillation Continue amiodarone and apixaban [facility] - VTE: Apixaban - CODE STATUS: Full code - DIET: Possible PEG - DISPOSITION: Unstable for discharge - requires IV antibiotics, IV diuretics, hypoxic respiratory failure requiring high-flow nasal cannula and TPN Total time managing care of this patient today: 45 minutes. Quality Stroke Does the patient have a stroke diagnosis?: No VTE Prior VTE?: No VTE Risk Level:: Medical - moderate - high VTE Device Contraindication: N/A - Device Ordered VTE Drug Contraindication: N/A - Med Ordered
[2025-06-11 19:49] LABS: ABG HCO3 25 mmol/L (22-26); ABG O2 % Saturation 90.0 %
--- NOTE | 2025-06-11 20:47 | PM.EVENT ---
Event Note Date of Service: 06/11/25 Event Note: Worsening hypoxia respiratory distress, 89% on 15 L with tachypnea accessory muscles, lungs with bilateral rhonchi, chest x-ray with increased opacities Given 1 mg morphine with some improvement, give additional 60 IV Lasix Time Spent With Patient Time: Total time managing care of this patient today ____ minutes.
[2025-06-11] MEDS: Furosemide 100 MG/10 ML VIAL 60 MG IVPUSH (21:28)
[2025-06-11] MEDS: Parenteral Nutrition 1,080 ML 45 ML IV (22:37)
--- NOTE | 2025-06-11 23:51 | W.PM.CCCN ---
History of Present Illness Data of Consult Service Date: 06/11/25 Requesting physician: Filiberto Alberts Primary Care Provider: Kevin Landers MD [facility] Reason for consult: hypoxemia, tachypnea 74-year-old lady with underlying congestive heart failure, AFib, recent admission to [facility] for C diff admitted on 05/24/2025 with dyspnea and hypoxia requiring intubation in the emergency room. Further workup suggestive of pneumonic cholecystitis processes. Patient was covered with empiric antibiotics and evaluated by General surgery with tentative plan for cholecystostomy placement. Extubated uneventfully on 05/27/2025 and downgraded to telemetry on 05/28/25. She has completed a course of IV zosyn, vanco and linezolid. Her hospital course has been complicated by CHF exacerbation requiring CPAP and to HFNC. Her oral intake has been low and has been on supplements as well as TPN. General surgery was consulted for possible PEG tube placement. Throughout the course of her hospital stay, the pt has had multiple episodes of acute respiratory distress with hypoxia. Dr. Alberts requested that the patient be evaluated this evening for level of care secondary to hypoxia. On my exam, the patient was lethargic but arousable, confused. Respiratory rate 30's. 02 sat 94 on 15L oxymask. Lung sounds diminished in the left base, otherwise rhonchorous throughout. ABG 7.54 28 64 25. HR 103, BP 119/54. CXR taken this evening showed interval increase in right lung airspace opacites. The pt was given lasix 60mg and morphine 1mg for work of breathing just prior to my assessment. Respiratory therapy was at bedside placing the pt on CPAP. I/O to be monitored by nursing. At this time the patient does not require intensive care level of monitoring. Case discussed with Dr Alberts who will monitor the patient on [employer]-Scannx and notify for re-evaluation if patient's condition changes.? Review of Systems Review of Systems: Yes Unobtainable due to mental condition PMFSH Past Medical History Medical History Asthma CVA (cerebral vascular accident) Afib CHF (congestive heart failure) Family History Family history: reviewed and not pertinent Social History Social History Household Members: Unknown / Unable to assess Housing: Unknown / Unable to assess Comment: 1:1 sitter Patient Tobacco Use Status: Tobacco use Unknown Smoked in Last 30 Days: No Use of substances other than those prescribed or required for medical reasons: No Currently Displaying Signs/Symptoms of Drug Intoxication Withdrawal: No Advance Directives: No Advance Directives Information Provided: Yes Do you have a plan to hurt others: No Plan Recently lost weight without trying: Unsure Patient : No Meds Allergies Allergy/AdvReac Type Severity Reaction Status Date / Time cephalexin (From Keflex) Allergy Unknown Verified 05/28/25 06:06 lisinopril Allergy Unknown Verified 05/28/25 06:05 propranolol Allergy Unknown Verified 05/28/25 06:05 Active Medications: Current Medications Acetaminophen (Acetaminophen Oral Liquid 650 Mg/20.3 Ml Solution) 650 mg PO Q6H PRN PRN Reason: Pain, Mild (Pain Scale 1-3) Last Admin: 06/10/25 01:31 Dose: 650 mg Amiodarone HCl (Amiodarone Hcl 200 Mg Tablet) 200 mg PO BID [facility] Last Admin: 06/11/25 20:09 Dose: 200 mg Apixaban (Apixaban 5 Mg Tablet) 5 mg PO BID [facility] Last Admin: 06/11/25 20:09 Dose: 5 mg Atorvastatin Calcium (Atorvastatin Calcium 80 Mg Tablet) 80 mg PO BEDTIME [facility] Last Admin: 06/11/25 20:09 Dose: 80 mg Baclofen (Baclofen 10 Mg Tablet) 10 mg PO TID [facility] Last Admin: 06/11/25 20:09 Dose: 10 mg Bisacodyl (Bisacodyl 10 Mg Supp.Rect) 10 mg PA DAILY PRN PRN Reason: Constipation Ergocalciferol (Ergocalciferol (Vitamin D2) 1,250 Mcg Capsule) 1,250 mcg PO MO [facility] Last Admin: 06/10/25 08:03 Dose: Not Given Fluticasone/Vilanterol (Fluticasone/Vilanterol 200/25 Blst.W.Dev) 1 puff INHALE RDAILY [facility] Last Admin: 06/11/25 08:07 Dose: 1 puff Furosemide (Furosemide 40 Mg Tablet) 40 mg PO DAILY [facility]; Protocol Last Admin: 06/11/25 08:45 Dose: 40 mg Nutrition (Parenteral) (Parenteral Nutrition) 1,080 mls @ 45 mls/hr IV .Q24H DEE; Protocol Stop: 06/12/25 20:59 Last Admin: 06/11/25 22:37 Dose: 45 mls/hr Losartan Potassium (Losartan Potassium 25 Mg Tablet) 25 mg PO DAILY [facility]; Protocol Last Admin: 06/11/25 08:45 Dose: 25 mg Magnesium Hydroxide (Milk Of Magnesia 30 Ml Oral.Susp) 30 ml PO BEDTIME PRN PRN Reason: Constipation Magnesium Oxide (Magnesium Oxide 400 Mg Tablet) 400 mg PO BID [facility] Last Admin: 06/11/25 20:09 Dose: 400 mg Melatonin (Melatonin 3 Mg Tablet) 3 mg PO BEDTIME [facility] Last Admin: 06/11/25 20:09 Dose: 3 mg Mirtazapine (Mirtazapine 7.5 Mg Tablet) 7.5 mg PO BEDTIME DEE Last Admin: 06/11/25 20:09 Dose: 7.5 mg Morphine Sulfate (Morphine Sulfate 4 Mg/Ml Cartridge) 1 mg IVPUSH Q4H PRN; Protocol PRN Reason: sob Last Admin: 06/11/25 21:28 Dose: 1 mg Multivitamins/Vitamin C (Multivitamin Tablet) 1 tab PO DAILY [facility] Last Admin: 06/11/25 08:45 Dose: 1 tab Pharmacy Consult (Consult Rx Parenteral Nutrition Ordering) 1 each MISCELLANE DAILY PRN PRN Reason: Consult order Polyethylene Glycol (Polyethylene Glycol 3350 17 Gm Powd.Pack) 17 gm PO DAILY PRN PRN Reason: Constipation Pyridoxine HCl (Pyridoxine Hcl (Vitamin B6) 50 Mg Tablet) 50 mg PO DAILY [facility] Last Admin: 06/11/25 08:45 Dose: 50 mg Sodium Biphosphate/Sodium Phosphate (Sodium Phosphate,[place]-Dibasic 133 Ml Enema) 118 ml PA DAILY PRN PRN Reason: Constipation Spironolactone (Spironolactone 25 Mg Tablet) 25 mg PO DAILY [facility]; Protocol Last Admin: 06/11/25 08:46 Dose: 25 mg Thiamine HCl (Thiamine Hcl 100 Mg Tablet) 100 mg PO DAILY [facility] Last Admin: 06/11/25 08:45 Dose: 100 mg Vancomycin HCl (Vancomycin Hcl Oral Solution 125 Mg/5 Ml Soln.Recon) 125 mg PO QID [facility] Last Admin: 06/11/25 20:11 Dose: 125 mg Home Medications ?Medication ?Instructions ?Recorded ?Confirmed ?Last Taken ?Type acetaminophen 325 mg tablet 650 mg PO Q4H PRN Pain (Scale 05/24/25 05/24/25 Unknown History Score 1-3) acetaminophen 325 mg tablet 650 mg PO Q6H PRN Fever 05/24/25 05/24/25 Unknown History albuterol sulfate 90 mcg/actuation 2 puff inhalation Q6H PRN Wheezing 05/24/25 05/24/25 Unknown History aerosol inhaler amiodarone 200 mg tablet 200 mg PO BID 05/24/25 05/24/25 Unknown History apixaban 5 mg tablet (Eliquis) 5 mg PO BID 05/24/25 05/24/25 Unknown History atorvastatin 80 mg tablet 80 mg PO BEDTIME 05/24/25 05/24/25 Unknown History baclofen 25 mg/5 mL (5 mg/mL) oral 10 mg PO TID 05/24/25 05/24/25 Unknown History suspension bisacodyl 10 mg rectal suppository 10 mg PA DAILY PRN Constipation 05/24/25 05/24/25 Unknown History ergocalciferol (vitamin D2) 1,250 1,250 mcg PO MO 05/24/25 05/24/25 Unknown History mcg (50,000 unit) capsule fluticasone 500 mcg-salmeterol 50 1 inh inhalation BID 05/24/25 05/24/25 Unknown History mcg/dose blistr powdr for inhalation (Wixela Inhub) ipratropium 0.5 mg-albuterol 3 mg 3 ml inhalation Q6H PRN Shortness 05/24/25 05/24/25 Unknown History (2.5 mg base)/3 mL nebulization Of Breath Or Wheezing soln levofloxacin 750 mg tablet 750 mg PO DAILY 05/24/25 05/24/25 Unknown History losartan 25 mg tablet 25 mg PO DAILY 05/24/25 05/24/25 Unknown History magnesium hydroxide 400 mg/5 mL 30 ml PO BEDTIME PRN Constipation 05/24/25 05/24/25 Unknown History oral suspension (Milk of Magnesia) magnesium oxide 400 mg PO BID 05/24/25 05/24/25 Unknown History melatonin 3 mg tablet 3 mg PO BEDTIME 05/24/25 05/24/25 Unknown History mirtazapine 7.5 mg tablet 7.5 mg PO BEDTIME 05/24/25 05/24/25 Unknown History multivitamin 1 tab PO DAILY 05/24/25 05/24/25 Unknown History polyethylene glycol 3350 17 17 g PO DAILY PRN Constipation 05/24/25 05/24/25 Unknown History gram/dose oral powder pyridoxine (vitamin B6) 50 mg 50 mg PO DAILY 05/24/25 05/24/25 Unknown History tablet sodium chloride 1,000 mg soluble 1,000 mg PO BID 05/24/25 05/24/25 Unknown History tablet sodium phosphates 19 gram-7 118 ml PA DAILY PRN Constipation 05/24/25 05/24/25 Unknown History gram/118 mL enema (Fleet Enema) spironolactone 25 mg tablet 25 mg PO DAILY 05/24/25 05/24/25 Unknown History thiamine HCl (vitamin B1) 100 mg 100 mg PO DAILY 05/24/25 05/24/25 Unknown History tablet Physical Exam Vital Signs: Vital Signs: Last Vital Signs Temp 97.7 F 06/11/25 20:00 Pulse 108 H 06/11/25 20:00 Resp 44 H 06/11/25 21:58 BP 127/60 06/11/25 22:40 Pulse Ox 89 L 06/11/25 20:00 O2 Del Method Oxymask 06/11/25 20:00 O2 Flow Rate 15 06/11/25 20:00 FiO2 40 06/03/25 15:38 Oxygen Flow Rate 8 05/24/25 13:56 BMI result Body Mass Index 17.0 Const: General: ill appearing and lethargic Nutritional Appearance: cachectic Orientation/consciousness: lethargic Limitations: physical limitations HEENT: Head: Yes normocephalic and Yes atraumatic General nose exam: Normal external nose present (Nares patent, septum midline, sinuses nontender bilaterally.) Mouth: Normal oral and palatal mucosa present (No thrush, tongue in midline, mucosa moist.) Neck: Neck: Yes supple (no thyromegaly, trachea midline.) Resp: Other: Tachypneic Effort & Inspection: no audible wheezes, respiratory effort not decreased and no use of accessory muscles Auscultation: diminished lung sounds on the left in the lower lung linton Cardio: Jugular venous distension: no JVD Rate: regular rate Rhythm: regular rhythm Heart sounds: no gallops, no murmurs and no rubs GI: Palpation (GI): Soft to palpation (nondistended.) and nontender Extrem: General: Yes muscle hypertrophy (upper and lower bilateral muscle atrophy) Results Labs 06/04/25 06:36 06/11/25 06:54 Labs: BMP 06/11/25 06:54 Sodium 138 Potassium 3.8 Chloride 106 Carbon Dioxide 23 BUN 22 H Creatinine 0.57 Calcium 8.3 L Liver Function 06/11/25 Range/Units 06:54 Albumin 2.9 L (3.5-5.0) g/dL Microbiology Microbiology Results: Microbiology 05/31/25 07:24 Blood - Venous Blood Culture - Final No growth after 5 days. 05/31/25 07:16 Blood - Venous Blood Culture - Final No growth after 5 days. 05/28/25 10:10 Blood - Venous Blood Culture - Final No growth after 5 days. 05/28/25 10:10 Blood - Venous Blood Culture - Final No growth after 5 days. 05/24/25 14:14 Blood - Venous Blood Culture - Final No growth after 5 days. 05/24/25 20:35 Sputum - Suctioned Gram Stain - Final 05/24/25 20:35 Sputum - Suctioned Sputum Culture - Final Methicillin Res Staph Aureus 05/24/25 14:14 Blood - Venous Blood Culture - Final Enterococcus faecium 05/24/25 17:58 Urine Catheterized - [place] Catheter Urine Culture - Final No growth. Assessment and Plan (1) Acute respiratory failure: Qualifiers: Respiratory failure complication: hypoxia Qualified Code(s): J96.01 - Acute respiratory failure with hypoxia Status: Acute (2) Multifocal pneumonia: Status: Acute (3) Respiratory failure: Qualifiers: Chronicity: acute Respiratory failure complication: hypoxia Qualified Code(s): J96.01 - Acute respiratory failure with hypoxia Status: Acute (4) CHF (congestive heart failure): Qualifiers: Heart failure type: unspecified Heart failure chronicity: unspecified Qualified Code(s): I50.9 - Heart failure, unspecified Status: Acute (5) Afib: Qualifiers: Atrial fibrillation type: unspecified Qualified Code(s): I48.91 - Unspecified atrial fibrillation Status: Acute (6) Cholecystitis: Status: Acute (7) Malnutrition: Qualifiers: Malnutrition type: unspecified type Qualified Code(s): E46 - Unspecified protein-calorie malnutrition Status: Acute
[2025-06-12] VITALS (18 sets, daily range): BP systolic 104–133; BP diastolic 55–58; PULSE 71–110; RESP 20–46; TEMP 36.1–37.5; O2SAT 88–100
--- NOTE | 2025-06-12 | ECG_ITS ---
Test Reason : rhythm check Blood Pressure : */* mmHG Vent. Rate : 102 BPM Atrial Rate : * BPM P-R Int : * ms QRS Dur : 104 ms QT Int : 356 ms P-R-T Axes : * 67 267 degrees QTcB Int : 463 ms Poor data quality with Baseline wander Possible Atrial fibrillation with rapid ventricular response Minimal voltage criteria for LVH, may be normal variant ( Sokolow-Morales ) ST & T wave abnormality, consider inferior ischemia ST & T wave abnormality, consider anterolateral ischemia Abnormal ECG When compared with ECG of 26-May-2025 20:03, Criteria for Anterior infarct are no longer Present Inverted T waves have replaced nonspecific T wave abnormality in Inferior leads Referred By: Filiberto Alberts Electronically Signed By: DEBBIE WELCH MD
--- NOTE | 2025-06-12 05:20 | PC.NURSE ---
Addendum entered by Fide Guerrier RN 06/12/25 05:53: Pt placed on CPAP by RT at approx 23:45 06/11/25 d/t RR sustaining 44 breaths/min. Pt agitated and pulling mask off constantly. MD Alberts ok with pt being placed on oxymask again if tolerated. Pt continuously agitated and pulling at oxygen mask despite PRN morphine administration for SOB/WOB and verbal reassurance/education to pt. RR remains 38-44. MD Alberts aware. Original Note: Delayed entry: 19:00 06/11/25 Pt spo2 noted to be 72% on 6L oxymask, no improvement with positional changes and cueing. Pt titrated to 15L oxymask with slow improvement to 88-91%, RR 50 with accessory muscle use. MD Alberts and RT to bedside. Labs, CXR, 1mg morphine IVP and 60mg IVP lasix ordered. Delay in IV medication administration d/t pt IV infiltrating and need for USGIV, administered at 21:30. BP prior to administration 144/63.
[2025-06-12 07:28] LABS: Albumin Level 3.2 g/dL (3.5-5.0); Anion Gap 16 (12-20); Blood Urea Nitrogen 26 mg/dL (9-16); Calcium 8.8 mg/dL (8.4-10.2); Carbon Dioxide 24 mmol/L (22-29); Chloride 108 mmol/L (96-108); Creatinine Clr Calc Pharmacy 50.1; Estimated Glomerular Filt Rate > 60; Magnesium 2.0 mg/dL (1.6-2.6); Potassium 3.8 mmol/L (3.3-5.1); Sodium 144 mmol/L (135-145)
--- NOTE | 2025-06-12 07:48 | P.PNGS_ITS ---
Subjective Subjective Date of Service: 06/12/25 Interval history: Poor O2 sats overnight Required 15 lpm of oxygen via nasal cannula Now on CPAP Still short of breath Physical Exam 2 Vital Signs: Vital Signs: Last Vital Signs Temp 98.9 F 06/12/25 07:10 Pulse 98 06/12/25 07:10 Resp 20 06/12/25 07:33 BP 122/58 L 06/12/25 07:10 Pulse Ox 93 06/12/25 07:10 O2 Del Method BiPAP 06/12/25 07:10 O2 Flow Rate 15 06/12/25 03:51 FiO2 55 06/12/25 05:16 Oxygen Flow Rate 8 05/24/25 13:56 BMI result Body Mass Index 17.0 Const: Other: Markedly short of breath Resp: Other: Significantly short of of breath, on CPAP Cardio: Rhythm: regular rhythm GI: Palpation (GI): Soft to palpation Objective Data Active Medications Acetaminophen (Acetaminophen Oral Liquid 650 Mg/20.3 Ml Solution) 650 mg PO Q6H PRN PRN Reason: Pain, Mild (Pain Scale 1-3) Last Admin: 06/10/25 01:31 Dose: 650 mg Documented By: ODILIA Amiodarone HCl (Amiodarone Hcl 200 Mg Tablet) 200 mg PO BID [facility] Last Admin: 06/11/25 20:09 Dose: 200 mg Documented By: ABBEY Apixaban (Apixaban 5 Mg Tablet) 5 mg PO BID [facility] Last Admin: 06/11/25 20:09 Dose: 5 mg Documented By: ABBEY Atorvastatin Calcium (Atorvastatin Calcium 80 Mg Tablet) 80 mg PO BEDTIME [facility] Last Admin: 06/11/25 20:09 Dose: 80 mg Documented By: ABBEY Baclofen (Baclofen 10 Mg Tablet) 10 mg PO TID [facility] Last Admin: 06/11/25 20:09 Dose: 10 mg Documented By: ABBEY Bisacodyl (Bisacodyl 10 Mg Supp.Rect) 10 mg NJ DAILY PRN PRN Reason: Constipation Ergocalciferol (Ergocalciferol (Vitamin D2) 1,250 Mcg Capsule) 1,250 mcg PO MO [facility] Last Admin: 06/10/25 08:03 Dose: Not Given Documented By: TERESITA Non-Admin Reason: uNABLE TO CRUSH Fluticasone/Vilanterol (Fluticasone/Vilanterol 200/25 Blst.W.Dev) 1 puff INHALE RDAILY [facility] Last Admin: 06/12/25 07:31 Dose: Not Given Documented By: GUERO Non-Admin Reason: on CPAP Furosemide (Furosemide 40 Mg Tablet) 40 mg PO DAILY DEE; Protocol Last Admin: 06/11/25 08:45 Dose: 40 mg Documented By: NI Nutrition (Parenteral) (Parenteral Nutrition) 1,080 mls @ 45 mls/hr IV .Q24H DEE; Protocol Stop: 06/12/25 20:59 Last Admin: 06/11/25 22:37 Dose: 45 mls/hr Documented By: ABBEY Losartan Potassium (Losartan Potassium 25 Mg Tablet) 25 mg PO DAILY DEE; Protocol Last Admin: 06/11/25 08:45 Dose: 25 mg Documented By: NI Magnesium Hydroxide (Milk Of Magnesia 30 Ml Oral.Susp) 30 ml PO BEDTIME PRN PRN Reason: Constipation Magnesium Oxide (Magnesium Oxide 400 Mg Tablet) 400 mg PO BID [facility] Last Admin: 06/11/25 20:09 Dose: 400 mg Documented By: ABBEY Melatonin (Melatonin 3 Mg Tablet) 3 mg PO BEDTIME DEE Last Admin: 06/11/25 20:09 Dose: 3 mg Documented By: ABBEY Mirtazapine (Mirtazapine 7.5 Mg Tablet) 7.5 mg PO BEDTIME DEE Last Admin: 06/11/25 20:09 Dose: 7.5 mg Documented By: ABBEY Morphine Sulfate (Morphine Sulfate 4 Mg/Ml Cartridge) 1 mg IVPUSH Q4H PRN; Protocol PRN Reason: sob Last Admin: 06/12/25 02:11 Dose: 1 mg Documented By: ABBEY Multivitamins/Vitamin C (Multivitamin Tablet) 1 tab PO DAILY DEE Last Admin: 06/11/25 08:45 Dose: 1 tab Documented By: NI Pharmacy Consult (Consult Rx Parenteral Nutrition Ordering) 1 each MISCELLANE DAILY PRN PRN Reason: Consult order Polyethylene Glycol (Polyethylene Glycol 3350 17 Gm Powd.Pack) 17 gm PO DAILY PRN PRN Reason: Constipation Pyridoxine HCl (Pyridoxine Hcl (Vitamin B6) 50 Mg Tablet) 50 mg PO DAILY [facility] Last Admin: 06/11/25 08:45 Dose: 50 mg Documented By: NI Sodium Biphosphate/Sodium Phosphate (Sodium Phosphate,Dundy-Dibasic 133 Ml Enema) 118 ml NJ DAILY PRN PRN Reason: Constipation Spironolactone (Spironolactone 25 Mg Tablet) 25 mg PO DAILY [facility]; Protocol Last Admin: 06/11/25 08:46 Dose: 25 mg Documented By: NI Thiamine HCl (Thiamine Hcl 100 Mg Tablet) 100 mg PO DAILY [facility] Last Admin: 06/11/25 08:45 Dose: 100 mg Documented By: NI Vancomycin HCl (Vancomycin Hcl Oral Solution 125 Mg/5 Ml Soln.Recon) 125 mg PO QID [facility] Last Admin: 06/11/25 20:11 Dose: 125 mg Documented By: ABBEY Labs 06/12/25 08:44 06/12/25 08:44 Labs: Laboratory Results - last 24 hr 06/11/25 06/11/25 06/12/25 06:54 19:46 06:46 O2 Saturation 90.0 ABG pH at Pt Temp 7.54 H ABG pCO2 at Pt Temp 28 L ABG pO2 at Pt Temp 64 L ABG HCO3 25 ABG Base Excess (Actual) 3.2 Anion Gap 13 16 Estim Creat Clear Calc 61.5 50.1 Estimated GFR > 60 > 60 Random Glucose 104 110 Calcium 8.3 L 8.8 D Phosphorus 2.6 L 3.6 Magnesium 2.2 2.0 Albumin 2.9 L 3.2 L Procedures Date of Service Date of Service: 06/12/25 Progress Note: A&P Assessment and plan (1) Malnutrition: Status: Acute Assessment and Plan: Referred for PEG tube placement Currently not a candidate for invasive intervention Markedly short of breath, requiring high O2 supplementation, CPAP Overall long-term prognosis is poor We will need to have a discussion with the family regarding goals of care Time Spent With Patient Time: Total time managing care of this patient today ____ minutes. Quality Stroke Does the patient have a stroke diagnosis?: No VTE Prior VTE?: No VTE Risk Level:: Medical - moderate - high VTE Device Contraindication: N/A - Device Ordered VTE Drug Contraindication: N/A - Med Ordered
[2025-06-12 08:53] LABS: Hematocrit 24.0 % (37.0-47.0); Hemoglobin 7.9 g/dl (12.0-16.0); Imm Gran Abs Auto 0.17 X10*3/uL (0.00-0.03); Imm Gran Pct Auto 0.9 % (0.0-0.4); Lymphocytes Absolute Auto 1.0 X10*3/uL (1.2-4.9); MANUAL DIFF FLAG SCAN; Mean Corpuscular HGB Conc 32.9 g/dl (31.0-35.0); Mean Corpuscular Hemoglobin 27.7 pg (27.0-33.0); Mean Corpuscular Volume 84.2 fL (80.0-98.0); NRBC Abs Auto 0.000 X10*3/uL (0.0-0.012); NRBC Pct Auto 0.0 /100WBC (0.0-0.2); Platelet Count 197 X10*3/uL (160-400); Red Blood Count 2.85 X10*6/uL (4.20-5.50); SCAN SMEAR FLAG 1; White Blood Count 18.5 X10*3/uL (4.8-10.8)
[2025-06-12 09:03] LABS: VBG HCO3 29 mmol/L (22-26); VBG O2 % Saturation 75.0 %
[2025-06-12 09:07] LABS: Venous Blood Gas Refer to POC result
[2025-06-12 09:15] LABS: Alanine Aminotransferase 77 U/L (0-31); Albumin Level 3.1 g/dL (3.5-5.0); Alkaline Phosphatase 127 U/L (39-117); Anion Gap 11 (12-20); Aspartate Amino Transferase 102 U/L (5-31); Blood Urea Nitrogen 25 mg/dL (9-16); Calcium 8.8 mg/dL (8.4-10.2); Carbon Dioxide 28 mmol/L (22-29); Chloride 109 mmol/L (96-108); Creatinine Clr Calc Pharmacy 52.3; Estimated Glomerular Filt Rate > 60; Potassium 3.5 mmol/L (3.3-5.1); Sodium 144 mmol/L (135-145); Total Protein 6.0 g/dL (6.5-8.0)
[2025-06-12 09:26] LABS: Procalcitonin 1.92 ng/mL
--- NOTE | 2025-06-12 10:04 | MHC.CLN ---
F/U PO INTAKE 0-25% DIET RX: PUREED WITH THIN LIQ PER SENIOR [employer] DBA MAGIC CUP IN PLACE SX CONSULT NO PEG TUBE PLACEMENT AT THIS TIME PPN CONTINUES REVIEWED LABS-SERUM SODIUM WNL DISCUSSED WITH PHARMACY CONTINUE PPN AT 45ML/HR WITH 74G LIPIDS PROVIDES 1291KCALS (30KCALS/KG), 108G DEXTROSE, 46G PROTEIN (1.06G/KG) REPLETE LYTES NEEDED CONTINUE TO MONITOR PO INTAKE
--- NOTE | 2025-06-12 10:39 | MHC.CM.PN ---
Per ROUNDS, Patient is not yet medically cleared for dc (needs Goal o0f Care discussion).
--- NOTE | 2025-06-12 15:16 | HO.WOUND ---
Wound Consult: Follow up 74 yr old female admitted to [facility] on 05/24/25 - See progress notes and H&P for detailed history. Wound follow up placed for coccyx, groin, hip, foot, heels, nose. Patient agreeable to assessment and photo documentation. Patient with sitter at bedside. Staff reports patient restless, pulling at respiratory devices continuously, picking at nose, pulling at EKG leads, legs with continuous movement in bed. Patient noted with restlessness at time of assessment. Patient favors left side. Patient appears thin and malnourished, on PPN, incontinent. Patient at high risk for skin injury Buttocks/coccyx Etiology: intact blanchable redness- MASD due to incontinence Wound Bed: intact blanchable redness perianal - irregular and not consistently red around anus and buttock, not over coccyx Drainage / Odor: none Elsa wound: ? No Induration, Fluctuance or Warmth noted Pain: no Goals of Treatment: ? triad paste Left hip - intact blanchable redness- protective foam applied Left shoulder - intact blanchable- prevenatative foam applied Left heel - intact blanchbable - foams Right heel - intact blanchable redness- foams applied Right medial foot - open wound with surrounding excoriated skin - likely friction in the setting of restlessness - applied durafiber/foam Nares - bilateral with dry thin scabs - not directly under device with scattered areas- likely friction/abrasion from patient picking at area/moving device. Hydrocolloid applied bilateral elbows- intact blanchable redness - foams applied Recommendations: 1. Turn and Reposition every 2 hours and as needed for patient comfort. Use pillows or wedges to support off loading positions. 2. Off Load all bony prominences with use of pillows and heel boots if needed. Apply Preventative foams where needed. 3. Monitor for incontinence and moisture control, use barrier creams when needed for prevention and treatment. 4. Provide adequate and supplemental nutrition. 5. Order or Continue low air loss mattress. 6. When applicable maintain blood glucose levels per Providers order. Sacrum/groin/perineum - Off Load Pressure with Q2 hr turns and use of pillows - Cleanse with PH balance spray or wipes, pat dry. ?Apply thin layer of Triad to wound bed - only pat and dab no scrub and rub when soiling occurs. Reapply thin layer PRN after each episode of incontinence. Bilateral elbows, bilateral heels, left hip, left shoulder: Off Load Pressure with Q2 hr turns and use of pillows - Routine cleansing. Apply skin prep allow to dry. Cover with foam dressing to aid in off loading and protection from friction. Change every 3 days and PRN. Right foot: cleanse with saline, apply skin prep elsa wound, apply durafiber ag, cover with foam, change daily and PRN. Nose: apply strip of hydrocolloid to area, change every other day and PRN - offload/pad any respiratory devices in use Re-consult wound care Nurse for wound deterioration or wound changes.
--- NOTE | 2025-06-12 15:22 | MHC.SLORD ---
Speech Language Pathology Order Status: PEG placement planned, CHEMICAL CELL CHANGER to follow as indicated.
[2025-06-12 15:58] LABS: Chlamydia pneumoniae PCR Not Detected (Not Detect.); Coronavirus 229E PCR Not Detected (Not Detect.); Coronavirus HKU1 PCR Not Detected (Not Detect.); Coronavirus NL63 PCR Not Detected (Not Detect.); Coronavirus OC43 PCR Not Detected (Not Detect.); RSV PCR Not Detected (Not Detect.); Rhino/Enterovirus PCR Not Detected (Not Detect.)
[2025-06-12 16:08] LABS: SARS-CoV-2 PCR Not Detected (Not Detect.)
[2025-06-12 16:09] LABS: Influenza A H1 PCR Not Detected (Not Detect.); Influenza A H1-2009 PCR Not Detected (Not Detect.); Influenza A H3 PCR Not Detected (Not Detect.)
[2025-06-12 16:20] LABS: ABG Refer to POC result
--- NOTE | 2025-06-12 17:22 | HO.PM.IMPN ---
Subjective Subjective Date of Service: 06/12/25 Interval History: Patient remains delirious and relatively agitated Pulling at CPAP/BiPAP machine this morning - overnight events reviewed The patient can not be redirected We are avoiding chemical restraints at this time 2/2 the patient's delirium and tenuous respiratory status Patient was transitioned from BiPAP to high-flow O2, and placed in soft wrist restraints Extensive discussion with family members today regarding code status. Family is amenable to transition the patient from full code to DNR/DNI. Duration of discussion around 60 minutes. There is some consideration to transition the patient to TIMBER REPAIRER, however they wish to see how the patient does over the next few days Review of Systems Review of Systems: Yes all other systems are reviewed and are negative Physical Exam Exam: Exam: General: Ill-appearing, in soft wrist restraints, on high-flow. Delirious and combative Cardiac: S1, S2 auscultated with no S3/4, no MRG. Well perfused. Respiratory: Diminished breath sounds at the bases bilaterally to the mid zones, with no wheezing. No peripheral or central cyanosis. Tachypneic, using accessory muscles GI/ : No abdominal pain on palpation, no masses or distentions. MSK: Frail cachectic with generalized upper and lower bilateral muscular atrophy and sarcopenia Neurological: Normal neurological examination on overview, without obvious CN II-XII abnormalities. Vital Signs: Vital Signs: Last Vital Signs Temp 97.6 F 06/12/25 15:19 Pulse 90 06/12/25 15:19 Resp 22 H 06/12/25 15:19 BP 104/55 L 06/12/25 15:19 Pulse Ox 100 06/12/25 15:19 O2 Del Method High Flow Nasal C annula 06/12/25 15:19 O2 Flow Rate 55 06/12/25 15:19 FiO2 50 06/12/25 15:19 Oxygen Flow Rate 8 05/24/25 13:56 BMI result Body Mass Index 17.0 Objective Data Active Medications Acetaminophen (Acetaminophen Oral Liquid 650 Mg/20.3 Ml Solution) 650 mg PO Q6H PRN PRN Reason: Pain, Mild (Pain Scale 1-3) Last Admin: 06/10/25 01:31 Dose: 650 mg Documented By: ODILIA Amiodarone HCl (Amiodarone Hcl 200 Mg Tablet) 200 mg PO BID DEE Last Admin: 06/12/25 11:05 Dose: Not Given Documented By: NI Non-Admin Reason: Physician Held Med Apixaban (Apixaban 5 Mg Tablet) 5 mg PO BID [facility] Last Admin: 06/12/25 11:05 Dose: Not Given Documented By: NI Non-Admin Reason: Physician Held Med Atorvastatin Calcium (Atorvastatin Calcium 80 Mg Tablet) 80 mg PO BEDTIME DEE On Hold: 06/12/25 11:00 Last Admin: 06/11/25 20:09 Dose: 80 mg Documented By: ABBEY Baclofen (Baclofen 10 Mg Tablet) 10 mg PO TID [facility] Last Admin: 06/12/25 15:13 Dose: Not Given Documented By: NI Non-Admin Reason: Patient Condition Contraindication Bisacodyl (Bisacodyl 10 Mg Supp.Rect) 10 mg [place] DAILY PRN PRN Reason: Constipation Ergocalciferol (Ergocalciferol (Vitamin D2) 1,250 Mcg Capsule) 1,250 mcg PO MO [facility] Last Admin: 06/10/25 08:03 Dose: Not Given Documented By: TERESITA Non-Admin Reason: uNABLE TO CRUSH Fluticasone/Vilanterol (Fluticasone/Vilanterol 200/25 Blst.W.Dev) 1 puff INHALE RDAILY [facility] Last Admin: 06/12/25 07:31 Dose: Not Given Documented By: GUERO Non-Admin Reason: on CPAP Furosemide (Furosemide 40 Mg Tablet) 40 mg PO DAILY [facility]; Protocol Last Admin: 06/12/25 11:05 Dose: Not Given Documented By: NI Non-Admin Reason: Physician Held Med Nutrition (Parenteral) (Parenteral Nutrition) 1,080 mls @ 45 mls/hr IV .Q24H DEE; Protocol Stop: 06/12/25 20:59 Last Admin: 06/11/25 22:37 Dose: 45 mls/hr Documented By: ABBEY Nutrition (Parenteral) (Parenteral Nutrition) 1,080 mls @ 45 mls/hr IV .Q24H DEE; Protocol Stop: 06/13/25 20:59 Piperacillin Sod/Tazobactam (Sod 4.5 gm/ Sodium Chloride) 100 mls @ 200 mls/hr IV Q6H [facility] Last Infusion: 06/12/25 12:04 Dose: Infused Documented By: NI Losartan Potassium (Losartan Potassium 25 Mg Tablet) 25 mg PO DAILY [facility]; Protocol Last Admin: 06/12/25 11:06 Dose: Not Given Documented By: NI Non-Admin Reason: Physician Held Med Magnesium Hydroxide (Milk Of Magnesia 30 Ml Oral.Susp) 30 ml PO BEDTIME PRN PRN Reason: Constipation Magnesium Oxide (Magnesium Oxide 400 Mg Tablet) 400 mg PO BID [facility] Last Admin: 06/12/25 11:06 Dose: Not Given Documented By: NI Non-Admin Reason: Physician Held Med Melatonin (Melatonin 3 Mg Tablet) 3 mg PO BEDTIME [facility] Last Admin: 06/11/25 20:09 Dose: 3 mg Documented By: ABBEY Methylprednisolone Sodium Succinate (Methylprednisolone Sod Succ 40 Mg/Ml Vial) 40 mg IVPUSH Q12H [facility] Last Admin: 06/12/25 11:34 Dose: 40 mg Documented By: NI Mirtazapine (Mirtazapine 7.5 Mg Tablet) 7.5 mg PO BEDTIME DEE Last Admin: 06/11/25 20:09 Dose: 7.5 mg Documented By: ABBEY Morphine Sulfate (Morphine Sulfate 4 Mg/Ml Cartridge) 1 mg IVPUSH Q4H PRN; Protocol PRN Reason: sob Last Admin: 06/12/25 02:11 Dose: 1 mg Documented By: ABBEY Multivitamins/Vitamin C (Multivitamin Tablet) 1 tab PO DAILY [facility] Last Admin: 06/12/25 11:06 Dose: Not Given Documented By: NI Non-Admin Reason: Physician Held Med Pharmacy Consult (Consult Rx Parenteral Nutrition Ordering) 1 each MISCELLANE DAILY PRN PRN Reason: Consult order Polyethylene Glycol (Polyethylene Glycol 3350 17 Gm Powd.Pack) 17 gm PO DAILY PRN PRN Reason: Constipation Pyridoxine HCl (Pyridoxine Hcl (Vitamin B6) 50 Mg Tablet) 50 mg PO DAILY [facility] Last Admin: 06/12/25 11:06 Dose: Not Given Documented By: NI Non-Admin Reason: Physician Held Med Sodium Biphosphate/Sodium Phosphate (Sodium Phosphate,Cross-Dibasic 133 Ml Enema) 118 ml [place] DAILY PRN PRN Reason: Constipation Spironolactone (Spironolactone 25 Mg Tablet) 25 mg PO DAILY [facility]; Protocol Last Admin: 06/12/25 11:06 Dose: Not Given Documented By: NI Non-Admin Reason: Physician Held Med Thiamine HCl (Thiamine Hcl 100 Mg Tablet) 100 mg PO DAILY [facility] Last Admin: 06/12/25 11:06 Dose: Not Given Documented By: NI Non-Admin Reason: Physician Held Med Vancomycin HCl (Vancomycin Hcl Oral Solution 125 Mg/5 Ml Soln.Recon) 125 mg PO QID [facility] Last Admin: 06/12/25 17:09 Dose: Not Given Documented By: NI Non-Admin Reason: Patient Condition Contraindication Labs 06/12/25 08:44 06/12/25 08:44 Labs: Laboratory Results - last 24 hr 06/11/25 06/12/25 06/12/25 19:46 06:46 08:44 MCV 84.2 MCH 27.7 MCHC 32.9 RDW 17.7 H Plt Count 197 D MPV 10.4 Immature Gran % (Auto) 0.9 H Neut % (Auto) 78.5 H Lymph % (Auto) 5.4 L Cross % (Auto) 14.4 H Eos % (Auto) 0.6 Baso % (Auto) 0.2 Lymph # (Auto) 1.0 L Cross # (Auto) 2.7 H Eos # (Auto) 0.1 Baso # (Auto) 0.0 Abs Immat Gran (auto) 0.17 H Absolute Neuts (auto) 14.5 H Absolute Nucleated RBC 0.000 Nucleated RBC % (auto) 0.0 Smear Tech's Comments VERIFIED O2 Saturation 90.0 ABG pH at Pt Temp 7.54 H ABG pCO2 at Pt Temp 28 L ABG pO2 at Pt Temp 64 L ABG HCO3 25 ABG Base Excess (Actual) 3.2 VBG pH VBG pCO2 VBG pO2 VBG HCO3 VBG O2 Saturation VBG Base Excess Anion Gap 16 11 L Estim Creat Clear Calc 50.1 52.3 Estimated GFR > 60 > 60 Random Glucose 110 100 Lactic Acid 1.6 Calcium 8.8 D 8.8 Phosphorus 3.6 Magnesium 2.0 Total Bilirubin 1.4 H AST 102 H ALT 77 H Alkaline Phosphatase 127 H Total Creatine Kinase 81 NT-Pro-B Natriuret Pep 6005.5 H Total Protein 6.0 L Albumin 3.2 L 3.1 L Procalcitonin 1.92 Respiratory Panel Tor[facility] Adenovirus (Rapid PCR) B.pert (TEM-PCR) B.parapertussis DNA PCR C. pneumoniae DNA (PCR) Coronavirus OC43 (PCR) Coronavirus HKU1 (PCR) Coronavirus 229E (PCR) Coronavirus NL63 (PCR) Human Metapneumovir PCR Influenza A (RT-PCR) Influenza A (H1) PCR Influ A () PCR Influenza A (H3) PCR Influenza B (RT-PCR) M. pneumoniae (PCR) Parainfluenza 1 (PCR) Parainfluenza 2 (PCR) Parainfluenza 3 (PCR) Parainfluenza 4 (PCR) RSV (PCR) Entero/Rhino (PCR) SARS-CoV-2 RNA (RT-PCR) 06/12/25 06/12/25 08:52 11:44 MCV MCH MCHC RDW Plt Count MPV Immature Gran % (Auto) Neut % (Auto) Lymph % (Auto) Cross % (Auto) Eos % (Auto) Baso % (Auto) Lymph # (Auto) Cross # (Auto) Eos # (Auto) Baso # (Auto) Abs Immat Gran (auto) Absolute Neuts (auto) Absolute Nucleated RBC Nucleated RBC % (auto) Smear Tech's Comments O2 Saturation ABG pH at Pt Temp ABG pCO2 at Pt Temp ABG pO2 at Pt Temp ABG HCO3 ABG Base Excess (Actual) VBG pH 7.48 H VBG pCO2 38 VBG pO2 50 VBG HCO3 29 H VBG O2 Saturation 75.0 VBG Base Excess 5.4 Anion Gap Estim Creat Clear Calc Estimated GFR Random Glucose Lactic Acid Calcium Phosphorus Magnesium Total Bilirubin AST ALT Alkaline Phosphatase Total Creatine Kinase NT-Pro-B Natriuret Pep Total Protein Albumin Procalcitonin Respiratory Panel Tor[facility] See Note Adenovirus (Rapid PCR) Not Detected B.pert (TEM-PCR) Not Detected B.parapertussis DNA PCR Not Detected C. pneumoniae DNA (PCR) Not Detected Coronavirus OC43 (PCR) Not Detected Coronavirus HKU1 (PCR) Not Detected Coronavirus 229E (PCR) Not Detected Coronavirus NL63 (PCR) Not Detected Human Metapneumovir PCR Not Detected Influenza A (RT-PCR) Not Detected Influenza A (H1) PCR Not Detected Influ A (H1/09) PCR Not Detected Influenza A (H3) PCR Not Detected Influenza B (RT-PCR) Not Detected M. pneumoniae (PCR) Not Detected Parainfluenza 1 (PCR) Not Detected Parainfluenza 2 (PCR) Not Detected Parainfluenza 3 (PCR) Not Detected Parainfluenza 4 (PCR) Not Detected RSV (PCR) Not Detected Entero/Rhino (PCR) Not Detected SARS-CoV-2 RNA (RT-PCR) Not Detected Assessment and Plan (1) CHF (congestive heart failure): Status: Acute (2) Afib: Status: Acute (3) Malnutrition: Status: Acute (4) Cholecystitis: Status: Acute (5) Acute respiratory failure: Status: Acute (6) Respiratory failure: Status: Acute (7) Multifocal pneumonia: Status: Acute (8) Sarcopenia: Status: Acute Plan 74-year-old female with history of CHF, paroxysmal atrial fibrillation (pAF), and recent C. difficile infection (admitted to [facility]), transferred from [facility] with dyspnea. Found to have hypoxic respiratory failure secondary to multifocal pneumonia, requiring intubation. Admitted to ICU, extubated 05/27, downgraded to telemetry 05/28. Hospital course complicated by CHF exacerbation requiring CPAP; currently on HFNC, transitioned from furosemide (Lasix) drip to oral furosemide. Acute hypoxic respiratory failure (AHRF) due to multifocal MRSA pneumonia, acute asthma exacerbation, and acute HFpEF Anticipate weaning off HFNC to regular NC in next 24h (CPAP available if needed) Completed piperacillin-tazobactam (Zosyn) 05/24?06/02 Vancomycin 05/24?05/30, then switched to linezolid 05/30?06/14 per ID (MRSA swab positive) Methylprednisolone 05/30?06/03; continue nebulizers and Breo Furosemide PO (previously IV drip); continue losartan and spironolactone The patient has recurrent leukocytosis with neutrophilic shift, worsening right lower lobe opacification, has been delirious over the past few days. Subacutely worsening respiratory function after a period of improvement. Impression of aspiration pneumonia PLAN - restarted methylprednisolone 40 mg b.i.d. IV - high-flow NC - soft wrist restraints for agitation > chemical restraints - started Zosyn - patient does have +ve MRSA swab; this was not repeated; if no clinical improvement, add vancomycin Echocardiogram (TTE 05/31) Normal LV cavity size; mildly increased LV wall thickness LV systolic function low-normal (EF 50?55%) Apical septum and mid-inferoseptal segments hypokinetic Mildly increased RV cavity size; mildly decreased RV systolic function Severely dilated left and right atria Mild to moderate mitral regurgitation Oxygen weaning Plan to wean off O2 as tolerated Severe protein-calorie malnutrition (previously moderate) Poor PO intake; receiving supplements and TPN via PICC Oral diet per TELEPHONY ENGINEER, eating ?25% Consider stopping TPN Consulting surgery fro possible PEG Transaminasemia Suspect hepatic congestion from CHF or effect of pneumonia Plan: recheck LFTs tomorrow Hypokalemia Repleted and resolved Mild hyponatremia (chronic, likely multifactorial) Sodium being adjusted in TPN Question of VRE bacteremia Blood culture 05/24 positive for VRE; subsequent cultures (05/28) negative despite lack of specific coverage (on vancomycin and piperacillin-tazobactam) Likely contaminant; on linezolid 05/30?06/14 for MRSA pneumonia Recent C. difficile colitis Receiving PO vancomycin while on systemic antibiotics and for 2 days after Distended gallbladder with cholelithiasis and pericholecystic fluid Doubt acute cholecystitis (abdomen benign); General Surgery concurs Paroxysmal atrial fibrillation Continue amiodarone and apixaban [facility] - VTE: Apixaban - CODE STATUS: Full code --> DNR/DNI. Extensive discussion was held with the patient's family members ( and sister). They acknowledge the patient has had a very tumultuous clinical course, and understand that her recovery course is tenuous at best. Amenable to transitioned to DNR DNI for the time being. Depending on patient's progress over the next few days, decision may be made to transitioned to TIMBER REPAIRER. - DIET: Possible PEG -- NO PLAN FOR SURGICAL INTERVENTION AT THIS TIME - DISPOSITION: Unstable for discharge - requires IV antibiotics, IV diuretics, hypoxic respiratory failure requiring high-flow nasal cannula and TPN Total time managing care of this patient today: 90 minutes. Quality Stroke Does the patient have a stroke diagnosis?: No VTE Prior VTE?: No VTE Risk Level:: Medical - moderate - high VTE Device Contraindication: N/A - Device Ordered VTE Drug Contraindication: N/A - Med Ordered
[2025-06-12] MEDS: Parenteral Nutrition 1,080 ML 45 ML IV (22:41)
--- NOTE | 2025-06-12 22:51 | PC.NURSE ---
This nurse plated pt in soft, nonviolent restraints, as pt is pulling her oxygen and is agitated.
[2025-06-13] VITALS (14 sets, daily range): BP systolic 108–162; BP diastolic 60–82; PULSE 81–112; RESP 17–28; TEMP 36.2–37.2; O2SAT 82–97; BMI 17.0
[2025-06-13 07:31] LABS: Albumin Level 3.0 g/dL (3.5-5.0); Anion Gap 16 (12-20); Blood Urea Nitrogen 35 mg/dL (9-16); Calcium 8.4 mg/dL (8.4-10.2); Carbon Dioxide 25 mmol/L (22-29); Chloride 113 mmol/L (96-108); Creatinine Clr Calc Pharmacy 50.7; Estimated Glomerular Filt Rate > 60; Magnesium 2.5 mg/dL (1.6-2.6); Potassium 3.7 mmol/L (3.3-5.1); Sodium 150 mmol/L (135-145)
[2025-06-13] MEDS: Fluticasone/Vilanterol 200/25 BLST.W.DEV 1 PUFF INHALE (07:33)
[2025-06-13] MEDS: vancomycin HCL Oral Solution 125 MG/5 ML SOLN.RECON PO ×3 (08:30→16:51)
--- NOTE | 2025-06-13 10:03 | MHC.CLN ---
F/U PO INTAKE REMAINS POOR AT 0-25% DIET RX: PUREED WITH THIN LIQ MAGIC CUP IN PLACE SX CONSULT NO PEG TUBE PLACEMENT AT THIS TIME NOTED CODE STATUS CHANGED TO DNR/DNI PPN TO CONTINUE REVIEWED LABS-SERUM SODIUM NOW ELEVATED DISCUSSED WITH PHARMACY RECOMMEND PPN AT 55ML/HR WITH 62G LIPIDS TO PROVIDE 1293KCALS (28.7KCALS/KG), 132G DEXTROSE, 56G PROTEIN (1.2G/KG) REPLETE LYTES NEEDED CONTINUE TO MONITOR PO INTAKE
--- NOTE | 2025-06-13 10:55 | MHC.SPEECHCO ---
FREIGHT CAR BUILDER attempted to see patient at breakfast time this a.m. Patient was lying in bed on her side, receiving supplemental O2 via HFNC. Sitter was present and reported that patient refused feeding from sitter and other nurses. FREIGHT CAR BUILDER offered to feed patient breakfast, with patient refusing. FREIGHT CAR BUILDER inquired about any other preferred food items or snacks patient would like to have. Patient vehemently refused all foods/liquids. Patient continues on a pureed diet (NDD1) with thin liquids, 1:1 feeding, crushed meds. FREIGHT CAR BUILDER will continue to follow.
--- NOTE | 2025-06-13 12:39 | HO.PM.IMPN ---
Subjective Subjective Date of Service: 06/13/25 Interval History: Patient is more alert and communicative remains restless, pulling at tubes and High Flow nasal cannula The patient is oriented to name and date, but not to place or situation. Seems to be improving somewhat from cognitive status ; remains similar clinically to yesterday Review of Systems Review of Systems: Yes Unobtainable due to mental condition and Unobtainable due to mental status Physical Exam Exam: Exam: General: Ill-appearing, in soft wrist restraints, on high-flow. Delirious and combative; alert and oriented to person & time, not to place Cardiac: S1, S2 auscultated with no S3/4, no MRG. Well perfused. Respiratory: Diminished breath sounds at the bases bilaterally to the mid zones, with no wheezing. No peripheral or central cyanosis. Tachypneic, using accessory muscles. On high flow O2. GI/ : No abdominal pain on palpation, no masses or distentions. MSK: Frail cachectic with generalized upper and lower bilateral muscular atrophy and sarcopenia - in soft wrist restraints Neurological: LUE and LLE hemiplegia. Normal neurological examination on overview, without obvious CN II-XII abnormalities. Vital Signs: Vital Signs: Last Vital Signs Temp 97.1 F 06/13/25 12:13 Pulse 110 H 06/13/25 12:13 Resp 20 06/13/25 12:13 BP 160/82 H 06/13/25 12:13 Pulse Ox 92 06/13/25 12:13 O2 Del Method High Flow Nasal C annula 06/13/25 12:13 O2 Flow Rate 50 06/13/25 12:13 FiO2 45 06/13/25 12:13 Oxygen Flow Rate 8 05/24/25 13:56 BMI result Body Mass Index 17.0 Objective Data Active Medications Acetaminophen (Acetaminophen Oral Liquid 650 Mg/20.3 Ml Solution) 650 mg PO Q6H PRN PRN Reason: Pain, Mild (Pain Scale 1-3) Last Admin: 06/10/25 01:31 Dose: 650 mg Documented By: ODILIA Amiodarone HCl (Amiodarone Hcl 200 Mg Tablet) 200 mg PO BID [facility] Last Admin: 06/13/25 08:31 Dose: 200 mg Documented By: LAURENCE Apixaban (Apixaban 5 Mg Tablet) 5 mg PO BID [facility] Last Admin: 06/13/25 08:31 Dose: 5 mg Documented By: LAURENCE Atorvastatin Calcium (Atorvastatin Calcium 80 Mg Tablet) 80 mg PO BEDTIME DEE On Hold: 06/12/25 11:00 Last Admin: 06/11/25 20:09 Dose: 80 mg Documented By: ABBEY Baclofen (Baclofen 10 Mg Tablet) 10 mg PO TID DEE Last Admin: 06/13/25 08:31 Dose: 10 mg Documented By: LAURENCE Bisacodyl (Bisacodyl 10 Mg Supp.Rect) 10 mg RI DAILY PRN PRN Reason: Constipation Ergocalciferol (Ergocalciferol (Vitamin D2) 1,250 Mcg Capsule) 1,250 mcg PO MO DEE Last Admin: 06/10/25 08:03 Dose: Not Given Documented By: TERESITA Non-Admin Reason: uNABLE TO CRUSH Fluticasone/Vilanterol (Fluticasone/Vilanterol 200/25 Blst.W.Dev) 1 puff INHALE RDAILY [facility] Last Admin: 06/13/25 07:33 Dose: 1 puff Documented By: GUERO Furosemide (Furosemide 40 Mg Tablet) 40 mg PO DAILY DEE; Protocol Last Admin: 06/13/25 08:31 Dose: 40 mg Documented By: LAURENCE Nutrition (Parenteral) (Parenteral Nutrition) 1,080 mls @ 45 mls/hr IV .Q24H DEE; Protocol Stop: 06/13/25 20:59 Last Admin: 06/12/25 22:41 Dose: 45 mls/hr Documented By: JUSTUS Piperacillin Sod/Tazobactam (Sod 4.5 gm/ Sodium Chloride) 100 mls @ 200 mls/hr IV Q6H DEE Last Admin: 06/13/25 11:48 Dose: 200 mls/hr Documented By: LAURENCE Nutrition (Parenteral) (Parenteral Nutrition) 1,320 mls @ 55 mls/hr IV .Q24H DEE; Protocol Stop: 06/14/25 20:59 Losartan Potassium (Losartan Potassium 25 Mg Tablet) 25 mg PO DAILY DEE; Protocol Last Admin: 06/13/25 08:32 Dose: 25 mg Documented By: LAURENCE Magnesium Hydroxide (Milk Of Magnesia 30 Ml Oral.Susp) 30 ml PO BEDTIME PRN PRN Reason: Constipation Magnesium Oxide (Magnesium Oxide 400 Mg Tablet) 400 mg PO BID [facility] Last Admin: 06/13/25 08:31 Dose: 400 mg Documented By: LAURENCE Melatonin (Melatonin 3 Mg Tablet) 3 mg PO BEDTIME [facility] Last Admin: 06/12/25 22:09 Dose: Not Given Documented By: JUSTUS Non-Admin Reason: Physician Held Med Methylprednisolone Sodium Succinate (Methylprednisolone Sod Succ 40 Mg/Ml Vial) 40 mg IVPUSH Q12H [facility] Last Admin: 06/13/25 11:48 Dose: 40 mg Documented By: LAURENCE Mirtazapine (Mirtazapine 7.5 Mg Tablet) 7.5 mg PO BEDTIME [facility] Last Admin: 06/12/25 22:09 Dose: Not Given Documented By: JUSTUS Non-Admin Reason: Physician Held Med Morphine Sulfate (Morphine Sulfate 4 Mg/Ml Cartridge) 1 mg IVPUSH Q4H PRN; Protocol PRN Reason: sob Last Admin: 06/13/25 08:20 Dose: 1 mg Documented By: LAURENCE Multivitamins/Vitamin C (Multivitamin Tablet) 1 tab PO DAILY [facility] Last Admin: 06/13/25 08:31 Dose: 1 tab Documented By: LAURENCE Pharmacy Consult (Consult Rx Parenteral Nutrition Ordering) 1 each MISCELLANE DAILY PRN PRN Reason: Consult order Polyethylene Glycol (Polyethylene Glycol 3350 17 Gm Powd.Pack) 17 gm PO DAILY PRN PRN Reason: Constipation Pyridoxine HCl (Pyridoxine Hcl (Vitamin B6) 50 Mg Tablet) 50 mg PO DAILY [facility] Last Admin: 06/13/25 08:31 Dose: 50 mg Documented By: LAURENCE Sodium Biphosphate/Sodium Phosphate (Sodium Phosphate,[place]-Dibasic 133 Ml Enema) 118 ml RI DAILY PRN PRN Reason: Constipation Spironolactone (Spironolactone 25 Mg Tablet) 25 mg PO DAILY [facility]; Protocol Last Admin: 06/13/25 08:31 Dose: 25 mg Documented By: LAURENCE Thiamine HCl (Thiamine Hcl 100 Mg Tablet) 100 mg PO DAILY [facility] Last Admin: 06/13/25 08:31 Dose: 100 mg Documented By: LAURENCE Vancomycin HCl (Vancomycin Hcl Oral Solution 125 Mg/5 Ml Soln.Recon) 125 mg PO QID [facility] Last Admin: 06/13/25 12:06 Dose: 125 mg Documented By: LAURENCE Labs 06/12/25 08:44 06/13/25 06:19 Labs: Laboratory Results - last 24 hr 06/12/25 06/13/25 11:44 06:19 Hold Purple Top SEE NOTE Anion Gap 16 Estim Creat Clear Calc 50.7 Estimated GFR > 60 Random Glucose 148 H Calcium 8.4 Phosphorus 3.7 Magnesium 2.5 Albumin 3.0 L Respiratory Panel Torrez See Note Adenovirus (Rapid PCR) Not Detected B.pert (TEM-PCR) Not Detected B.parapertussis DNA PCR Not Detected C. pneumoniae DNA (PCR) Not Detected Coronavirus OC43 (PCR) Not Detected Coronavirus HKU1 (PCR) Not Detected Coronavirus 229E (PCR) Not Detected Coronavirus NL63 (PCR) Not Detected Human Metapneumovir PCR Not Detected Influenza A (RT-PCR) Not Detected Influenza A (H1) PCR Not Detected Influ A (H1/09) PCR Not Detected Influenza A (H3) PCR Not Detected Influenza B (RT-PCR) Not Detected M. pneumoniae (PCR) Not Detected Parainfluenza 1 (PCR) Not Detected Parainfluenza 2 (PCR) Not Detected Parainfluenza 3 (PCR) Not Detected Parainfluenza 4 (PCR) Not Detected RSV (PCR) Not Detected Entero/Rhino (PCR) Not Detected SARS-CoV-2 RNA (RT-PCR) Not Detected Assessment and Plan (1) CHF (congestive heart failure): Status: Acute (2) Afib: Status: Acute (3) Malnutrition: Status: Acute (4) Cholecystitis: Status: Acute (5) Sarcopenia: Status: Acute (6) Acute respiratory failure: Status: Acute (7) Multifocal pneumonia: Status: Acute (8) Respiratory failure: Status: Acute Plan 74-year-old female with history of CHF, paroxysmal atrial fibrillation (pAF), and recent C. difficile infection [place] [facility] [place] [facility] with dyspnea. Found to have hypoxic respiratory failure secondary to multifocal pneumonia, requiring intubation. Admitted to ICU, extubated 05/27, downgraded to telemetry 05/28. Hospital course complicated by CHF exacerbation requiring CPAP; currently on HFNC, transitioned from furosemide (Lasix) drip to oral furosemide. Acute hypoxic respiratory failure (AHRF) due to multifocal MRSA pneumonia, acute asthma exacerbation, and acute HFpEF Anticipate weaning off HFNC to regular NC in next 24h (CPAP available if needed) Completed piperacillin-tazobactam (Zosyn) 05/24?06/02 Vancomycin 05/24?05/30, then switched to linezolid 05/30?06/14 per ID (MRSA swab positive) Methylprednisolone 05/30?06/03; continue nebulizers and Breo Furosemide PO (previously IV drip); continue losartan and spironolactone The patient has recurrent leukocytosis with neutrophilic shift, worsening right lower lobe opacification, has been delirious over the past few days. Subacutely worsening respiratory function after a period of improvement. Impression of aspiration pneumonia PLAN - restarted methylprednisolone 40 mg b.i.d. IV - high-flow NC - soft wrist restraints for agitation > chemical restraints - started Zosyn - patient does have +ve MRSA swab; this was not repeated; if no clinical improvement, add vancomycin Echocardiogram (TTE 05/31) Normal LV cavity size; mildly increased LV wall thickness LV systolic function low-normal (EF 50?55%) Apical septum and mid-inferoseptal segments hypokinetic Mildly increased RV cavity size; mildly decreased RV systolic function Severely dilated left and right atria Mild to moderate mitral regurgitation Oxygen weaning Plan to wean off O2 as tolerated Severe protein-calorie malnutrition (previously moderate) Poor PO intake; receiving supplements and TPN via PICC Oral diet per COMMERCIAL FINANCE MANAGER, eating ?25% Consider stopping TPN Consulting surgery fro possible PEG Transaminasemia Suspect hepatic congestion from CHF or effect of pneumonia Plan: recheck LFTs tomorrow Hypokalemia Repleted and resolved Mild hyponatremia (chronic, likely multifactorial) Sodium being adjusted in TPN Question of VRE bacteremia Blood culture 05/24 positive for VRE; subsequent cultures (05/28) negative despite lack of specific coverage (on vancomycin and piperacillin-tazobactam) Likely contaminant; on linezolid 05/30?06/14 for MRSA pneumonia Recent C. difficile colitis Receiving PO vancomycin while on systemic antibiotics and for 2 days after Distended gallbladder with cholelithiasis and pericholecystic fluid Doubt acute cholecystitis (abdomen benign); General Surgery concurs Paroxysmal atrial fibrillation Continue amiodarone and apixaban QUALITY METRICS - VTE: Apixaban - CODE STATUS: Full code --> DNR/DNI. Extensive discussion was held with the patient's family members ( and sister). They acknowledge the patient has had a very tumultuous clinical course, and understand that her recovery course is tenuous at best. Amenable to transitioned to DNR DNI for the time being. Depending on patient's progress over the next few days, decision may be made to transitioned to VICE PRESIDENT FINANCIAL. - DIET: Possible PEG -- NO PLAN FOR SURGICAL INTERVENTION AT THIS TIME - DISPOSITION: Unstable for discharge - requires IV antibiotics, IV diuretics, hypoxic respiratory failure requiring high-flow nasal cannula and TPN Total time managing care of this patient today: 45 minutes. Quality Stroke Does the patient have a stroke diagnosis?: No VTE Prior VTE?: No VTE Risk Level:: Medical - moderate - high VTE Device Contraindication: N/A - Device Ordered VTE Drug Contraindication: N/A - Med Ordered
--- NOTE | 2025-06-13 14:46 | PC.NURSE ---
bed 462 family upset that the pt didn't have covers on. despite frequent changing and repositioning. pt agitated and continuously pulling at the fanny kicking blankets off. sitter at bedside. explained to family that the pt has been very active. family requesting some for agitation. MD made aware. Pt cleaned up by RN and aide repositioned. family wants sitter outside of the room while they visit. camera still in place. family upset and requesting to speak to MD made aware. Speech to come by a reassess the pt prior to eating. RN concerned pt aspirated with AM meds, pt inahling thickened liquids coughing. MD and speech made aware.
--- NOTE | 2025-06-13 18:09 | MHC.SL.SWA ---
Speech Pathologist Impression: Moderate oropharyngeal dysphagia Risk of Aspiration Due to: Fluctuating oxygen needs, cognition/impulsivity, respiratory status Dysphasia Diet Status: NDD1 (puree), DOWNGRADE to HONEY THICK LIQUIDS with 1:1 feeding Liquid Consistency and Strategies for Safe Swallow: Liquid Intake Recommendation: Honey Thick Liquid Intake Strategies: Liquids by Teaspoon Only Solid Food Consistency: Dietary Recommendations: Pureed (NDD1) Additional Modifications to Solid Foods: Ensure adequate positioning prior to PO; all liquids/solids BY SPOON Oral Medication Intake: Crushed with Puree Please contact the pharmacy regarding appropriate crushable or liquid drug formulations that are available whenever modified delivery is recommended. Compensatory Strategies and Precautions to be Taken for Safe Swallow: Sitting Upright (90 deg) Small Bites and Sips Liquids from spoon Solids from spoon Rate of Ingestion Change Supervision While Eating and Drinking for Safe Swallow: Total Assistance (1:1) Foods to Avoid: Swallowing Recommended Treatments: Compens. Strategy Educat. Recommendation for Speech: Outpatient Speech Therapy Comment: Patient was attempted in AM by TARE WEIGHER; refused. Secure chat from RN with concerns for aspiration; held PO until re-assessed. Patient re-evaled this evening. Patient re-positioned prior to PO intake; patient moving/sliding in bed making for subpar swallowing position. Patient currently on highflow O2; noted difficulties using straw and cup sip as she would just blow out of O2 would push liquids. All liquid consistencies trialed this date; noted s/sx aspiration/penetration on thin and NTLs. No s/sx of penetration on HTLs. Patient desatting to high 80s during evaluation. Patient also pulling out highflow and leads; with soft restraint placed. WFL for pureed solids. Recommend NDD1 (puree) with DOWNGRADE to HONEY THICK LIQUIDS. All solids and liquids to be BY SPOON. 1:1 feeding assistance d/t cognition and heavy impulsivity. MD, RN, RD made aware of diet changes via secure chat and MD changing in expanse. TARE WEIGHER to continue to follow. Frequency/Duration: M-F Daily Date Range for Service Req: Timeline to reassess: Manager Social Clinican/Clinical Fellow: No Supervisory Statement: I have reviewed and agree with the student/clinical fellow's documentation: No Speech Language Pathologist: Edelmira Hunter M.A., CCC-TARE WEIGHER
[2025-06-13] MEDS: Parenteral Nutrition 1,320 ML 55 ML IV (21:35)
[2025-06-14] VITALS (17 sets, daily range): BP systolic 114–136; BP diastolic 46–65; PULSE 83–120; RESP 22–42; TEMP 36.8; O2SAT 92–98
[2025-06-14] MEDS: diazePAM 10 MG/2 ML CARTRIDGE 2.5 MG IVPUSH ×2 (01:19→05:54)
[2025-06-14 01:27] LABS: Glucose, Whole Blood 155 mg/dL (60-115)
[2025-06-14] MEDS: diazePAM 10 MG/2 ML CARTRIDGE 5 MG IVPUSH (03:13)
--- NOTE | 2025-06-14 03:14 | P.EN_ITS ---
Event Note Date of Service: 06/14/25 Event Note: INTEGRATED CIRCUIT LAYOUT DESIGNER activated the patient started to develop worsening shortness on breath and restlessness. Breathing treatment, furosemide 20 mg IV, Solu-Medrol 125 mg IV and Dilaudid IV provided. CXR obtained and showed course opacity throughout both lungs which appear similar to prior exams, small left pleural effusion (unchanged), cardiomegaly and osteopenia. Goals of care discussion: Held a conversation with the patient's family regarding the patient's current clinical condition and poor prognosis. I explained that despite ongoing medical treatment, there has been no meaningful improvement and further aggressive interventions are unlikely to provide benefit and may prolong suffering. Family members demonstrated understanding of the patient's condition, goals and likely trajectory. After discussion of options, including continuation for medical therapy versus transition to comfort-focused approach, the family expressed that they would not want burdensome interventions and prioritized comfort and dignity. The family agreed to transition to comfort care only. Code status confirmed: DNR/DNI. Orders to focus on symptoms management (pain, dyspnea, anxiety) and discontinue non beneficial treatment were reviewed and accepted by the family. They voiced understanding and had all questions answered. Emotional support provided. Plan: Initiate comfort care measures per protocol. Time Spent With Patient Time: Total time managing care of this patient today ____ minutes.
--- NOTE | 2025-06-14 09:55 | MHC.CLN ---
F/U PO INTAKE REMAINS POOR AT 0-25% DIET RX: PUREED WITH HT LIQ PER CLINICAL IMMUNOLOGIST PT IS NOW COMFORT MEASURES ONLY PPN D/C-NOTIFIED PHARMACY WILL D/C MAGIC CUP WILL FOLLOW WITH TEAM AND PROVIDE SUPPORT NEDED
--- NOTE | 2025-06-14 11:15 | MHC.CM.PN ---
Per ROUNDS, Patient is RESEARCH STUDY ASSISTANT.
--- NOTE | 2025-06-14 13:56 | P.PNIM_ITS ---
Subjective Subjective Date of Service: 06/14/25 Interval History: Overnight events reviewed; patient transitioned to MANAGER FURNITURE. Currently unresponsive - comfortable, no distress or pain. Family by bedside. Questions answered. Review of Systems Review of Systems: Yes Unobtainable due to mental status Physical Exam 2 Exam: Exam: General: Ill-appearing, in soft wrist restraints, on high-flow. unresponsive. comfortable in bed. Cardiac: S1, S2 auscultated with no S3/4, no MRG. Well perfused. Respiratory: Diminished breath sounds at the bases bilaterally to the mid zones, with no wheezing. No peripheral or central cyanosis. Tachypneic, using accessory muscles. On high flow O2. GI/ : No abdominal pain on palpation, no masses or distentions. MSK: Frail cachectic with generalized upper and lower bilateral muscular atrophy and sarcopenia Neurological: not performed. Vital Signs: Vital Signs: Last Vital Signs Temp 98.2 F 06/14/25 01:40 Pulse 85 06/14/25 02:55 Resp 34 H 06/14/25 11:40 BP 114/46 L 06/14/25 01:40 Pulse Ox 92 06/14/25 02:55 O2 Del Method High Flow Nasal C annula 06/14/25 02:55 O2 Flow Rate 55 06/14/25 02:55 FiO2 100 06/14/25 01:17 Oxygen Flow Rate 93 06/14/25 01:40 BMI result Body Mass Index 17.0 Objective Data Active Medications Artificial Tears (Artificial Tears 15 Ml Drops) 2 drop EYE-BOTH Q4H PRN PRN Reason: Dry Eyes Atorvastatin Calcium (Atorvastatin Calcium 80 Mg Tablet) 80 mg PO BEDTIME DEE On Hold: 06/12/25 11:00 Last Admin: 06/11/25 20:09 Dose: 80 mg Documented By: ABBEY Bisacodyl (Bisacodyl 10 Mg Supp.Rect) 10 mg [place] DAILY PRN PRN Reason: Constipation Diazepam (Diazepam 10 Mg/2 Ml Cartridge) 2.5 mg IVPUSH Q3H PRN PRN Reason: Anxiety Last Admin: 06/14/25 05:54 Dose: 2.5 mg Documented By: JUSTUS Haloperidol Lactate (Haloperidol Lactate 5 Mg/Ml Vial) 0.5 mg IVPUSH Q4H PRN PRN Reason: Delirium Hydromorphone HCl (Hydromorphone Hcl 1 Mg/Ml Syringe) 1 mg IVPUSH Q2H PRN; Protocol PRN Reason: comfort Last Admin: 06/14/25 12:05 Dose: 1 mg Documented By: LAURENCE Levalbuterol HCl (Levalbuterol Hcl 1.25 Mg/3 Ml Vial.Neb) 1.25 mg INHALE Q4H PRN PRN Reason: Shortness of Breath/Wheezing Last Admin: 06/14/25 01:07 Dose: 1.25 mg Documented By: GERARDO Ondansetron HCl (Ondansetron Hcl 4 Mg/2 Ml Vial) 4 mg IVPUSH Q8H PRN PRN Reason: Nausea and Vomiting Scopolamine (Scopolamine 1.5 Mg Patch.Td.3) 1.5 mg TRANSDERMA Q72H DEE Last Admin: 06/14/25 03:12 Dose: 1.5 mg Documented By: JUSTUS Sodium Biphosphate/Sodium Phosphate (Sodium Phosphate,[place]-Dibasic 133 Ml Enema) 118 ml [place] DAILY PRN PRN Reason: Constipation Labs 06/12/25 08:44 06/13/25 06:19 Labs: Laboratory Results - last 24 hr 06/14/25 00:38 POC Glucose 155 H Assessment and Plan (1) CHF (congestive heart failure): Status: Acute (2) Afib: Status: Acute (3) Malnutrition: Status: Acute (4) Cholecystitis: Status: Acute (5) Sarcopenia: Status: Acute (6) Acute respiratory failure: Status: Acute (7) Multifocal pneumonia: Status: Acute (8) Respiratory failure: Status: Acute Plan 74-year-old female with history of CHF, paroxysmal atrial fibrillation (pAF), and recent C. difficile infection (admitted to [facility] [place] transferred from [facility] with dyspnea. Found to have hypoxic respiratory failure secondary to multifocal pneumonia, requiring intubation. Admitted to ICU, extubated 05/27, downgraded to telemetry 05/28. Hospital course complicated by CHF exacerbation requiring CPAP; currently on HFNC, transitioned from furosemide (Lasix) drip to oral furosemide. Acute hypoxic respiratory failure (AHRF) due to multifocal MRSA pneumonia, acute asthma exacerbation, and acute HFpEF Impression of aspiration pneumonia currently CHFpLVEF, rRVEF Severe protein-calorie malnutrition (previously moderate) Poor PO intake; receiving supplements and TPN via PICC Transaminasemia Hypokalemia Mild hyponatremia (chronic, likely multifactorial) Question of VRE bacteremia Recent C. difficile colitis Distended gallbladder with cholelithiasis and pericholecystic fluid Paroxysmal atrial fibrillation Comfort Measures Only Goals of Care: The goal is to provide maximal comfort and preserved dignity, allowing for a natural dying process. Life prolonging treatments are not being pursued due to multi organ dysfunction with terminal diagnosis, poor prognosis, overwhelming disease burden. Advanced directives: Patient's advanced directive is on file and reviewed. The patient's surrogate, is aware and agrees with the plan for MANAGER FURNITURE. Interventions: All interventions will be focused on symptom management including pain, anxiety, dyspnea, nausea/vomiting. Resuscitation status: MANAGER FURNITURE orders are in place [facility] - VTE: N/A - CODE STATUS: MANAGER FURNITURE - DIET: relieved - DISPOSITION: MANAGER FURNITURE - inpatient hospice Total time managing care of this patient today: 45 minutes. Quality Stroke Does the patient have a stroke diagnosis?: No VTE Prior VTE?: No VTE Risk Level:: Medical - moderate - high VTE Device Contraindication: N/A - Device Ordered VTE Drug Contraindication: N/A - Med Ordered
[2025-06-15] VITALS (9 sets, daily range): PULSE 88–90; RESP 22–45; O2SAT 90–92
[2025-06-15] MEDS: diazePAM 10 MG/2 ML CARTRIDGE 2.5 MG IVPUSH ×6 (05:07→15:26)
[2025-06-15] MEDS: Morphine Sulfate/NS 100 MG/100 ML PLAST..BAG IVCONT (13:16)
--- NOTE | 2025-06-15 13:18 | HO.PM.IMPN ---
Subjective Subjective Date of Service: 06/15/25 Interval History: Nonverbal Lying comfortably in bed Remains on high-flow due to distress and tachypnea Initiating morphine drip Family updated Review of Systems Review of Systems: Yes Unobtainable due to mental condition and Unobtainable due to mental status Physical Exam Exam: Exam: General: Ill-appearing, on high-flow. unresponsive. comfortable in bed. Cardiac: S1, S2 auscultated with no S3/4, no MRG. Well perfused. Respiratory: Diminished breath sounds at the bases bilaterally to the mid zones, with no wheezing. No peripheral or central cyanosis. Tachypneic, using accessory muscles. On high flow O2. GI/ : No abdominal pain on palpation, no masses or distentions. MSK: Frail cachectic with generalized upper and lower bilateral muscular atrophy and sarcopenia Neurological: not performed. Vital Signs: Vital Signs: Last Vital Signs Temp 98.2 F 06/14/25 01:40 Pulse 85 06/14/25 02:55 Resp 32 H 06/15/25 11:17 BP 114/46 L 06/14/25 01:40 Pulse Ox 92 06/14/25 02:55 O2 Del Method High Flow Nasal C annula 06/14/25 02:55 O2 Flow Rate 55 06/14/25 02:55 FiO2 100 06/14/25 01:17 Oxygen Flow Rate 93 06/14/25 01:40 BMI result Body Mass Index 17.0 Objective Data Active Medications Artificial Tears (Artificial Tears 15 Ml Drops) 2 drop EYE-BOTH Q4H PRN PRN Reason: Dry Eyes Bisacodyl (Bisacodyl 10 Mg Supp.Rect) 10 mg MA DAILY PRN PRN Reason: Constipation Diazepam (Diazepam 10 Mg/2 Ml Cartridge) 2.5 mg IVPUSH Q1H PRN PRN Reason: Anxiety Last Admin: 06/15/25 11:53 Dose: 2.5 mg Documented By: KEVIN Haloperidol Lactate (Haloperidol Lactate 5 Mg/Ml Vial) 0.5 mg IVPUSH Q1H PRN PRN Reason: Delirium Last Admin: 06/15/25 11:52 Dose: 0.5 mg Documented By: KEVIN Hydromorphone HCl (Hydromorphone Hcl 1 Mg/Ml Syringe) 1 mg IVPUSH Q1H PRN; Protocol PRN Reason: comfort Last Admin: 06/15/25 12:30 Dose: 1 mg Documented By: KEVIN Morphine Sulfate (Morphine Sulfate/Ns) 100 mg in 100 mls @ 0 mls/hr IVCONT .Q0M [facility]; Protocol Levalbuterol HCl (Levalbuterol Hcl 1.25 Mg/3 Ml Vial.Neb) 1.25 mg INHALE Q4H PRN PRN Reason: Shortness of Breath/Wheezing Last Admin: 06/14/25 01:07 Dose: 1.25 mg Documented By: GERARDO Ondansetron HCl (Ondansetron Hcl 4 Mg/2 Ml Vial) 4 mg IVPUSH Q8H PRN PRN Reason: Nausea and Vomiting Scopolamine (Scopolamine 1.5 Mg Patch.Td.3) 1.5 mg TRANSDERMA Q72H [facility] Last Admin: 06/14/25 03:12 Dose: 1.5 mg Documented By: JUSTUS Sodium Biphosphate/Sodium Phosphate (Sodium Phosphate,Dickinson-Dibasic 133 Ml Enema) 118 ml MA DAILY PRN PRN Reason: Constipation Labs 06/12/25 08:44 06/13/25 06:19 Assessment and Plan (1) Malnutrition: Status: Acute (2) CHF (congestive heart failure): Status: Acute (3) Afib: Status: Acute (4) Cholecystitis: Status: Acute (5) Sarcopenia: Status: Acute (6) Acute respiratory failure: Status: Acute (7) Respiratory failure: Status: Acute (8) Multifocal pneumonia: Status: Acute Plan 74-year-old female with history of CHF, paroxysmal atrial fibrillation (pAF), and recent C. difficile infection (admitted to [facility]), transferred from [facility] with dyspnea. Found to have hypoxic respiratory failure secondary to multifocal pneumonia, requiring intubation. Admitted to ICU, extubated 05/27, downgraded to telemetry 05/28. Hospital course complicated by CHF exacerbation requiring CPAP; currently on HFNC, transitioned from furosemide (Lasix) drip to oral furosemide. MEDICAL ISSUES Acute hypoxic respiratory failure (AHRF) due to multifocal MRSA pneumonia, acute asthma exacerbation, and acute HFpEF Impression of aspiration pneumonia currently CHFpLVEF, rRVEF Severe protein-calorie malnutrition (previously moderate) Poor PO intake; receiving supplements and TPN via PICC Transaminasemia Hypokalemia Mild hyponatremia (chronic, likely multifactorial) Question of VRE bacteremia Recent C. difficile colitis Distended gallbladder with cholelithiasis and pericholecystic fluid Paroxysmal atrial fibrillation Comfort Measures Only Goals of Care: The goal is to provide maximal comfort and preserved dignity, allowing for a natural dying process. Life prolonging treatments are not being pursued due to multi organ dysfunction with terminal diagnosis, poor prognosis, overwhelming disease burden. Advanced directives: Patient's advanced directive is on file and reviewed. The patient's surrogate, is aware and agrees with the plan for ORDER ENTRY SPECIALIST. Interventions: All interventions will be focused on symptom management including pain, anxiety, dyspnea, nausea/vomiting. Resuscitation status: ORDER ENTRY SPECIALIST orders are in place [employer] - VTE: N/A - CODE STATUS: ORDER ENTRY SPECIALIST - DIET: relieved - DISPOSITION: ORDER ENTRY SPECIALIST - inpatient hospice - 06/14/2025 Total time managing care of this patient today: 35 minutes. Quality Stroke Does the patient have a stroke diagnosis?: No VTE Prior VTE?: No VTE Risk Level:: Medical - moderate - high VTE Device Contraindication: N/A - Device Ordered VTE Drug Contraindication: N/A - Med Ordered
--- NOTE | 2025-06-16 12:04 | PM.DDS ---
Discharge Sum: Prov Provider Primary care physician: Kevin Landers MD Consults: 05/24/25 21:28 Consult to Wound Care [place]ine [place] [facility] [place] [facility] Reason for consultation: MASD to coccyx Has provider been notified: Yes 05/25/25 08:54 Consult to General Surgery Routine Consulting Provider: Darcy Peterson Reason for consultation: ?Acute Cholecystitis 05/30/25 15:24 Consult to Infectious Diseases Routine Consulting Provider[place] [facility] [place] [facility] Reason for consultation: VRE bacteremia. Did not start linezolid til 05/3005/31/25 14:18 Consult to Cardiology Routine Consulting Provider: [facility] [place] [facility] Reason for consultation: fluid overload, very enlarged heart 06/02/25 22:19 Consult to Infectious Diseases Routine Consulting Provider: [facility] [place] [facility] Reason for consultation: Nausea, vomiting, diarrhea, fever, transaminitis, leukopenia Has provider been notified: No 06/10/25 14:33 Consult to General Surgery Routine Consulting Provider: [facility] [place] [facility] Reason for consultation: Malnutrition, assess for PEG Has provider been notified: No 06/11/25 23:06 Consult to Critical Care Routine Consulting Provider: Josie Devlin Reason for consultation: hypoxia 06/12/25 09:31 Consult to Wound Care Routine Consulting Provider: [facility] [place] [facility] Reason for consultation: heels/sacrum/nose/L. hip 06/14/25 02:57 Consult to Correspondence Renew Clerk Routine Comment: Pronouncing clinician: César Rios Discharge Sum: Diag Contributing Factors (1) Malnutrition: (2) CHF (congestive heart failure): (3) Afib: (4) Cholecystitis: (5) Sarcopenia: (6) Acute respiratory failure: (7) Respiratory failure: (8) Multifocal pneumonia: Discharge Sum: Summary Date and Time Date of admission: 05/24/25 18:46 Summary Details: 74-year-old female with history of CHF, paroxysmal atrial fibrillation (pAF), and recent C. difficile infection (admitted to [facility]), transferred from [facility] with dyspnea. Found to have hypoxic respiratory failure secondary to multifocal pneumonia, requiring intubation. Admitted to ICU, extubated 05/27, downgraded to telemetry 05/28. Hospital course complicated by CHF exacerbation requiring CPAP; currently on HFNC, transitioned from furosemide (Lasix) drip to oral furosemide. MEDICAL ISSUES Acute hypoxic respiratory failure (AHRF) due to multifocal MRSA pneumonia, acute asthma exacerbation, and acute HFpEF Impression of aspiration pneumonia currently CHFpLVEF, rRVEF Severe protein-calorie malnutrition (previously moderate) Poor PO intake; receiving supplements and TPN via PICC Transaminasemia Hypokalemia Mild hyponatremia (chronic, likely multifactorial) Question of VRE bacteremia Recent C. difficile colitis Distended gallbladder with cholelithiasis and pericholecystic fluid Paroxysmal atrial fibrillation Comfort Measures Only Goals of Care: The goal is to provide maximal comfort and preserved dignity, allowing for a natural dying process. Life prolonging treatments are not being pursued due to multi organ dysfunction with terminal diagnosis, poor prognosis, overwhelming disease burden. Advanced directives: Patient's advanced directive is on file and reviewed. The patient's surrogate, is aware and agrees with the plan for BUSINESS CONTROLLER. Interventions: All interventions will be focused on symptom management including pain, anxiety, dyspnea, nausea/vomiting. Resuscitation status: BUSINESS CONTROLLER orders are in place The patient 06/15/2025 at 16:30pm. pronouncement performed by Dr. Rios - certificate filled out by Dr. Rios. Additional Data Confirmation of as documented by pronouncing clinician: no pulse, no respirations, no heart sounds and pupils fixed and dilated Family: at bedside Additional persons at bedside: swiss machinist Attending physician: Lisa Ocampo MD Was code activated?: No Autopsy requested?: No crime scene examiner notified?: No Organ bank notified?: No Advance directives: No Hospice patient?: No
== END 2025-06-15 16:35 | disposition expired | DRG 208 ==
LOC: HO.ED 18:52 → HO.EDOVER 19:03 → HO.ICU 19:16 → HO.IMC 05-28 16:19 → HO.S3 06-08 14:22 → HO.IMC 06-09 19:17 → HO.S3 06-14 07:24 → HO.IMC 06-14 07:50
PROVIDERS: Family Medicine; Hospitalist; Internal Medicine; Internal Medicine Pulmonary Disease; Nurse Practitioner Family; Registered Nurse Community Health; Student in an Organized Health Care Education/Training Program; Admitting Provider Internal Medicine Critical Care Medicine; Emergency Provider Emergency Medicine; PCP Family Medicine; Visit Provider Hospitalist
DX: J15.212 Pneumonia due to Methicillin resistant Staphylococcus aureus (principal); E43 Unspecified severe protein-calorie malnutrition; I50.33 Acute on chronic diastolic (congestive) heart failure; J96.01 Acute respiratory failure with hypoxia; E87.1 Hypo-osmolality and hyponatremia; F05 Delirium due to known physiological condition; Z68.1 Body mass index [BMI] 19.9 or less, adult; J45.41 Moderate persistent asthma with (acute) exacerbation; R78.81 Bacteremia; Z16.21 Resistance to vancomycin; I48.92 Unspecified atrial flutter; Z51.5 Encounter for palliative care; Z66 Do not resuscitate; B95.2 Enterococcus as the cause of diseases classified elsewhere; I11.0 Hypertensive heart disease with heart failure; I34.0 Nonrheumatic mitral (valve) insufficiency; M62.84 Sarcopenia; E87.6 Hypokalemia; K80.20 Calculus of gallbladder without cholecystitis without obstruction; E88.09 Other disorders of plasma-protein metabolism, not elsewhere classified; I48.0 Paroxysmal atrial fibrillation; Z20.822 Contact with and (suspected) exposure to COVID-19; Z79.01 Long term (current) use of anticoagulants; Z79.899 Other long term (current) drug therapy
CPT/HCPCS: 36415; 36600; 71045; 71275; 73070; 74177; 76705; 80048; 80053; 80076; 80202; 81001; 82040; 82247; 82248; 82550; 82803; 82947; 83605; 83735; 83880; 84075; 84100; 84132; 84145; 84450; 84460; 84478; 84484; 85025; 85027; 85610; 86140; 86850; 86900; 86901; 86923; 87040; 87070; 87077; 87086; 87186; 87205; 87493; 87497; 87633; 87637; 87640; 87641; 87798; 92526; 92610; 93005; 93306; 93971; 94002; 94003; 94640; 94660; 94799; 99285; J0131; J0613; J1171; J1308; J1630; J1650; J1938; J2020; J2251; J2270; J2543; J2704; J2919; J3010; J3360; J3374; J3475; J3480; J7120; P9016; P9047; Q9957; Q9967

== ENCOUNTER → 2025-05-24 14:01 | Outpatient (BNV) | payer MEDICARE, SELFPAY | PROVIDERS: Admitting Provider Internal Medicine Critical Care Medicine; Emergency Provider Emergency Medicine; PCP Family Medicine; Visit Provider Internal Medicine | DX: R06.02 Shortness of breath (principal) | CPT/HCPCS: 93010 ==

== ENCOUNTER → 2025-05-24 14:02 | Outpatient (BNV) | payer MEDICARE, SELFPAY | PROVIDERS: Emergency Provider Emergency Medicine; Visit Provider Radiology Diagnostic Radiology | DX: K80.20 Calculus of gallbladder without cholecystitis without obstruction (principal); J18.9 Pneumonia, unspecified organism; A41.9 Sepsis, unspecified organism; I51.7 Cardiomegaly | CPT/HCPCS: 71045; 71275; 74177; 76705 ==

== ENCOUNTER 2025-05-24 18:46 | Outpatient (BNV) | payer MEDICARE, SELFPAY | END 2025-05-27 09:37 | PROVIDERS: Admitting Provider Internal Medicine Critical Care Medicine; Emergency Provider Emergency Medicine; PCP Family Medicine; Visit Provider Radiology Diagnostic Radiology | DX: K80.20 Calculus of gallbladder without cholecystitis without obstruction (principal); K83.8 Other specified diseases of biliary tract | CPT/HCPCS: 76705 ==

== ENCOUNTER 2025-05-24 18:46 | Outpatient (BNV) | payer MEDICARE, SELFPAY | END 2025-05-25 21:58 | PROVIDERS: Admitting Provider Internal Medicine Critical Care Medicine; Emergency Provider Emergency Medicine; PCP Family Medicine; Visit Provider Internal Medicine | DX: R94.31 Abnormal electrocardiogram [ECG] [EKG] (principal); I49.9 Cardiac arrhythmia, unspecified | CPT/HCPCS: 93010 ==

== ENCOUNTER 2025-05-24 18:46 | Outpatient (BNV) | payer OTHER, MEDICARE, SELFPAY | END 2025-05-26 20:03 | PROVIDERS: Admitting Provider Internal Medicine Critical Care Medicine; Emergency Provider Emergency Medicine; PCP Family Medicine; Visit Provider Internal Medicine Cardiovascular Disease | DX: I48.92 Unspecified atrial flutter (principal); I21.09 ST elevation (STEMI) myocardial infarction involving other coronary artery of anterior wall | CPT/HCPCS: 93010 ==

== ENCOUNTER 2025-05-24 18:46 | Outpatient (BNV) | payer OTHER, MEDICARE, SELFPAY | END 2025-06-12 02:31 | PROVIDERS: Admitting Provider Internal Medicine Critical Care Medicine; Emergency Provider Emergency Medicine; PCP Family Medicine; Visit Provider Internal Medicine Cardiovascular Disease | DX: R94.31 Abnormal electrocardiogram [ECG] [EKG] (principal); Z13.6 Encounter for screening for cardiovascular disorders | CPT/HCPCS: 93010 ==

== ENCOUNTER 2025-05-24 18:46 | Outpatient (BNV) | payer OTHER, MEDICARE, SELFPAY | END 2025-05-31 07:00 | PROVIDERS: Admitting Provider Internal Medicine Critical Care Medicine; Emergency Provider Emergency Medicine; PCP Family Medicine; Visit Provider Internal Medicine Cardiovascular Disease | DX: I51.89 Other ill-defined heart diseases (principal); I34.0 Nonrheumatic mitral (valve) insufficiency; I51.7 Cardiomegaly; R93.1 Abnormal findings on diagnostic imaging of heart and coronary circulation | CPT/HCPCS: 93306 ==

== ENCOUNTER 2025-05-24 18:46 | Outpatient (BNV) | payer OTHER, MEDICARE, SELFPAY | END 2025-05-31 03:50 | PROVIDERS: Admitting Provider Internal Medicine Critical Care Medicine; Emergency Provider Emergency Medicine; PCP Family Medicine; Visit Provider Radiology Diagnostic Radiology | DX: R09.02 Hypoxemia (principal); I51.7 Cardiomegaly; J90 Pleural effusion, not elsewhere classified | CPT/HCPCS: 71045; 71275 ==

== ENCOUNTER 2025-05-24 18:46 | Outpatient (BNV) | payer OTHER, MEDICARE, SELFPAY | END 2025-06-03 10:10 | PROVIDERS: Admitting Provider Internal Medicine Critical Care Medicine; Emergency Provider Emergency Medicine; PCP Family Medicine; Visit Provider Radiology Diagnostic Radiology | DX: J90 Pleural effusion, not elsewhere classified (principal); J81.0 Acute pulmonary edema; I51.7 Cardiomegaly | CPT/HCPCS: 71045 ==

== ENCOUNTER 2025-05-24 18:46 | Outpatient (BNV) | payer OTHER, MEDICARE, SELFPAY | END 2025-06-07 17:50 | PROVIDERS: Admitting Provider Internal Medicine Critical Care Medicine; Emergency Provider Emergency Medicine; PCP Family Medicine; Visit Provider Radiology Diagnostic Radiology | DX: R91.8 Other nonspecific abnormal finding of lung field (principal) | CPT/HCPCS: 73070 ==

== ENCOUNTER 2025-05-24 18:46 | Outpatient (BNV) | payer OTHER, MEDICARE, SELFPAY | END 2025-05-30 11:28 | PROVIDERS: Admitting Provider Internal Medicine Critical Care Medicine; Emergency Provider Emergency Medicine; PCP Family Medicine; Visit Provider Radiology Diagnostic Radiology | DX: R22.42 Localized swelling, mass and lump, left lower limb (principal) | CPT/HCPCS: 93971 ==

== ENCOUNTER → 2025-05-24 18:46 | Outpatient (BNV) | payer MEDICARE, SELFPAY | PROVIDERS: Admitting Provider Internal Medicine Critical Care Medicine; Emergency Provider Emergency Medicine; PCP Family Medicine; Visit Provider Surgery | DX: K81.9 Cholecystitis, unspecified (principal) | CPT/HCPCS: 99222; 99232 ==

== ENCOUNTER → 2025-05-24 18:46 | Outpatient (BNV) | payer OTHER, MEDICARE, SELFPAY | PROVIDERS: Admitting Provider Internal Medicine Critical Care Medicine; Emergency Provider Emergency Medicine; PCP Family Medicine; Visit Provider Internal Medicine Cardiovascular Disease | DX: I50.9 Heart failure, unspecified (principal) | CPT/HCPCS: 99232 ==

== ENCOUNTER → 2025-05-24 18:46 | Outpatient (BNV) | payer OTHER, MEDICARE, SELFPAY | PROVIDERS: Admitting Provider Internal Medicine Critical Care Medicine; Emergency Provider Emergency Medicine; PCP Family Medicine; Visit Provider Internal Medicine Pulmonary Disease | DX: J96.01 Acute respiratory failure with hypoxia (principal); K81.9 Cholecystitis, unspecified; I48.91 Unspecified atrial fibrillation | CPT/HCPCS: 99291 ==

== ENCOUNTER → 2025-05-24 18:46 | Outpatient (BNV) | payer OTHER, MEDICARE, SELFPAY | PROVIDERS: Admitting Provider Internal Medicine Critical Care Medicine; Emergency Provider Emergency Medicine; PCP Family Medicine; Visit Provider Internal Medicine | DX: I50.9 Heart failure, unspecified (principal) | CPT/HCPCS: 99232 ==

== ENCOUNTER → 2025-05-24 18:46 | Outpatient (BNV) | payer MEDICARE, SELFPAY | PROVIDERS: Admitting Provider Internal Medicine Critical Care Medicine; Emergency Provider Emergency Medicine; PCP Family Medicine; Visit Provider Internal Medicine Critical Care Medicine | DX: J96.91 Respiratory failure, unspecified with hypoxia (principal); J18.8 Other pneumonia, unspecified organism | CPT/HCPCS: 99223; 99291 ==

== ENCOUNTER → 2025-05-24 18:46 | Outpatient (BNV) | payer OTHER, MEDICARE, SELFPAY | PROVIDERS: Admitting Provider Internal Medicine Critical Care Medicine; Emergency Provider Emergency Medicine; PCP Family Medicine; Visit Provider Hospitalist | DX: J18.8 Other pneumonia, unspecified organism (principal); I48.91 Unspecified atrial fibrillation | CPT/HCPCS: 99233; 99499 ==